=== PATIENT | female | born 1940 | race African-American/Black ===

== ENCOUNTER 2020-09-04 16:39 | Inpatient (IN) | payer MEDICARE, MEDICAID ==
[~2020-09-04] VITALS: Ht 165.1 cm; Wt 66.6 kg
[2020-09-04 16:42] VITALS: BP 145/79
--- NOTE | 2020-09-04 16:42 | NUR ---
ED Nurse Note: Patient from home and brought in by ambulance due to low blood sugar and fever at home. Per EMS, pt's initial BS was 28 and 250ml of D10W was given en route. BS re check went up to 204. Also initial sat at 60 % on RA. Pt is AAO x4, follows commands with mild SOB at rest. Skin is hot to touch. Placed on 4LPm oxygen via NC.
[2020-09-04] MEDS ORDERED: GLIPIZIDE5 MG ORAL (16:44)
[2020-09-04] MEDS ORDERED: AMLODIPINE BES2.5 MG ORAL (16:44)
--- NOTE | 2020-09-04 16:55 | Emergency Room Report ---
History of Present Illness General Chief Complaint: Fever Source: EMS Present Illness HPI 80-year-old female here with hyperglycemia and hypoxia. Patient was reportedly satting at 60% on room air per paramedics. She was placed on 4 L nasal cannula with good resolution of her hypoxia. She was found to be hypoglycemic with a blood glucose of 20. She was given 250 cc of D10W. Repeat blood glucose after 30 minutes was 204. Patient says that she has felt febrile for the past 2 days. No chills, chest pain, palpitations, cough, back pain, abdominal pain, nausea, vomiting, diarrhea, dysuria. Allergies: Coded Allergies: No Known Allergies (Unverified , 09/04/20) COVID-19 Screening Contact w/high risk pt: No Experienced COVID-19 symptoms?: Yes COVID-19 Testing performed POISER BALANCE: No Patient History Last Menstrual Period: na Nursing Documentation-[facility] Past Medical History: No History, Except For Hx Hypertension: Yes Hx Diabetes: Yes Review of Systems All Other Systems: negative except mentioned in HPI Physical Exam Vital Signs Date Time Temp Pulse Resp B/P (MAP) Pulse Ox O2 Delivery O2 Flow Rate FiO2 09/04/20 16:32 102.0 112 14 154/80 (104) 99 Nasal Cannula 4.0 Sp02 EP Interpretation: reviewed, normal General Appearance: no apparent distress, alert, non-toxic Head: normocephalic, atraumatic Eyes: bilateral eye normal inspection, bilateral eye PERRL ENT: hearing grossly normal, normal pharynx, no angioedema, normal voice Neck: full range of motion, supple/symm/no masses Respiratory: chest non-tender, lungs clear, normal breath sounds, speaking full sentences Cardiovascular #1: regular rate, rhythm, no edema Cardiovascular #2: 2+ carotid (R), 2+ carotid (L), 2+ radial (R), 2+ radial (L), 2+ dorsalis pedis (R), 2+ dorsalis pedis (L) Gastrointestinal: normal bowel sounds, non tender, soft, non-distended, no gu arding, no rebound Rectal: deferred Genitourinary: normal inspection, no CVA tenderness Musculoskeletal: back normal, normal range of motion, gait/station normal, non- tender Neurologic: alert, motor strength/tone normal, oriented x3, sensory intact, responsive, speech normal Psychiatric: judgement/insight normal, memory normal, mood/affect normal, no suicidal/homicidal ideation Lymphatic: no adenopathy Medical Decision Making Diagnostic Impression: Primary Impression: Pneumonia Additional Impressions: Hypoxia Hypoglycemia Suspected COVID-19 virus infection FLOWER (acute kidney injury) ER Course CXR: IMPRESSION: Mild opacities within the left greater than right lung bases and periphery of the right midlung may represent an acute infectious/inflammatory process. EKG: NSR, no ischemia, intervals WNL. No ectopy. Rate 104 bpm Rhythm strip: patient monitored for arrhythmias - no malignant dysrhythmias, runs of PVCs, nor pauses noted Laboratory Tests Test 09/04/20 17:00 White Blood Count 11.4 K/UL (4.8-10.8) H Red Blood Count 4.53 M/UL (4.20-5.40) Hemoglobin 12.3 G/DL (12.0-16.0) Hematocrit 37.7 % (37.0-47.0) Mean Corpuscular Volume 83 FL (80-99) Mean Corpuscular Hemoglobin 27.2 PG (27.0-31.0) Mean Corpuscular Hemoglobin Concent 32.7 G/DL (32.0-36.0) Red Cell Distribution Width 14.4 % (11.6-14.8) Platelet Count 143 K/UL (150-450) L Mean Platelet Volume 9.0 FL (6.5-10.1) Neutrophils (%) (Auto) 86.1 % (45.0-75.0) H Lymphocytes (%) (Auto) 8.7 % (20.0-45.0) L Monocytes (%) (Auto) 4.5 % (1.0-10.0) Eosinophils (%) (Auto) 0.0 % (0.0-3.0) Basophils (%) (Auto) 0.7 % (0.0-2.0) Prothrombin Time 11.6 SEC (9.30-11.50) H Prothrombin Time INR 1.1 (0.9-1.1) Activated Partial Thromboplast Time 27 SEC (23-33) D-Dimer 4.30 mg/L FEU (0.00-0.49) H Sodium Level 135 MMOL/L (136-145) L Potassium Level 3.8 MMOL/L (3.5-5.1) Chloride Level 100 MMOL/L (98-107) Carbon Dioxide Level 27 MMOL/L (21-32) Anion Gap 9 mmol/L (5-15) Blood Urea Nitrogen 43 mg/dL (7-18) H Creatinine 2.5 MG/DL (0.55-1.30) H Estimated Glomerular Filtration Rate 22.4 mL/min (>60) Glucose Level 71 MG/DL (74-106) L Lactic Acid Level 2.00 mmol/L (0.4-2.0) Calcium Level 8.6 MG/DL (8.5-10.1) Ferritin 494 NG/ML (8-388) H Total Bilirubin 0.4 MG/DL (0.2-1.0) Aspartate Amino Transferase (AST) 282 U/L (15-37) H Alanine Aminotransferase (ALT) 73 U/L (12-78) Alkaline Phosphatase 50 U/L (46-116) Lactate Dehydrogenase 906 U/L (81-234) H Total Creatine Kinase 56589 U/L (26-308) H Creatine Kinase MB 3.1 NG/ML (0.0-3.6) Creatine Kinase MB Relative Index 0.0 Troponin I 0.427 ng/mL (0.000-0.056) C-Reactive Protein, Quantitative Pending Pro-B-Type Natriuretic Peptide 635 pg/mL (0-125) H Total Protein 7.6 G/DL (6.4-8.2) Albumin 2.6 G/DL (3.4-5.0) L Globulin 5.0 g/dL Albumin/Globulin Ratio 0.5 (1.0-2.7) L Lipase 445 U/L (73-393) H Microbiology Date/Time Source Procedure Growth Status 09/04/20 17:00 Nasopharynx SARS-CoV-2 RdRp Gene Assay - Final Complete 80-year-old female here with hypoxia and hypoglycemia. When EMS arrived patient had a glucose of 20. They gave D10 W and repeat glucose at that time was 210. Glucose here 71. Patient was placed on D10W drip. She was reportedly hypoxic in the 70s at home. She has been doing well on 4 L nasal cannula with oxygen saturation in the high 90s. She does not appear short of breath or have any increased work of breathing. Troponin 0.43. However EKG was unremarkable. Creatinine 2.5, however there are no old labs to compare. Chest x-ray showed bilateral pneumonia. COVID-19 swab rapid antigen was negative however at this may possibly be a false negative. Patient received vancomycin, Zosyn, Decadron, Lovenox, aspirin in the emergency department. To be admitted to telemetry. At one point in her stay the patient became acutely obtunded and began yelling. Her glucose was 71 previously. She was given an amp of D50 and immediately had resolution of her altered mental status. She became more awake and alert and was answering questions appropriately. Several hours later her glucose was 111. D10W rate was increased from 50 to 100 cc/h. Last Vital Signs Date Time Temp Pulse Resp B/P (MAP) Pulse Ox O2 Delivery O2 Flow Rate FiO2 09/04/20 16:32 102.0 112 14 154/80 (104) 99 Nasal Cannula 4.0 Jerad Bill M.D. Sep 04, 2020 16:55
--- NOTE | 2020-09-04 17:20 | NUR ---
ED Nurse Note: Collected blood and covid19 swab then sent.
[2020-09-04 17:37] LABS: HEMATOCRIT 37.7 % (37.0-47.0); HEMOGLOBIN 12.3 G/DL (12.0-16.0); MEAN CORPUSCULAR VOLUME 83 FL (80-99); PLATELET COUNT 143 K/UL (150-450); RED BLOOD COUNT 4.53 M/UL (4.20-5.40); RED CELL DISTRIBUTION WIDTH 14.4 % (11.6-14.8); WHITE BLOOD COUNT 11.4 K/UL (4.8-10.8)
[2020-09-04 17:38] LABS: BASOPHILS % (AUTO) 0.7 % (0.0-2.0); LYMPHOCYTES % (AUTO) 8.7 % (20.0-45.0); MONOCYTES % (AUTO) 4.5 % (1.0-10.0); NEUTROPHILS % (AUTO) 86.1 % (45.0-75.0)
[2020-09-04 17:40] LABS: INR 1.1 (0.9-1.1)
[2020-09-04] MEDS ORDERED: Acetaminophen 500mg (ES) tab ORAL ONE (17:45)
--- NOTE | 2020-09-04 17:50 | Diagnostic Imaging Report ---
EXAM: XR Chest, 1 View CLINICAL HISTORY: SOB TECHNIQUE: Frontal view of the chest. COMPARISON: No relevant prior studies available. FINDINGS: Lungs: There are mild opacities within the left greater than right lung bases and periphery of the right midlung. Pleural space: Unremarkable. No pneumothorax. Heart: Unremarkable. No cardiomegaly. Mediastinum: Unremarkable. Bones/joints: Mild to moderate degenerative changes left glenohumeral joint. IMPRESSION: Mild opacities within the left greater than right lung bases and periphery of the right midlung may represent an acute infectious/inflammatory process.
--- NOTE | 2020-09-04 18:04 | NUR ---
ED Nurse Note: Collected urine specimen then sent.
[2020-09-04 18:09] LABS: CALCIUM 8.6 MG/DL (8.5-10.1); CREATININE 2.5 MG/DL (0.55-1.30); POTASSIUM 3.8 MMOL/L (3.5-5.1)
[2020-09-04] MEDS ORDERED: Aspirin Baby 81mg ORAL ONE (18:15)
[2020-09-04] MEDS ORDERED: Piperacillin/Tazobactam 3.375 GM in NS 110 ML IVPB ONE (18:15)
[2020-09-04] MEDS ORDERED: Vancomycin 1 GM in NS 275 ML IVPB ONE (18:15)
[2020-09-04] MEDS ORDERED: Enoxaparin 60mg Inj SUBQ ONE (18:15)
[2020-09-04 18:22] LABS: ALBUMIN 2.6 G/DL (3.4-5.0); ALBUMIN/GLOBULIN RATIO 0.5 (1.0-2.7); BILIRUBIN,TOTAL 0.4 MG/DL (0.2-1.0); CKMB 3.1 NG/ML (0.0-3.6)
[2020-09-04 19:07] LABS: APPEARANCE,URINE SLIGHTLY CLOUDY; BILIRUBIN, URINE NEGATIVE (NEGATIVE); COLOR,URINE PALE YELLOW; GLUCOSE, URINE (UA) NEGATIVE (NEGATIVE); KETONES,URINE NEGATIVE (NEGATIVE); LEUKOCYTE ESTERASE ,URINE NEGATIVE (NEGATIVE); NITRITE,URINE NEGATIVE (NEGATIVE); PH,URINE 5 (4.5-8.0); PROTEIN,URINE 3+ (NEGATIVE); UROBILINOGEN,URINE NORMAL MG/DL (0.0-1.0)
--- NOTE | 2020-09-04 19:27 | NUR ---
HAND-OFF: Report given to Maya VIVEROS.
--- NOTE | 2020-09-04 19:28 | NUR ---
ED Nurse Note: pt on the bed looking confused , pale skin and low bs. the day shift nurse and I gave the pt D50 right away; and assessed the pt after 10 min. pt answered all the nuero question; name, time,place and purpose. blood suger is 147. Doctor ordered 10% dextrose 50cc/hr. vs; bp 113/68 O2 100% HR 72 RR 22. we will keep monitoring the pt.
[2020-09-04] MEDS: Labetalol 5mg/ml 20ml vial IV ONE (19:30)
[2020-09-04] MEDS: Dextrose 10% 1,000 ML IV SCH ×2 (19:30→19:40)
--- NOTE | 2020-09-04 19:30 | NUR ---
ED Nurse Note: Did not adm bp med b/c pt bp is on normal range.
[2020-09-04 20:00] VITALS: BP 126/65
--- NOTE | 2020-09-04 20:39 | NUR ---
ED Nurse Note: pt bs went down from 142 to 111. Notified the EDMD, he ordered to increase the D5 from 50cc to 100cc. order noted and carried out.
--- NOTE | 2020-09-04 23:10 | NUR ---
TRANSFER TO FLOOR: Patient transferred to [facility] [place] as ordered, per zana. Report given to FELICE spence. All belongings sent with the pt. RN and research food technologist Transferred pt to the floor in stable condition.
--- NOTE | 2020-09-04 23:10 | NUR ---
NURSE NOTES: Patient received from Maya VIVEROS. Brought up by kelly. Alert and oriented x4. No s/s of distress an no complaints of pain. Saturation WNL @ 4L of oxygen via nasal canula. IV site on Left wrist patent and intact running D10W @ 100cc/hr last blood sugar endorsed was 110. Vital Signs WNL. Called Dr. Licona for orders. Awaiting call back. monitor and storage bin tender placed as well as yellow gown and yellow socks. No skin issues noted. Bed in lowest position and locked. Call light and bedside table within reach. oriented to room and use of call light
--- NOTE | 2020-09-05 00:19 | NUR ---
NURSE NOTES: Called Dr. Licona for Admission orders, order as follows: continue oxygen and continue ER orders. Will give admission orders in the morning.
[2020-09-05 04:00] VITALS: BP 141/72
[2020-09-05] MEDS: Dextrose 10% 1,000 ML IV SCH ×2 (07:15→16:15)
--- NOTE | 2020-09-05 07:15 | NUR ---
NURSE HAND-OFF REPORT: Important Events on Shift:[Admission] Patient Status: [FC, A&Ox4] Diet: [CCHO MEDIUM] Pending Orders: [DVT prophylaxis] Pending Results/Labs:[] Pending MD notification:[] Latest Vital Signs: Temperature 98.4 , Pulse 67 , B/P 141 /72 , Respiratory Rate 19 , O2 SAT 97 , Nasal Cannula, O2 Flow Rate 4.0 . Vital Sign Comment: [] EKG Rhythm: Sinus Rhythm Rhythm change?: N MD Notified?: - MD Response: Latest Cotton Fall Score: 30 Fall Risk: Medium Risk Safety Measures: Call light , Bed Alarm Zone 1, Side Rails Side Rails x2, Bed position Low and Locked. Fall Precautions: Yellow Socks Yellow Gown Door Sign Patient Fall Education Report given to [Denis VIVEROS].
--- NOTE | 2020-09-05 07:26 | NUR ---
NURSE NOTES: Patient seen in bed in low fowlers position with no complaints of pain and in no acute signs of distress. The patient is running D10w through their IV site that is patent and in tact. The patient is also on 4L nasal cannula and oxygen saturation within normal limits. The patients bed is set to lowest position, locked, side rails x2, call light within reach, bed alarm in zone 1 and patient education on fall precautions.
--- NOTE | 2020-09-05 07:30 | NUR ---
CASE MANAGEMENT: INITIAL REVIEW 80 YO F BIBA FROM HOME CC: HYPOGLYCEMIA. FEVER. HYPOXIA 60% ON RA PMHx: HTN AND DM SI:HYPOXIA T 102 HR 112 RR 14 B/P 154/80 SATS 99% ON 4L/NC LABS: WBC 11.4 NA 135 BUN 43 CR 2.5 GLU 71 AST 282 [place] [address] [place] [address] TROPONIN 0.427 CRP 12.7 BNP 635 LIPASE 445 IS: NA BOLUS X1 TYLENOL PO X1 ASA PO X1 LABETALOL IV X1 ZOSYN IV X1 VANCO IV X1 PATIENT ADMITTED TO TELE 09/04/2020 @ 1820 DCP: HOME
[2020-09-05 08:00] VITALS: BP 145/68
[2020-09-05] MEDS: GlipiZIDE 5mg tab ORAL SCH ×2 (08:49→17:12)
[2020-09-05] MEDS: cefTRIAXone 1 GM in D5W 55 ML IVPB SCH (08:50)
[2020-09-05 12:00] VITALS: BP 153/77
[2020-09-05 16:00] VITALS: BP 154/76
[2020-09-05] MEDS: Azithromycin 500 MG in D5W 275 ML IV SCH (16:15)
--- NOTE | 2020-09-05 16:45 | History and Physical Report ---
DATE OF ADMISSION: 09/04/2020 HISTORY OF PRESENT ILLNESS: This is an 80-year-old female who came to the emergency room for short of breath, hypoxia, generalized weakness, hypoglycemia, and acute renal failure. The patient has possible suspected COVID-19. Her antibody test is negative, but the patient is still weak, tired. She is on high oxygen . PAST MEDICAL HISTORY: Hypertension and diabetes. MEDICATIONS: Glyburide and Norvasc. ALLERGIES: NKA. FAMILY HISTORY: Noncontributory. SOCIAL HISTORY: Lives with family. Also has dementia. PHYSICAL EXAMINATION: VITAL SIGNS: Blood pressure 153/77, pulse 105, T-max 100.8, pulse ox is 91 on 4 L. HEENT: Eyes are open. NECK: Supple. CHEST: Scattered crackles. CARDIOVASCULAR: Regular rhythm, tachycardia. ABDOMEN: Soft. Positive bowel sounds. EXTREMITIES: No edema. GENITOURINARY: Deferred. LABORATORY DATA: Chemistry, blood glucose was initially 43, now is 122. Hematology, white count 11, hemoglobin 12, hematocrit 37, platelets are 143. Urine has 5+ blood and rbc's 2-4. Urine bacteria moderate. IMAGING: Chest x-ray showing mild opacity within the left greater than right lung bases. Periphery of the right midlung may represent acute infectious, inflammatory process. ASSESSMENT: 1. Pneumonia. Rule out COVID. 2. UTI. 3. Dementia. 4. Anemia. 5. Hypertension. PLAN: We will add Lovenox, Decadron, Zithromax, glipizide, Norvasc, , and sliding scale and Accu-Chek. Consider ID and pulmonary consult. Manny Licona M.D. DR: JULIA JOB#: [id number] CC:
--- NOTE | 2020-09-05 19:17 | NUR ---
NURSE HAND-OFF REPORT: Important Events on Shift:[Hypoglycemia and hypoxia corrected with D10W at 100cc and 10L simple mask] Patient Status: [Full code] Diet: [CCHO medium] Pending Orders: [N/A] Pending Results/Labs:[COVID PCR] Pending MD notification:[N/A] Latest Vital Signs: Temperature 99.8 , Pulse 90 , B/P 154 /76 , Respiratory Rate 24 , O2 SAT 91 , Nasal Cannula, O2 Flow Rate 4.0 . Vital Sign Comment: [] EKG Rhythm: Sinus Rhythm Rhythm change?: N MD Notified?: - MD Response: Latest Cotton Fall Score: 30 Fall Risk: Medium Risk Safety Measures: Call light Within Reach, Bed Alarm Zone 1, Side Rails Side Rails x2, Bed position Low and Locked. Fall Precautions: Yellow Socks Yellow Gown Patient Fall Education Report given to [FELICE VERMA].
--- NOTE | 2020-09-05 19:18 | NUR ---
NURSE NOTES: Received report from Dudley Barrios; AOX3, noted asleep in bed; on O2 therapy simple face mask 10L/min, in no acute distress; denies any pain nor discomfort; PUI awaiting PCR COVID testing result; will monitor for fever d/t per AM shift pt febrile; noted with purewick in place; yellow urine noted; with peripheral IV site on R forearm 24 gauge infusing D5W @ 100cc/hr; will monitor for accuchecks ACHS d/t episodes of hypoglycemia per AM shift; call light within reach; bed locked and in low position; side rails x 2-3; will continue to monitor.
[2020-09-05 20:00] VITALS: BP 154/79
--- NOTE | 2020-09-05 20:30 | Consultation ---
DATE OF CONSULTATION: 09/05/2019 HISTORY OF PRESENT ILLNESS: This is an 80-year-old female who was admitted to the hospital with hypoxia. The patient was markedly hypoxic when paramedics arrived. She was given nasal oxygen. She has also been markedly hypoxic and given dextrose. The patient reports a 2-day history of shortness of breath, chest pain and palpitations. The patient was seen and worked up in the emergency room and admitted to the hospital. Her COVID testing positive initially has been found to be negative. She underwent a chest x-ray, which showed mild opacity in the left greater than right lung base. At this time, the patient does not provide any further information. PAST MEDICAL HISTORY: Hypertension, diabetes mellitus. REVIEW OF SYSTEMS: Denies any headaches, hematemesis, melena, hematochezia, or weight loss. PHYSICAL EXAMINATION: GENERAL: Reveals an 79-year-old female. HEENT: Unremarkable. LUNGS: Clear breath sounds bilaterally. ABDOMEN: Soft. EXTREMITIES: There is no edema. VITAL SIGNS: Blood pressure is 150/70, heart rate is 95, respirations 18, and O2 saturation 91% on 4 liter oxygen. LABORATORY DATA: Lab testing shows white count 11.4, otherwise normal CBC and BMP. Glucose is 122, AST 282, LDH 906[place] [address], troponin 0.42. CRP is 12.7. Sodium 135 and creatinine 2.5. IMPRESSION: 1. Hypoxia. 2. Atelectasis. 3. Possible pneumonia. 4. Negative initial COVID-19 testing. 5. Hyponatremia. 6. Renal failure. 7. Elevated inflammatory markers. 8. Transaminitis. 9. Rhabdomyolysis. 10. Troponin leak. DISCUSSION: Admit to the hospital. The patient will benefit from continuation of her oral hypoglycemics, need fluids, diabetes controlled, and empiric antibiotics. I noticed that she has been started on azithromycin and Rocephin, which is appropriate. Continue Decadron, although her initial COVID testing is negative. Diabetes control. We will follow carefully. Renan Ceron M.D. DR: Placido JOB#: [id number] CC:
[2020-09-06] VITALS: BP 149/65
[2020-09-06] MEDS: Dextrose 10% 1,000 ML IV SCH ×2 (01:56→12:21)
[2020-09-06 04:00] VITALS: BP 158/80
--- NOTE | 2020-09-06 06:17 | NUR ---
NURSE NOTES: Pt npted unable to tolerate O2 therapy via simple mask @ 10L/min around 0500; O2 sat between 86-90%, in no acute distress; O2 therapy increased to 15L/min via simple mask but O2 sat still <90%; Tc RT, made aware to check pt O2 situation; Tc RT, placed pt on non-rebreather mask @ 15L/min FiO2 100% and pt tolerating it with O2 sat 96-100%; charge nurse aware; Contacted DR. Licona to change O2 therapy order to non-rebreather mask @ 15L/min FiO2 100%; awaiting MD response; will endorse to AM shift RN.
--- NOTE | 2020-09-06 07:04 | NUR ---
NURSE NOTES: Per Dr. Licona to call and inform Dr. Ceron.
--- NOTE | 2020-09-06 07:10 | NUR ---
NURSE NOTES: Left message to DR. Ceron to get an order for O2 therapy via non-rebreather mask 15L/min FiO2 100%; will endorse to AM shift RN
--- NOTE | 2020-09-06 07:55 | NUR ---
NURSE HAND-OFF REPORT: Important Events on Shift: Noted with desaturation 86-90% around 0500 on simple face mask @ 10L/min; O2 increased to 15L via facemask but O2 still <90%, Tc RT, made aware and pt placed on non-rebreather for O2 therapy 15L/min FiO2 100%; pt tolerating well with 02 sat 96-100%; Dr. Licona notified along with Dr. Ceron Patient Status: AOX3, stable Diet: CCHO medium Pending Orders: N Pending Results/Labs: N Pending MD notification: Dr. Ceron Latest Vital Signs: Temperature 96.8 , Pulse 93 , B/P 158 /80 , Respiratory Rate 20 , O2 SAT 93 , Nasal Cannula, O2 Flow Rate 10.0 . Vital Sign Comment: within baseline EKG Rhythm: Sinus Rhythm Rhythm change?: N MD Notified?: - MD Response: Latest Cotton Fall Score: 30 Fall Risk: Medium Risk Safety Measures: Call light Within Reach, Bed Alarm Zone 1, Side Rails Side Rails x2, Bed position Low and Locked. Fall Precautions: Yellow Socks Yellow Gown Patient Fall Education Report given to FELICE Bar.
[2020-09-06 08:00] VITALS: BP 162/83
--- NOTE | 2020-09-06 08:05 | NUR ---
NURSE NOTES: Received report from Lisette/RN. Pt is in bed, sleeping in semi-duong position. On non-rebreather mask 15L 100% FiO2, no distress or SOB noted. IV on right FA 24G running D10 water @ 100ml/hr. Bed in the lowest position and locked. Call light within reach, encouraged to use when needed. Side rails up X3. Will continue plan of care.
[2020-09-06] MEDS: dexAMETHasone 10mg/ml Inj IV SCH (08:47)
[2020-09-06] MEDS: GlipiZIDE 5mg tab ORAL SCH ×2 (08:47→17:46)
[2020-09-06] MEDS: cefTRIAXone 1 GM in D5W 55 ML IVPB SCH (08:47)
[2020-09-06] MEDS: Enoxaparin 30mg Inj SUBQ SCH (08:49)
--- NOTE | 2020-09-06 10:08 | NUR ---
NURSE NOTES: Called Dr Licona to let him know that the patient's blood culture came back positive for gram positive cocci in cluster, 3 out of 4 bottles. Waiting for call back.
[2020-09-06 12:00] VITALS: BP 162/78
[2020-09-06] MEDS ORDERED: Vancomycin 1.25gm/250ml Premix IVPB SCH (13:00)
[2020-09-06 14:17] LABS: CREATININE 2.1 MG/DL (0.55-1.30)
--- NOTE | 2020-09-06 14:34 | General Progress Note ---
Subjective Constitutional: Reports: weakness Respiratory: Reports: shortness of breath, SOB with excertion Gastrointestinal/Abdominal: Reports: no symptoms Allergies: Coded Allergies: No Known Allergies (Unverified , 09/04/20) Objective Last 24 Hour Vital Signs Date Time Temp Pulse Resp B/P (MAP) Pulse Ox O2 Delivery O2 Flow Rate FiO2 09/06/20 13:04 101.0 09/06/20 12:00 102.7 102 21 162/78 (106) 98 09/06/20 12:00 98 09/06/20 09:00 Non-Rebreather 15.0 09/06/20 08:47 103 162/83 09/06/20 08:00 103 09/06/20 08:00 99.0 103 21 162/83 (109) 93 09/06/20 04:00 96.8 93 20 158/80 (106) 93 09/06/20 04:00 95 09/06/20 00:00 97.5 84 20 149/65 (93) 95 09/06/20 00:00 81 09/05/20 22:25 97.7 09/05/20 21:00 Simple Mask 10.0 09/05/20 20:00 92 09/05/20 20:00 100.8 95 20 154/79 (104) 93 94 09/05/20 16:00 99.8 95 24 154/76 (102) 91 09/05/20 16:00 90 Intake and Output0 09/05/20 09/06/20 18:59 06:59 Intake Total 1800 ml 100 ml Output Total 600 ml Balance 1800 ml -500 ml Intake Oral 500 ml 100 ml IV Total 1300 ml Output Urine Total 600 ml # Voids 4 1 # Bowel Movements 1 1 Laboratory Tests 09/05/20 18:21: POC Whole Blood Glucose 167H 09/05/20 21:41: POC Whole Blood Glucose 93 09/06/20 13:32: Creatinine 2.1H, Estimat Glomerular Filtration Rate 27.4 Height (Feet): 5 Height (Inches): 5.00 Weight (Pounds): 140 General Appearance: lethargic Neck: supple Cardiovascular: tachycardia Respiratory/Chest: rhonchi - bilaterally Abdomen: non tender, soft Extremities: non-tender Assessment/Plan Assessment/Plan: aloc ac resp failure pna r/ o covid dehyration demtentia anemia check abg dw with pulmonary on 15 litre nrb mask cont iv abx, decadrone , npo, ivf Sravan Licona MD Sep 06, 2020 14:34
[2020-09-06] MEDS: Azithromycin 500 MG in D5W 275 ML IV SCH (15:22)
--- NOTE | 2020-09-06 15:31 | Pulmonology Progress Note ---
Subjective ROS Limited/Unobtainable: No HEENT: Repors: no symptoms Respiratory: Reports: shortness of breath Cardiovascular: Reports: no symptoms Gastrointestinal/Abdominal: Reports: no symptoms Genitourinary: Reports: no symptoms Allergies: Coded Allergies: No Known Allergies (Unverified , 09/04/20) Objective Last 24 Hour Vital Signs Date Time Temp Pulse Resp B/P (MAP) Pulse Ox O2 Delivery O2 Flow Rate FiO2 09/06/20 13:04 101.0 09/06/20 12:00 102.7 102 21 162/78 (106) 98 09/06/20 12:00 98 09/06/20 09:00 Non-Rebreather 15.0 09/06/20 08:47 103 162/83 09/06/20 08:00 103 09/06/20 08:00 99.0 103 21 162/83 (109) 93 09/06/20 04:00 96.8 93 20 158/80 (106) 93 09/06/20 04:00 95 09/06/20 00:00 97.5 84 20 149/65 (93) 95 09/06/20 00:00 81 09/05/20 22:25 97.7 09/05/20 21:00 Simple Mask 10.0 09/05/20 20:00 92 09/05/20 20:00 100.8 95 20 154/79 (104) 93 94 09/05/20 16:00 99.8 95 24 154/76 (102) 91 09/05/20 16:00 90 Intake and Output 09/05/20 09/06/20 19:00 07:00 Intake Total 1700 ml 100 ml Output Total 600 ml Balance 1700 ml -500 ml Intake Oral 500 ml 100 ml IV Total 1200 ml Output Urine Total 600 ml # Voids 4 1 # Bowel Movements 1 1 Objective 09/06 saturating at 91-92% on 15L NRBM HEENT: atraumatic Respiratory: lungs clear Cardiovascular: normal rate, regular rhythm Abdomen: soft, non tender Microbiology Date/Time Source Procedure Growth Status 09/04/20 17:15 Blood Blood Culture - Preliminary Resulted 09/04/20 17:02 Urine,Clean Catch Urine Culture - Preliminary NO GROWTH AFTER 24 HOURS Resulted 09/04/20 17:00 Nasopharynx SARS-CoV-2 RdRp Gene Assay - Final Complete 09/04/20 17:00 Blood Blood Culture - Preliminary Resulted Laboratory Tests 09/05/20 18:21: POC Whole Blood Glucose 167H 09/05/20 21:41: POC Whole Blood Glucose 93 09/06/20 13:32: Creatinine 2.1H, Estimat Glomerular Filtration Rate 27.4 Current Medications Medications (Trade) Dose Ordered Sig/Rebecca Route PRN Reason Start Time Stop Time Status Last Admin Dose Admin Acetaminophen (Tylenol) 650 mg Q4H PRN ORAL Mild Pain (Pain Scale 1-3) 09/05/20 07:15 10/05/20 07:14 09/06/20 12:34 Amlodipine Besylate (Norvasc) 5 mg DAILY ORAL 09/05/20 09:00 10/05/20 08:59 09/06/20 08:47 Azithromycin 500 mg/Dextrose 275 ml @ 275 mls/hr Q24HRS IV 09/05/20 16:00 09/11/20 16:59 09/06/20 15:22 Ceftriaxone Sodium 1 gm/ Dextrose 55 ml @ 110 mls/hr Q24H IVPB 09/05/20 09:00 09/12/20 08:59 09/06/20 08:47 Dexamethasone Sodium Phosphate (Decadron 10mg/ ml Inj) 6 mg DAILY IV 09/06/20 09:00 09/15/20 09:01 09/06/20 08:47 Dextrose 1,000 ml @ 100 mls/hr Q10H IV 09/05/20 05:45 10/05/20 05:44 09/06/20 12:21 Enoxaparin Sodium (Lovenox) 30 mg DAILY SUBQ 09/06/20 09:00 12/05/20 08:59 09/06/20 08:49 Glipizide (Glucotrol) 5 mg BID ORAL 09/05/20 09:00 10/05/20 08:59 09/06/20 08:47 Vancomycin HCl 250 ml @ 166.667 mls/hr ONCE IVPB 09/06/20 13:00 09/06/20 17:00 09/06/20 13:12 Vancomycin HCl (Vanco pharmacy to dose) 1 ea DAILY PRN MISC Per rx protocol 09/06/20 11:15 10/06/20 11:14 Assessment/Plan Assessment/Plan 1. Hypoxia. - on Decadron 2. Atelectasis. 3. Possible pneumonia. - on empiric Abx 4. Negative initial COVID-19 testing. 5. Hyponatremia. 6. Renal failure. 7. Elevated inflammatory markers. 8. Transaminitis. 9. Rhabdomyolysis. 10. Troponin leak. 11. Hyperglycemia - oral hypoglycemics 12. Gram positive bacteremia - started on IV Vanco per ID The care for this patient was discussed with my supervising physician Time spent for this case was approximately 31 minutes Vargas Meng Sep 06, 2020 15:31
[2020-09-06 16:00] VITALS: BP 131/73
--- NOTE | 2020-09-06 16:35 | NUR ---
NURSE NOTES: Called Dr Licona to let him know Pt Blood sugar is 298, pt is on D10 @ 100 ml/hr. ordered to stop the D10, and start 1/2 NS at 75 ml/hr.
--- NOTE | 2020-09-06 19:05 | NUR ---
NURSE NOTES: Received report from FELICE Bar; noted comfortable in bed; arousable; AOX3; On O2 therapy via non-rebreather mask 15L/min FiO2 100%, in no acute distress; on continuous pulse oximetry monitoring with O2 sat @ 95%; with peripheral IV site on R forearm 24 gauge, intact and patent infusing 1/2 NS @ 75cc/hr; accucheck ACHS; will continue to monitor for episodes of fevers; call light within reach; side rails x 2; bed locked and in low position; will continue to monitor.
--- NOTE | 2020-09-06 19:21 | NUR ---
NURSE HAND-OFF REPORT: Important Events on Shift:Pt in non-rebreather mask 15L, 100% Fio2 Patient Status: Stable Diet: CCHO medium Pending Orders: Pending Results/Labs: Pending MD notification: Latest Vital Signs: Temperature 98.6 , Pulse 74 , B/P 131 /73 , Respiratory Rate 20 , O2 SAT 99 , Nasal Cannula, O2 Flow Rate 15.0 . Vital Sign Comment: Stable EKG Rhythm: Sinus Rhythm Rhythm change?: N MD Notified?: - MD Response: Latest Cotton Fall Score: 30 Fall Risk: Medium Risk Safety Measures: Call light Within Reach, Bed Alarm Zone 1, Side Rails Side Rails x2, Bed position Low and Locked. Fall Precautions: Yellow Socks Yellow Gown Patient Fall Education Report given to Lisette/RN.
[2020-09-06 20:00] VITALS: BP 113/74
--- NOTE | 2020-09-06 21:38 | NUR ---
NURSE NOTES: Contacted Dr. Licona regarding blood sugar level 277 mg/dl per accucheck result; pt asymptomatic; charge nurse aware; awaiting MD response.
[2020-09-07] VITALS: BP 158/76
--- NOTE | 2020-09-07 00:30 | NUR ---
NURSE NOTES: Desaturation noted 86-90% despite being on O2 therapy via non-rebreather mask 15L FiO2 100%, pt noted in distress RR=30, Tc, RT, called to check on pt, recommended high-flow O2; pt still AOX3, able to verbalize needs, charge nurse made aware; will contact Dr. Ceron for order and relay change in condition.
--- NOTE | 2020-09-07 01:18 | NUR ---
NURSE NOTES: Called and spoke to Dr. Ceron regarding change in condition for desaturation and relayed RT recommendation for high-flow O2; per Dr. Ceron, ok to place pt on high-flow O2; charge nurse aware; will inform RT.
--- NOTE | 2020-09-07 01:30 | NUR ---
NURSE NOTES: Pt moved to room 217-2 negative pressure room; pt placed on high flow O2 55L FIo2 100%, O2 sat between 84-88%, pt comfortable, sleeping, arousable, and still verbal; charge nurse aware; called and spoke to Dr. Ceron regarding O2 sat results while on high-flow; Dr. Ceron stated, "We have no choice right now, just continue high-flow 55L Fio2 100%." MD made aware that blood gas machine and BIPAP are available; " Dr. Ceron stated, "I know that." Will continue to monitor pt.
[2020-09-07 04:00] VITALS: BP 158/76
--- NOTE | 2020-09-07 04:59 | NUR ---
NURSE NOTES: With new order from Dr. Licona to d/c glipizide and start low dose novolog sliding scale; carried out.
[2020-09-07] MEDS: NovoLOG Insulin Flexpen SUBQ SCH ×4 (06:17→21:00)
[2020-09-07 08:00] VITALS: BP 160/78
--- NOTE | 2020-09-07 08:15 | NUR ---
NURSE HAND-OFF REPORT: Important Events on Shift: O2 desaturation while on non-rebreather 10-15L <90%, RT made aware, ABG machine and BIPAP not available; RT recommended high flow O2; Dr. Ceron aware and ordered high flow O2; RT placed pt on high flow O2 55L FiO2 100%; O2 sat 84-88%; Called DR. Ceron again and relayed O2 sat with high flow O2, per Dr. Ceron to keep pt on high flow O2 and monitor; With low sliding scale Novolog order from Dr. Licona, d/c'd glipizide as ordered Patient Status: AOX3, arousable Diet: CCHO medium Pending Orders: N Pending Results/Labs: PCR covid done 09/05/20 Pending MD notification: N Latest Vital Signs: Temperature 98.1 , Pulse 86 , B/P 158 /76 , Respiratory Rate 20 , O2 SAT 93 , Nasal Cannula, O2 Flow Rate 55.0 . Vital Sign Comment: with episodes of desaturation, on continuous O2 monitoring EKG Rhythm: Sinus Rhythm Rhythm change?: N MD Notified?: - MD Response: Latest Cotton Fall Score: 30 Fall Risk: Medium Risk Safety Measures: Call light Within Reach, Bed Alarm Zone 1, Side Rails Side Rails x2, Bed position Low and Locked. Fall Precautions: Yellow Socks Yellow Gown Patient Fall Education Report given to FELICE Keenan.
--- NOTE | 2020-09-07 08:46 | NUR ---
NURSE NOTES: pt. alert x3, pt awake and talking. Pt on library monitor, no signs of cardiac distress. Bed in lowest position, call light within reach. Will continue to monitor pt. pt starts desating when she eats and moves.
[2020-09-07] MEDS: dexAMETHasone 10mg/ml Inj IV SCH (09:33)
[2020-09-07] MEDS: cefTRIAXone 1 GM in D5W 55 ML IVPB SCH (09:34)
[2020-09-07] MEDS: Enoxaparin 30mg Inj SUBQ SCH (09:36)
--- NOTE | 2020-09-07 10:35 | NUR ---
PT EVALUATION NOTE Patient seen for initial evaluation and treatment initiated. Patient presents with decreased strength and balance which impairs patient's ability to perform mobility tasks safely. Patient requires mod assist for bed mobility and to maintain sitting at the EOB. Patient unable to stand or transfer at this time due to LE weakness. Patient will benefit from skilled inpatient PT intervention to increase strength and postural stability for improved level of functional mobility, safety and activity tolerance. Discharge and DME recommendations to be determined based on patient's progress. Addendum: 09/07/20 at 1313 by DIGNA MEDINA PT Amended: Links added.
--- NOTE | 2020-09-07 10:36 | Pulmonology Progress Note ---
Subjective ROS Limited/Unobtainable: No HEENT: Repors: no symptoms Respiratory: Reports: shortness of breath Cardiovascular: Reports: no symptoms Gastrointestinal/Abdominal: Reports: no symptoms Genitourinary: Reports: no symptoms Allergies: Coded Allergies: No Known Allergies (Unverified , 09/04/20) Objective Last 24 Hour Vital Signs Date Time Temp Pulse Resp B/P (MAP) Pulse Ox O2 Delivery O2 Flow Rate FiO2 09/07/20 09:35 86 160/78 09/07/20 04:00 98.1 89 20 158/76 (103) 93 09/07/20 04:00 86 09/07/20 02:13 88 High Flow 55.0 100 09/07/20 00:00 97.7 97 30 158/76 (103) 88 09/07/20 00:00 97 09/06/20 21:00 Non-Rebreather 15.0 09/06/20 20:00 66 09/06/20 20:00 97.5 71 20 113/74 (87) 95 09/06/20 16:00 74 09/06/20 16:00 98.6 76 20 131/73 (92) 99 09/06/20 13:04 101.0 09/06/20 12:00 102.7 102 21 162/78 (106) 98 09/06/20 12:00 98 Intake and Output 09/06/20 09/07/20 19:00 07:00 Intake Total 535 ml 100 ml Balance 535 ml 100 ml Intake Oral 480 ml 100 ml IV Total 55 ml # Voids 3 2 # Bowel Movements 1 1 Objective 09/07 now on high flow oxygen and NRBM saturating at 92-94% 09/06 saturating at 91-92% on 15L NRBM HEENT: atraumatic Respiratory: lungs clear Cardiovascular: normal rate, regular rhythm Abdomen: soft, non tender Microbiology Date/Time Source Procedure Growth Status 09/04/20 17:15 Blood Blood Culture - Preliminary Staphylococcus Sp Coag Neg Resulted 09/04/20 17:02 Urine,Clean Catch Urine Culture - Final NO GROWTH AFTER 48 HOURS Complete 09/04/20 17:00 Nasopharynx SARS-CoV-2 RdRp Gene Assay - Final Complete 09/04/20 17:00 Blood Blood Culture - Preliminary Staphylococcus Sp Coag Neg Resulted Laboratory Tests 09/06/20 13:32: Creatinine 2.1H, Estimat Glomerular Filtration Rate 27.4 09/06/20 16:26: POC Whole Blood Glucose 298H 09/07/20 06:13: POC Whole Blood Glucose 301H Current Medications Medications (Trade) Dose Ordered Sig/Rebecca Route PRN Reason Start Time Stop Time Status Last Admin Dose Admin Acetaminophen (Tylenol) 650 mg Q4H PRN ORAL Mild Pain (Pain Scale 1-3) 09/05/20 07:15 10/05/20 07:14 09/06/20 12:34 Amlodipine Besylate (Norvasc) 5 mg DAILY ORAL 09/05/20 09:00 10/05/20 08:59 09/07/20 09:35 Azithromycin 500 mg/Dextrose 275 ml @ 275 mls/hr Q24HRS IV 09/05/20 16:00 09/11/20 16:59 09/06/20 15:22 Ceftriaxone Sodium 1 gm/ Dextrose 55 ml @ 110 mls/hr Q24H IVPB 09/05/20 09:00 09/12/20 08:59 09/07/20 09:34 Dexamethasone Sodium Phosphate (Decadron 10mg/ ml Inj) 6 mg DAILY IV 09/06/20 09:00 09/15/20 09:01 09/07/20 09:33 Dextrose (Dextrose 50%) 25 ml Q30M PRN IV Hypoglycemia 09/07/20 05:45 12/06/20 05:44 Dextrose (Dextrose 50%) 50 ml Q30M PRN IV Hypoglycemia 09/07/20 05:45 12/06/20 05:44 Enoxaparin Sodium (Lovenox) 30 mg DAILY SUBQ 09/06/20 09:00 12/05/20 08:59 09/07/20 09:36 Insulin Aspart (NovoLOG) BEFORE MEALS AND HS SUBQ 09/07/20 06:30 12/06/20 06:29 09/07/20 06:17 Sodium Chloride 1,000 ml @ 75 mls/hr [id number] IV 09/06/20 17:00 10/06/20 16:59 09/07/20 06:15 Vancomycin HCl (Vanco pharmacy to dose) 1 ea DAILY PRN MISC Per rx protocol 09/06/20 11:15 10/06/20 11:14 Assessment/Plan Assessment/Plan 1. Hypoxia. - on Decadron (12/3-) 2. Atelectasis. 3. Possible pneumonia. - on empiric Abx 4. Negative initial COVID-19 testing. 5. Hyponatremia. 6. Renal failure. 7. Elevated inflammatory markers. 8. Transaminitis. 9. Rhabdomyolysis. 10. Troponin leak. 11. Hyperglycemia - oral hypoglycemics 12. Gram positive bacteremia - s/p IV Vanco per ID The care for this patient was discussed with my supervising physician Time spent for this case was approximately 31 minutes Vargas Meng Sep 07, 2020 10:36
[2020-09-07 12:00] VITALS: BP 145/73
--- NOTE | 2020-09-07 13:57 | General Progress Note ---
Subjective Constitutional: Reports: weakness HEENT: Reports: no symptoms Cardiovascular: Reports: no symptoms Respiratory: Reports: cough, orthopnea, shortness of breath, SOB with excertion Gastrointestinal/Abdominal: Reports: no symptoms Genitourinary: Reports: no symptoms Neurologic/Psychiatric: Reports: no symptoms Endocrine: Reports: no symptoms Allergies: Coded Allergies: No Known Allergies (Unverified , 09/04/20) Subjective doing ok Objective Last 24 Hour Vital Signs Date Time Temp Pulse Resp B/P (MAP) Pulse Ox O2 Delivery O2 Flow Rate FiO2 09/07/20 09:35 86 160/78 09/07/20 04:00 98.1 89 20 158/76 (103) 93 09/07/20 04:00 86 09/07/20 02:13 88 High Flow 55.0 100 09/07/20 00:00 97.7 97 30 158/76 (103) 88 09/07/20 00:00 97 09/06/20 21:00 Non-Rebreather 15.0 09/06/20 20:00 66 09/06/20 20:00 97.5 71 20 113/74 (87) 95 09/06/20 16:00 74 09/06/20 16:00 98.6 76 20 131/73 (92) 99 Intake and Output 09/06/20 09/07/20 19:00 07:00 Intake Total 535 ml 100 ml Balance 535 ml 100 ml Intake Oral 480 ml 100 ml IV Total 55 ml # Voids 3 2 # Bowel Movements 1 1 Laboratory Tests 09/06/20 16:26: POC Whole Blood Glucose 298H 09/07/20 06:13: POC Whole Blood Glucose 301H Height (Feet): 5 Height (Inches): 5.00 Weight (Pounds): 140 General Appearance: alert EENT: PERRL/EOMI Neck: supple Cardiovascular: regular rhythm Respiratory/Chest: crackles/rales Abdomen: non tender, soft Assessment/Plan Assessment/Plan: aloc ac resp failure pna r/ o covid dehyration demtentia anemia check abg dw with pulmonary on 15 litre nrb mask cont iv abx, decadrone , npo, ivf ng t feeding Sravan Licona MD Sep 07, 2020 13:57
--- NOTE | 2020-09-07 14:30 | NUR ---
CASE MANAGEMENT:REVIEW 09/07/20 SI: HYPOXIA. ACUTE RESPIRATORY FAILURE BACTEREMIA. COVID NEGATIVE 98.1 86 20 158/76 93% ON HIGH FLOW 55L/100% FIO2 GLUCOSE+301 IS: IV AZITHROMYCIN Q24 IV ROCEPHIN Q24 IV DECADRON QD IVF@75/HR NORVASC PO QD LOVENOX SQ QD : TELEMETRY STATUS
[2020-09-07] MEDS ORDERED: 1/2 NS 1000ml IV ONE (14:44)
[2020-09-07 16:00] VITALS: BP 149/75
[2020-09-07] MEDS: Azithromycin 500 MG in D5W 275 ML IV SCH (16:00)
[2020-09-07] MEDS ORDERED: Vancomycin 1gm in D5W 275ml IVPB SCH (17:00)
[2020-09-07 20:00] VITALS: BP 147/77
--- NOTE | 2020-09-07 20:04 | NUR ---
NURSE HAND-OFF REPORT: Important Events on Shift:[]pt keeps taking off high flow mask , pt is now on soft restrains Diet: []ccho med Pending Orders: [] Pending Results/Labs:[] Pending MD notification:[] Latest Vital Signs: Temperature 99.0 , Pulse 89 , B/P 149 /75 , Respiratory Rate 24 , O2 SAT 96 , Nasal Cannula, O2 Flow Rate 55.0 . Vital Sign Comment: [] EKG Rhythm: Sinus Rhythm Rhythm change?: N MD Notified?: - MD Response: Latest Cotton Fall Score: 30 Fall Risk: Medium Risk Safety Measures: Call light Within Reach, Bed Alarm Zone 1, Side Rails Side Rails x2, Bed position Low and Locked. Fall Precautions: y Yellow Socks y Yellow Gown y Patient Fall Education y Report given to []. Adithya/FELICE
--- NOTE | 2020-09-07 20:05 | NUR ---
NURSE NOTES: Received report from Ree VIVEROS. Pt comfortable in bed; arousable; AOX3; On O2 therapy via non-rebreather mask 15L/min FiO2 100%, in no acute distress; on continuous pulse oximetry monitoring with O2 sat @ 95%; with peripheral IV site on R forearm 24 gauge, intact and patent infusing 1/2 NS @ 75; call light within reach; side rails x 2; bed locked and in low position; will continue to monitor.
[2020-09-08] VITALS: BP 145/76
[2020-09-08 04:00] VITALS: BP 139/62
--- NOTE | 2020-09-08 04:00 | Consultation ---
DATE OF CONSULTATION: 09/07/2020 INFECTIOUS DISEASE CONSULTATION PRIMARY ATTENDING PHYSICIAN: Sravan Licona M.D. REASON FOR REQUEST: Pneumonia, sepsis, positive blood culture. HISTORY OF PRESENTING ILLNESS: An 80-year-old female admitted on September 04, 2020 complaining of shortness of breath. She was found to have hypoxemia with O2 saturation below 50%, was hypoglycemic and received 250 mL of D10W before admission. After that, she was hyperglycemic, had borderline leukocytosis of 11.4, fever of 102, and pulse rate of 112. PAST MEDICAL HISTORY: Diabetes and hypertension. ALLERGIES: No known drug allergies. MEDICATIONS: Vancomycin, insulin, dexamethasone, azithromycin, amlodipine, ceftriaxone, Tylenol. SOCIAL HISTORY: . No history of alcohol, drug abuse, or smoking. REVIEW OF SYSTEMS: No fever. No coughing. Has shortness of breath. No diarrhea. PHYSICAL EXAMINATION: VITAL SIGNS: Temperature 98.1, pulse 86, blood pressure 160/78. GENERAL APPEARANCE: Seems to have normal weight. HEENT: Moist mucous membranes. [place] conjunctivae. HEART: Normal rate. LUNGS: Getting oxygen by nonrebreathing mask. ABDOMEN: Soft. Nontender. EXTREMITIES: No edema. . LABORATORY DATA: WBC 11.4, hemoglobin 12.3, hematocrit 37.7, and platelets are 143. Glucose is 301, sodium 135, potassium 3.8, chloride 100, bicarb 27, BUN 43, creatinine 2.5. CK level was 11,420. Troponin was 0.47. Lipase is 445. Blood culture grew coagulase-negative Staph. COVID-19 rapid tests are negative. Urine culture negative. Chest x-ray showed inflammatory process. IMPRESSION: Sepsis with fever and tachycardia at the time of admission, has pneumonia likely COVID19 although rapid test is negative, acute renal failure, rhabdomyolysis, diabetes mellitus.Positive blood culture with Staph coagulase negative, likely contamination. RECOMMENDATIONS: We will discontinue IV vancomycin. We will follow up CBC and BMP. We will follow up lipase level. We will follow up PCR for COVID. I will continue dexamethasone, ceftriaxone, and azithromycin. At the end of my exam, I thank Dr. Licona for involving me in the care of this patient. Willian Banuelos M.D. DR: HOWARD JOB#: [id number] CC: JOSE ROBERTO
[2020-09-08] MEDS: NovoLOG Insulin Flexpen SUBQ SCH ×4 (06:02→21:57)
--- NOTE | 2020-09-08 07:06 | CDS Physician Query ---
Clarification is required for compliance, coding accuracy, and to reflect severity of illness for this patient Dear Dr. Manny Licona M.D. Date: 09/08/2020 CDIS Name: Sagar West 80-year-old female who came to the emergency room for short of breath, hypoxia, generalized weakness, hypoglycemia, and acute renal failure. ASSESSMENT:Pneumonia. Rule out COVID, UTI, Dementia, Anemia, Hypertension. IMPRESSION: Sepsis with fever and tachycardia at the time of admission, has also , has pneumonia , acute renal failure, rhabdomyolysis, diabetes mellitus. Clinical Finding Show: 09/04 09/06 17:00 13:32 Creatinine 2.5 2.1 BUN 43 - GFR 22.4 27.4 Medications: Sodium Chloride 1000ml@75mls/h Please Clarify the type of renal failure below: Etiology [] Acute Renal Failure w/ Tubular Necrosis [] Acute Renal Failure w/ Cortical Necrosis [] Acute Renal Failure w/ Medullary Necrosis [] Acute Renal Failure (unspecified) [] Other: Present on Admission: [] Yes [] No [] Clinically Undetermined Physician signature Date Please also document in your Progress Notes and/or Discharge Summary and indicate if the condition was present on admission. MTDD
--- NOTE | 2020-09-08 07:11 | CDS Physician Query ---
Clarification is required for compliance, coding accuracy, and to reflect severity of illness for this patient Dear Dr. Manny Licona M.D. Date: 09/08/2020 CDIS Name: Sagar West 80-year-old female who came to the emergency room for short of breath, hypoxia, generalized weakness, hypoglycemia, and acute renal failure. ASSESSMENT:Pneumonia. Rule out COVID, UTI, Dementia, Anemia, Hypertension. IMPRESSION: Sepsis with fever and tachycardia at the time of admission, has also , has pneumonia , acute renal failure, rhabdomyolysis, diabetes mellitus. Clinical Finding Show: VITAL SIGNS: Blood pressure 153/77, pulse 105, T-max 100.8, pulse ox is 91 on 4 L. BMI 24.4 Alb 2.6, Ca 8.6 Please select the most appropriate option: [] Protein/Calorie Malnutrition [] Mild [] Moderate [] Severe [] Other [] Unable to determine [] Not Applicable Present on Admission: [] Yes [] No [] Clinically Undetermined Physician signature Date Please also document in your Progress Notes and/or Discharge Summary and indicate if the condition was present on admission. MTDD
--- NOTE | 2020-09-08 07:20 | NUR ---
NURSE HAND-OFF REPORT: Important Events on Shift:[] Patient Status: [STABLE] Diet: [] Pending Orders: [] Pending Results/Labs:[] Pending MD notification:[] Latest Vital Signs: Temperature 98.7 , Pulse 82 , B/P 139 /62 , Respiratory Rate 22 , O2 SAT 92 , Nasal Cannula, O2 Flow Rate 55.0 . Vital Sign Comment: [] EKG Rhythm: Sinus Rhythm Rhythm change?: N MD Notified?: - MD Response: Latest Cotton Fall Score: 30 Fall Risk: Medium Risk Safety Measures: Call light Within Reach, Bed Alarm Zone 1, Side Rails Side Rails x2, Bed position Low and Locked. Fall Precautions: Yellow Socks Yellow Gown Patient Fall Education Report given to [RITA VIVEROS].
--- NOTE | 2020-09-08 07:50 | NUR ---
NURSE NOTES: pt in bed agitated. pt was reposition. [employer] CONSULT[employer] assisted pt to eat. AOx3 pt is able to verbalize needs. pt on monitor and storage bin tender no signs of cardiac or respiratory distress. Bed is in lowest position, call light within reach.
[2020-09-08 07:55] LABS: HEMOGLOBIN 12.7 G/DL (12.0-16.0); MEAN CORPUSCULAR VOLUME 83 FL (80-99); PLATELET COUNT 282 K/UL (150-450); RED BLOOD COUNT 4.59 M/UL (4.20-5.40); RED CELL DISTRIBUTION WIDTH 15.9 % (11.6-14.8)
[2020-09-08 08:00] VITALS: BP 156/70
[2020-09-08 08:24] LABS: CALCIUM 8.5 MG/DL (8.5-10.1); CREATININE 2.4 MG/DL (0.55-1.30); POTASSIUM 5.3 MMOL/L (3.5-5.1)
[2020-09-08 08:25] LABS: WHITE BLOOD COUNT 22.6 K/UL (4.8-10.8)
--- NOTE | 2020-09-08 09:21 | NUR ---
BUCKET CHUCKER NOTE PT provided verbal consent to speak w/ her daughter, Yolanda [phone], also provided consent to release information and list her as an emergency contact. SW requested Admitting Dept [facility][id number] to update the facesheet by fax. SW spoke w/ Yolanda, and obtained information that pt resides alone and does not have a caregiver. Pt was encouraged to use a walker but pt often does not use DME, and has hx of fall. Yolanda wants to get an update on DC plan. Home health vs SNF
[2020-09-08] MEDS: cefTRIAXone 1 GM in D5W 55 ML IVPB SCH (09:33)
[2020-09-08] MEDS: dexAMETHasone 10mg/ml Inj IV SCH (09:34)
[2020-09-08] MEDS: Enoxaparin 30mg Inj SUBQ SCH (09:35)
--- NOTE | 2020-09-08 10:28 | General Progress Note ---
Subjective Allergies: Coded Allergies: No Known Allergies (Unverified , 09/04/20) Subjective doing ok sob ac renal failure Objective Last 24 Hour Vital Signs Date Time Temp Pulse Resp B/P (MAP) Pulse Ox O2 Delivery O2 Flow Rate FiO2 09/08/20 09:32 91 156/70 09/08/20 07:58 92 High Flow 55.0 100 09/08/20 04:00 82 09/08/20 04:00 98.7 92 22 139/62 (87) 92 09/08/20 00:00 76 09/08/20 00:00 98.0 77 22 145/76 (99) 95 09/07/20 23:16 94 High Flow 55.0 100 09/07/20 21:00 Non-Rebreather 15.0 09/07/20 20:00 92 09/07/20 20:00 97.5 88 22 147/77 (100) 93 09/07/20 19:45 96 High Flow 55.0 100 09/07/20 16:00 99.0 85 24 149/75 (99) 92 09/07/20 16:00 89 09/07/20 13:00 99 High Flow 55.0 99 09/07/20 12:00 93 09/07/20 12:00 97.9 92 22 145/73 (97) 94 Intake and Output 09/07/20 09/08/20 19:00 07:00 Intake Total 60 ml Output Total 500 ml Balance 60 ml -500 ml Intake Oral 60 ml Output Urine Total 500 ml # Voids 3 # Bowel Movements 1 1 Laboratory Tests 09/07/20 14:55: Random Vancomycin Level 13.1 09/08/20 07:18: White Blood Count 22.6*H, Red Blood Count 4.59, Hemoglobin 12.7, Hematocrit 38.0, Mean Corpuscular Volume 83, Mean Corpuscular Hemoglobin 27.6, Mean Corpuscular Hemoglobin Concent 33.3, Red Cell Distribution Width 15.9H, Platelet Count 282, Mean Platelet Volume 8.3, Neutrophils (%) (Auto) , Lymphocytes (%) (Auto) , Monocytes (%) (Auto) , Eosinophils (%) (Auto) , Basophils (%) (Auto) , Neutrophils % (Manual) [Pending], Lymphocytes % (Manual) [Pending], Platelet Es timate [Pending], Platelet Morphology [Pending], Sodium Level 131L, Potassium Level 5.3H, Chloride Level 98, Carbon Dioxide Level 20L, Anion Gap 13, Blood Urea Nitrogen 52H, Creatinine 2.4H, Estimat Glomerular Filtration Rate 23.5, Glucose Level 308H, Calcium Level 8.5, Lipase 332 Height (Feet): 5 Height (Inches): 5.00 Weight (Pounds): 140 General Appearance: alert, moderate distress EENT: PERRL/EOMI Neck: supple Cardiovascular: regular rhythm Respiratory/Chest: crackles/rales Abdomen: non tender, soft Extremities: normal range of motion, non-tender Assessment/Plan Assessment/Plan: aloc ac resp failure pna r/ o covid dehyration demtentia anemia leucocytosis due to steroids ac renal failure nephro consult check abg dw with pulmonary on 15 litre nrb mask cont iv abx, Livan butler Rajendra MD Sep 08, 2020 10:28
--- NOTE | 2020-09-08 10:55 | NUR ---
NURSE NOTES: reported latest labs to BYRON Meng, doctor Juan José and Liban Urban.
--- NOTE | 2020-09-08 10:55 | Infectious Diseases Prog Note ---
Assessment/Plan Assessment/Plan IMPRESSION: Sepsis Pneumonia Suspected COVID19 Hypoxic respiratory failure Acute renal failure, Rhabdomyolysis, Diabetes mellitus. Leukocytosis RECOMMENDATIONS: We will follow COVID19 PCR will continue dexamethasone, ceftriaxone, and azithromycin. Subjective ROS Limited/Unobtainable: Yes Constitutional: Denies: fever Neurologic: Reports: confusion, other - on restraint Allergies: Coded Allergies: No Known Allergies (Unverified , 09/04/20) Objective Last 24 Hour Vital Signs Date Time Temp Pulse Resp B/P (MAP) Pulse Ox O2 Delivery O2 Flow Rate FiO2 09/08/20 09:32 91 156/70 09/08/20 07:58 92 High Flow 55.0 100 09/08/20 04:00 82 09/08/20 04:00 98.7 92 22 139/62 (87) 92 09/08/20 00:00 76 09/08/20 00:00 98.0 77 22 145/76 (99) 95 09/07/20 23:16 94 High Flow 55.0 100 09/07/20 21:00 Non-Rebreather 15.0 09/07/20 20:00 92 09/07/20 20:00 97.5 88 22 147/77 (100) 93 09/07/20 19:45 96 High Flow 55.0 100 09/07/20 16:00 99.0 85 24 149/75 (99) 92 09/07/20 16:00 89 09/07/20 13:00 99 High Flow 55.0 99 09/07/20 12:00 93 09/07/20 12:00 97.9 92 22 145/73 (97) 94 Height (Feet): 5 Height (Inches): 5.00 Weight (Pounds): 140 HEENT: mucous membranes moist Respiratory/Chest: rhonchi - bilaterally, other - oxygen by high flow nasal cannula & rebreathing mask Cardiovascular: normal rate Abdomen: soft, non tender Extremities: no edema Neurologic/Psychiatric: disoriented Laboratory Tests Test 09/07/20 14:55 09/08/20 07:18 Random Vancomycin Level 13.1 ug/mL White Blood Count 22.6 K/UL (4.8-10.8) *H Red Blood Count 4.59 M/UL (4.20-5.40) Hemoglobin 12.7 G/DL (12.0-16.0) Hematocrit 38.0 % (37.0-47.0) Mean Corpuscular Volume 83 FL (80-99) Mean Corpuscular Hemoglobin 27.6 PG (27.0-31.0) Mean Corpuscular Hemoglobin Concent 33.3 G/DL (32.0-36.0) Red Cell Distribution Width 15.9 % (11.6-14.8) H Platelet Count 282 K/UL (150-450) Mean Platelet Volume 8.3 FL (6.5-10.1) Neutrophils (%) (Auto) % (45.0-75.0) Lymphocytes (%) (Auto) % (20.0-45.0) Monocytes (%) (Auto) % (1.0-10.0) Eosinophils (%) (Auto) % (0.0-3.0) Basophils (%) (Auto) % (0.0-2.0) Neutrophils % (Manual) Pending Lymphocytes % (Manual) Pending Platelet Estimate Pending Platelet Morphology Pending Sodium Level 131 MMOL/L (136-145) L Potassium Level 5.3 MMOL/L (3.5-5.1) H Chloride Level 98 MMOL/L (98-107) Carbon Dioxide Level 20 MMOL/L (21-32) L Anion Gap 13 mmol/L (5-15) Blood Urea Nitrogen 52 mg/dL (7-18) H Creatinine 2.4 MG/DL (0.55-1.30) H Estimat Glomerular Filtration Rate 23.5 mL/min (>60) Glucose Level 308 MG/DL (74-106) H Calcium Level 8.5 MG/DL (8.5-10.1) Lipase 332 U/L (73-393) Current Medications Medications (Trade) Dose Ordered Sig/Rebecca Route PRN Reason Start Time Stop Time Status Last Admin Dose Admin Acetaminophen (Tylenol) 650 mg Q4H PRN ORAL Mild Pain (Pain Scale 1-3) 09/05/20 07:15 10/05/20 07:14 09/06/20 12:34 Amlodipine Besylate (Norvasc) 5 mg DAILY ORAL 09/05/20 09:00 10/05/20 08:59 09/08/20 09:32 Azithromycin 500 mg/Dextrose 275 ml @ 275 mls/hr Q24HRS IV 09/05/20 16:00 09/11/20 16:59 09/07/20 16:00 Ceftriaxone Sodium 1 gm/ Dextrose 55 ml @ 110 mls/hr Q24H IVPB 09/05/20 09:00 09/12/20 08:59 09/08/20 09:33 Dexamethasone Sodium Phosphate (Decadron 10mg/ ml Inj) 6 mg DAILY IV 09/06/20 09:00 09/15/20 09:01 09/08/20 09:34 Dextrose (Dextrose 50%) 25 ml Q30M PRN IV Hypoglycemia 09/07/20 05:45 12/06/20 05:44 Dextrose (Dextrose 50%) 50 ml Q30M PRN IV Hypoglycemia 09/07/20 05:45 12/06/20 05:44 Enoxaparin Sodium (Lovenox) 30 mg DAILY SUBQ 09/06/20 09:00 12/05/20 08:59 09/08/20 09:35 Insulin Aspart (NovoLOG) BEFORE MEALS AND HS SUBQ 09/07/20 06:30 12/06/20 06:29 09/08/20 06:02 Sodium Chloride 1,000 ml @ 75 mls/hr [id number] IV 09/06/20 17:00 10/06/20 16:59 09/07/20 19:40 Willian Banuelos MD Sep 08, 2020 10:55
[2020-09-08 12:00] VITALS: BP 150/80
--- NOTE | 2020-09-08 12:37 | NUR ---
RADIOLOGY DEPT., CHEST X-RAY DONE.-P.DYE
--- NOTE | 2020-09-08 13:49 | Diagnostic Imaging Report ---
Indication: Shortness of breath Technique: One view of the chest Comparison: 09/04/2020 Findings: Interval marked worsening of bilateral infiltrates, particularly in the right upper lobe and left lung base. Pleural spaces remain clear. The heart is borderline enlarged. Impression: Considerable worsening of bilateral infiltrates, over 4 days
[2020-09-08] MEDS ORDERED: WOMEN'S 50 PLU1 EACH PO (15:28)
[2020-09-08 16:00] VITALS: BP 145/93
[2020-09-08] MEDS: Azithromycin 500 MG in D5W 275 ML IV SCH (17:17)
--- NOTE | 2020-09-08 19:30 | NUR ---
NURSE NOTES: Received pt and report from FELICE Keenan. Observed pt resting in bed with both eyes closed; arousable to voice. Pt is A/Ox2-3, drowsy, but arousable. 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 IV site intact, asymptomatic, and patent running 1/2 @75cc/hr. Pt is on BiPAP 20/6, FiO2 100%; sating at 98%. Bed is in the lowest position and locked. Call light and bedside table is within reach. No signs/symptoms of acute distress noted. Will continue plan care.
[2020-09-08 20:00] VITALS: BP 134/70
--- NOTE | 2020-09-08 20:23 | NUR ---
NURSE HAND-OFF REPORT: Important Events on Shift:[]pt on restrains, still able to some how remove her mask off. This was communicated to family [employer]. pt is covid positive notified primary. Patient Status: []full code Diet: []ccho med. pt has been eating very little, pt has been kept hydrated and given juice and water Pending Orders: [] Pending Results/Labs:[] Pending MD notification:[] Latest Vital Signs: Temperature 96.6 , Pulse 67 , B/P 145 /93 , Respiratory Rate 34 , O2 SAT 98 , Nasal Cannula, O2 Flow Rate 55.0 . Vital Sign Comment: [] EKG Rhythm: Sinus Rhythm Rhythm change?: N MD Notified?: - MD Response: Latest Cotton Fall Score: 30 Fall Risk: Medium Risk Safety Measures: Call light Within Reach, Bed Alarm Zone 1, Side Rails Side Rails x3, Bed position Low and Locked. Fall Precautions: y Yellow Socks y Yellow Gown y Patient Fall Education Report given to []. Aleshia/RN
[2020-09-09] VITALS (7 sets, daily range): BP systolic 130–150; BP diastolic 64–85
--- NOTE | 2020-09-09 01:27 | NUR ---
NURSE NOTES: Pt is asleep and continues on BiPAP 20/6, FiO2 100%; sating at 100%. No acute distress noted. Will continue plan of care.
[2020-09-09] MEDS: NovoLOG Insulin Flexpen SUBQ SCH ×4 (06:13→21:34)
--- NOTE | 2020-09-09 07:14 | NUR ---
NURSE NOTES: Pt received from Aleshia VIVEROS. pt in bed sleeping. Bipap in place. o2 sat at 94%. breathing unlabored. restraints in place. pulses present and palpable no redness or swelling noted. No distress noted. Bed low and locked. call light within reach.
--- NOTE | 2020-09-09 07:20 | NUR ---
NURSE HAND-OFF REPORT: Important Events on Shift: Pt continues to be on BiPAP 20/6, FiO2 100%; sating at 95-100%. Pt is a bit more alert when questions are asked. Pt can follow simple directions. Patient Status: On-going Diet: CCHO (M) Pending Orders: N Pending Results/Labs: N Pending MD notification: N Latest Vital Signs: Temperature 96.8 , Pulse 59 , B/P 150 /68 , Respiratory Rate 24 , O2 SAT 94 , Nasal Cannula, O2 Flow Rate 55.0 . EKG Rhythm: Sinus Bradycardia Rhythm change?: N Latest Cotton Fall Score: 45 Fall Risk: High Risk Safety Measures: Call light Within Reach, Bed Alarm Zone 1, Side Rails Side Rails x3, Bed position Low and Locked. Fall Precautions: Yellow Socks Yellow Gown Door Sign Patient Fall Education Report given to FELICE Castillo.
--- NOTE | 2020-09-09 08:35 | NUR ---
RESPIRATORY NOTE: Pt currently on bipap 20/ R 14 90%. Bipap not currently connected on a red outlet. RN Anna made aware. Waiting to transfer.
[2020-09-09] MEDS: cefTRIAXone 1 GM in D5W 55 ML IVPB SCH (09:35)
[2020-09-09] MEDS: dexAMETHasone 10mg/ml Inj IV SCH (09:35)
[2020-09-09] MEDS: Enoxaparin 30mg Inj SUBQ SCH (09:36)
--- NOTE | 2020-09-09 10:00 | NUR ---
NURSE NOTES: Pt not swallowing well, likely did not get full amlodapine dose, will ask Dr. Feng for PRN IV BP medication.
--- NOTE | 2020-09-09 10:06 | Pulmonology Progress Note ---
Subjective ROS Limited/Unobtainable: Yes Interval Events: remains on BiPAP Constitutional: Denies: fever HEENT: Repors: no symptoms Respiratory: Reports: shortness of breath Cardiovascular: Reports: no symptoms Gastrointestinal/Abdominal: Reports: no symptoms Genitourinary: Reports: no symptoms Allergies: Coded Allergies: No Known Allergies (Unverified , 09/04/20) Objective Last 24 Hour Vital Signs Date Time Temp Pulse Resp B/P (MAP) Pulse Ox O2 Delivery O2 Flow Rate FiO2 09/09/20 09:00 Bi-pap 15.0 09/09/20 08:00 66 09/09/20 08:00 98.2 68 30 130/64 (86) 100 09/09/20 04:00 59 09/09/20 04:00 96.8 67 24 150/68 (95) 94 09/09/20 02:31 59 27 94 100 09/09/20 00:00 70 09/09/20 00:00 96.7 79 23 143/70 (94) 96 09/08/20 23:20 68 36 95 100 09/08/20 21:00 Bi-pap 09/08/20 20:00 97.7 61 22 134/70 (91) 100 09/08/20 20:00 87 09/08/20 19:29 67 34 98 100 09/08/20 19:29 98 Bi-Pap 100 09/08/20 16:00 73 09/08/20 16:00 96.6 91 20 145/93 (110) 98 09/08/20 15:33 72 35 100 Bi-Pap 100 09/08/20 15:33 72 35 100 100 09/08/20 13:45 80 38 96 100 09/08/20 13:06 90 High Flow 55.0 100 09/08/20 12:00 83 09/08/20 12:00 98.9 86 22 150/80 (103) 96 Intake and Output 09/08/20 09/09/20 19:00 07:00 Intake Total 315 ml 975 ml Output Total 500 ml Balance -185 ml 975 ml Intake Oral 240 ml 150 ml IV Total 75 ml 825 ml Output Urine Total 500 ml # Voids 2 # Bowel Movements 1 Objective 09/08 now on BiPAP saturating at 96% 09/07 now on high flow oxygen and NRBM saturating at 92-94% 09/06 saturating at 91-92% on 15L NRBM HEENT: atraumatic Respiratory: lungs clear Cardiovascular: normal rate, regular rhythm Abdomen: soft, non tender Laboratory Tests 09/08/20 12:03: Arterial Blood pH 7.349L, Arterial Blood Partial Pressure CO2 42.5, Arterial Blood Partial Pressure O2 49.1*L, Arterial Blood HCO3 22.9, Arterial Blood Oxygen Saturation 85.0*L, Arterial Blood Base Excess -2.7L, Efraín Test Positive 09/08/20 13:46: POC Whole Blood Glucose [Pending] 09/08/20 21:08: Arterial Blood pH 7.308L, Arterial Blood Partial Pressure CO2 45.5H, Arterial Blood Partial Pressure O2 74.8L, Arterial Blood HCO3 22.0, Arterial Blood Oxygen Saturation 93.2L, Arterial Blood Base Excess -4.3L, Efraín Test Positive 09/09/20 05:13: POC Whole Blood Glucose 183H Current Medications Medications (Trade) Dose Ordered Sig/Rebecca Route PRN Reason Start Time Stop Time Status Last Admin Dose Admin Acetaminophen (Tylenol) 650 mg Q4H PRN ORAL Mild Pain (Pain Scale 1-3) 09/05/20 07:15 10/05/20 07:14 09/06/20 12:34 Amlodipine Besylate (Norvasc) 5 mg DAILY ORAL 09/05/20 09:00 10/05/20 08:59 09/08/20 09:32 Azithromycin 500 mg/Dextrose 275 ml @ 275 mls/hr Q24HRS IV 09/05/20 16:00 09/11/20 16:59 09/08/20 17:17 Ceftriaxone Sodium 1 gm/ Dextrose 55 ml @ 110 mls/hr Q24H IVPB 09/05/20 09:00 09/12/20 08:59 09/09/20 09:35 Dexamethasone Sodium Phosphate (Decadron 10mg/ ml Inj) 6 mg DAILY IV 09/06/20 09:00 09/15/20 09:01 09/09/20 09:35 Dextrose (Dextrose 50%) 25 ml Q30M PRN IV Hypoglycemia 09/07/20 05:45 12/06/20 05:44 Dextrose (Dextrose 50%) 50 ml Q30M PRN IV Hypoglycemia 09/07/20 05:45 12/06/20 05:44 Enoxaparin Sodium (Lovenox) 30 mg DAILY SUBQ 09/06/20 09:00 12/05/20 08:59 09/09/20 09:36 Insulin Aspart (NovoLOG) BEFORE MEALS AND HS SUBQ 09/07/20 06:30 12/06/20 06:29 09/09/20 06:13 Sodium Chloride 1,000 ml @ 75 mls/hr [id number] IV 09/06/20 17:00 10/06/20 16:59 09/08/20 22:44 Assessment/Plan Assessment/Plan 1. Hypoxia. - on Decadron (08/06-) - Currently on BiPAP saturating at 96% - ABG slightly better - awaiting transfer to [facility] 2. Atelectasis. 3. Possible pneumonia. - on empiric Abx 4. Negative initial COVID-19 testing; however, PCR positive 09/05/2020 5. Hyponatremia. 6. Renal failure. 7. Elevated inflammatory markers. 8. Transaminitis. 9. Rhabdomyolysis. 10. Troponin leak. 11. Hyperglycemia - oral hypoglycemics 12. Gram positive bacteremia - s/p IV Vanco per ID seen in tele, pending transfer to [facility] The care for this patient was discussed with my supervising physician Time spent for this case was approximately 31 minutes Vargas Meng Sep 09, 2020 10:06
--- NOTE | 2020-09-09 14:09 | Infectious Diseases Prog Note ---
Assessment/Plan Assessment/Plan IMPRESSION: Sepsis Pneumonia with COVID19 Hypoxic respiratory failure Acute renal failure, Rhabdomyolysis, Diabetes mellitus. Leukocytosis RECOMMENDATIONS: will continue dexamethasone, ceftriaxone, and azithromycin. f/u CBC Poor prognosis Subjective ROS Limited/Unobtainable: Yes Neurologic: Reports: confusion, other - on restraint Allergies: Coded Allergies: No Known Allergies (Unverified , 09/04/20) Objective Last 24 Hour Vital Signs Date Time Temp Pulse Resp B/P (MAP) Pulse Ox O2 Delivery O2 Flow Rate FiO2 09/09/20 12:00 71 09/09/20 12:00 98.1 76 32 143/76 (98) 100 09/09/20 11:06 66 130/64 09/09/20 09:00 Bi-pap 15.0 09/09/20 08:00 66 09/09/20 08:00 98.2 68 30 130/64 (86) 100 09/09/20 04:00 59 09/09/20 04:00 96.8 67 24 150/68 (95) 94 09/09/20 02:31 59 27 94 100 09/09/20 00:00 70 09/09/20 00:00 96.7 79 23 143/70 (94) 96 09/08/20 23:20 68 36 95 100 09/08/20 21:00 Bi-pap 09/08/20 20:00 97.7 61 22 134/70 (91) 100 09/08/20 20:00 87 09/08/20 19:29 67 34 98 100 09/08/20 19:29 98 Bi-Pap 100 09/08/20 16:00 73 09/08/20 16:00 96.6 91 20 145/93 (110) 98 09/08/20 15:33 72 35 100 Bi-Pap 100 09/08/20 15:33 72 35 100 100 Height (Feet): 5 Height (Inches): 5.00 Weight (Pounds): 140 HEENT: mucous membranes moist Respiratory/Chest: respiratory distress, other - on BIPAP Cardiovascular: normal rate Abdomen: soft, non tender Extremities: no edema Neurologic/Psychiatric: unresponsiveness Laboratory Tests Test 09/08/20 21:08 09/09/20 05:13 Arterial Blood pH 7.308 (7.350-7.450) Arterial Blood Partial Pressure CO2 45.5 mmHg (35.0-45.0) H Arterial Blood Partial Pressure O2 74.8 mmHg (75.0-100.0) L Arterial Blood HCO3 22.0 mmol/L (22.0-26.0) Arterial Blood Oxygen Saturation 93.2 % (95-100) L Arterial Blood Base Excess -4.3 (-2-2) L Efraín Test Positive POC Whole Blood Glucose 183 MG/DL (74-106) H Current Medications Medications (Trade) Dose Ordered Sig/Rebecca Route PRN Reason Start Time Stop Time Status Last Admin Dose Admin Acetaminophen (Tylenol) 650 mg Q4H PRN ORAL Mild Pain (Pain Scale 1-3) 09/05/20 07:15 10/05/20 07:14 09/06/20 12:34 Amlodipine Besylate (Norvasc) 5 mg DAILY ORAL 09/05/20 09:00 10/05/20 08:59 09/09/20 11:06 Azithromycin 500 mg/Dextrose 275 ml @ 275 mls/hr Q24HRS IV 09/05/20 16:00 09/11/20 16:59 09/08/20 17:17 Ceftriaxone Sodium 1 gm/ Dextrose 55 ml @ 110 mls/hr Q24H IVPB 09/05/20 09:00 09/12/20 08:59 09/09/20 09:35 Dexamethasone Sodium Phosphate (Decadron 10mg/ ml Inj) 6 mg DAILY IV 09/06/20 09:00 09/15/20 09:01 09/09/20 09:35 Dextrose (Dextrose 50%) 25 ml Q30M PRN IV Hypoglycemia 09/07/20 05:45 12/06/20 05:44 Dextrose (Dextrose 50%) 50 ml Q30M PRN IV Hypoglycemia 09/07/20 05:45 12/06/20 05:44 Enoxaparin Sodium (Lovenox) 30 mg DAILY SUBQ 09/06/20 09:00 12/05/20 08:59 09/09/20 09:36 Insulin Aspart (NovoLOG) BEFORE MEALS AND HS SUBQ 09/07/20 06:30 12/06/20 06:29 09/09/20 11:49 Sodium Chloride 1,000 ml @ 75 mls/hr [id number] IV 09/06/20 17:00 10/06/20 16:59 09/09/20 11:48 Willian Banuelos MD Sep 09, 2020 14:09
[2020-09-09] MEDS: Azithromycin 500 MG in D5W 275 ML IV SCH (15:33)
--- NOTE | 2020-09-09 16:21 | NUR ---
CASE MANAGEMENT:REVIEW 09/09/20 SI: HYPOXIA. ACUTE RESPIRATORY FAILURE BACTEREMIA. COVID POSITIVE 98.1 76 32 143/76 100% ON BIPAP 15L/90% IS: IV AZITHROMYCIN Q24 IV ROCEPHIN Q24 IV DECADRON QD IVF@75/HR NORVASC PO QD LOVENOX SQ QD : TELEMETRY STATUS DCP: FROM HOME
--- NOTE | 2020-09-09 16:58 | General Progress Note ---
Subjective Allergies: Coded Allergies: No Known Allergies (Unverified , 09/04/20) Subjective lethargic on bipap ac renal failure waiting for transfer to [facility] Objective Last 24 Hour Vital Signs Date Time Temp Pulse Resp B/P (MAP) Pulse Ox O2 Delivery O2 Flow Rate FiO2 09/09/20 16:00 98.2 73 32 141/70 (93) 99 09/09/20 16:00 70 09/09/20 12:00 71 09/09/20 12:00 98.1 76 32 143/76 (98) 100 09/09/20 11:06 66 130/64 09/09/20 09:00 Bi-pap 15.0 09/09/20 08:35 76 36 99 90 09/09/20 08:00 66 09/09/20 08:00 98.2 68 30 130/64 (86) 100 09/09/20 04:00 59 09/09/20 04:00 96.8 67 24 150/68 (95) 94 09/09/20 02:31 59 27 94 100 09/09/20 00:00 70 09/09/20 00:00 96.7 79 23 143/70 (94) 96 09/08/20 23:20 68 36 95 100 09/08/20 21:00 Bi-pap 09/08/20 20:00 97.7 61 22 134/70 (91) 100 09/08/20 20:00 87 09/08/20 19:29 67 34 98 100 09/08/20 19:29 98 Bi-Pap 100 Intake and Output 09/08/20 09/09/20 19:00 07:00 Intake Total 315 ml 975 ml Output Total 500 ml Balance -185 ml 975 ml Intake Oral 240 ml 150 ml IV Total 75 ml 825 ml Output Urine Total 500 ml # Voids 2 # Bowel Movements 1 Laboratory Tests 09/08/20 21:08: Arterial Blood pH 7.308L, Arterial Blood Partial Pressure CO2 45.5H, Arterial Blood Partial Pressure O2 74.8L, Arterial Blood HCO3 22.0, Arterial Blood Oxygen Saturation 93.2L, Arterial Blood Base Excess -4.3L, Efraín Test Positive 09/09/20 05:13: POC Whole Blood Glucose 183H Height (Feet): 5 Height (Inches): 5.00 Weight (Pounds): 140 General Appearance: lethargic Cardiovascular: regular rhythm Respiratory/Chest: rhonchi - bilaterally Abdomen: non tender, soft Extremities: non-tender Assessment/Plan Assessment/Plan: aloc ac resp failure pna r/ o covid worse dehyration demtentia anemia leucocytosis due to steroids ac renal failure nephro consult check abg dw with pulmonary on cont bipap cont iv abx, Livan butler Rajendra MD Sep 09, 2020 16:58
[2020-09-09] MEDS ORDERED: Fleet's Enema 133ml RECTAL SCH (19:00)
--- NOTE | 2020-09-09 19:25 | NUR ---
NURSE HAND-OFF REPORT: Important Events on Shift:[Pt to be moved to SDU, awating available bed. no remarkable events. fleet enema given since no BM since . Dr mcallister notified about elevated K and Bun and creatinine NNO] Patient Status: [Full code] Diet: [CCHO med, however on Bipap, npo since she is aspiration risk] Pending Orders: [] Pending Results/Labs:[] Pending MD notification:[Please askl Dr. mcallister for PRN iv bp medication] Latest Vital Signs: Temperature 98.2 , Pulse 70 , B/P 141 /70 , Respiratory Rate 32 , O2 SAT 99 , Nasal Cannula, O2 Flow Rate 15.0 . Vital Sign Comment: [] EKG Rhythm: Sinus Rhythm Rhythm change?: N MD Notified?: - MD Response: Latest Cotton Fall Score: 45 Fall Risk: High Risk Safety Measures: Call light Within Reach, Bed Alarm Zone 1, Side Rails Side Rails x3, Bed position Low and Locked. Fall Precautions: Yellow Socks Yellow Gown Door Sign Patient Fall Education Report given to [Michele VIVEROS].
--- NOTE | 2020-09-09 19:30 | NUR ---
NURSE NOTES: Received report from FELICE Castillo.Pt in bed asleep, arousable. Pt is A/Ox2-3, responds to verbal & tactile stimuli.On BiPAP 20/6, sating at 99-100%. monitor and storage bin tender is in place. IV site in place & patent on right FA running 1/2 NS at 75cc. Bilateral soft wrist restraints in place, no s/s swelling, no skin breakdown noted. Bed is in the lowest position and locked. Bed alarm on. Pt has order to transfer to SDU waiting for available bed. Will continue plan care.
--- NOTE | 2020-09-09 19:36 | Cardiology Report ---
APPROVED REPORT EKG Measurement Heart [id number] ME [id number] <Conclusion> Sinus tachycardia with premature atrial complexes with aberrant conduction Cannot rule out Anterior infarct, age undetermined Abnormal ECG
--- NOTE | 2020-09-09 20:35 | NUR ---
NURSE NOTES: Pt transferred to SDU with RT. Report given to FELICE Vidales. All belongings taken with pt.
--- NOTE | 2020-09-09 20:40 | NUR ---
NURSE NOTES: Received report from FELICE Chery. Pt is A/O x1-2 and arousable, responds to verbal & tactile stimuli. On BiPAP 20/6, sating at 98%. child monitor is in place which is showing NSR. Pt has an IV site on RFA 22G which is running 1/2 NS at 75cc/hr. Bilateral soft wrist restraints in place for safety precautions and no swelling or skin breakdown noted. Bed is in the lowest position and locked with side rails x2 and bed alarm on. Will continue plan care.
[2020-09-10] VITALS: BP 136/60
--- NOTE | 2020-09-10 | NUR ---
NURSE NOTES: Oral care preformed for pt. Bipap removed and then returned with saturation staying at a stable position. Changed all bed linens for pt and additionally added a extra blanket.
[2020-09-10 04:00] VITALS: BP 121/65
[2020-09-10] MEDS: NovoLOG Insulin Flexpen SUBQ SCH ×4 (05:57→20:51)
[2020-09-10 06:46] LABS: CALCIUM 8.5 MG/DL (8.5-10.1); CREATININE 2.7 MG/DL (0.55-1.30); POTASSIUM 4.4 MMOL/L (3.5-5.1)
--- NOTE | 2020-09-10 06:47 | NUR ---
NURSE NOTES: Received a call from Dr. Licona regarding adding a card game operator to the case Dr. Smith. Left a voicemail at his office regarding the new consult.
[2020-09-10 06:54] LABS: HEMATOCRIT 29.1 % (37.0-47.0); HEMOGLOBIN 9.5 G/DL (12.0-16.0); MEAN CORPUSCULAR VOLUME 85 FL (80-99); PLATELET COUNT 291 K/UL (150-450); RED BLOOD COUNT 3.42 M/UL (4.20-5.40); RED CELL DISTRIBUTION WIDTH 14.4 % (11.6-14.8); WHITE BLOOD COUNT 15.8 K/UL (4.8-10.8)
--- NOTE | 2020-09-10 07:31 | NUR ---
NURSE HAND-OFF REPORT: Important Events on Shift: Bradycardia to [address] Smith added to consult. Patient Status: Stable while awake Diet: CCHO Med Pending Orders: Pending Results/Labs: Pending MD notification: Latest Vital Signs: Temperature 99.0 , Pulse 60 , B/P 121 /65 , Respiratory Rate 24 , O2 SAT 99 , Nasal Cannula, O2 Flow Rate 15.0 . Vital Sign Comment: EKG Rhythm: Sinus Rhythm Rhythm change?: N MD Notified?: - MD Response: Latest Cotton Fall Score: 45 Fall Risk: High Risk Safety Measures: Call light Within Reach, Bed Alarm Zone 1, Side Rails Side Rails x3, Bed position Low and Locked. Fall Precautions: Yellow Socks Yellow Gown Door Sign Patient Fall Education Report given to Sandy.
--- NOTE | 2020-09-10 07:32 | NUR ---
NURSE NOTES: Received patient in bed asleep. Bipap in place. IV line intact and patent. HOB elevated. Bed locked in low position. Call light within reach. Will continue plan of care. Addendum: 09/10/20 at 1525 by Sandy Giles RN NURSE NOTES: Bilateral soft wrist restraints in place. Peripheral pulses palpable, no skin issues on sites.
[2020-09-10 08:00] VITALS: BP 117/44
[2020-09-10] MEDS: cefTRIAXone 1 GM in D5W 55 ML IVPB SCH (08:50)
[2020-09-10] MEDS: dexAMETHasone 10mg/ml Inj IV SCH (08:53)
--- NOTE | 2020-09-10 08:55 | NUR ---
PT DISCHARGE NOTE Patient transferred to SDU, will discharge patient from PT due to decline in medical status. PT can be resumed per MD order when patient more appropriate medically for treatment, Sandy RN notified.
[2020-09-10] MEDS: Enoxaparin 30mg Inj SUBQ SCH (08:57)
--- NOTE | 2020-09-10 09:00 | NUR ---
NURSE NOTES: Patient removed Bipap mask. Placed back on patient. RT notified and responded.
--- NOTE | 2020-09-10 09:22 | Infectious Diseases Prog Note ---
Assessment/Plan Assessment/Plan IMPRESSION: Sepsis Pneumonia with COVID19 Hypoxic respiratory failure Acute renal failure, Rhabdomyolysis, Diabetes mellitus. Leukocytosis improving RECOMMENDATIONS: will continue dexamethasone, ceftriaxone, and azithromycin. Poor prognosis Subjective ROS Limited/Unobtainable: Yes Constitutional: Reports: other - transferred from telemetry to step down unit; Denies: fever Neurologic: Reports: other - on restraint Allergies: Coded Allergies: No Known Allergies (Unverified , 09/04/20) Objective Last 24 Hour Vital Signs Date Time Temp Pulse Resp B/P (MAP) Pulse Ox O2 Delivery O2 Flow Rate FiO2 09/10/20 08:00 98.1 51 23 117/44 (68) 100 55 09/10/20 04:00 99.0 63 24 121/65 (83) 99 60 09/10/20 04:00 63 09/10/20 04:00 90 09/10/20 01:44 59 26 100 90 09/10/20 00:00 90 09/10/20 00:00 60 09/10/20 00:00 97.2 61 22 136/60 (85) 97 64 09/10/20 00:00 Bi-pap 09/09/20 21:00 Bi-pap 09/09/20 20:50 97.9 62 28 136/85 (102) 97 09/09/20 20:00 97.5 69 28 137/66 (89) 98 70 09/09/20 19:39 80 26 97 90 09/09/20 19:39 97 Bi-Pap 90 09/09/20 19:06 68 09/09/20 16:00 98.2 73 32 141/70 (93) 99 09/09/20 16:00 70 09/09/20 15:00 73 40 99 90 09/09/20 12:00 71 09/09/20 12:00 98.1 76 32 143/76 (98) 100 09/09/20 11:10 75 32 95 90 09/09/20 11:06 66 130/64 Height (Feet): 5 Height (Inches): 5.00 Weight (Pounds): 140 HEENT: mucous membranes moist Respiratory/Chest: other - on BIPAP Cardiovascular: bradycardia Abdomen: soft, non tender Extremities: no edema Neurologic/Psychiatric: disoriented, other - lethargic Laboratory Tests Test 09/09/20 21:14 09/10/20 05:22 09/10/20 05:30 POC Whole Blood Glucose 221 MG/DL (74-106) H 263 MG/DL (74-106) H White Blood Count 15.8 K/UL (4.8-10.8) H Red Blood Count 3.42 M/UL (4.20-5.40) L Hemoglobin 9.5 G/DL (12.0-16.0) L Hematocrit 29.1 % (37.0-47.0) L Mean Corpuscular Volume 85 FL (80-99) Mean Corpuscular Hemoglobin 27.7 PG (27.0-31.0) Mean Corpuscular Hemoglobin Concent 32.6 G/DL (32.0-36.0) Red Cell Distribution Width 14.4 % (11.6-14.8) Platelet Count 291 K/UL (150-450) Mean Platelet Volume 6.6 FL (6.5-10.1) Neutrophils (%) (Auto) % (45.0-75.0) Lymphocytes (%) (Auto) % (20.0-45.0) Monocytes (%) (Auto) % (1.0-10.0) Eosinophils (%) (Auto) % (0.0-3.0) Basophils (%) (Auto) % (0.0-2.0) Neutrophils % (Manual) Pending Lymphocytes % (Manual) Pending Platelet Estimate Pending Platelet Morphology Pending Sodium Level 138 MMOL/L (136-145) Potassium Level 4.4 MMOL/L (3.5-5.1) Chloride Level 104 MMOL/L (98-107) Carbon Dioxide Level 28 MMOL/L (21-32) Anion Gap 6 mmol/L (5-15) Blood Urea Nitrogen 68 mg/dL (7-18) H Creatinine 2.7 MG/DL (0.55-1.30) H Estimat Glomerular Filtration Rate 20.5 mL/min (>60) Glucose Level 265 MG/DL (74-106) H Calcium Level 8.5 MG/DL (8.5-10.1) Current Medications Medications (Trade) Dose Ordered Sig/Rebecca Route PRN Reason Start Time Stop Time Status Last Admin Dose Admin Acetaminophen (Tylenol) 650 mg Q4H PRN ORAL Mild Pain (Pain Scale 1-3) 09/05/20 07:15 2/1/21 07:14 09/06/20 12:34 Amlodipine Besylate (Norvasc) 5 mg DAILY ORAL 09/05/20 09:00 10/05/20 08:59 09/09/20 11:06 Azithromycin 500 mg/Dextrose 275 ml @ 275 mls/hr Q24HRS IV 09/05/20 16:00 09/11/20 16:59 09/09/20 15:33 Ceftriaxone Sodium 1 gm/ Dextrose 55 ml @ 110 mls/hr Q24H IVPB 09/05/20 09:00 09/12/20 08:59 09/10/20 08:50 Dexamethasone Sodium Phosphate (Decadron 10mg/ ml Inj) 6 mg DAILY IV 09/06/20 09:00 09/15/20 09:01 09/10/20 08:53 Dextrose (Dextrose 50%) 25 ml Q30M PRN IV Hypoglycemia 09/07/20 05:45 12/06/20 05:44 Dextrose (Dextrose 50%) 50 ml Q30M PRN IV Hypoglycemia 09/07/20 05:45 12/06/20 05:44 Enoxaparin Sodium (Lovenox) 30 mg DAILY SUBQ 09/06/20 09:00 12/05/20 08:59 09/10/20 08:57 Insulin Aspart (NovoLOG) BEFORE MEALS AND HS SUBQ 09/07/20 06:30 12/06/20 06:29 09/10/20 05:57 Sodium Chloride 1,000 ml @ 75 mls/hr [id number] IV 09/06/20 17:00 10/06/20 16:59 09/10/20 00:51 Willian Banuelos MD Sep 10, 2020 09:22
[2020-09-10 10:08] LABS: ALANINE AMINOTRANSFERASE 85 U/L (12-78); ALBUMIN 1.6 G/DL (3.4-5.0); ALKALINE PHOSPHATASE 105 U/L (46-116); ASPARTATE AMINO TRANSFERASE 98 U/L (15-37); BILIRUBIN,DIRECT < 0.1 MG/DL (0.0-0.3); BILIRUBIN,TOTAL 0.2 MG/DL (0.2-1.0)
--- NOTE | 2020-09-10 10:21 | Pulmonology Progress Note ---
Subjective ROS Limited/Unobtainable: Yes Interval Events: remains on BiPAP Constitutional: Reports: other - transferred from telemetry to step down unit; Denies: fever HEENT: Repors: no symptoms Respiratory: Reports: shortness of breath Cardiovascular: Reports: no symptoms Gastrointestinal/Abdominal: Reports: no symptoms Genitourinary: Reports: no symptoms Allergies: Coded Allergies: No Known Allergies (Unverified , 09/04/20) Objective Last 24 Hour Vital Signs Date Time Temp Pulse Resp B/P (MAP) Pulse Ox O2 Delivery O2 Flow Rate FiO2 09/10/20 09:00 55 117/44 09/10/20 08:00 98.1 51 23 117/44 (68) 100 55 09/10/20 04:00 99.0 63 24 121/65 (83) 99 60 09/10/20 04:00 63 09/10/20 04:00 90 09/10/20 01:44 59 26 100 90 09/10/20 00:00 90 09/10/20 00:00 60 09/10/20 00:00 97.2 61 22 136/60 (85) 97 64 09/10/20 00:00 Bi-pap 09/09/20 21:00 Bi-pap 09/09/20 20:50 97.9 62 28 136/85 (102) 97 09/09/20 20:00 97.5 69 28 137/66 (89) 98 70 09/09/20 19:39 80 26 97 90 09/09/20 19:39 97 Bi-Pap 90 09/09/20 19:06 68 09/09/20 16:00 98.2 73 32 141/70 (93) 99 09/09/20 16:00 70 09/09/20 15:00 73 40 99 90 09/09/20 12:00 71 09/09/20 12:00 98.1 76 32 143/76 (98) 100 09/09/20 11:10 75 32 95 90 09/09/20 11:06 66 130/64 Intake and Output 09/09/20 09/10/20 19:00 07:00 Intake Total 60 ml Output Total 250 ml Balance -190 ml Intake Oral 60 ml Output Urine Total 250 ml # Voids 2 1 HEENT: atraumatic Respiratory: lungs clear Cardiovascular: normal rate, regular rhythm Abdomen: soft, non tender Laboratory Tests 09/09/20 21:14: POC Whole Blood Glucose 221H 09/10/20 03:00: Hemoglobin A1c 7.4H, Uric Acid [Pending], Phosphorus Level [Pending], Magnesium Level [Pending], Iron Level [Pending], Unsaturated Iron Binding [Pending], Ferritin [Pending], Gamma Glutamyl Transpeptidase [Pending], Vitamin B12 Level [Pending], Folate [Pending] 09/10/20 05:22: POC Whole Blood Glucose 263H 09/10/20 05:30: White Blood Count 15.8H, Red Blood Count 3.42L, Hemoglobin 9.5L, Hematocrit 29.1L, Mean Corpuscular Volume 85, Mean Corpuscular Hemoglobin 27.7, Mean Corpuscular Hemoglobin Concent 32.6, Red Cell Distribution Width 14.4, Platelet Count 291, Mean Platelet Volume 6.6, Neutrophils (%) (Auto) , Lymphocytes (%) (Auto) , Monocytes (%) (Auto) , Eosinophils (%) (Auto) , Basophils (%) (Auto) , Neutrophils % (Manual) [Pending], Lymphocytes % (Manual) [Pending], Platelet Estimate [Pending], Platelet Morphology [Pending], Sodium Level 138, Potassium Level 4.4, Chloride Level 104, Carbon Dioxide Level 28, Anion Gap 6, Blood Urea Nitrogen 68H, Creatinine 2.7H, Estimat Glomerular Filtration Rate 20.5, Glucose Level 265H, Calcium Level 8.5 09/10/20 08:00: Total Bilirubin 0.2, Direct Bilirubin < 0.1, Aspartate Amino Transf (AST/SGOT) 98H, Alanine Aminotransferase (ALT/SGPT) 85H, Alkaline Phosphatase 105, Total Protein 5.8L, Albumin 1.6L Current Medications Medications (Trade) Dose Ordered Sig/Rebecca Route PRN Reason Start Time Stop Time Status Last Admin Dose Admin Acetaminophen (Tylenol) 650 mg Q4H PRN ORAL Mild Pain (Pain Scale 1-3) 09/05/20 07:15 10/05/20 07:14 09/06/20 12:34 Amlodipine Besylate (Norvasc) 5 mg DAILY ORAL 09/05/20 09:00 10/05/20 08:59 09/09/20 11:06 Azithromycin 500 mg/Dextrose 275 ml @ 275 mls/hr Q24HRS IV 09/05/20 16:00 09/11/20 16:59 09/09/20 15:33 Ceftriaxone Sodium 1 gm/ Dextrose 55 ml @ 110 mls/hr Q24H IVPB 09/05/20 09:00 09/12/20 08:59 09/10/20 08:50 Dexamethasone Sodium Phosphate (Decadron 10mg/ ml Inj) 6 mg DAILY IV 09/06/20 09:00 09/15/20 09:01 09/10/20 08:53 Dextrose (Dextrose 50%) 25 ml Q30M PRN IV Hypoglycemia 09/07/20 05:45 12/06/20 05:44 Dextrose (Dextrose 50%) 50 ml Q30M PRN IV Hypoglycemia 09/07/20 05:45 12/06/20 05:44 Enoxaparin Sodium (Lovenox) 30 mg DAILY SUBQ 09/06/20 09:00 12/05/20 08:59 09/10/20 08:57 Insulin Aspart (NovoLOG) BEFORE MEALS AND HS SUBQ 09/07/20 06:30 12/06/20 06:29 09/10/20 05:57 Sodium Chloride 1,000 ml @ 50 mls/hr Q20H IV 09/06/20 17:00 10/06/20 16:59 09/10/20 00:51 Assessment/Plan Assessment/Plan 1. Hypoxia. - on Decadron (08/06-) - Currently on BiPAP saturating at 99% - FiO2 90% 3. Probable superimposed pneumonia. - on empiric Abx 4. Confirmed COVID-19 pneumonia 5. Hyponatremia. 6. Renal failure. 7. Elevated inflammatory markers. 8. Transaminitis. 9. Rhabdomyolysis. 10. Troponin leak. 11. Hyperglycemia - oral hypoglycemics 12. Gram positive bacteremia - s/p IV Vanco per ID Appears marginally better today. Continue BiPAP. Renan Ceron MD Sep 10, 2020 10:21
[2020-09-10 10:34] LABS: % IRON SATURATION 19 % (15-50); IRON 31 ug/dL (50-175); TOTAL IRON BINDING CAPACITY 167 ug/dL (250-450)
--- NOTE | 2020-09-10 10:56 | Consultation ---
Consult Note Consult Note I am asked to evaluate the patient at the request of Dr. Licona for renal failure Day 6 of patient's hospitalization here at [facility] Patient is on BiPAP in SDU Labs reviewed Records and consultants notes reviewed Patient admitted September 04, 2020 ER note: 80-year-old female here with hyperglycemia and hypoxia. Patient was reportedly satting at 60% on room air per paramedics. She was placed on 4 L nasal cannula with good resolution of her hypoxia. She was found to be hypoglycemic with a blood glucose of 20. She was given 250 cc of D10W. Repeat blood glucose after 30 minutes was 204. Patient says that she has felt febrile for the past 2 days. No chills, chest pain, palpitations, cough, back pain, abdominal pain, nausea, vomiting, diarrhea, dysuria. 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 GENERAL APPEARANCE: Seems to have normal weight. HEENT: Moist mucous membranes. [place] conjunctivae. HEART: Normal rate. LUNGS: Getting oxygen by nonrebreathing mask. ABDOMEN: Soft. Nontender. EXTREMITIES: No edema. . LABORATORY DATA: WBC 11.4, hemoglobin 12.3, hematocrit 37.7, and platelets are 143. Glucose is 301, sodium 135, potassium 3.8, chloride 100, bicarb 27, BUN 43, creatinine 2.5. CK level was 11,420. Troponin was 0.47. Lipase is 445. Blood culture grew coagulase-negative Staph. COVID-19 rapid tests are negative. Urine culture negative. Chest x-ray showed inflammatory process. . Assessment/Plan Acute renal failure Confirmed COVID-19 pneumonia Sepsis Hypoxia, on BiPAP Anemia Electrolyte imbalances Hyperglycemia Transaminitis Rhabdomyolysis Troponin leak Suggestions: Slow IV hydration Urine studies Avoid nephrotoxic's Anemia work-up IV Protonix Albumin bolus Monitor renal parameters Adjust blood pressure medication Urine studies Per orders Discussed with Zachary Gallardo MD Sep 10, 2020 10:56
[2020-09-10 11:13] LABS: FERRITIN 530 NG/ML (8-388); GAMMA GLUTAMYL TRANSPEPTIDASE 68 U/L (5-85); PHOSPHORUS 4.5 MG/DL (2.5-4.9)
[2020-09-10 11:26] LABS: CREATINE KINASE 202 U/L (26-140)
[2020-09-10 12:00] VITALS: BP 161/70
--- NOTE | 2020-09-10 12:00 | NUR ---
NURSE NOTES: FC fr18 inserted as ordered. Urine sample sent to lab.
--- NOTE | 2020-09-10 12:48 | NUR ---
Profiling Machine Setup OperatorMotion Study Engineer SI: Hypoxia, Acute Respiratory Failure, COVID-PNA, Bacteremia, ARF T-98.1, HR 59, RR 28, BP 117/44 BIPAP 20/6, FiO2 90%, O2 sat 98% WBC 15.8, BUN 68, Creatinine 2.7, TCK 202 cxray 09-08-20 Considerable worsening of bilateral infiltrates over 4 days IS: Albumin Human IV 100ml/hr once Protonix IVP q 12 h Lovenox sq qd Decadron IV QD Azithromycin IV QD Rocephin IV QD SDU Status
[2020-09-10 13:36] LABS: APPEARANCE,URINE SLIGHTLY CLOUDY; BILIRUBIN, URINE NEGATIVE (NEGATIVE); COLOR,URINE PALE YELLOW; GLUCOSE, URINE (UA) 1+ (NEGATIVE); KETONES,URINE NEGATIVE (NEGATIVE); LEUKOCYTE ESTERASE ,URINE NEGATIVE (NEGATIVE); NITRITE,URINE NEGATIVE (NEGATIVE); PH,URINE 5 (4.5-8.0); PROTEIN,URINE 2+ (NEGATIVE); UROBILINOGEN,URINE NORMAL MG/DL (0.0-1.0)
[2020-09-10 16:00] VITALS: BP 151/63
[2020-09-10] MEDS ORDERED: Azithromycin 500 MG in D5W 275 ML IV SCH (16:00)
--- NOTE | 2020-09-10 16:15 | General Progress Note ---
Subjective Allergies: Coded Allergies: No Known Allergies (Unverified , 09/04/20) Subjective lethargic on bipap ac renal failure in [place] Objective Last 24 Hour Vital Signs Date Time Temp Pulse Resp B/P (MAP) Pulse Ox O2 Delivery O2 Flow Rate FiO2 09/10/20 15:45 64 20 100 90 09/10/20 12:00 Bi-pap 09/10/20 12:00 90 09/10/20 12:00 98.1 74 14 161/70 (100) 100 74 09/10/20 12:00 74 09/10/20 11:06 59 28 98 90 09/10/20 09:00 55 117/44 09/10/20 08:00 98.1 51 23 117/44 (68) 100 55 09/10/20 08:00 Bi-pap 09/10/20 08:00 90 09/10/20 07:43 63 09/10/20 07:15 53 28 100 80 09/10/20 07:15 80 Bi-Pap 100 09/10/20 04:00 99.0 63 24 121/65 (83) 99 60 09/10/20 04:00 63 09/10/20 04:00 90 09/10/20 01:44 59 26 100 90 09/10/20 00:00 90 09/10/20 00:00 60 09/10/20 00:00 97.2 61 22 136/60 (85) 97 64 09/10/20 00:00 Bi-pap 09/09/20 21:00 Bi-pap 09/09/20 20:50 97.9 62 28 136/85 (102) 97 09/09/20 20:00 97.5 69 28 137/66 (89) 98 70 09/09/20 19:39 80 26 97 90 09/09/20 19:39 97 Bi-Pap 90 09/09/20 19:06 68 Intake and Output 09/09/20 09/10/20 19:00 07:00 Intake Total 60 ml Output Total 250 ml Balance -190 ml Intake Oral 60 ml Output Urine Total 250 ml # Voids 2 1 Laboratory Tests 09/09/20 21:14: POC Whole Blood Glucose 221H 09/10/20 03:00: Hemoglobin A1c 7.4H, Uric Acid 9.4H, Phosphorus Level 4.5, Magnesium Level 2.4, Iron Level 31L, Total Iron Binding Capacity 167L, Percent Iron Saturation 19, Unsaturated Iron Binding 136, Ferritin 530H, Gamma Glutamyl Transpeptidase 68, Vitamin B12 Level 1254H, Folate 6.2L 09/10/20 05:22: POC Whole Blood Glucose 263H 09/10/20 05:30: White Blood Count 15.8H, Red Blood Count 3.42L, Hemoglobin 9.5L, Hematocrit 29.1L, Mean Corpuscular Volume 85, Mean Corpuscular Hemoglobin 27.7, Mean Corpuscular Hemoglobin Concent 32.6, Red Cell Distribution Width 14.4, Platelet Count 291, Mean Platelet Volume 6.6, Neutrophils (%) (Auto) , Lymphocytes (%) (Auto) , Monocytes (%) (Auto) , Eosinophils (%) (Auto) , Basophils (%) (Auto) , Differential Total Cells Counted 100, Neutrophils % (Manual) 91H, Lymphocytes % (Manual) 5L, Monocytes % (Manual) 4, Eosinophils % (Manual) 0, Basophils % (Manual) 0, Band Neutrophils 0, Platelet Estimate Adequate, Platelet Morphology Normal, Anisocytosis 1+, Sodium Level 138, Potassium Level 4.4, Chloride Level 104, Carbon Dioxide Level 28, Anion Gap 6, Blood Urea Nitrogen 68H, Creatinine 2.7H, Estimat Glomerular Filtration Rate 20.5, Glucose Level 265H, Calcium Level 8.5 09/10/20 08:00: Total Bilirubin 0.2, Direct Bilirubin < 0.1, Aspartate Amino Transf (AST/SGOT) 98H, Alanine Aminotransferase (ALT/SGPT) 85H, Alkaline Phosphatase 105, Total Creatine Kinase 202H, Total Protein 5.8L, Albumin 1.6L 09/10/20 12:04: POC Whole Blood Glucose 231H 09/10/20 13:00: Urine Color Pale yellow, Urine Appearance Slightly cloudy, Urine pH 5, Urine Specific [place] 1.015, Urine Protein 2+H, Urine Glucose (UA) 1+H, Urine Ketones Negative, Urine Blood 4+H, Urine Nitrite Negative, Urine Bilirubin Negative, Urine Urobilinogen Normal, Urine Leukocyte Esterase Negative, Urine RBC 2-4H, Urine WBC 0-2, Urine Squamous Epithelial Cells Few, Urine Bacteria Few, Urine Random Sodium 47 Height (Feet): 5 Height (Inches): 5.00 Weight (Pounds): 140 General Appearance: alert EENT: PERRL/EOMI Neck: supple Cardiovascular: normal rate Respiratory/Chest: crackles/rales Abdomen: non tender, soft Extremities: non-tender Assessment/Plan Assessment/Plan: aloc ac resp failure pna r/ o covid worse dehyration demtentia anemia leucocytosis due to steroids ac renal failure nephro consult check abg dw with pulmonary on cont bipap cont iv abx, Livan butler Rajendra MD Sep 10, 2020 16:15
--- NOTE | 2020-09-10 19:18 | NUR ---
NURSE NOTES: Received report from FELICE Castillo. Pt is A/O x 1-2 and verbally responsive. On BiPAP 20/6, sating at 98%. federal java developer is in place which is showing NSR to SB. Pt has an IV site on RFA 22G which is running 1/2 NS at 75cc/hr. Bilateral soft wrist restraints in place for safety precautions and no swelling or skin breakdown noted. Pt has cuellar inserted 18F which is draining straw urine. Bed is in the lowest position and locked with side rails x2 and bed alarm on. Will continue plan care.
--- NOTE | 2020-09-10 19:23 | NUR ---
NURSE HAND-OFF REPORT: Important Events on Shift: cuellar catheter inserted. Patient removing bipap mask despite being on restraints. Patient Status: confused Diet: ccho med, withheld by RN due to aspiration risk Pending Orders: Pending Results/Labs: Pending MD notification: Latest Vital Signs: Temperature 97.7 , Pulse 69 , B/P 151 /63 , Respiratory Rate 25 , O2 SAT 100 , Nasal Cannula, O2 Flow Rate 15.0 . Vital Sign Comment: EKG Rhythm: Sinus Rhythm Rhythm change?: N MD Notified?: - MD Response: Latest Cotton Fall Score: 45 Fall Risk: High Risk Safety Measures: Call light Within Reach, Bed Alarm Zone 1, Side Rails Side Rails x3, Bed position Low and Locked. Fall Precautions: Yellow Socks Yellow Gown Door Sign Patient Fall Education Report given to Sobeida VIVEROS.
[2020-09-10] MEDS: Pantoprazole Inj IVP SCH (20:31)
[2020-09-10 21:00] VITALS: BP 143/64
[2020-09-11] VITALS: BP 153/68
[2020-09-11 04:32] VITALS: BP 151/63
[2020-09-11] MEDS: NovoLOG Insulin Flexpen SUBQ SCH ×4 (06:02→21:33)
--- NOTE | 2020-09-11 07:01 | NUR ---
NURSE HAND-OFF REPORT: Important Events on Shift: Wrist restraints continued. Pulse still continues to drop to low 40's. Patient Status: Stable Diet: CCHO Med Pending Orders: Pending Results/Labs: Pending MD notification: Latest Vital Signs: Temperature 98.0 , Pulse 42 , B/P 151 /63 , Respiratory Rate 26 , O2 SAT 100 , Nasal Cannula, O2 Flow Rate 15.0 . Vital Sign Comment: EKG Rhythm: Sinus Bradycardia Rhythm change?: Y MD Notified?: N - MD Response: Latest Cotton Fall Score: 45 Fall Risk: High Risk Safety Measures: Call light Within Reach, Bed Alarm Zone 1, Side Rails Side Rails x3, Bed position Low and Locked. Fall Precautions: Yellow Socks Yellow Gown Door Sign Patient Fall Education Report given to
[2020-09-11 07:15] LABS: HEMATOCRIT 32.3 % (37.0-47.0); HEMOGLOBIN 10.1 G/DL (12.0-16.0); MEAN CORPUSCULAR VOLUME 86 FL (80-99); PLATELET COUNT 253 K/UL (150-450); RED BLOOD COUNT 3.76 M/UL (4.20-5.40); RED CELL DISTRIBUTION WIDTH 14.7 % (11.6-14.8); WHITE BLOOD COUNT 16.7 K/UL (4.8-10.8)
--- NOTE | 2020-09-11 07:26 | NUR ---
NURSE NOTES: Received report from FELICE Vidales. Patient is resting in bed, in stable condition. No s/sx of SOB, breathing is even and unlabored, on Bipap 20/6 FiO2 95% SpO2 100%. Informed RT to titrate FiO2 as tolerated. Patient sleeping, did not observe any presence of pain or discomfort at this time. Bed is in lowest position, brakes engaged. Call light is kept within easy reach. Will continue to monitor patient.
[2020-09-11 07:51] LABS: ALANINE AMINOTRANSFERASE 69 U/L (12-78); ALBUMIN 2.3 G/DL (3.4-5.0); ALBUMIN/GLOBULIN RATIO 0.5 (1.0-2.7); ALKALINE PHOSPHATASE 129 U/L (46-116); ANION GAP 10 mmol/L (5-15); ASPARTATE AMINO TRANSFERASE 73 U/L (15-37); BILIRUBIN,TOTAL 0.3 MG/DL (0.2-1.0); BLOOD UREA NITROGEN 65 mg/dL (7-18); CARBON DIOXIDE 27 MMOL/L (21-32); CHLORIDE 106 MMOL/L (98-107); CREATINE KINASE 155 U/L (26-308); CREATININE 2.5 MG/DL (0.55-1.30); PHOSPHORUS 4.4 MG/DL (2.5-4.9); POTASSIUM 4.9 MMOL/L (3.5-5.1); SODIUM 143 MMOL/L (136-145)
[2020-09-11 07:56] VITALS: BP 159/63
[2020-09-11] MEDS: Enoxaparin 30mg Inj SUBQ SCH (08:20)
[2020-09-11] MEDS: dexAMETHasone 10mg/ml Inj IV SCH (08:20)
[2020-09-11] MEDS: Pantoprazole Inj IVP SCH ×2 (08:21→21:16)
[2020-09-11] MEDS: cefTRIAXone 1 GM in D5W 55 ML IVPB SCH (08:21)
--- NOTE | 2020-09-11 09:23 | NUR ---
RESPIRATORY THERAPY NOTES: Patient FiO2 titrated to 60% per ABG and is tolerating well with no signs of respiratory distress or shortness or breath noted at this time. Will continue to monitor. Addendum: 09/11/20 at 0925 by KAILASH DOUGLASS RT SpO2 100% HR 60
--- NOTE | 2020-09-11 10:10 | NUR ---
RD ASSESSMENT & RECOMMENDATIONS SEE CARE ACTIVITY FOR COMPLETE ASSESSMENT DAILY ESTIMATED NEEDS: Needs based on Pulmonary 66.6kg 25-30 kcals/kg total kcals 1-1.5 g protein/kg 67-100 g total protein 25-30 mL/kg total fluid mLs NUTRITION DIAGNOSIS: Predicted decreased po intake r/t covid pna as evidenced by pt on bipap, w/ poor po intake (0-25%) x5 days. CURRENT DIET: CCHO MED PO DIET RECOMMENDATIONS: Liberalized REGULAR Diet w/ poor po intake (ENTERAL NUTRITION RECOMMENDATIONS: Non oral feeds of part of POC w/ continued poor po) ADDITIONAL RECOMMENDATIONS: 1) Poor po intake noted, on Bipap Rec temp NGT if medically able w/ bipap 2) MARKETER eval for appropriate texture 3) Add Glucerna TID w/ meals 4) Calibrated daily wts
--- NOTE | 2020-09-11 10:54 | Nephrology Progress Note ---
Assessment/Plan Problem List: (1) FLOWER (acute kidney injury) (2) Hypoxia (3) Pneumonia (4) 2019 novel coronavirus disease (COVID-19) (5) Electrolyte imbalance (6) Anemia Assessment Acute renal failure Confirmed COVID-19 pneumonia Sepsis Hypoxia, on BiPAP Anemia Electrolyte imbalances Hyperglycemia Transaminitis Rhabdomyolysis Troponin leak Plan September 11: Labs reviewed. Serum creatinine 2.5 slightly lower than before. Electrolyte within normal limit. Folic acid ordered. Continue to monitor renal parameters. Continue per consultants. Previously Slow IV hydration Urine studies Avoid nephrotoxic's Anemia work-up IV Protonix Albumin bolus Monitor renal parameters Adjust blood pressure medication Urine studies Per orders Discussed with RN Objective Objective Last 24 Hour Vital Signs Date Time Temp Pulse Resp B/P (MAP) Pulse Ox O2 Delivery O2 Flow Rate FiO2 09/11/20 08:00 Bi-pap 09/11/20 08:00 60 09/11/20 08:00 47 09/11/20 07:56 98.1 63 20 159/63 (95) 99 63 09/11/20 07:20 68 20 100 80 09/11/20 07:20 100 Bi-Pap 100 09/11/20 04:32 Bi-pap 09/11/20 04:32 90 09/11/20 04:32 42 09/11/20 04:32 98.0 44 26 151/63 (92) 100 50 09/11/20 02:46 63 25 98 80 09/11/20 00:00 Bi-pap 09/11/20 00:00 99.4 70 20 153/68 (96) 100 68 09/11/20 00:00 74 09/11/20 00:00 90 09/10/20 22:44 55 21 100 80 09/10/20 21:00 58 09/10/20 21:00 98.0 58 14 143/64 (90) 100 60 09/10/20 19:36 90 09/10/20 19:36 Bi-pap 09/10/20 19:33 58 24 100 80 09/10/20 19:32 98 Bi-Pap 100 09/10/20 16:00 90 09/10/20 16:00 97.7 69 25 151/63 (92) 100 69 09/10/20 16:00 Bi-pap 09/10/20 15:45 64 20 100 90 09/10/20 15:36 72 09/10/20 12:00 Bi-pap 09/10/20 12:00 90 09/10/20 12:00 98.1 74 14 161/70 (100) 100 74 09/10/20 12:00 74 09/10/20 11:06 59 28 98 90 Intake and Output 09/10/20 09/11/20 19:00 07:00 Output Total 700 ml 750 ml Balance -700 ml -750 ml Output Urine Total 700 ml 750 ml Laboratory Tests 09/10/20 12:04: POC Whole Blood Glucose 231H 09/10/20 13:00: Urine Color Pale yellow, Urine Appearance Slightly cloudy, Urine pH 5, Urine Specific [place] 1.015, Urine Protein 2+H, Urine Glucose (UA) 1+H, Urine Ketones Negative, Urine Blood 4+H, Urine Nitrite Negative, Urine Bilirubin Negative, Urine Urobilinogen Normal, Urine Leukocyte Esterase Negative, Urine RBC 2-4H, Urine WBC 0-2, Urine Squamous Epithelial Cells Few, Urine Bacteria Few, Urine Random Sodium 47 09/10/20 16:59: POC Whole Blood Glucose 233H 09/10/20 20:39: POC Whole Blood Glucose 236H 09/11/20 03:20: White Blood Count 16.7H, Red Blood Count 3.76L, Hemoglobin 10.1L, Hematocrit 32.3L, Mean Corpuscular Volume 86, Mean Corpuscular Hemoglobin 26.9L, Mean Corpuscular Hemoglobin Concent 31.2L, Red Cell Distribution Width 14.7, Platelet Count 253, Mean Platelet Volume 6.9, Neutrophils (%) (Auto) , Lymphocytes (%) (Auto) , Monocytes (%) (Auto) , Eosinophils (%) (Auto) , Basophils (%) (Auto) , Neutrophils % (Manual) [Pending], Lymphocytes % (Manual) [Pending], Platelet Estimate [Pending], Platelet Morphology [Pending], Sodium Level 143, Potassium Level 4.9, Chloride Level 106, Carbon Dioxide Level 27, Anion Gap 10, Blood Urea Nitrogen 65H, Creatinine 2.5H, Estimat Glomerular Filtration Rate 22.4, Glucose Level 172H, Uric Acid 8.6H, Calcium Level 9.0, Phosphorus Level 4.4, Magnesium Level 2.6H, Total Bilirubin 0.3, Aspartate Amino Transf (AST/SGOT) 73H, Alanine Aminotransferase (ALT/SGPT) 69, Alkaline Phosphatase 129H, Total Creatine Kinase 155, C-Reactive Protein, Quantitative [Pending], Pro-B-Type Natriuretic Peptide 1488H, Total Protein 6.6, Albumin 2.3L, Globulin 4.3, Albumin/Globulin Ratio 0.5L 09/11/20 05:50: POC Whole Blood Glucose 173H 09/11/20 08:55: Arterial Blood pH 7.369, Arterial Blood Partial Pressure CO2 44.6, Arterial Blood Partial Pressure O2 104.6H, Arterial Blood HCO3 25.1, Arterial Blood Oxygen Saturation 97.2, Arterial Blood Base Excess -0.3, Efraín Test Positive Height (Feet): 5 Height (Inches): 5.00 Weight (Pounds): 140 Zachary Dunlap MD Sep 11, 2020 10:54
[2020-09-11 12:00] VITALS: BP 145/70
--- NOTE | 2020-09-11 12:05 | NUR ---
NURSE NOTES: Dr. Ceron at nurse station, informed Dr. Ceron weaning patient from BiPAP, current setting 20/6 FiO2 40% SpO2 95% and continuing to wean as tolerated. Informed Dr. Ceron, may be able to wean patient to tolerated Venturi mask. Dr. Ceron acknowledged and gave no new orders at this time. Will continue to monitor patient.
--- NOTE | 2020-09-11 12:12 | Infectious Diseases Prog Note ---
Assessment/Plan Assessment/Plan IMPRESSION: Sepsis Pneumonia with COVID19 Hypoxic respiratory failure Acute renal failure, Rhabdomyolysis, Diabetes mellitus. Leukocytosis improving RECOMMENDATIONS: will continue dexamethasone, ceftriaxone, Discontinue azithromycin. F/U CXR Subjective ROS Limited/Unobtainable: Yes Constitutional: Denies: fever Neurologic: Reports: confusion, other - on restraint Allergies: Coded Allergies: No Known Allergies (Unverified , 09/04/20) Objective Last 24 Hour Vital Signs Date Time Temp Pulse Resp B/P (MAP) Pulse Ox O2 Delivery O2 Flow Rate FiO2 09/11/20 08:00 Bi-pap 09/11/20 08:00 60 09/11/20 08:00 47 09/11/20 07:56 98.1 63 20 159/63 (95) 99 63 09/11/20 07:20 68 20 100 80 09/11/20 07:20 100 Bi-Pap 100 09/11/20 04:32 Bi-pap 09/11/20 04:32 90 09/11/20 04:32 42 09/11/20 04:32 98.0 44 26 151/63 (92) 100 50 09/11/20 02:46 63 25 98 80 09/11/20 00:00 Bi-pap 09/11/20 00:00 99.4 70 20 153/68 (96) 100 68 09/11/20 00:00 74 09/11/20 00:00 90 09/10/20 22:44 55 21 100 80 09/10/20 21:00 58 09/10/20 21:00 98.0 58 14 143/64 (90) 100 60 09/10/20 19:36 90 09/10/20 19:36 Bi-pap 09/10/20 19:33 58 24 100 80 09/10/20 19:32 98 Bi-Pap 100 09/10/20 16:00 90 09/10/20 16:00 97.7 69 25 151/63 (92) 100 69 09/10/20 16:00 Bi-pap 09/10/20 15:45 64 20 100 90 09/10/20 15:36 72 Height (Feet): 5 Height (Inches): 5.00 Weight (Pounds): 140 HEENT: mucous membranes moist Respiratory/Chest: other - on BIPAP Cardiovascular: bradycardia Abdomen: soft, non tender Extremities: no edema Neurologic/Psychiatric: disoriented Laboratory Tests Test 09/10/20 13:00 09/10/20 16:59 09/10/20 20:39 09/11/20 03:20 Urine Color Pale yellow Urine Appearance Slightly cloudy Urine pH 5 (4.5-8.0) Urine Specific [place] 1.015 (1.005-1.035) Urine Protein 2+ (NEGATIVE) H Urine Glucose (UA) 1+ (NEGATIVE) H Urine Ketones Negative (NEGATIVE) Urine Blood 4+ (NEGATIVE) H Urine Nitrite Negative (NEGATIVE) Urine Bilirubin Negative (NEGATIVE) Urine Urobilinogen Normal MG/DL (0.0-1.0) Urine Leukocyte Esterase Negative (NEGATIVE) Urine RBC 2-4 /HPF (0 - 2) H Urine WBC 0-2 /HPF (0 - 2) Urine Squamous Epithelial Cells Few /LPF (NONE/OCC) Urine Bacteria Few /HPF (NONE) Urine Random Sodium 47 mmol/L (20-110) POC Whole Blood Glucose 233 MG/DL (74-106) H 236 MG/DL (74-106) H White Blood Count 16.7 K/UL (4.8-10.8) H Red Blood Count 3.76 M/UL (4.20-5.40) L Hemoglobin 10.1 G/DL (12.0-16.0) L Hematocrit 32.3 % (37.0-47.0) L Mean Corpuscular Volume 86 FL (80-99) Mean Corpuscular Hemoglobin 26.9 PG (27.0-31.0) L Mean Corpuscular Hemoglobin Concent 31.2 G/DL (32.0-36.0) L Red Cell Distribution Width 14.7 % (11.6-14.8) Platelet Count 253 K/UL (150-450) Mean Platelet Volume 6.9 FL (6.5-10.1) Neutrophils (%) (Auto) % (45.0-75.0) Lymphocytes (%) (Auto) % (20.0-45.0) Monocytes (%) (Auto) % (1.0-10.0) Eosinophils (%) (Auto) % (0.0-3.0) Basophils (%) (Auto) % (0.0-2.0) Differential Total Cells Counted 100 Neutrophils % (Manual) 88 % (45-75) H Lymphocytes % (Manual) 8 % (20-45) L Monocytes % (Manual) 4 % (1-10) Eosinophils % (Manual) 0 % (0-3) Basophils % (Manual) 0 % (0-2) Band Neutrophils 0 % (0-8) Platelet Estimate Adequate Platelet Morphology Normal Anisocytosis 1+ Sodium Level 143 MMOL/L (136-145) Potassium Level 4.9 MMOL/L (3.5-5.1) Chloride Level 106 MMOL/L (98-107) Carbon Dioxide Level 27 MMOL/L (21-32) Anion Gap 10 mmol/L (5-15) Blood Urea Nitrogen 65 mg/dL (7-18) H Creatinine 2.5 MG/DL (0.55-1.30) H Estimat Glomerular Filtration Rate 22.4 mL/min (>60) Glucose Level 172 MG/DL (74-106) H Uric Acid 8.6 MG/DL (2.6-7.2) H Calcium Level 9.0 MG/DL (8.5-10.1) Phosphorus Level 4.4 MG/DL (2.5-4.9) Magnesium Level 2.6 MG/DL (1.8-2.4) H Total Bilirubin 0.3 MG/DL (0.2-1.0) Aspartate Amino Transf (AST/SGOT) 73 U/L (15-37) H Alanine Aminotransferase (ALT/SGPT) 69 U/L (12-78) Alkaline Phosphatase 129 U/L (46-116) H Total Creatine Kinase 155 U/L (26-308) C-Reactive Protein, Quantitative Pending Pro-B-Type Natriuretic Peptide 1488 pg/mL (0-125) H Total Protein 6.6 G/DL (6.4-8.2) Albumin 2.3 G/DL (3.4-5.0) L Globulin 4.3 g/dL Albumin/Globulin Ratio 0.5 (1.0-2.7) L Test 09/11/20 05:50 09/11/20 08:55 09/11/20 11:36 POC Whole Blood Glucose 173 MG/DL (74-106) H 194 MG/DL (74-106) H Arterial Blood pH 7.369 (7.350-7.450) Arterial Blood Partial Pressure CO2 44.6 mmHg (35.0-45.0) Arterial Blood Partial Pressure O2 104.6 mmHg (75.0-100.0) H Arterial Blood HCO3 25.1 mmol/L (22.0-26.0) Arterial Blood Oxygen Saturation 97.2 % (95-100) Arterial Blood Base Excess -0.3 (-2-2) Efraín Test Positive Current Medications Medications (Trade) Dose Ordered Sig/Rebecca Route PRN Reason Start Time Stop Time Status Last Admin Dose Admin Acetaminophen (Tylenol) 650 mg Q4H PRN ORAL Mild Pain (Pain Scale 1-3) 09/05/20 07:15 10/05/20 07:14 09/06/20 12:34 Amlodipine Besylate (Norvasc) 2.5 mg BID ORAL 09/11/20 18:00 10/11/20 08:59 Azithromycin 500 mg/Dextrose 275 ml @ 275 mls/hr Q24HRS IV 09/10/20 16:00 09/15/20 15:59 09/10/20 17:01 Ceftriaxone Sodium 1 gm/ Dextrose 55 ml @ 110 mls/hr Q24H IVPB 09/11/20 09:00 09/18/20 08:59 09/11/20 08:21 Chlorhexidine Gluconate (Isidra-Hex 2%) 1 applic DAILY@2000 TOPIC 09/11/20 20:00 12/10/20 19:59 Dexamethasone Sodium Phosphate (Decadron 10mg/ ml Inj) 6 mg DAILY IV 09/06/20 09:00 09/15/20 09:01 09/11/20 08:20 Dextrose (Dextrose 50%) 25 ml Q30M PRN IV Hypoglycemia 09/07/20 05:45 12/06/20 05:44 Dextrose (Dextrose 50%) 50 ml Q30M PRN IV Hypoglycemia 09/07/20 05:45 12/06/20 05:44 Enoxaparin Sodium (Lovenox) 30 mg DAILY SUBQ 09/06/20 09:00 12/05/20 08:59 09/11/20 08:20 Folic Acid (Folate) 2 mg DAILY ORAL 09/11/20 11:00 10/11/20 10:59 Insulin Aspart (NovoLOG) BEFORE MEALS AND HS SUBQ 09/07/20 06:30 12/06/20 06:29 09/11/20 06:02 Pantoprazole (Protonix) 40 mg EVERY 12 HOURS IVP 09/10/20 21:00 10/10/20 20:59 09/11/20 08:21 Sodium Chloride 1,000 ml @ 75 mls/hr [id number] IV 09/06/20 17:00 10/06/20 16:59 09/11/20 04:28 Willian Banuelos MD Sep 11, 2020 12:12
--- NOTE | 2020-09-11 12:46 | NUR ---
RESPIRATORY THERAPY NOTES FIO2 TITRATED TO 40% AND IS TOLERATING WELL WITH NO SIGNS OF RESPIRATORY DISTRESS OR SOB NOTED AT THIS TIME. SPO2 95% HR 72. RN AWARE. WILL CONTINUE TO MONITOR.
--- NOTE | 2020-09-11 13:06 | NUR ---
Staff Radiation TherapistTrauma Manager SI: Hypoxia, Acute Respiratory Failure, COVID-PNA, Bacteremia, ARF T-97.9, HR 76, RR 28, BP 145/70 BIPAP 20/6, FiO2 40%, O2 sat 93% WBC 16.7, BUN 65, Creatinine 2.5, IS: Albumin Human IV 100ml/hr once Protonix IVP q 12 h Lovenox sq qd Decadron IV QD Rocephin IV QD SDU Status
--- NOTE | 2020-09-11 14:07 | NUR ---
NURSE NOTES: Called Dr. Smith's office, Cardiology; , spoke with Ms. Hugo, physician's teacher assistant. Informed Celia Bethel this is new cardiology consult per Dr. Licona for patient going sinus bradycardia with heart rate as low as 40 bpm. Informed Ms. Hugo patient is on Norvasc 2.5 mg PO BID, creatinine level 2.5; Ms. Hugo acknowledged and ordered to discontinue Norvasc 2.5 mg PO BID under Dr. Smith. Noted. And new orders will be followed up by Ms. Hugo. Noted. Will continue to monitor patient.
--- NOTE | 2020-09-11 14:09 | General Progress Note ---
Subjective Allergies: Coded Allergies: No Known Allergies (Unverified , 09/04/20) Subjective lethargic on bipap ac renal failure in [place] Objective Last 24 Hour Vital Signs Date Time Temp Pulse Resp B/P (MAP) Pulse Ox O2 Delivery O2 Flow Rate FiO2 09/11/20 12:00 40 09/11/20 12:00 70 09/11/20 12:00 97.9 76 20 145/70 (95) 93 76 09/11/20 12:00 Bi-pap 09/11/20 11:10 68 20 100 40 09/11/20 08:00 Bi-pap 09/11/20 08:00 60 09/11/20 08:00 47 09/11/20 07:56 98.1 63 20 159/63 (95) 99 63 09/11/20 07:20 68 20 100 80 09/11/20 07:20 100 Bi-Pap 100 09/11/20 04:32 Bi-pap 09/11/20 04:32 90 09/11/20 04:32 42 09/11/20 04:32 98.0 44 26 151/63 (92) 100 50 09/11/20 02:46 63 25 98 80 09/11/20 00:00 Bi-pap 09/11/20 00:00 99.4 70 20 153/68 (96) 100 68 09/11/20 00:00 74 09/11/20 00:00 90 09/10/20 22:44 55 21 100 80 09/10/20 21:00 58 09/10/20 21:00 98.0 58 14 143/64 (90) 100 60 09/10/20 19:36 90 09/10/20 19:36 Bi-pap 09/10/20 19:33 58 24 100 80 09/10/20 19:32 98 Bi-Pap 100 09/10/20 16:00 90 09/10/20 16:00 97.7 69 25 151/63 (92) 100 69 09/10/20 16:00 Bi-pap 09/10/20 15:45 64 20 100 90 09/10/20 15:36 72 Intake and Output 09/10/20 09/11/20 19:00 07:00 Output Total 700 ml 750 ml Balance -700 ml -750 ml Output Urine Total 700 ml 750 ml Laboratory Tests 09/10/20 16:59: POC Whole Blood Glucose 233H 09/10/20 20:39: POC Whole Blood Glucose 236H 09/11/20 03:20: White Blood Count 16.7H, Red Blood Count 3.76L, Hemoglobin 10.1L, Hematocrit 32.3L, Mean Corpuscular Volume 86, Mean Corpuscular Hemoglobin 26.9L, Mean Corpuscular Hemoglobin Concent 31.2L, Red Cell Distribution Width 14.7, Platelet Count 253, Mean Platelet Volume 6.9, Neutrophils (%) (Auto) , Lymphocytes (%) (Auto) , Monocytes (%) (Auto) , Eosinophils (%) (Auto) , Basophils (%) (Auto) , Differential Total Cells Counted 100, Neutrophils % (Manual) 88H, Lymphocytes % (Manual) 8L, Monocytes % (Manual) 4, Eosinophils % (Manual) 0, Basophils % (Manual) 0, Band Neutrophils 0, Platelet Estimate Adequate, Platelet Morphology Normal, Anisocytosis 1+, Sodium Level 143, Potassium Level 4.9, Chloride Level 106, Carbon Dioxide Level 27, Anion Gap 10, Blood Urea Nitrogen 65H, Creatinine 2.5H, Estimat Glomerular Filtration Rate 22.4, Glucose Level 172H, Uric Acid 8.6H, Calcium Level 9.0, Phosphorus Level 4.4, Magnesium Level 2.6H, Total Bilirubin 0.3, Aspartate Amino Transf (AST/SGOT) 73H, Alanine Aminotransferase (ALT/SGPT) 69, Alkaline Phosphatase 129H, Total Creatine Kinase 155, C-Reactive Protein, Quantitative [Pending], Pro-B-Type Natriuretic Peptide 1488H, Total Protein 6.6, Albumin 2.3L, Globulin 4.3, Albumin/Globulin Ratio 0.5L 09/11/20 05:50: POC Whole Blood Glucose 173H 09/11/20 08:55: Arterial Blood pH 7.369, Arterial Blood Partial Pressure CO2 44.6, Arterial Blood Partial Pressure O2 104.6H, Arterial Blood HCO3 25.1, Arterial Blood Oxygen Saturation 97.2, Arterial Blood Base Excess -0.3, Efraín Test Positive 09/11/20 11:36: POC Whole Blood Glucose 194H Height (Feet): 5 Height (Inches): 5.00 Weight (Pounds): 140 General Appearance: lethargic Neck: supple Cardiovascular: regular rhythm Respiratory/Chest: rhonchi - bilaterally Abdomen: soft, no mass Assessment/Plan Assessment/Plan: aloc ac resp failure pna r/ o covid worse dehyration demtentia anemia leucocytosis due to steroids ac renal failure nephro consult check abg dw with pulmonary on cont bipap cont iv abx, Livan butler Rajendra MD Sep 11, 2020 14:09
--- NOTE | 2020-09-11 14:14 | Pulmonology Progress Note ---
Subjective ROS Limited/Unobtainable: Yes Interval Events: remains on BiPAP Constitutional: Denies: fever HEENT: Repors: no symptoms Respiratory: Reports: shortness of breath Cardiovascular: Reports: no symptoms Gastrointestinal/Abdominal: Reports: no symptoms Genitourinary: Reports: no symptoms Allergies: Coded Allergies: No Known Allergies (Unverified , 09/04/20) Objective Last 24 Hour Vital Signs Date Time Temp Pulse Resp B/P (MAP) Pulse Ox O2 Delivery O2 Flow Rate FiO2 09/11/20 12:00 40 09/11/20 12:00 70 09/11/20 12:00 97.9 76 20 145/70 (95) 93 76 09/11/20 12:00 Bi-pap 09/11/20 11:10 68 20 100 40 09/11/20 08:00 Bi-pap 09/11/20 08:00 60 09/11/20 08:00 47 09/11/20 07:56 98.1 63 20 159/63 (95) 99 63 09/11/20 07:20 68 20 100 80 09/11/20 07:20 100 Bi-Pap 100 09/11/20 04:32 Bi-pap 09/11/20 04:32 90 09/11/20 04:32 42 09/11/20 04:32 98.0 44 26 151/63 (92) 100 50 09/11/20 02:46 63 25 98 80 09/11/20 00:00 Bi-pap 09/11/20 00:00 99.4 70 20 153/68 (96) 100 68 09/11/20 00:00 74 09/11/20 00:00 90 09/10/20 22:44 55 21 100 80 09/10/20 21:00 58 09/10/20 21:00 98.0 58 14 143/64 (90) 100 60 09/10/20 19:36 90 09/10/20 19:36 Bi-pap 09/10/20 19:33 58 24 100 80 09/10/20 19:32 98 Bi-Pap 100 09/10/20 16:00 90 09/10/20 16:00 97.7 69 25 151/63 (92) 100 69 09/10/20 16:00 Bi-pap 09/10/20 15:45 64 20 100 90 09/10/20 15:36 72 Intake and Output 1/7/21 1/8/21 19:00 07:00 Output Total 700 ml 750 ml Balance -700 ml -750 ml Output Urine Total 700 ml 750 ml HEENT: atraumatic Respiratory: lungs clear Cardiovascular: normal rate, regular rhythm Abdomen: soft, non tender Laboratory Tests 09/10/20 16:59: POC Whole Blood Glucose 233H 09/10/20 20:39: POC Whole Blood Glucose 236H 09/11/20 03:20: White Blood Count 16.7H, Red Blood Count 3.76L, Hemoglobin 10.1L, Hematocrit 32.3L, Mean Corpuscular Volume 86, Mean Corpuscular Hemoglobin 26.9L, Mean Corpuscular Hemoglobin Concent 31.2L, Red Cell Distribution Width 14.7, Platelet Count 253, Mean Platelet Volume 6.9, Neutrophils (%) (Auto) , Lymphocytes (%) (Auto) , Monocytes (%) (Auto) , Eosinophils (%) (Auto) , Basophils (%) (Auto) , Differential Total Cells Counted 100, Neutrophils % (Manual) 88H, Lymphocytes % (Manual) 8L, Monocytes % (Manual) 4, Eosinophils % (Manual) 0, Basophils % (Manual) 0, Band Neutrophils 0, Platelet Estimate Adequate, Platelet Morphology Normal, Anisocytosis 1+, Sodium Level 143, Potassium Level 4.9, Chloride Level 106, Carbon Dioxide Level 27, Anion Gap 10, Blood Urea Nitrogen 65H, Creatinine 2.5H, Estimat Glomerular Filtration Rate 22.4, Glucose Level 172H, Uric Acid 8.6H, Calcium Level 9.0, Phosphorus Level 4.4, Magnesium Level 2.6H, Total Bilirubin 0.3, Aspartate Amino Transf (AST/SGOT) 73H, Alanine Aminotransferase (ALT/SGPT) 69, Alkaline Phosphatase 129H, Total Creatine Kinase 155, C-Reactive Protein, Quantitative [Pending], Pro-B-Type Natriuretic Peptide 1488H, Total Protein 6.6, Albumin 2.3L, Globulin 4.3, Albumin/Globulin Ratio 0.5L 09/11/20 05:50: POC Whole Blood Glucose 173H 09/11/20 08:55: Arterial Blood pH 7.369, Arterial Blood Partial Pressure CO2 44.6, Arterial Blood Partial Pressure O2 104.6H, Arterial Blood HCO3 25.1, Arterial Blood Oxygen Saturation 97.2, Arterial Blood Base Excess -0.3, Efraín Test Positive 09/11/20 11:36: POC Whole Blood Glucose 194H Current Medications Medications (Trade) Dose Ordered Sig/Rebecca Route PRN Reason Start Time Stop Time Status Last Admin Dose Admin Acetaminophen (Tylenol) 650 mg Q4H PRN ORAL Mild Pain (Pain Scale 1-3) 09/05/20 07:15 10/05/20 07:14 09/06/20 12:34 Ceftriaxone Sodium 1 gm/ Dextrose 55 ml @ 110 mls/hr Q24H IVPB 09/11/20 09:00 09/18/20 08:59 09/11/20 08:21 Chlorhexidine Gluconate (Isidra-Hex 2%) 1 applic DAILY@2000 TOPIC 09/11/20 20:00 12/10/20 19:59 Dexamethasone Sodium Phosphate (Decadron 10mg/ ml Inj) 6 mg DAILY IV 09/06/20 09:00 09/15/20 09:01 09/11/20 08:20 Dextrose (Dextrose 50%) 25 ml Q30M PRN IV Hypoglycemia 09/07/20 05:45 12/06/20 05:44 Dextrose (Dextrose 50%) 50 ml Q30M PRN IV Hypoglycemia 09/07/20 05:45 12/06/20 05:44 Enoxaparin Sodium (Lovenox) 30 mg DAILY SUBQ 09/06/20 09:00 12/05/20 08:59 09/11/20 08:20 Folic Acid (Folate) 2 mg DAILY ORAL 09/11/20 11:00 10/11/20 10:59 Insulin Aspart (NovoLOG) BEFORE MEALS AND HS SUBQ 09/07/20 06:30 12/06/20 06:29 09/11/20 12:14 Pantoprazole (Protonix) 40 mg EVERY 12 HOURS IVP 09/10/20 21:00 10/10/20 20:59 09/11/20 08:21 Sodium Chloride 1,000 ml @ 75 mls/hr [id number] IV 09/06/20 17:00 10/06/20 16:59 09/11/20 04:28 Assessment/Plan Assessment/Plan 1. Hypoxia. - on Decadron (08/06-) - Currently on BiPAP saturating at 99% - FiO2 90%; now decreased to 40% 3. Probable superimposed pneumonia. - on empiric Abx 4. Confirmed COVID-19 pneumonia 5. Hyponatremia. 6. Renal failure. 7. Elevated inflammatory markers. 8. Transaminitis. 9. Rhabdomyolysis. 10. Troponin leak. 11. Hyperglycemia - oral hypoglycemics 12. Gram positive bacteremia - s/p IV Vanco per ID Appears marginally better today. Continue BiPAP. Renan Ceron MD Sep 11, 2020 14:14
[2020-09-11 16:00] VITALS: BP 156/75
--- NOTE | 2020-09-11 16:32 | NUR ---
RESPIRATORY NOTE: Patient placed on 100% NRB and is tolerating well with no signs of respiratory distress or shortness of breath noted at this time. SpO2 98% HR 85. RN, Taz perez. Will continue to monitor.
--- NOTE | 2020-09-11 17:07 | NUR ---
RESPIRATORY NOTE: Patient placed on venti mask 55% @ 10 LPM and is tolerating well with no signs of respiratory distress or shortness of breath noted at this time. SpO2 98% HR 80. RN, Taz perez. Will continue to monitor.
[2020-09-11] MEDS ORDERED: Tubing IV Secondary IV ONE (17:43)
[2020-09-11] MEDS ORDERED: 1/2 NS 1000ml IV ONE (17:43)
--- NOTE | 2020-09-11 18:00 | NUR ---
RESPIRATORY NOTE: Patient placed back on 100% NRB from venti mask due to desaturation of 87%. SpO2 now at 98% and is tolerating well with no signs of respiratory distress or sob noted at this time. RN, Taz perez. Will continue to monitor.
--- NOTE | 2020-09-11 19:17 | NUR ---
NURSE HAND-OFF REPORT: Important Events on Shift: Patient Status: Stable Diet: CCHO medium Pending Orders: None Pending Results/Labs:None Pending MD notification:None Latest Vital Signs: Temperature 97.9 , Pulse 100 , B/P 156 /75 , Respiratory Rate 20 , O2 SAT 100 , Venturi Mask, O2 Flow Rate 15.0 . Vital Sign Comment: Stable EKG Rhythm: Sinus Rhythm Rhythm change?: N MD Notified?: N - MD Response: Latest Cotton Fall Score: 45 Fall Risk: High Risk Safety Measures: Call light Within Reach, Bed Alarm Zone 1, Side Rails Side Rails x3, Bed position Low and Locked. Fall Precautions: Yellow Socks Yellow Gown Door Sign Patient Fall Education Report given to FELICE Knox.
--- NOTE | 2020-09-11 19:25 | NUR ---
NURSE NOTES: Report received from FELICE Mcghee. Patient is awake on bed, alert and oriented x 3. Cardica monitor is in place, shows sinus rhythm and no chest pain reported. On oxygen via non-rebreather mask @ 15lpm. On CCHO (Medium), crush medications. IV site is on right forearm, g-22 running 1/2 NS @ 75cc/hour that is patent and intact. On fall and aspiration precaution, with bilateral soft wrist restraints. Safety measures are in place, bed in lowest and locked position, side rails up x 2, call light button place within reach, instructed to call for any assistance needed, will continue plan of care.
[2020-09-11 20:00] VITALS: BP 148/67
[2020-09-11] MEDS ORDERED: Dyna-Hex 2% Top Sol 2oz TOPIC SCH (20:00)
[2020-09-12] VITALS: BP 147/69
--- NOTE | 2020-09-12 03:00 | NUR ---
NURSE NOTES: Sponge bath done, no complaints of pain nor desaturation noted. Will continue to monitor.
[2020-09-12 04:00] VITALS: BP 151/61
[2020-09-12] MEDS: NovoLOG Insulin Flexpen SUBQ SCH ×4 (06:12→20:34)
--- NOTE | 2020-09-12 06:58 | NUR ---
NURSE HAND-OFF REPORT: Important Events on Shift: Patient has been asleep the whole night, no signs of any discomfort nor complaints made. Patient Status: Patient is asleep in stable condition. Plan of care endorsed. Diet: CCHO(Medium) Pending Orders: Chest xray Pending Results/Labs:am labs result Pending MD notification:none Latest Vital Signs: Temperature 97.9 , Pulse 68 , B/P 151 /61 , Respiratory Rate 24 , O2 SAT 100 , Venturi Mask, O2 Flow Rate 15.0 . Vital Sign Comment: stable EKG Rhythm: Sinus Rhythm Rhythm change?: N MD Notified?: N - MD Response: Latest Cotton Fall Score: 45 Fall Risk: High Risk Safety Measures: Call light Within Reach, Bed Alarm Zone 1, Side Rails Side Rails x3, Bed position Low and Locked. Fall Precautions: Yellow Socks Yellow Gown Door Sign Patient Fall Education Report given to FELICE Mcghee.
--- NOTE | 2020-09-12 07:17 | NUR ---
NURSE NOTES: Received report from FELICE Knox. Patient is resting in bed in stable condition. No s/sx of SOB, breathing is even and unlabored, on Nonrebreather 15L FiO2 100% SpO2 100%. Denies any presence of pain or discomfort at this time. Bed is in lowest position, brakes engaged. Call light is kept within easy reach. Will continue to monitor patient.
[2020-09-12 07:51] VITALS: BP 158/64
[2020-09-12 07:54] LABS: HEMATOCRIT 30.2 % (37.0-47.0); MEAN CORPUSCULAR VOLUME 83 FL (80-99); PLATELET COUNT 250 K/UL (150-450); RED BLOOD COUNT 3.63 M/UL (4.20-5.40); RED CELL DISTRIBUTION WIDTH 15.3 % (11.6-14.8); WHITE BLOOD COUNT 17.6 K/UL (4.8-10.8)
[2020-09-12 08:09] LABS: ALBUMIN 1.9 G/DL (3.4-5.0); ALBUMIN/GLOBULIN RATIO 0.5 (1.0-2.7); BILIRUBIN,TOTAL 0.3 MG/DL (0.2-1.0); CALCIUM 8.4 MG/DL (8.5-10.1); CREATININE 2.2 MG/DL (0.55-1.30); PHOSPHORUS 3.6 MG/DL (2.5-4.9); POTASSIUM 4.3 MMOL/L (3.5-5.1)
[2020-09-12] MEDS: dexAMETHasone 10mg/ml Inj IV SCH (08:23)
[2020-09-12] MEDS: Pantoprazole Inj IVP SCH ×2 (08:24→20:24)
[2020-09-12] MEDS: cefTRIAXone 1 GM in D5W 55 ML IVPB SCH (08:25)
[2020-09-12] MEDS: Enoxaparin 30mg Inj SUBQ SCH (08:25)
--- NOTE | 2020-09-12 09:22 | Diagnostic Imaging Report ---
EXAM: XR Chest, 1 View CLINICAL HISTORY: INFECT TECHNIQUE: Frontal view of the chest. COMPARISON: Chest radiograph September 08, 2020. FINDINGS/IMPRESSION: Airspace consolidations within the upper lung field, consistent with infiltrates. This is slightly worsening within the left upper lung field and stable within the right upper lung field. Left lower lung field consolidation/infiltrate on September 08, 2020 chest radiograph is improving, but still present. Follow-up chest radiograph recommended. No pneumothorax. Cardiomegaly. Calcified aorta. Degenerative changes of the spine and shoulders. Diffuse osseous demineralization.
--- NOTE | 2020-09-12 10:47 | Infectious Diseases Prog Note ---
Assessment/Plan Assessment/Plan IMPRESSION: Sepsis Pneumonia with COVID19 Hypoxic respiratory failure Acute renal failure, Rhabdomyolysis, Diabetes mellitus. Leukocytosis improving RECOMMENDATIONS: will continue dexamethasone, , Discontinue ceftriaxone CXR: improving infiltrate Subjective ROS Limited/Unobtainable: Yes Neurologic: Reports: other - more alert, on restraint Allergies: Coded Allergies: No Known Allergies (Unverified , 09/04/20) Objective Last 24 Hour Vital Signs Date Time Temp Pulse Resp B/P (MAP) Pulse Ox O2 Delivery O2 Flow Rate FiO2 09/12/20 09:19 100 Non-Rebreather 15.0 100 09/12/20 08:00 Bi-pap 09/12/20 08:00 89 09/12/20 08:00 15.0 100 09/12/20 07:51 98.4 70 20 158/64 (95) 100 09/12/20 07:30 75 100 09/12/20 04:00 15.0 100 09/12/20 04:00 97.9 68 24 151/61 (91) 100 09/12/20 04:00 Bi-pap 09/12/20 03:38 48 09/12/20 00:00 15.0 100 09/12/20 00:00 98.4 59 20 147/69 (95) 100 09/12/20 00:00 Bi-pap 09/11/20 23:49 60 09/11/20 23:10 100 100 09/11/20 20:00 54 09/11/20 20:00 Bi-pap 09/11/20 20:00 96.4 65 24 148/67 (94) 100 09/11/20 19:39 100 Non-Rebreather 15.0 100 09/11/20 19:39 100 100 09/11/20 18:00 15.0 100 09/11/20 17:06 Venturi Mask 10.0 55 09/11/20 17:00 10.0 55 09/11/20 16:00 15.0 100 09/11/20 16:00 97.9 86 20 156/75 (102) 100 86 09/11/20 16:00 Bi-pap 09/11/20 16:00 100 09/11/20 15:23 100 100 09/11/20 15:23 Non-Rebreather 15.0 100 09/11/20 15:20 76 26 99 40 09/11/20 12:00 40 09/11/20 12:00 70 09/11/20 12:00 97.9 76 20 145/70 (95) 93 76 09/11/20 12:00 Bi-pap 09/11/20 11:10 68 20 100 40 Height (Feet): 5 Height (Inches): 5.00 Weight (Pounds): 140 HEENT: mucous membranes moist Respiratory/Chest: other - oxygen by NRB mask, 15 L/min Cardiovascular: normal rate Abdomen: soft, non tender Extremities: no edema Neurologic/Psychiatric: other - sleeping Laboratory Tests Test 09/11/20 11:36 09/11/20 16:29 09/11/20 21:32 09/12/20 05:50 POC Whole Blood Glucose 194 MG/DL (74-106) H 235 MG/DL (74-106) H Pending 104 MG/DL (74-106) Test 09/12/20 07:00 White Blood Count 17.6 K/UL (4.8-10.8) H Red Blood Count 3.63 M/UL (4.20-5.40) L Hemoglobin 10.0 G/DL (12.0-16.0) L Hematocrit 30.2 % (37.0-47.0) L Mean Corpuscular Volume 83 FL (80-99) Mean Corpuscular Hemoglobin 27.5 PG (27.0-31.0) Mean Corpuscular Hemoglobin Concent 33.0 G/DL (32.0-36.0) Red Cell Distribution Width 15.3 % (11.6-14.8) H Platelet Count 250 K/UL (150-450) Mean Platelet Volume 7.2 FL (6.5-10.1) Neutrophils (%) (Auto) % (45.0-75.0) Lymphocytes (%) (Auto) % (20.0-45.0) Monocytes (%) (Auto) % (1.0-10.0) Eosinophils (%) (Auto) % (0.0-3.0) Basophils (%) (Auto) % (0.0-2.0) Differential Total Cells Counted 100 Neutrophils % (Manual) 85 % (45-75) H Lymphocytes % (Manual) 10 % (20-45) L Monocytes % (Manual) 5 % (1-10) Eosinophils % (Manual) 0 % (0-3) Basophils % (Manual) 0 % (0-2) Band Neutrophils 0 % (0-8) Platelet Estimate Adequate Platelet Morphology Normal Hypochromasia 1+ Anisocytosis 1+ Sodium Level 145 MMOL/L (136-145) Potassium Level 4.3 MMOL/L (3.5-5.1) Chloride Level 110 MMOL/L (98-107) H Carbon Dioxide Level 25 MMOL/L (21-32) Anion Gap 10 mmol/L (5-15) Blood Urea Nitrogen 61 mg/dL (7-18) H Creatinine 2.2 MG/DL (0.55-1.30) H Estimat Glomerular Filtration Rate 25.9 mL/min (>60) Glucose Level 114 MG/DL (74-106) H Uric Acid 8.0 MG/DL (2.6-7.2) H Calcium Level 8.4 MG/DL (8.5-10.1) L Phosphorus Level 3.6 MG/DL (2.5-4.9) Magnesium Level 2.2 MG/DL (1.8-2.4) Total Bilirubin 0.3 MG/DL (0.2-1.0) Aspartate Amino Transf (AST/SGOT) 50 U/L (15-37) H Alanine Aminotransferase (ALT/SGPT) 57 U/L (12-78) Alkaline Phosphatase 148 U/L (46-116) H C-Reactive Protein, Quantitative Pending Total Protein 6.1 G/DL (6.4-8.2) L Albumin 1.9 G/DL (3.4-5.0) L Globulin 4.2 g/dL Albumin/Globulin Ratio 0.5 (1.0-2.7) L Vitamin D 25-Hydroxy Pending 25-Hydroxy Vitamin D2 Pending 25-Hydroxy Vitamin D3 Pending Current Medications Medications (Trade) Dose Ordered Sig/Rebecca Route PRN Reason Start Time Stop Time Status Last Admin Dose Admin Acetaminophen (Tylenol) 650 mg Q4H PRN ORAL Mild Pain (Pain Scale 1-3) 09/05/20 07:15 10/05/20 07:14 09/06/20 12:34 Ceftriaxone Sodium 1 gm/ Dextrose 55 ml @ 110 mls/hr Q24H IVPB 09/11/20 09:00 09/18/20 08:59 09/12/20 08:25 Dexamethasone Sodium Phosphate (Decadron 10mg/ ml Inj) 6 mg DAILY IV 09/06/20 09:00 09/15/20 09:01 09/12/20 08:23 Dextrose (Dextrose 50%) 25 ml Q30M PRN IV Hypoglycemia 09/07/20 05:45 12/06/20 05:44 Dextrose (Dextrose 50%) 50 ml Q30M PRN IV Hypoglycemia 09/07/20 05:45 12/06/20 05:44 Enoxaparin Sodium (Lovenox) 30 mg DAILY SUBQ 09/06/20 09:00 12/05/20 08:59 09/12/20 08:25 Folic Acid (Folate) 2 mg DAILY ORAL 09/11/20 11:00 10/11/20 10:59 09/12/20 08:23 Insulin Aspart (NovoLOG) BEFORE MEALS AND HS SUBQ 09/07/20 06:30 12/06/20 06:29 09/11/20 21:33 Pantoprazole (Protonix) 40 mg EVERY 12 HOURS IVP 09/10/20 21:00 10/10/20 20:59 09/12/20 08:24 Sodium Chloride 1,000 ml @ 75 mls/hr [id number] IV 09/06/20 17:00 10/06/20 16:59 09/12/20 06:13 Willian Banuelos MD Sep 12, 2020 10:47
--- NOTE | 2020-09-12 10:58 | NUR ---
NURSE NOTES: Dr. Liban Banuelos at nurse station, antibiotics discontinued, patient on dexamethasone, Dr. Liban Banuelos aware patient's WBC is 17,000. Dr. Liban Banuelos acknowledged and gave no new orders at this time. Will continue to monitor patient.
--- NOTE | 2020-09-12 11:10 | Nephrology Progress Note ---
Assessment/Plan Problem List: (1) FLOWER (acute kidney injury) (2) Hypoxia (3) Pneumonia (4) 2019 novel coronavirus disease (COVID-19) (5) Electrolyte imbalance (6) Anemia Assessment Acute renal failure Confirmed COVID-19 pneumonia Sepsis Hypoxia, on BiPAP Anemia Electrolyte imbalances Hyperglycemia Transaminitis Rhabdomyolysis Troponin leak Plan September 12: Labs reviewed. Serum creatinine lower 2.2. Medication list reviewed. Hydralazine as needed for high blood pressure ordered. Continue per consultants. Continue to avoid nephrotoxic's. September 11: Labs reviewed. Serum creatinine 2.5 slightly lower than before. Electrolyte within normal limit. Folic acid ordered. Continue to monitor renal parameters. Continue per consultants. Previously Slow IV hydration Urine studies Avoid nephrotoxic's Anemia work-up IV Protonix Albumin bolus Monitor renal parameters Adjust blood pressure medication Urine studies Per orders Discussed with RN Subjective ROS Limited/Unobtainable: Yes Objective Objective Last 24 Hour Vital Signs Date Time Temp Pulse Resp B/P (MAP) Pulse Ox O2 Delivery O2 Flow Rate FiO2 09/12/20 09:19 100 Non-Rebreather 15.0 100 09/12/20 08:00 Non-Rebreather 15.0 09/12/20 08:00 89 09/12/20 08:00 15.0 100 09/12/20 07:51 98.4 70 20 158/64 (95) 100 09/12/20 07:30 75 100 09/12/20 04:00 15.0 100 09/12/20 04:00 97.9 68 24 151/61 (91) 100 09/12/20 04:00 Bi-pap 09/12/20 03:38 48 09/12/20 00:00 15.0 100 09/12/20 00:00 98.4 59 20 147/69 (95) 100 09/12/20 00:00 Bi-pap 09/11/20 23:49 60 09/11/20 23:10 100 100 09/11/20 20:00 54 09/11/20 20:00 Bi-pap 09/11/20 20:00 96.4 65 24 148/67 (94) 100 09/11/20 19:39 100 Non-Rebreather 15.0 100 09/11/20 19:39 100 100 09/11/20 18:00 15.0 100 09/11/20 17:06 Venturi Mask 10.0 55 09/11/20 17:00 10.0 55 09/11/20 16:00 15.0 100 09/11/20 16:00 97.9 86 20 156/75 (102) 100 86 09/11/20 16:00 Bi-pap 09/11/20 16:00 100 09/11/20 15:23 100 100 09/11/20 15:23 Non-Rebreather 15.0 100 09/11/20 15:20 76 26 99 40 09/11/20 12:00 40 09/11/20 12:00 70 09/11/20 12:00 97.9 76 20 145/70 (95) 93 76 09/11/20 12:00 Bi-pap 09/11/20 11:10 68 20 100 40 Intake and Output 09/11/20 09/12/20 19:00 07:00 Intake Total 1305 ml 750 ml Output Total 1000 ml 1000 ml Balance 305 ml -250 ml Intake Oral 500 ml 300 ml IV Total 805 ml 450 ml Output Urine Total 1000 ml 1000 ml Current Medications Medications (Trade) Dose Ordered Sig/Rebecca Route PRN Reason Start Time Stop Time Status Last Admin Dose Admin Acetaminophen (Tylenol) 650 mg Q4H PRN ORAL Mild Pain (Pain Scale 1-3) 09/05/20 07:15 10/05/20 07:14 09/06/20 12:34 Dexamethasone Sodium Phosphate (Decadron 10mg/ ml Inj) 6 mg DAILY IV 09/06/20 09:00 09/15/20 09:01 09/12/20 08:23 Dextrose (Dextrose 50%) 25 ml Q30M PRN IV Hypoglycemia 09/07/20 05:45 12/06/20 05:44 Dextrose (Dextrose 50%) 50 ml Q30M PRN IV Hypoglycemia 09/07/20 05:45 12/06/20 05:44 Enoxaparin Sodium (Lovenox) 30 mg DAILY SUBQ 09/06/20 09:00 12/05/20 08:59 09/12/20 08:25 Folic Acid (Folate) 2 mg DAILY ORAL 09/11/20 11:00 10/11/20 10:59 09/12/20 08:23 Insulin Aspart (NovoLOG) BEFORE MEALS AND HS SUBQ 09/07/20 06:30 12/06/20 06:29 09/11/20 21:33 Pantoprazole (Protonix) 40 mg EVERY 12 HOURS IVP 09/10/20 21:00 10/10/20 20:59 09/12/20 08:24 Sodium Chloride 1,000 ml @ 75 mls/hr [id number] IV 09/06/20 17:00 10/06/20 16:59 09/12/20 06:13 Laboratory Tests 09/11/20 11:36: POC Whole Blood Glucose 194H 09/11/20 16:29: POC Whole Blood Glucose 235H 09/11/20 21:32: POC Whole Blood Glucose [Pending] 09/12/20 05:50: POC Whole Blood Glucose 104 09/12/20 07:00: White Blood Count 17.6H, Red Blood Count 3.63L, Hemoglobin 10.0L, Hematocrit 30.2L, Mean Corpuscular Volume 83, Mean Corpuscular Hemoglobin 27.5, Mean Corpuscular Hemoglobin Concent 33.0, Red Cell Distribution Width 15.3H, Platelet Count 250, Mean Platelet Volume 7.2, Neutrophils (%) (Auto) , Lymphocytes (%) (Auto) , Monocytes (%) (Auto) , Eosinophils (%) (Auto) , Basophils (%) (Auto) , Differential Total Cells Counted 100, Neutrophils % (Manual) 85H, Lymphocytes % (Manual) 10L, Monocytes % (Manual) 5, Eosinophils % (Manual) 0, Basophils % (Manual) 0, Band Neutrophils 0, Platelet Estimate Adequate, Platelet Morphology Normal, Hypochromasia 1+, Anisocytosis 1+, Sodium Level 145, Potassium Level 4.3, Chloride Level 110H, Carbon Dioxide Level 25, Anion Gap 10, Blood Urea Nitrogen 61H, Creatinine 2.2H, Estimat Glomerular Filtration Rate 25.9, Glucose Level 114H, Uric Acid 8.0H, Calcium Level 8.4L, Phosphorus Level 3.6, Magnesium Level 2.2, Total Bilirubin 0.3, Aspartate Amino Transf (AST/SGOT) 50H, Alanine Aminotransferase (ALT/SGPT) 57, Alkaline Phosphatase 148H, C-Reactive Protein, Quantitative [Pending], Total Protein 6.1L, Albumin 1.9L, Globulin 4.2, A lbumin/Globulin Ratio 0.5L, Vitamin D 25-Hydroxy [Pending], 25-Hydroxy Vitamin D2 [Pending], 25-Hydroxy Vitamin D3 [Pending] Height (Feet): 5 Height (Inches): 5.00 Weight (Pounds): 140 General Appearance: mild distress EENT: other - On nonrebreather mask Cardiovascular: other - Variable rate Respiratory/Chest: decreased breath sounds Abdomen: distended Zachary Dunalp MD Sep 12, 2020 11:10
[2020-09-12] MEDS ORDERED: HydrALAZINE 25mg tab ORAL PRN (11:15)
[2020-09-12 12:00] VITALS: BP 131/62
--- NOTE | 2020-09-12 12:30 | NUR ---
NURSE NOTES: Dr. Ceron at nurse station, made aware patient has been weaned to non-rebreather 15L FiO2 100% SpO2 100% - also informed MD that attempts were made to wean patient to venturi mask 10L FiO2 55%; patient was unable to tolerate SpO2 noted desaturating to 88% - patient was placed back on non-breather 15L FiO2 100% SpO2 100% patient comfortable with non-rebreather settings and tolerated. Dr. Ceron acknowledged and ordered to Bipap 20/6 FiO2 100% as needed for shortness of breath. Order entered and noted. Will continue to monitor patient.
--- NOTE | 2020-09-12 12:46 | Pulmonology Progress Note ---
Subjective ROS Limited/Unobtainable: Yes Interval Events: remains on BiPAP; keeps pulling it off Constitutional: Reports: fever HEENT: Repors: no symptoms Respiratory: Reports: no symptoms, shortness of breath Cardiovascular: Reports: no symptoms Gastrointestinal/Abdominal: Reports: no symptoms Genitourinary: Reports: no symptoms Allergies: Coded Allergies: No Known Allergies (Unverified , 09/04/20) Objective Last 24 Hour Vital Signs Date Time Temp Pulse Resp B/P (MAP) Pulse Ox O2 Delivery O2 Flow Rate FiO2 09/12/20 09:19 100 Non-Rebreather 15.0 100 09/12/20 08:00 Non-Rebreather 15.0 09/12/20 08:00 89 09/12/20 08:00 15.0 100 09/12/20 07:51 98.4 70 20 158/64 (95) 100 09/12/20 07:30 75 100 09/12/20 04:00 15.0 100 09/12/20 04:00 97.9 68 24 151/61 (91) 100 09/12/20 04:00 Bi-pap 09/12/20 03:38 48 09/12/20 00:00 15.0 100 09/12/20 00:00 98.4 59 20 147/69 (95) 100 09/12/20 00:00 Bi-pap 09/11/20 23:49 60 09/11/20 23:10 100 100 09/11/20 20:00 54 09/11/20 20:00 Bi-pap 09/11/20 20:00 96.4 65 24 148/67 (94) 100 09/11/20 19:39 100 Non-Rebreather 15.0 100 09/11/20 19:39 100 100 09/11/20 18:00 15.0 100 09/11/20 17:06 Venturi Mask 10.0 55 09/11/20 17:00 10.0 55 09/11/20 16:00 15.0 100 09/11/20 16:00 97.9 86 20 156/75 (102) 100 86 09/11/20 16:00 Bi-pap 09/11/20 16:00 100 09/11/20 15:23 100 100 09/11/20 15:23 Non-Rebreather 15.0 100 09/11/20 15:20 76 26 99 40 Intake and Output 09/11/20 09/12/20 19:00 07:00 Intake Total 1305 ml 750 ml Output Total 1000 ml 1000 ml Balance 305 ml -250 ml Intake Oral 500 ml 300 ml IV Total 805 ml 450 ml Output Urine Total 1000 ml 1000 ml HEENT: atraumatic Respiratory: lungs clear Cardiovascular: normal rate, regular rhythm Abdomen: soft, non tender Laboratory Tests 09/11/20 16:29: POC Whole Blood Glucose 235H 09/11/20 21:32: POC Whole Blood Glucose [Pending] 09/12/20 05:50: POC Whole Blood Glucose 104 09/12/20 07:00: White Blood Count 17.6H, Red Blood Count 3.63L, Hemoglobin 10.0L, Hematocrit 30.2L, Mean Corpuscular Volume 83, Mean Corpuscular Hemoglobin 27.5, Mean Corpuscular Hemoglobin Concent 33.0, Red Cell Distribution Width 15.3H, Platelet Count 250, Mean Platelet Volume 7.2, Neutrophils (%) (Auto) , Lymphocytes (%) (Auto) , Monocytes (%) (Auto) , Eosinophils (%) (Auto) , Basophils (%) (Auto) , Differential Total Cells Counted 100, Neutrophils % (Manual) 85H, Lymphocytes % (Manual) 10L, Monocytes % (Manual) 5, Eosinophils % (Manual) 0, Basophils % (Manual) 0, Band Neutrophils 0, Platelet Estimate Adequate, Platelet Morphology Normal, Hypochromasia 1+, Anisocytosis 1+, Sodium Level 145, Potassium Level 4.3, Chloride Level 110H, Carbon Dioxide Level 25, Anion Gap 10, Blood Urea Nitrogen 61H, Creatinine 2.2H, Estimat Glomerular Filtration Rate 25.9, Glucose Level 114H, Uric Acid 8.0H, Calcium Level 8.4L, Phosphorus Level 3.6, Magnesium Level 2.2, Total Bilirubin 0.3, Aspartate Amino Transf (AST/SGOT) 50H, Alanine Aminotransferase (ALT/SGPT) 57, Alkaline Phosphatase 148H, C-Reactive Protein, Quantitative [Pending], Total Protein 6.1L, Albumin 1.9L, Globulin 4.2, Albumin/Globulin Ratio 0.5L, Vitamin D 25-Hydroxy [Pending], 25-Hydroxy Vitamin D2 [Pending], 25-Hydroxy Vitamin D3 [Pending] 09/12/20 11:13: POC Whole Blood Glucose 182H Current Medications Medications (Trade) Dose Ordered Sig/Rebecca Route PRN Reason Start Time Stop Time Status Last Admin Dose Admin Acetaminophen (Tylenol) 650 mg Q4H PRN ORAL Mild Pain (Pain Scale 1-3) 09/05/20 07:15 10/05/20 07:14 09/06/20 12:34 Albumin Human 100 ml @ 100 mls/hr ONCE IV 09/12/20 12:00 09/12/20 13:00 Dexamethasone Sodium Phosphate (Decadron 10mg/ ml Inj) 6 mg DAILY IV 09/06/20 09:00 09/15/20 09:01 09/12/20 08:23 Dextrose (Dextrose 50%) 25 ml Q30M PRN IV Hypoglycemia 09/07/20 05:45 12/06/20 05:44 Dextrose (Dextrose 50%) 50 ml Q30M PRN IV Hypoglycemia 09/07/20 05:45 12/06/20 05:44 Enoxaparin Sodium (Lovenox) 30 mg DAILY SUBQ 09/06/20 09:00 12/05/20 08:59 09/12/20 08:25 Folic Acid (Folate) 2 mg DAILY ORAL 09/11/20 11:00 10/11/20 10:59 09/12/20 08:23 Hydralazine HCl (Apresoline) 25 mg Q4H PRN ORAL bp over 160 syst 09/12/20 11:15 12/11/20 11:14 Insulin Aspart (NovoLOG) BEFORE MEALS AND HS SUBQ 09/07/20 06:30 12/06/20 06:29 09/11/20 21:33 Pantoprazole (Protonix) 40 mg EVERY 12 HOURS IVP 09/10/20 21:00 10/10/20 20:59 09/12/20 08:24 Sodium Chloride 1,000 ml @ 75 mls/hr [id number] IV 09/06/20 17:00 10/06/20 16:59 09/12/20 06:13 Assessment/Plan Assessment/Plan 1. Hypoxia. - on Decadron (08/06-) - Currently on NRBM; SaO2 90% 2. Bilateral dense pulmonary infiltrates - Will attempt to diurese - noted creatinine 2.2 3. Probable superimposed pneumonia. - on empiric Abx 4. Confirmed COVID-19 pneumonia 5. Hyponatremia. 6. Renal failure. 7. Elevated inflammatory markers. 8. Transaminitis. 9. Rhabdomyolysis. 10. Troponin leak. 11. Hyperglycemia - oral hypoglycemics 12. Gram positive bacteremia - s/p IV Vanco per Renan Barahona MD Sep 12, 2020 12:46
--- NOTE | 2020-09-12 13:41 | Consultation ---
History of Present Illness General Chief Complaint: Bradycardia, hypoxia Present Illness HPI 80-year-old female who was admitted to the hospital with hypoxia. The patient reports a 2-day history of shortness of breath, chest pain and palpitations. Found to be COVID-19 positive, treated for viral PNA. Pt became bradycardic with rate in low 40's, we were called to see the patient for cardiology consult. She has been on Ca channel shu, now discontinued. PMHx dementia, anemia, DMII, CHF. Allergies: Coded Allergies: No Known Allergies (Unverified , 09/04/20) Medication History Scheduled Amlodipine Besylate* (Amlodipine Besylate*), MG ORAL DAILY, (Reported) Glipizide* (Glipizide*), MG ORAL BIDAC, (Reported) Miscellaneous Medications Mv-Mn/Folic Acid/Calcium/Vit K (Women's 50 Plus Multivit Tab), 1 EACH PO, (Reported) Patient History Limited by: medical condition History Provided By: Medical Record, EMS Healthcare decision maker Resuscitation status Advanced Directive on File Review of Systems Constitutional: Reports: malaise Respiratory: Reports: shortness of breath Neurological: Reports: no symptoms All Other Systems: negative except mentioned in HPI Physical Exam Last 24 Hour Vital Signs Date Time Temp Pulse Resp B/P (MAP) Pulse Ox O2 Delivery O2 Flow Rate FiO2 09/12/20 12:00 Non-Rebreather 15.0 09/12/20 12:00 15.0 100 09/12/20 09:19 100 Non-Rebreather 15.0 100 09/12/20 08:00 Non-Rebreather 15.0 09/12/20 08:00 89 09/12/20 08:00 15.0 100 09/12/20 07:51 98.4 70 20 158/64 (95) 100 09/12/20 07:30 75 100 09/12/20 04:00 15.0 100 09/12/20 04:00 97.9 68 24 151/61 (91) 100 09/12/20 04:00 Bi-pap 09/12/20 03:38 48 09/12/20 00:00 15.0 100 09/12/20 00:00 98.4 59 20 147/69 (95) 100 09/12/20 00:00 Bi-pap 09/11/20 23:49 60 09/11/20 23:10 100 100 09/11/20 20:00 54 09/11/20 20:00 Bi-pap 09/11/20 20:00 96.4 65 24 148/67 (94) 100 09/11/20 19:39 100 Non-Rebreather 15.0 100 09/11/20 19:39 100 100 09/11/20 18:00 15.0 100 09/11/20 17:06 Venturi Mask 10.0 55 09/11/20 17:00 10.0 55 09/11/20 16:00 15.0 100 09/11/20 16:00 97.9 86 20 156/75 (102) 100 86 09/11/20 16:00 Bi-pap 09/11/20 16:00 100 09/11/20 15:23 100 100 09/11/20 15:23 Non-Rebreather 15.0 100 09/11/20 15:20 76 26 99 40 Intake and Output 09/11/20 09/12/20 19:00 07:00 Intake Total 1305 ml 750 ml Output Total 1000 ml 1000 ml Balance 305 ml -250 ml Intake Oral 500 ml 300 ml IV Total 805 ml 450 ml Output Urine Total 1000 ml 1000 ml Laboratory Tests Test 09/11/20 16:29 09/11/20 21:32 09/12/20 05:50 09/12/20 07:00 POC Whole Blood Glucose 235 MG/DL (74-106) H Pending 104 MG/DL (74-106) White Blood Count 17.6 K/UL (4.8-10.8) H Red Blood Count 3.63 M/UL (4.20-5.40) L Hemoglobin 10.0 G/DL (12.0-16.0) L Hematocrit 30.2 % (37.0-47.0) L Mean Corpuscular Volume 83 FL (80-99) Mean Corpuscular Hemoglobin 27.5 PG (27.0-31.0) Mean Corpuscular Hemoglobin Concent 33.0 G/DL (32.0-36.0) Red Cell Distribution Width 15.3 % (11.6-14.8) H Platelet Count 250 K/UL (150-450) Mean Platelet Volume 7.2 FL (6.5-10.1) Neutrophils (%) (Auto) % (45.0-75.0) Lymphocytes (%) (Auto) % (20.0-45.0) Monocytes (%) (Auto) % (1.0-10.0) Eosinophils (%) (Auto) % (0.0-3.0) Basophils (%) (Auto) % (0.0-2.0) Differential Total Cells Counted 100 Neutrophils % (Manual) 85 % (45-75) H Lymphocytes % (Manual) 10 % (20-45) L Monocytes % (Manual) 5 % (1-10) Eosinophils % (Manual) 0 % (0-3) Basophils % (Manual) 0 % (0-2) Band Neutrophils 0 % (0-8) Platelet Estimate Adequate Platelet Morphology Normal Hypochromasia 1+ Anisocytosis 1+ Sodium Level 145 MMOL/L (136-145) Potassium Level 4.3 MMOL/L (3.5-5.1) Chloride Level 110 MMOL/L (98-107) H Carbon Dioxide Level 25 MMOL/L (21-32) Anion Gap 10 mmol/L (5-15) Blood Urea Nitrogen 61 mg/dL (7-18) H Creatinine 2.2 MG/DL (0.55-1.30) H Estimat Glomerular Filtration Rate 25.9 mL/min (>60) Glucose Level 114 MG/DL (74-106) H Uric Acid 8.0 MG/DL (2.6-7.2) H Calcium Level 8.4 MG/DL (8.5-10.1) L Phosphorus Level 3.6 MG/DL (2.5-4.9) Magnesium Level 2.2 MG/DL (1.8-2.4) Total Bilirubin 0.3 MG/DL (0.2-1.0) Aspartate Amino Transf (AST/SGOT) 50 U/L (15-37) H Alanine Aminotransferase (ALT/SGPT) 57 U/L (12-78) Alkaline Phosphatase 148 U/L (46-116) H C-Reactive Protein, Quantitative Pending Total Protein 6.1 G/DL (6.4-8.2) L Albumin 1.9 G/DL (3.4-5.0) L Globulin 4.2 g/dL Albumin/Globulin Ratio 0.5 (1.0-2.7) L Vitamin D 25-Hydroxy Pending 25-Hydroxy Vitamin D2 Pending 25-Hydroxy Vitamin D3 Pending Test 09/12/20 11:13 POC Whole Blood Glucose 182 MG/DL (74-106) H Height (Feet): 5 Height (Inches): 5.00 Weight (Pounds): 140 Medications Current Medications Medications (Trade) Dose Ordered Sig/Rebecca Route PRN Reason Start Time Stop Time Status Last Admin Dose Admin Acetaminophen (Tylenol) 650 mg Q4H PRN ORAL Mild Pain (Pain Scale 1-3) 09/05/20 07:15 10/05/20 07:14 09/06/20 12:34 Dexamethasone Sodium Phosphate (Decadron 10mg/ ml Inj) 6 mg DAILY IV 09/06/20 09:00 09/15/20 09:01 09/12/20 08:23 Dextrose (Dextrose 50%) 25 ml Q30M PRN IV Hypoglycemia 09/07/20 05:45 12/06/20 05:44 Dextrose (Dextrose 50%) 50 ml Q30M PRN IV Hypoglycemia 09/07/20 05:45 12/06/20 05:44 Enoxaparin Sodium (Lovenox) 30 mg DAILY SUBQ 09/06/20 09:00 12/05/20 08:59 09/12/20 08:25 Folic Acid (Folate) 2 mg DAILY ORAL 09/11/20 11:00 10/11/20 10:59 09/12/20 08:23 Furosemide (Lasix) 40 mg EVERY 12 HOURS IV 09/12/20 13:00 10/12/20 12:59 Hydralazine HCl (Apresoline) 25 mg Q4H PRN ORAL bp over 160 syst 09/12/20 11:15 12/11/20 11:14 Insulin Aspart (NovoLOG) BEFORE MEALS AND HS SUBQ 09/07/20 06:30 12/06/20 06:29 09/12/20 12:44 Pantoprazole (Protonix) 40 mg EVERY 12 HOURS IVP 09/10/20 21:00 10/10/20 20:59 09/12/20 08:24 Assessment/Plan Status Narrative Oxygen dependent on NRB, receiving treatment for COVID-19 viral PNA. HR improved. Assessment/Plan: 1. COVID-19 viral PNA 2. Leukocytosis 3. Respiratory failure and oxygen dependence on NRB mask 4. Sinus bradycardia Bb and Ca channel shu held rate improved 5. FLOWER on CKD 6. Anemia 7. DMII 8. Demenia and frailty Echocardiogram pending, BNP pending. Keisha Hugo PA-C Sep 12, 2020 13:41
[2020-09-12] MEDS: HydrALAZINE 50mg tab ORAL SCH ×2 (14:09→21:51)
--- NOTE | 2020-09-12 14:38 | General Progress Note ---
Subjective Allergies: Coded Allergies: No Known Allergies (Unverified , 09/04/20) Subjective lethargic on nrb mask ac renal failure in [place] Objective Last 24 Hour Vital Signs Date Time Temp Pulse Resp B/P (MAP) Pulse Ox O2 Delivery O2 Flow Rate FiO2 09/12/20 14:09 131/65 09/12/20 12:00 Non-Rebreather 15.0 09/12/20 12:00 15.0 100 09/12/20 09:19 100 Non-Rebreather 15.0 100 09/12/20 08:00 Non-Rebreather 15.0 09/12/20 08:00 89 09/12/20 08:00 15.0 100 09/12/20 07:51 98.4 70 20 158/64 (95) 100 09/12/20 07:30 75 100 09/12/20 04:00 15.0 100 09/12/20 04:00 97.9 68 24 151/61 (91) 100 09/12/20 04:00 Bi-pap 09/12/20 03:38 48 09/12/20 00:00 15.0 100 09/12/20 00:00 98.4 59 20 147/69 (95) 100 09/12/20 00:00 Bi-pap 09/11/20 23:49 60 09/11/20 23:10 100 100 09/11/20 20:00 54 09/11/20 20:00 Bi-pap 09/11/20 20:00 96.4 65 24 148/67 (94) 100 09/11/20 19:39 100 Non-Rebreather 15.0 100 09/11/20 19:39 100 100 09/11/20 18:00 15.0 100 09/11/20 17:06 Venturi Mask 10.0 55 09/11/20 17:00 10.0 55 09/11/20 16:00 15.0 100 09/11/20 16:00 97.9 86 20 156/75 (102) 100 86 09/11/20 16:00 Bi-pap 09/11/20 16:00 100 09/11/20 15:23 100 100 09/11/20 15:23 Non-Rebreather 15.0 100 09/11/20 15:20 76 26 99 40 Intake and Output 09/11/20 09/12/20 18:59 06:59 Intake Total 1230 ml 825 ml Output Total 1000 ml 1000 ml Balance 230 ml -175 ml Intake Oral 500 ml 300 ml IV Total 730 ml 525 ml Output Urine Total 1000 ml 1000 ml Laboratory Tests 09/11/20 16:29: POC Whole Blood Glucose 235H 09/11/20 21:32: POC Whole Blood Glucose [Pending] 09/12/20 05:50: POC Whole Blood Glucose 104 09/12/20 07:00: White Blood Count 17.6H, Red Blood Count 3.63L, Hemoglobin 10.0L, Hematocrit 30.2L, Mean Corpuscular Volume 83, Mean Corpuscular Hemoglobin 27.5, Mean Corpuscular Hemoglobin Concent 33.0, Red Cell Distribution Width 15.3H, Platelet Count 250, Mean Platelet Volume 7.2, Neutrophils (%) (Auto) , Lymphocytes (%) (Auto) , Monocytes (%) (Auto) , Eosinophils (%) (Auto) , Basophils (%) (Auto) , Differential Total Cells Counted 100, Neutrophils % (Manual) 85H, Lymphocytes % (Manual) 10L, Monocytes % (Manual) 5, Eosinophils % (Manual) 0, Basophils % (Manual) 0, Band Neutrophils 0, Platelet Estimate Adequate, Platelet Morphology Normal, Hypochromasia 1+, Anisocytosis 1+, Sodium Level 145, Potassium Level 4.3, Chloride Level 110H, Carbon Dioxide Level 25, Anion Gap 10, Blood Urea Nitrogen 61H, Creatinine 2.2H, Estimat Glomerular Filtration Rate 25.9, Glucose Level 114H, Uric Acid 8.0H, Calcium Level 8.4L, Phosphorus Level 3.6, Magnesium Level 2.2, Total Bilirubin 0.3, Aspartate Amino Transf (AST/SGOT) 50H, Alanine Aminotransferase (ALT/SGPT) 57, Alkaline Phosphatase 148H, C-Reactive Protein, Quantitative [Pending], Total Protein 6.1L, Albumin 1.9L, Globulin 4.2, Albumin/Globulin Ratio 0.5L, Vitamin D 25-Hydroxy [Pending], 25-Hydroxy Vitamin D2 [Pending], 25-Hydroxy Vitamin D3 [Pending] 09/12/20 11:13: POC Whole Blood Glucose 182H Height (Feet): 5 Height (Inches): 5.00 Weight (Pounds): 140 General Appearance: lethargic Neck: supple Cardiovascular: regular rhythm Respiratory/Chest: crackles/rales Abdomen: non tender, soft Extremities: non-tender Assessment/Plan Assessment/Plan: aloc ac resp failure pna r/ o covid worse dehyration demtentia anemia leucocytosis due to steroids ac renal failure nephro consult check abg gerald with pulmonary on cont bipap cont iv abx, luke , gerald daughter Sravan Licona MD Sep 12, 2020 14:38
[2020-09-12 16:00] VITALS: BP 139/62
--- NOTE | 2020-09-12 19:26 | NUR ---
NURSE HAND-OFF REPORT: Important Events on Shift: Patient Status: Stable Diet: CCHO medium Pending Orders: None Pending Results/Labs:None Pending MD notification:None Latest Vital Signs: Temperature 98.2 , Pulse 54 , B/P 139 /62 , Respiratory Rate 20 , O2 SAT 100 , Venturi Mask, O2 Flow Rate 15.0 . Vital Sign Comment: Stable EKG Rhythm: Sinus Bradycardia Rhythm change?: N MD Notified?: N - MD Response: Latest Cotton Fall Score: 45 Fall Risk: High Risk Safety Measures: Call light Within Reach, Bed Alarm Zone 1, Side Rails Side Rails x3, Bed position Low and Locked. Fall Precautions: Yellow Socks Yellow Gown Door Sign Patient Fall Education Report given to Michelle Lane RN.
--- NOTE | 2020-09-12 19:30 | NUR ---
NURSE NOTES: Received report from FELICE Mcghee. Pt is asleep but arousable to name. A/Ox3, no complaints of pain. No distress noted. SR on cardiac cath lab technologist. SpO2 100% on NRB 15L, 100%. FiO2. Dinner intake noted to be 50%. Tsang is intact and draining well to gravity. L W 22g infiltrated, will discontinue and insert new IV. BW on, pulses and skin intact bilaterally. call light within reach, side railsx3, bed alarmed, locked, and in lowest position. Will continue plan of care. Will continue to monitor.
[2020-09-12 20:00] VITALS: BP 150/62
--- NOTE | 2020-09-12 22:30 | NUR ---
NURSE NOTES: Administered PM meds, kevin ARZATE. Pt is fatigued, no complaints of pain or distress. Will continue to monitor. Will continue plan of care. Addendum: 09/12/20 at 2233 by Michelle Alevs RN Wrong pt
[2020-09-13] VITALS: BP 147/74
--- NOTE | 2020-09-13 01:01 | NUR ---
NURSE NOTES: Pt found with NRB around chin, SpO2 84%, and legs out of the bed. Repositioned pt and put NRB on, SpO2 went up to 96% within 10s. Will continue to monitor. Will continue plan of care.
--- NOTE | 2020-09-13 02:31 | NUR ---
NURSE NOTES: Cleaned and turned pt, changed beddings and gown. Oral care performed. No desaturation noted for 20s. Will continue plan of care.
[2020-09-13 04:00] VITALS: BP 111/75
--- NOTE | 2020-09-13 04:55 | NUR ---
NURSE NOTES: Pt is stable at this time. Helped pt turn. Tolerated well. No signs of distress noted at this time. Will continue to monitor.
[2020-09-13] MEDS: HydrALAZINE 50mg tab ORAL SCH ×3 (05:53→20:24)
[2020-09-13] MEDS: NovoLOG Insulin Flexpen SUBQ SCH ×4 (05:55→20:53)
--- NOTE | 2020-09-13 07:11 | Pulmonology Progress Note ---
Subjective ROS Limited/Unobtainable: Yes Interval Events: remains on BiPAP; keeps pulling it off Constitutional: Reports: fever HEENT: Repors: no symptoms Respiratory: Reports: no symptoms, shortness of breath Cardiovascular: Reports: no symptoms Gastrointestinal/Abdominal: Reports: no symptoms Genitourinary: Reports: no symptoms Allergies: Coded Allergies: No Known Allergies (Unverified , 09/04/20) Objective Last 24 Hour Vital Signs Date Time Temp Pulse Resp B/P (MAP) Pulse Ox O2 Delivery O2 Flow Rate FiO2 09/13/20 05:53 111/75 09/13/20 04:00 Non-Rebreather 15.0 09/13/20 04:00 54 09/13/20 04:00 98.1 64 24 111/75 (87) 100 09/13/20 04:00 15.0 100 09/13/20 00:00 15.0 100 09/13/20 00:00 112 09/13/20 00:00 97.9 87 24 147/74 (98) 95 09/13/20 00:00 Non-Rebreather 15.0 09/12/20 21:51 150/68 09/12/20 20:00 15.0 100 09/12/20 20:00 53 09/12/20 20:00 Non-Rebreather 15.0 09/12/20 20:00 98.7 52 24 150/62 (91) 100 09/12/20 19:56 99 Non-Rebreather 15.0 100 09/12/20 19:56 99 100 09/12/20 16:00 15.0 100 09/12/20 16:00 54 09/12/20 16:00 Non-Rebreather 15.0 09/12/20 16:00 98.2 82 20 139/62 (87) 100 09/12/20 15:30 73 100 09/12/20 14:09 131/65 09/12/20 12:00 Non-Rebreather 15.0 09/12/20 12:00 98.5 80 20 131/62 (85) 100 09/12/20 12:00 80 09/12/20 12:00 15.0 100 09/12/20 09:19 100 Non-Rebreather 15.0 100 09/12/20 08:00 Non-Rebreather 15.0 09/12/20 08:00 89 09/12/20 08:00 15.0 100 09/12/20 07:51 98.4 70 20 158/64 (95) 100 09/12/20 07:30 75 100 Intake and Output 09/12/20 09/13/20 19:00 07:00 Intake Total 890 ml 30 ml Output Total 3733 ml 1800 ml Balance -2843 ml -1770 ml Intake Oral 460 ml 30 ml IV Total 430 ml Output Urine Total 3733 ml 1800 ml HEENT: atraumatic Respiratory: lungs clear Cardiovascular: normal rate, regular rhythm Abdomen: soft, non tender Laboratory Tests 09/12/20 11:13: POC Whole Blood Glucose 182H 09/12/20 16:01: POC Whole Blood Glucose 216H 09/12/20 20:32: POC Whole Blood Glucose 264H 09/13/20 05:51: POC Whole Blood Glucose 157H Current Medications Medications (Trade) Dose Ordered Sig/Rebecca Route PRN Reason Start Time Stop Time Status Last Admin Dose Admin Acetaminophen (Tylenol) 650 mg Q4H PRN ORAL Mild Pain (Pain Scale 1-3) 09/05/20 07:15 10/05/20 07:14 09/06/20 12:34 Dexamethasone Sodium Phosphate (Decadron 10mg/ ml Inj) 6 mg DAILY IV 09/06/20 09:00 09/15/20 09:01 09/12/20 08:23 Dextrose (Dextrose 50%) 25 ml Q30M PRN IV Hypoglycemia 09/07/20 05:45 12/06/20 05:44 Dextrose (Dextrose 50%) 50 ml Q30M PRN IV Hypoglycemia 09/07/20 05:45 12/06/20 05:44 Enoxaparin Sodium (Lovenox) 30 mg DAILY SUBQ 09/06/20 09:00 12/05/20 08:59 09/12/20 08:25 Folic Acid (Folate) 2 mg DAILY ORAL 09/11/20 11:00 10/11/20 10:59 09/12/20 08:23 Furosemide (Lasix) 40 mg EVERY 12 HOURS IV 09/12/20 13:00 10/12/20 12:59 09/12/20 20:24 Hydralazine HCl (Apresoline) 25 mg Q4H PRN ORAL bp over 160 syst 09/12/20 11:15 12/11/20 11:14 Hydralazine HCl (Apresoline) 50 mg Q8HR ORAL 09/12/20 14:00 12/11/20 13:59 09/12/20 21:51 Insulin Aspart (NovoLOG) BEFORE MEALS AND HS SUBQ 09/07/20 06:30 12/06/20 06:29 09/13/20 05:55 Pantoprazole (Protonix) 40 mg EVERY 12 HOURS IVP 09/10/20 21:00 10/10/20 20:59 09/12/20 20:24 Assessment/Plan Assessment/Plan 1. Hypoxia. - on Decadron (08/06-) - Currently on NRBM; SaO2 90% 2. Bilateral dense pulmonary infiltrates - Will attempt to diurese - noted creatinine 2.2 3. Probable superimposed pneumonia. - on empiric Abx 4. Confirmed COVID-19 pneumonia 5. Hyponatremia. 6. Renal failure. 7. Elevated inflammatory markers. 8. Transaminitis. 9. Rhabdomyolysis. 10. Troponin leak. 11. Hyperglycemia - oral hypoglycemics 12. Gram positive bacteremia - s/p IV Vanco per Renan Barahona MD Sep 13, 2020 07:11
--- NOTE | 2020-09-13 07:20 | NUR ---
NURSE NOTES: Received patient from Michelle VIVEROS. patient is sleeping in bed without any acute distress noted. sinus rhythm on the monitor. on NRB 15L saturation 96%. NRB found off patient when entering room. placed NRB back on, repositioned patient, and maintained comfort and safety. cuellar in place and draining well to gravity. bilateral soft restraints are on. bed to lowest position and locked. call light within easy reach. will continue plan of care.
[2020-09-13 08:00] VITALS: BP 139/61
[2020-09-13 08:16] LABS: HEMATOCRIT 35.9 % (37.0-47.0); HEMOGLOBIN 11.7 G/DL (12.0-16.0); MEAN CORPUSCULAR VOLUME 82 FL (80-99); PLATELET COUNT 266 K/UL (150-450); RED BLOOD COUNT 4.37 M/UL (4.20-5.40); RED CELL DISTRIBUTION WIDTH 15.5 % (11.6-14.8); WHITE BLOOD COUNT 17.8 K/UL (4.8-10.8)
[2020-09-13 08:40] LABS: ALBUMIN 2.7 G/DL (3.4-5.0); ALBUMIN/GLOBULIN RATIO 0.6 (1.0-2.7); BILIRUBIN,TOTAL 0.5 MG/DL (0.2-1.0); CALCIUM 9.6 MG/DL (8.5-10.1); CREATININE 2.4 MG/DL (0.55-1.30); PHOSPHORUS 3.7 MG/DL (2.5-4.9); POTASSIUM 4.1 MMOL/L (3.5-5.1)
--- NOTE | 2020-09-13 09:35 | Cardiology Progress Note ---
Assessment/Plan Status Narrative Oxygen dependent on NRB, receiving treatment for COVID-19 viral PNA. HR improved. Assessment/Plan 1. COVID-19 viral PNA 2. Leukocytosis 3. Respiratory failure and oxygen dependence on NRB mask 4. CHF with elevated BNP echocardiogram pending diuresis with Lasix 5.Sinus bradycardia Bb and Ca channel shu held rate improved 6. FLOWER on CKD 7. Anemia 8. DMII 9. Demenia and frailty Objective Last 24 Hour Vital Signs Date Time Temp Pulse Resp B/P (MAP) Pulse Ox O2 Delivery O2 Flow Rate FiO2 09/13/20 08:00 98.1 72 20 139/61 (87) 96 09/13/20 07:17 97 Non-Rebreather 15.0 100 09/13/20 07:17 64 97 100 09/13/20 05:53 111/75 09/13/20 04:00 Non-Rebreather 15.0 09/13/20 04:00 54 09/13/20 04:00 98.1 64 24 111/75 (87) 100 09/13/20 04:00 15.0 100 09/13/20 00:00 15.0 100 09/13/20 00:00 112 09/13/20 00:00 97.9 87 24 147/74 (98) 95 09/13/20 00:00 Non-Rebreather 15.0 09/12/20 21:51 150/68 09/12/20 20:00 15.0 100 09/12/20 20:00 53 09/12/20 20:00 Non-Rebreather 15.0 09/12/20 20:00 98.7 52 24 150/62 (91) 100 09/12/20 19:56 99 Non-Rebreather 15.0 100 09/12/20 19:56 99 100 09/12/20 16:00 15.0 100 09/12/20 16:00 54 09/12/20 16:00 Non-Rebreather 15.0 09/12/20 16:00 98.2 82 20 139/62 (87) 100 09/12/20 15:30 73 100 09/12/20 14:09 131/65 09/12/20 12:00 Non-Rebreather 15.0 09/12/20 12:00 98.5 80 20 131/62 (85) 100 09/12/20 12:00 80 09/12/20 12:00 15.0 100 Intake and Output 09/12/20 09/13/20 19:00 07:00 Intake Total 890 ml 30 ml Output Total 3733 ml 1800 ml Balance -2843 ml -1770 ml Intake Oral 460 ml 30 ml IV Total 430 ml Output Urine Total 3733 ml 1800 ml Laboratory Tests Test 09/12/20 11:13 09/12/20 16:01 09/12/20 20:32 09/13/20 05:51 POC Whole Blood Glucose 182 MG/DL (74-106) H 216 MG/DL (74-106) H 264 MG/DL (74-106) H 157 MG/DL (74-106) H Test 09/13/20 07:30 White Blood Count 17.8 K/UL (4.8-10.8) H Red Blood Count 4.37 M/UL (4.20-5.40) Hemoglobin 11.7 G/DL (12.0-16.0) L Hematocrit 35.9 % (37.0-47.0) L Mean Corpuscular Volume 82 FL (80-99) Mean Corpuscular Hemoglobin 26.9 PG (27.0-31.0) L Mean Corpuscular Hemoglobin Concent 32.7 G/DL (32.0-36.0) Red Cell Distribution Width 15.5 % (11.6-14.8) H Platelet Count 266 K/UL (150-450) Mean Platelet Volume 7.3 FL (6.5-10.1) Neutrophils (%) (Auto) % (45.0-75.0) Lymphocytes (%) (Auto) % (20.0-45.0) Monocytes (%) (Auto) % (1.0-10.0) Eosinophils (%) (Auto) % (0.0-3.0) Basophils (%) (Auto) % (0.0-2.0) Neutrophils % (Manual) Pending Lymphocytes % (Manual) Pending Platelet Estimate Pending Platelet Morphology Pending Sodium Level 147 MMOL/L (136-145) H Potassium Level 4.1 MMOL/L (3.5-5.1) Chloride Level 106 MMOL/L (98-107) Carbon Dioxide Level 33 MMOL/L (21-32) H Anion Gap 8 mmol/L (5-15) Blood Urea Nitrogen 66 mg/dL (7-18) H Creatinine 2.4 MG/DL (0.55-1.30) H Estimat Glomerular Filtration Rate 23.5 mL/min (>60) Glucose Level 166 MG/DL (74-106) H Uric Acid 8.9 MG/DL (2.6-7.2) H Calcium Level 9.6 MG/DL (8.5-10.1) Phosphorus Level 3.7 MG/DL (2.5-4.9) Magnesium Level 2.3 MG/DL (1.8-2.4) Total Bilirubin 0.5 MG/DL (0.2-1.0) Aspartate Amino Transf (AST/SGOT) 45 U/L (15-37) H Alanine Aminotransferase (ALT/SGPT) 48 U/L (12-78) Alkaline Phosphatase 166 U/L (46-116) H C-Reactive Protein, Quantitative Pending Pro-B-Type Natriuretic Peptide 1263 pg/mL (0-125) H Total Protein 7.5 G/DL (6.4-8.2) Albumin 2.7 G/DL (3.4-5.0) L Globulin 4.8 g/dL Albumin/Globulin Ratio 0.6 (1.0-2.7) L Keisha Hugo PA-C Sep 13, 2020 09:35
[2020-09-13] MEDS: Enoxaparin 30mg Inj SUBQ SCH (09:36)
[2020-09-13] MEDS: dexAMETHasone 10mg/ml Inj IV SCH (09:36)
[2020-09-13] MEDS: Pantoprazole Inj IVP SCH ×2 (09:36→20:24)
--- NOTE | 2020-09-13 10:01 | General Progress Note ---
Subjective HEENT: Denies: no symptoms, eye pain, blurred vision, tearing, double vision, ear pain, ear discharge, nose pain, nose congestion, throat pain, throat swelling, mouth pain, mouth swelling, other Cardiovascular: Denies: no symptoms, chest pain, edema, irregular heart rate, lightheadedness, palpitations, syncope, other Respiratory: Denies: no symptoms, cough, orthopnea, shortness of breath, SOB with excertion, SOB at rest, sputum, stridor, wheezing, other Gastrointestinal/Abdominal: Denies: no symptoms, abdomen distended, abdominal pain, black stools, tarry stools, blood in stool, constipated, diarrhea, difficulty swallowing, nausea, poor appetite, poor fluid intake, rectal bleeding, vomiting, other Genitourinary: Denies: no symptoms, burning, discharge, frequency, flank pain, hematuria, incontinence, pain, urgency, other Hematologic/Lymphatic: Denies: no symptoms, anemia, easy bleeding, easy bruising, other Allergies: Coded Allergies: No Known Allergies (Unverified , 09/04/20) Subjective 09/13 lethargic, on nrb mask, cards recs noted, in [place] Objective Last 24 Hour Vital Signs Date Time Temp Pulse Resp B/P (MAP) Pulse Ox O2 Delivery O2 Flow Rate FiO2 09/13/20 08:00 98.1 72 20 139/61 (87) 96 09/13/20 07:17 97 Non-Rebreather 15.0 100 09/13/20 07:17 64 97 100 09/13/20 05:53 111/75 09/13/20 04:00 Non-Rebreather 15.0 09/13/20 04:00 54 09/13/20 04:00 98.1 64 24 111/75 (87) 100 09/13/20 04:00 15.0 100 09/13/20 00:00 15.0 100 09/13/20 00:00 112 09/13/20 00:00 97.9 87 24 147/74 (98) 95 09/13/20 00:00 Non-Rebreather 15.0 09/12/20 21:51 150/68 09/12/20 20:00 15.0 100 09/12/20 20:00 53 09/12/20 20:00 Non-Rebreather 15.0 09/12/20 20:00 98.7 52 24 150/62 (91) 100 09/12/20 19:56 99 Non-Rebreather 15.0 100 09/12/20 19:56 99 100 09/12/20 16:00 15.0 100 09/12/20 16:00 54 09/12/20 16:00 Non-Rebreather 15.0 09/12/20 16:00 98.2 82 20 139/62 (87) 100 09/12/20 15:30 73 100 09/12/20 14:09 131/65 09/12/20 12:00 Non-Rebreather 15.0 09/12/20 12:00 98.5 80 20 131/62 (85) 100 09/12/20 12:00 80 09/12/20 12:00 15.0 100 Intake and Output 09/12/20 09/13/20 19:00 07:00 Intake Total 890 ml 30 ml Output Total 3733 ml 1800 ml Balance -2843 ml -1770 ml Intake Oral 460 ml 30 ml IV Total 430 ml Output Urine Total 3733 ml 1800 ml Laboratory Tests 09/12/20 11:13: POC Whole Blood Glucose 182H 09/12/20 16:01: POC Whole Blood Glucose 216H 09/12/20 20:32: POC Whole Blood Glucose 264H 09/13/20 05:51: POC Whole Blood Glucose 157H 09/13/20 07:30: White Blood Count 17.8H, Red Blood Count 4.37, Hemoglobin 11.7L, Hematocrit 35.9L, Mean Corpuscular Volume 82, Mean Corpuscular Hemoglobin 26.9L, Mean Corpuscular Hemoglobin Concent 32.7, Red Cell Distribution Width 15.5H, Platelet Count 266, Mean Platelet Volume 7.3, Neutrophils (%) (Auto) , Lymphocytes (%) (Auto) , Monocytes (%) (Auto) , Eosinophils (%) (Auto) , Basophils (%) (Auto) , Neutrophils % (Manual) [Pending], Lymphocytes % (Manual) [Pending], Platelet Estimate [Pending], Platelet Morphology [Pending], Sodium Level 147H, Potassium Level 4.1, Chloride Level 106, Carbon Dioxide Level 33H, Anion Gap 8, Blood Urea Nitrogen 66H, Creatinine 2.4H, Estimat Glomerular Filtration Rate 23.5, Glucose Level 166H, Uric Acid 8.9H, Calcium Level 9.6, Phosphorus Level 3.7, Magnesium Level 2.3, Total Bilirubin 0.5, Aspartate Amino Transf (AST/SGOT) 45H, Alanine Aminotransferase (ALT/SGPT) 48, Alkaline Phosphatase 166H, C-Reactive Protein, Quantitative [Pending], Pro-B-Type Natriuretic Peptide 1263H, Total Protein 7.5, Albumin 2.7L, Globulin 4.8, Albumin/Globulin Ratio 0.6L Height (Feet): 5 Height (Inches): 5.00 Weight (Pounds): 140 Objective General Appearance: lethargic Neck: supple Cardiovascular: regular rhythm Respiratory/Chest: crackles/rales Abdomen: non tender, soft Extremities: non-tender Assessment/Plan Assessment/Plan: Covering Dr. Livan bernardo with covid19 ac resp failure pna on abx dehyration demtentia anemia leucocytosis due to steroids ac renal failure nephro consult check abg dw with pulmonary on cont bipap cont iv abx, decadrone , on lovenoxs q dw daughter Scar Thomas MD Sep 13, 2020 10:01
[2020-09-13 12:00] VITALS: BP 110/68
[2020-09-13 16:00] VITALS: BP 116/62
--- NOTE | 2020-09-13 16:00 | NUR ---
NURSE NOTES: patient found NRB off, O2 saturation 88%. patient attempts to take it off. placed NRB back on, O2 saturation back to 100%. repositioned patient.
--- NOTE | 2020-09-13 16:03 | Nephrology Progress Note ---
Assessment/Plan Problem List: (1) FLOWER (acute kidney injury) (2) Hypoxia (3) Pneumonia (4) 2019 novel coronavirus disease (COVID-19) (5) Electrolyte imbalance (6) Anemia Assessment Acute renal failure Confirmed COVID-19 pneumonia Sepsis Hypoxia, on BiPAP Anemia Electrolyte imbalances Hyperglycemia Transaminitis Rhabdomyolysis Troponin leak Plan September 13: Labs reviewed. Serum creatinine up to 2.4. White blood cells 17.8. Continue per consultants. Medication list reviewed. Continue to monitor renal parameters. September 12: Labs reviewed. Serum creatinine lower 2.2. Medication list reviewed. Hydralazine as needed for high blood pressure ordered. Continue per consultants. Continue to avoid nephrotoxic's. September 11: Labs reviewed. Serum creatinine 2.5 slightly lower than before. Electrolyte within normal limit. Folic acid ordered. Continue to monitor renal parameters. Continue per consultants. Previously Slow IV hydration Urine studies Avoid nephrotoxic's Anemia work-up IV Protonix Albumin bolus Monitor renal parameters Adjust blood pressure medication Urine studies Per orders Discussed with RN Subjective ROS Limited/Unobtainable: Yes Objective Objective Last 24 Hour Vital Signs Date Time Temp Pulse Resp B/P (MAP) Pulse Ox O2 Delivery O2 Flow Rate FiO2 09/13/20 13:37 110/68 09/13/20 12:00 Non-Rebreather 15.0 09/13/20 12:00 15.0 100 09/13/20 12:00 97.7 79 20 110/68 (82) 93 09/13/20 08:00 Non-Rebreather 15.0 09/13/20 08:00 98.1 72 20 139/61 (87) 96 09/13/20 08:00 65 09/13/20 08:00 15.0 100 09/13/20 07:17 97 Non-Rebreather 15.0 100 09/13/20 07:17 64 97 100 09/13/20 05:53 111/75 09/13/20 04:00 Non-Rebreather 15.0 09/13/20 04:00 54 09/13/20 04:00 98.1 64 24 111/75 (87) 100 09/13/20 04:00 15.0 100 09/13/20 00:00 15.0 100 09/13/20 00:00 112 09/13/20 00:00 97.9 87 24 147/74 (98) 95 09/13/20 00:00 Non-Rebreather 15.0 09/12/20 21:51 150/68 09/12/20 20:00 15.0 100 09/12/20 20:00 53 09/12/20 20:00 Non-Rebreather 15.0 09/12/20 20:00 98.7 52 24 150/62 (91) 100 09/12/20 19:56 99 Non-Rebreather 15.0 100 09/12/20 19:56 99 100 Intake and Output 09/12/20 09/13/20 19:00 07:00 Intake Total 890 ml 30 ml Output Total 3733 ml 1800 ml Balance -2843 ml -1770 ml Intake Oral 460 ml 30 ml IV Total 430 ml Output Urine Total 3733 ml 1800 ml Current Medications Medications (Trade) Dose Ordered Sig/Rebecca Route PRN Reason Start Time Stop Time Status Last Admin Dose Admin Acetaminophen (Tylenol) 650 mg Q4H PRN ORAL Mild Pain (Pain Scale 1-3) 09/05/20 07:15 10/05/20 07:14 09/06/20 12:34 Dexamethasone Sodium Phosphate (Decadron 10mg/ ml Inj) 6 mg DAILY IV 09/06/20 09:00 09/15/20 09:01 09/13/20 09:36 Dextrose (Dextrose 50%) 25 ml Q30M PRN IV Hypoglycemia 09/07/20 05:45 12/06/20 05:44 Dextrose (Dextrose 50%) 50 ml Q30M PRN IV Hypoglycemia 09/07/20 05:45 12/06/20 05:44 Enoxaparin Sodium (Lovenox) 30 mg DAILY SUBQ 09/06/20 09:00 12/05/20 08:59 09/13/20 09:36 Folic Acid (Folate) 2 mg DAILY ORAL 09/11/20 11:00 10/11/20 10:59 09/13/20 09:35 Furosemide (Lasix) 40 mg EVERY 12 HOURS IV 09/12/20 13:00 10/12/20 12:59 09/13/20 09:35 Hydralazine HCl (Apresoline) 25 mg Q4H PRN ORAL bp over 160 syst 09/12/20 11:15 12/11/20 11:14 Hydralazine HCl (Apresoline) 50 mg Q8HR ORAL 09/12/20 14:00 12/11/20 13:59 09/13/20 13:37 Insulin Aspart (NovoLOG) BEFORE MEALS AND HS SUBQ 09/07/20 06:30 12/06/20 06:29 09/13/20 13:38 Pantoprazole (Protonix) 40 mg EVERY 12 HOURS IVP 09/10/20 21:00 10/10/20 20:59 09/13/20 09:36 Laboratory Tests 09/12/20 20:32: POC Whole Blood Glucose 264H 09/13/20 05:51: POC Whole Blood Glucose 157H 09/13/20 07:30: White Blood Count 17.8H, Red Blood Count 4.37, Hemoglobin 11.7L, Hematocrit 35.9L, Mean Corpuscular Volume 82, Mean Corpuscular Hemoglobin 26.9L, Mean Corpuscular Hemoglobin Concent 32.7, Red Cell Distribution Width 15.5H, Platelet Count 266, Mean Platelet Volume 7.3, Neutrophils (%) (Auto) , Lymphocytes (%) (Auto) , Monocytes (%) (Auto) , Eosinophils (%) (Auto) , Basophils (%) (Auto) , Differential Total Cells Counted 100, Neutrophils % (Manual) 96H, Lymphocytes % (Manual) 3L, Monocytes % (Manual) 1, Eosinophils % (Manual) 0, Basophils % (Manual) 0, Band Neutrophils 0, Platelet Estimate Adequate, Platelet Morphology Normal, Hypochromasia 1+, Anisocytosis 1+, Sodium Level 147H, Potassium Level 4.1, Chloride Level 106, Carbon Dioxide Level 33H, Anion Gap 8, Blood Urea Nitrogen 66H, Creatinine 2.4H, Estimat Glomerular Filtration Rate 23.5, Glucose Level 166H, Uric Acid 8.9H, Calcium Level 9.6, Phosphorus Level 3.7, Magnesium Level 2.3, Total Bilirubin 0.5, Aspartate Amino Transf (AST/SGOT) 45H, Alanine Aminotransferase (ALT/SGPT) 48, Alkaline Phosphatase 166H, Troponin I 0.023, C- Reactive Protein, Quantitative [Pending], Pro-B-Type Natriuretic Peptide 1263H, Total Protein 7.5, Albumin 2.7L, Globulin 4.8, Albumin/Globulin Ratio 0.6L 09/13/20 13:01: POC Whole Blood Glucose 246H Height (Feet): 5 Height (Inches): 5.00 Weight (Pounds): 140 General Appearance: no apparent distress EENT: other - On nonrebreather mask Cardiovascular: normal rate Respiratory/Chest: decreased breath sounds Abdomen: distended Zachary Dunlap MD Sep 13, 2020 16:03
--- NOTE | 2020-09-13 19:06 | NUR ---
NURSE HAND-OFF REPORT: Important Events on Shift: remains stable Patient Status: FULL CODE Diet: CCHO medium Pending Orders: [] Pending Results/Labs:[] Pending MD notification:[] Latest Vital Signs: Temperature 97.5 , Pulse 85 , B/P 116 /62 , Respiratory Rate 20 , O2 SAT 98 , Venturi Mask, O2 Flow Rate 15.0 . Vital Sign Comment: stable EKG Rhythm: Sinus Rhythm Rhythm change?: N MD Notified?: N - MD Response: Latest Cotton Fall Score: 45 Fall Risk: High Risk Safety Measures: Call light Within Reach, Bed Alarm Zone 1, Side Rails Side Rails x3, Bed position Low and Locked. Fall Precautions: Yellow Socks Yellow Gown Door Sign Patient Fall Education Report given to Michelle VIVEROS.
--- NOTE | 2020-09-13 19:15 | NUR ---
NURSE NOTES: Received report from FELICE Wells. Pt is asleep. No apparent signs of distress noted. SpO2 is 99% on NRB 15L FiO2 100%, slightly tachypneic. residential monitor shows SR. Tsang is draining well to gravity. LW 22g and L FA 24g asymptomatic and flushing well. BW restraints on, pulses and skin intact bilaterally. HOB elevated, side rails x3, bed alarmed, locked, and in lowest position. Will continue plan of care. WIll continue to monitor.
[2020-09-13 20:00] VITALS: BP 122/61
--- NOTE | 2020-09-13 23:49 | NUR ---
NURSE NOTES: Spoke with RT Samuel about weaning pt down from NRB 15L 100% fiO2. Pt now on venturi mask 10L FiO2 50%. SpO2 95-97%. Will continue to monitor.
[2020-09-14] VITALS: BP 125/63
--- NOTE | 2020-09-14 00:13 | NUR ---
NURSE NOTES: Pt is saturating well at 97% on venturi mask 10L, FiO2 50%. Pt is restless and attempts to remove venturi mask. RN educated pt on the importance of keeping the mask on. Pt verbalized understanding
[2020-09-14 04:00] VITALS: BP_SYST 119; BP_SYST 121; BP_DIAS 61
--- NOTE | 2020-09-14 04:12 | NUR ---
NURSE NOTES: Arrived in pt's room to find her without the venturi mask. Pt's O2 saturation 84%. Put the venturi mask back on and O2 saturation went up to 95%. While cleaning pt, pt attempted to take off mask again. Rn educated pt on the importance of keeping mask on. Pt verbalized understanding. 2 minutes later, she attempted to remove mask again. Will obtain orders for BW restraints for pulling medical devices. Turned pt, offered hydration and oral care. Will continue plan of care. Will continue to monitor.
[2020-09-14] MEDS: NovoLOG Insulin Flexpen SUBQ SCH ×4 (05:26→21:31)
[2020-09-14] MEDS: HydrALAZINE 50mg tab ORAL SCH ×3 (05:26→22:04)
--- NOTE | 2020-09-14 05:43 | NUR ---
NURSE NOTES: Pt is asleep, no signs of distress or pain noted. SpO2 95%. Will continue to monitor.
--- NOTE | 2020-09-14 06:44 | Hematology/Onc Progress Note ---
Assessment/Plan Assessment/Plan Leukocytosis likely related to covid19 pna Anemia due to chronic disease Aloc with covid19 ac resp failure-->nc/bipap pna on abx dehyration demtentia Renal eval check abg dw with pulmonary on cont bipap cont iv abx, decadron on lovenoxs q dw daughter Subjective HEENT: Denies: no symptoms, eye pain, blurred vision, tearing, double vision, ear pain, ear discharge, nose pain, nose congestion, throat pain, throat swelling, mouth pain, mouth swelling, other Cardiovascular: Denies: no symptoms, chest pain, edema, irregular heart rate, lightheadedness, palpitations, syncope, other Respiratory: Denies: no symptoms, cough, shortness of breath, SOB with excertion, SOB at rest, sputum, wheezing, other Gastrointestinal/Abdominal: Denies: no symptoms, abdomen distended, abdominal pain, black stools, tarry stools, blood in stool, constipated, diarrhea, difficulty swallowing, nausea, poor appetite, poor fluid intake, rectal bleeding, vomiting, other Neurologic/Psychiatric: Denies: no symptoms, anxiety, depressed, emotional problems, headache, numbness, paresthesia, pre-existing deficit, seizure, tingling, tremors, weakness, other Endocrine: Denies: no symptoms, excessive sweating, flushing, intolerance to cold, intolerance to heat, increased hunger, increased thirst, increased urine, unexplained weight gain, unexplained weight loss, other Hematologic/Lymphatic: Denies: no symptoms, anemia, easy bleeding, easy b ruising, adenopathy, other Allergies: Coded Allergies: No Known Allergies (Unverified , 09/04/20) Subjective 09/13 lethargic, on nrb mask, cards recs noted, in [place] 09/14 is on dex as well as lovenox sq, meds noted, labs reviewed Objective Objective Current Medications Medications (Trade) Dose Ordered Sig/Rebecca Route PRN Reason Start Time Stop Time Status Last Admin Dose Admin Acetaminophen (Tylenol) 650 mg Q4H PRN ORAL Mild Pain (Pain Scale 1-3) 09/05/20 07:15 10/05/20 07:14 09/06/20 12:34 Dexamethasone Sodium Phosphate (Decadron 10mg/ ml Inj) 6 mg DAILY IV 09/06/20 09:00 09/15/20 09:01 09/13/20 09:36 Dextrose (Dextrose 50%) 25 ml Q30M PRN IV Hypoglycemia 09/07/20 05:45 12/06/20 05:44 Dextrose (Dextrose 50%) 50 ml Q30M PRN IV Hypoglycemia 09/07/20 05:45 12/06/20 05:44 Enoxaparin Sodium (Lovenox) 30 mg DAILY SUBQ 09/06/20 09:00 12/05/20 08:59 09/13/20 09:36 Folic Acid (Folate) 2 mg DAILY ORAL 09/11/20 11:00 10/11/20 10:59 09/13/20 09:35 Furosemide (Lasix) 40 mg EVERY 12 HOURS IV 09/12/20 13:00 10/12/20 12:59 09/13/20 20:24 Hydralazine HCl (Apresoline) 25 mg Q4H PRN ORAL bp over 160 syst 09/12/20 11:15 12/11/20 11:14 Hydralazine HCl (Apresoline) 50 mg Q8HR ORAL 09/12/20 14:00 12/11/20 13:59 09/13/20 20:24 Insulin Aspart (NovoLOG) BEFORE MEALS AND HS SUBQ 09/07/20 06:30 12/06/20 06:29 09/14/20 05:26 Pantoprazole (Protonix) 40 mg EVERY 12 HOURS IVP 09/10/20 21:00 10/10/20 20:59 09/13/20 20:24 Last 24 Hour Vital Signs Date Time Temp Pulse Resp B/P (MAP) Pulse Ox O2 Delivery O2 Flow Rate FiO2 09/14/20 05:26 119/64 09/14/20 04:00 97.4 63 18 119/61 (80) 97 09/14/20 04:00 10.0 50 09/14/20 04:00 75 09/14/20 04:00 Venturi Mask 10.0 09/14/20 00:00 Venturi Mask 10.0 09/14/20 00:00 67 09/14/20 00:00 97.6 71 19 125/63 (83) 94 09/13/20 20:24 137/67 09/13/20 20:00 Non-Rebreather 15.0 09/13/20 20:00 97.6 60 17 122/61 (81) 100 09/13/20 20:00 15.0 100 09/13/20 20:00 93 09/13/20 19:30 100 Non-Rebreather 15.0 100 09/13/20 16:04 85 20 98 Non-Rebreather 15.0 100 09/13/20 16:00 97.5 70 20 116/62 (80) 100 09/13/20 16:00 66 09/13/20 16:00 15.0 100 09/13/20 16:00 Non-Rebreather 15.0 09/13/20 13:37 110/68 09/13/20 12:00 Non-Rebreather 15.0 09/13/20 12:00 82 09/13/20 12:00 15.0 100 09/13/20 12:00 97.7 79 20 110/68 (82) 93 09/13/20 08:00 Non-Rebreather 15.0 09/13/20 08:00 98.1 72 20 139/61 (87) 96 09/13/20 08:00 65 09/13/20 08:00 15.0 100 09/13/20 07:17 97 Non-Rebreather 15.0 100 09/13/20 07:17 64 97 100 09/13/20 05:53 111/75 09/13/20 04:00 Non-Rebreather 15.0 09/13/20 04:00 54 09/13/20 04:00 98.1 64 24 111/75 (87) 100 09/13/20 04:00 15.0 100 09/13/20 00:00 15.0 100 09/13/20 00:00 112 09/13/20 00:00 97.9 87 24 147/74 (98) 95 09/13/20 00:00 Non-Rebreather 15.0 09/12/20 21:51 150/68 09/12/20 20:00 15.0 100 09/12/20 20:00 53 09/12/20 20:00 Non-Rebreather 15.0 09/12/20 20:00 98.7 52 24 150/62 (91) 100 09/12/20 19:56 99 Non-Rebreather 15.0 100 09/12/20 19:56 99 100 09/12/20 16:00 15.0 100 09/12/20 16:00 54 09/12/20 16:00 Non-Rebreather 15.0 09/12/20 16:00 98.2 82 20 139/62 (87) 100 09/12/20 15:30 73 100 09/12/20 14:09 131/65 09/12/20 12:00 Non-Rebreather 15.0 09/12/20 12:00 98.5 80 20 131/62 (85) 100 09/12/20 12:00 80 09/12/20 12:00 15.0 100 09/12/20 09:19 100 Non-Rebreather 15.0 100 09/12/20 08:00 Non-Rebreather 15.0 09/12/20 08:00 89 09/12/20 08:00 15.0 100 09/12/20 07:51 98.4 70 20 158/64 (95) 100 09/12/20 07:30 75 100 Intake and Output 09/13/20 09/14/20 19:00 07:00 Intake Total 30 ml 60 ml Output Total 1200 ml 600 ml Balance -1170 ml -540 ml Intake Oral 30 ml 60 ml Output Urine Total 1200 ml 600 ml Labs Test 09/11/20 08:55 09/11/20 11:36 09/11/20 16:29 09/11/20 21:32 Arterial Blood pH 7.369 (7.350-7.450) Arterial Blood Partial Pressure CO2 44.6 mmHg (35.0-45.0) Arterial Blood Partial Pressure O2 104.6 mmHg (75.0-100.0) Arterial Blood HCO3 25.1 mmol/L (22.0-26.0) Arterial Blood Oxygen Saturation 97.2 % (95-100) Arterial Blood Base Excess -0.3 (-2-2) Efraín Test Positive POC Whole Blood Glucose 194 MG/DL (74-106) 235 MG/DL (74-106) Test 09/12/20 05:50 09/12/20 07:00 09/12/20 11:13 09/12/20 16:01 POC Whole Blood Glucose 104 MG/DL (74-106) 182 MG/DL (74-106) 216 MG/DL (74-106) White Blood Count 17.6 K/UL (4.8-10.8) Red Blood Count 3.63 M/UL (4.20-5.40) Hemoglobin 10.0 G/DL (12.0-16.0) Hematocrit 30.2 % (37.0-47.0) Mean Corpuscular Volume 83 FL (80-99) Mean Corpuscular Hemoglobin 27.5 PG (27.0-31.0) Mean Corpuscular Hemoglobin Concent 33.0 G/DL (32.0-36.0) Red Cell Distribution Width 15.3 % (11.6-14.8) Platelet Count 250 K/UL (150-450) Mean Platelet Volume 7.2 FL (6.5-10.1) Neutrophils (%) (Auto) % (45.0-75.0) Lymphocytes (%) (Auto) % (20.0-45.0) Monocytes (%) (Auto) % (1.0-10.0) Eosinophils (%) (Auto) % (0.0-3.0) Basophils (%) (Auto) % (0.0-2.0) Differential Total Cells Counted 100 Neutrophils % (Manual) 85 % (45-75) Lymphocytes % (Manual) 10 % (20-45) Monocytes % (Manual) 5 % (1-10) Eosinophils % (Manual) 0 % (0-3) Basophils % (Manual) 0 % (0-2) Band Neutrophils 0 % (0-8) Platelet Estimate Adequate Platelet Morphology Normal Hypochromasia 1+ Anisocytosis 1+ Sodium Level 145 MMOL/L (136-145) Potassium Level 4.3 MMOL/L (3.5-5.1) Chloride Level 110 MMOL/L (98-107) Carbon Dioxide Level 25 MMOL/L (21-32) Anion Gap 10 mmol/L (5-15) Blood Urea Nitrogen 61 mg/dL (7-18) Creatinine 2.2 MG/DL (0.55-1.30) Estimat Glomerular Filtration Rate 25.9 mL/min (>60) Glucose Level 114 MG/DL (74-106) Uric Acid 8.0 MG/DL (2.6-7.2) Calcium Level 8.4 MG/DL (8.5-10.1) Phosphorus Level 3.6 MG/DL (2.5-4.9) Magnesium Level 2.2 MG/DL (1.8-2.4) Total Bilirubin 0.3 MG/DL (0.2-1.0) Aspartate Amino Transf (AST/SGOT) 50 U/L (15-37) Alanine Aminotransferase (ALT/SGPT) 57 U/L (12-78) Alkaline Phosphatase 148 U/L (46-116) Total Protein 6.1 G/DL (6.4-8.2) Albumin 1.9 G/DL (3.4-5.0) Globulin 4.2 g/dL Albumin/Globulin Ratio 0.5 (1.0-2.7) Test 09/12/20 20:32 09/13/20 05:51 09/13/20 07:30 09/13/20 13:01 POC Whole Blood Glucose 264 MG/DL (74-106) 157 MG/DL (74-106) 246 MG/DL (74-106) White Blood Count 17.8 K/UL (4.8-10.8) Red Blood Count 4.37 M/UL (4.20-5.40) Hemoglobin 11.7 G/DL (12.0-16.0) Hematocrit 35.9 % (37.0-47.0) Mean Corpuscular Volume 82 FL (80-99) Mean Corpuscular Hemoglobin 26.9 PG (27.0-31.0) Mean Corpuscular Hemoglobin Concent 32.7 G/DL (32.0-36.0) Red Cell Distribution Width 15.5 % (11.6-14.8) Platelet Count 266 K/UL (150-450) Mean Platelet Volume 7.3 FL (6.5-10.1) Neutrophils (%) (Auto) % (45.0-75.0) Lymphocytes (%) (Auto) % (20.0-45.0) Monocytes (%) (Auto) % (1.0-10.0) Eosinophils (%) (Auto) % (0.0-3.0) Basophils (%) (Auto) % (0.0-2.0) Differential Total Cells Counted 100 Neutrophils % (Manual) 96 % (45-75) Lymphocytes % (Manual) 3 % (20-45) Monocytes % (Manual) 1 % (1-10) Eosinophils % (Manual) 0 % (0-3) Basophils % (Manual) 0 % (0-2) Band Neutrophils 0 % (0-8) Platelet Estimate Adequate Platelet Morphology Normal Hypochromasia 1+ Anisocytosis 1+ Sodium Level 147 MMOL/L (136-145) Potassium Level 4.1 MMOL/L (3.5-5.1) Chloride Level 106 MMOL/L (98-107) Carbon Dioxide Level 33 MMOL/L (21-32) Anion Gap 8 mmol/L (5-15) Blood Urea Nitrogen 66 mg/dL (7-18) Creatinine 2.4 MG/DL (0.55-1.30) Estimat Glomerular Filtration Rate 23.5 mL/min (>60) Glucose Level 166 MG/DL (74-106) Uric Acid 8.9 MG/DL (2.6-7.2) Calcium Level 9.6 MG/DL (8.5-10.1) Phosphorus Level 3.7 MG/DL (2.5-4.9) Magnesium Level 2.3 MG/DL (1.8-2.4) Total Bilirubin 0.5 MG/DL (0.2-1.0) Aspartate Amino Transf (AST/SGOT) 45 U/L (15-37) Alanine Aminotransferase (ALT/SGPT) 48 U/L (12-78) Alkaline Phosphatase 166 U/L (46-116) Troponin I 0.023 ng/mL (0.000-0.056) Pro-B-Type Natriuretic Peptide 1263 pg/mL (0-125) Total Protein 7.5 G/DL (6.4-8.2) Albumin 2.7 G/DL (3.4-5.0) Globulin 4.8 g/dL Albumin/Globulin Ratio 0.6 (1.0-2.7) Test 09/13/20 16:58 09/13/20 20:37 09/14/20 04:02 09/14/20 05:24 POC Whole Blood Glucose 256 MG/DL (74-106) 245 MG/DL (74-106) 184 MG/DL (74-106) Height (Feet): 5 Height (Inches): 5.00 Weight (Pounds): 140 Objective General Appearance: lethargic Neck: supple Cardiovascular: regular rhythm Respiratory/Chest: crackles/rales Abdomen: non tender, soft Extremities: non-tender Kleynberg,Scar L. MD Sep 14, 2020 06:44
--- NOTE | 2020-09-14 07:30 | NUR ---
NURSE NOTES: Received pt from FELICE Martinez, pt is sleeping, pt has venturi mask 10lit, pt has intact iv access RH 24G SL. Pt is on continues heart monitoring, pt has Tsang cath in place is working well. all needs attended, bed is locked and is in the lowest position, call light within easy reach. will continue to monitor.
--- NOTE | 2020-09-14 07:36 | NUR ---
NURSE HAND-OFF REPORT: Important Events on Shift:[Weaned from NRB 15l 100% to Venturi 10L 50%] Patient Status: [stable] Diet: [CCHO med] Pending Orders: [NA] Pending Results/Labs:[NA] Pending MD notification:[NA] Latest Vital Signs: Temperature 97.4 , Pulse 63 , B/P 119 /64 , Respiratory Rate 18 , O2 SAT 97 , Venturi Mask, O2 Flow Rate 10.0 . Vital Sign Comment: [Stable] EKG Rhythm: Sinus Rhythm Rhythm change?: N MD Notified?: N - MD Response: Latest Cotton Fall Score: 45 Fall Risk: High Risk Safety Measures: Call light Within Reach, Bed Alarm Zone 1, Side Rails Side Rails x3, Bed position Low and Locked. Fall Precautions: Yellow Socks Yellow Gown Door Sign Patient Fall Education Report given to [FELICE Snell].
[2020-09-14 07:42] LABS: ALBUMIN 2.5 G/DL (3.4-5.0); ALBUMIN/GLOBULIN RATIO 0.5 (1.0-2.7); BILIRUBIN,TOTAL 0.4 MG/DL (0.2-1.0); CALCIUM 9.7 MG/DL (8.5-10.1); CREATININE 2.8 MG/DL (0.55-1.30); PHOSPHORUS 4.3 MG/DL (2.5-4.9); POTASSIUM 4.3 MMOL/L (3.5-5.1)
[2020-09-14 08:00] VITALS: BP 129/58
[2020-09-14] MEDS: dexAMETHasone 10mg/ml Inj IV SCH (08:46)
[2020-09-14] MEDS: Pantoprazole Inj IVP SCH ×2 (08:46→20:26)
[2020-09-14] MEDS: Enoxaparin 30mg Inj SUBQ SCH (08:47)
--- NOTE | 2020-09-14 09:08 | NUR ---
RD ASSESSMENT & RECOMMENDATIONS SEE CARE ACTIVITY FOR COMPLETE ASSESSMENT DAILY ESTIMATED NEEDS: Needs based on Pulmonary 61kg 25-30 kcals/kg 5670-6144 total kcals 1-1.5 g protein/kg 61-91 g total protein 25-30 mL/kg 0262-6661 total fluid mLs NUTRITION DIAGNOSIS: Predicted decreased po intake r/t covid pna as evidenced by pt on bipap-> now on venturi mask, w/ poor po intake (0-50%) x 8 days, w/ many refusing meals. CURRENT DIET: [facility]CHO MED PO DIET RECOMMENDATIONS: Liberalized REGULAR Diet w/ poor po intake (texture per FUEL HOUSE ATTENDANT) ENTERAL NUTRITION RECOMMENDATIONS: Glucerna 1.2 @55ml/hr x 24 hrs to provide 1320ml, 1584kcal, 79g prot, 1063ml free water * W/ continued poor PO, consider nonoral feeding. * W/ GI access, initiate Glucerna 1.2 @ 15ml/hr x 6hrs * Advance 10ml q 4-6 hrs as tolerated to goal * HOB over 30 degrees/ water flush per MD ADDITIONAL RECOMMENDATIONS: 1) Consider temp NGT w/ continued poor PO -> many refusing meals 2) FUEL HOUSE ATTENDANT eval for appropriate texture 3) Add Glucerna TID w/ meals 4) Calibrated daily wts 5) Monitor respiratory status: BIPAP -> venturi mask 6) Consider gentle hydration: Na and BUN trend up, poor PO
--- NOTE | 2020-09-14 11:02 | Pulmonology Progress Note ---
Subjective ROS Limited/Unobtainable: Yes Interval Events: On Venti mask HEENT: Repors: no symptoms Respiratory: Reports: no symptoms, shortness of breath Cardiovascular: Reports: no symptoms Gastrointestinal/Abdominal: Reports: no symptoms Genitourinary: Reports: no symptoms Allergies: Coded Allergies: No Known Allergies (Unverified , 09/04/20) Objective Last 24 Hour Vital Signs Date Time Temp Pulse Resp B/P (MAP) Pulse Ox O2 Delivery O2 Flow Rate FiO2 09/14/20 08:00 10.0 50 09/14/20 08:00 Venturi Mask 10.0 09/14/20 08:00 97.5 60 20 129/58 (81) 97 09/14/20 07:37 73 09/14/20 05:26 119/64 09/14/20 04:00 97.4 63 18 119/61 (80) 97 09/14/20 04:00 10.0 50 09/14/20 04:00 75 09/14/20 04:00 Venturi Mask 10.0 09/14/20 00:00 Venturi Mask 10.0 09/14/20 00:00 67 09/14/20 00:00 97.6 71 19 125/63 (83) 94 09/13/20 20:24 137/67 09/13/20 20:00 Non-Rebreather 15.0 09/13/20 20:00 97.6 60 17 122/61 (81) 100 09/13/20 20:00 15.0 100 09/13/20 20:00 93 09/13/20 19:30 100 Non-Rebreather 15.0 100 09/13/20 16:04 85 20 98 Non-Rebreather 15.0 100 09/13/20 16:00 97.5 70 20 116/62 (80) 100 09/13/20 16:00 66 09/13/20 16:00 15.0 100 09/13/20 16:00 Non-Rebreather 15.0 09/13/20 13:37 110/68 09/13/20 12:00 Non-Rebreather 15.0 09/13/20 12:00 82 09/13/20 12:00 15.0 100 09/13/20 12:00 97.7 79 20 110/68 (82) 93 Intake and Output 09/13/20 09/14/20 19:00 07:00 Intake Total 30 ml 60 ml Output Total 1200 ml 600 ml Balance -1170 ml -540 ml Intake Oral 30 ml 60 ml Output Urine Total 1200 ml 600 ml HEENT: atraumatic Respiratory: lungs clear Cardiovascular: normal rate, regular rhythm Abdomen: soft, non tender Laboratory Tests 09/13/20 13:01: POC Whole Blood Glucose 246H 09/13/20 16:58: POC Whole Blood Glucose 256H 09/13/20 20:37: POC Whole Blood Glucose 245H 09/14/20 04:02: Sodium Level 148H, Potassium Level 4.3, Chloride Level 106, Carbon Dioxide Level 34H, Anion Gap 8, Blood Urea Nitrogen 77H, Creatinine 2.8H, Estimat Glomerular Filtration Rate 19.6, Glucose Level 209H, Calcium Level 9.7, Phosphorus Level 4.3, Magnesium Level 2.4, Total Bilirubin 0.4, Aspartate Amino Transf (AST/SGOT) 41H, Alanine Aminotransferase (ALT/SGPT) 46, Alkaline Phosphatase 137H, Total Protein 7.5, Albumin 2.5L, Globulin 5.0, Albumin/Globulin Ratio 0.5L 09/14/20 05:24: POC Whole Blood Glucose 184H Current Medications Medications (Trade) Dose Ordered Sig/Rebecca Route PRN Reason Start Time Stop Time Status Last Admin Dose Admin Acetaminophen (Tylenol) 650 mg Q4H PRN ORAL Mild Pain (Pain Scale 1-3) 09/05/20 07:15 10/05/20 07:14 09/06/20 12:34 Dexamethasone Sodium Phosphate (Decadron 10mg/ ml Inj) 6 mg DAILY IV 09/06/20 09:00 09/15/20 09:01 09/14/20 08:46 Dextrose (Dextrose 50%) 25 ml Q30M PRN IV Hypoglycemia 09/07/20 05:45 12/06/20 05:44 Dextrose (Dextrose 50%) 50 ml Q30M PRN IV Hypoglycemia 09/07/20 05:45 12/06/20 05:44 Enoxaparin Sodium (Lovenox) 30 mg DAILY SUBQ 09/06/20 09:00 12/05/20 08:59 09/14/20 08:47 Folic Acid (Folate) 2 mg DAILY ORAL 09/11/20 11:00 10/11/20 10:59 09/13/20 09:35 Furosemide (Lasix) 40 mg EVERY 12 HOURS IV 09/12/20 13:00 10/12/20 12:59 09/14/20 08:46 Hydralazine HCl (Apresoline) 25 mg Q4H PRN ORAL bp over 160 syst 09/12/20 11:15 12/11/20 11:14 Hydralazine HCl (Apresoline) 50 mg Q8HR ORAL 09/12/20 14:00 12/11/20 13:59 09/13/20 20:24 Insulin Aspart (NovoLOG) BEFORE MEALS AND HS SUBQ 09/07/20 06:30 12/06/20 06:29 09/14/20 05:26 Pantoprazole (Protonix) 40 mg EVERY 12 HOURS IVP 09/10/20 21:00 10/10/20 20:59 09/14/20 08:46 Assessment/Plan Assessment/Plan 1. Hypoxia. - on Decadron (08/06-) - Currently on Venti-mask 10L 2. Bilateral dense pulmonary infiltrates - Will continue diureses - noted creatinine 2.2 3. Probable superimposed pneumonia. - on empiric Abx 4. Confirmed COVID-19 pneumonia 5. Hyponatremia. 6. Renal failure. 7. Elevated inflammatory markers. 8. Transaminitis. 9. Rhabdomyolysis. 10. Troponin leak. 11. Hyperglycemia - oral hypoglycemics 12. Gram positive bacteremia - s/p IV Vanco per Renan Barahona MD Sep 14, 2020 11:02
[2020-09-14 12:00] VITALS: BP 149/62
--- NOTE | 2020-09-14 12:01 | Infectious Diseases Prog Note ---
Assessment/Plan Assessment/Plan IMPRESSION: Sepsis Pneumonia with COVID19 Hypoxic respiratory failure Acute renal failure, Rhabdomyolysis, Diabetes mellitus. Leukocytosis RECOMMENDATIONS: will continue dexamethasone X 1day Subjective ROS Limited/Unobtainable: Yes Neurologic: Reports: other - more alert, on restraint Allergies: Coded Allergies: No Known Allergies (Unverified , 09/04/20) Objective Last 24 Hour Vital Signs Date Time Temp Pulse Resp B/P (MAP) Pulse Ox O2 Delivery O2 Flow Rate FiO2 09/14/20 08:00 10.0 50 09/14/20 08:00 Venturi Mask 10.0 09/14/20 08:00 97.5 60 20 129/58 (81) 97 09/14/20 07:37 73 09/14/20 05:26 119/64 09/14/20 04:00 97.4 63 18 119/61 (80) 97 09/14/20 04:00 10.0 50 09/14/20 04:00 75 09/14/20 04:00 Venturi Mask 10.0 09/14/20 00:00 Venturi Mask 10.0 09/14/20 00:00 67 09/14/20 00:00 97.6 71 19 125/63 (83) 94 09/13/20 20:24 137/67 09/13/20 20:00 Non-Rebreather 15.0 09/13/20 20:00 97.6 60 17 122/61 (81) 100 09/13/20 20:00 15.0 100 09/13/20 20:00 93 09/13/20 19:30 100 Non-Rebreather 15.0 100 09/13/20 16:04 85 20 98 Non-Rebreather 15.0 100 09/13/20 16:00 97.5 70 20 116/62 (80) 100 09/13/20 16:00 66 09/13/20 16:00 15.0 100 09/13/20 16:00 Non-Rebreather 15.0 09/13/20 13:37 110/68 09/13/20 12:00 Non-Rebreather 15.0 09/13/20 12:00 82 09/13/20 12:00 15.0 100 09/13/20 12:00 97.7 79 20 110/68 (82) 93 Height (Feet): 5 Height (Inches): 5.00 Weight (Pounds): 140 HEENT: mucous membranes moist Respiratory/Chest: other - oxugen by venturi mask Cardiovascular: normal rate Abdomen: soft, non tender Extremities: no edema Neurologic/Psychiatric: alert, responsive Laboratory Tests Test 09/13/20 13:01 09/13/20 16:58 09/13/20 20:37 09/14/20 04:02 POC Whole Blood Glucose 246 MG/DL (74-106) H 256 MG/DL (74-106) H 245 MG/DL (74-106) H Sodium Level 148 MMOL/L (136-145) H Potassium Level 4.3 MMOL/L (3.5-5.1) Chloride Level 106 MMOL/L (98-107) Carbon Dioxide Level 34 MMOL/L (21-32) H Anion Gap 8 mmol/L (5-15) Blood Urea Nitrogen 77 mg/dL (7-18) H Creatinine 2.8 MG/DL (0.55-1.30) H Estimat Glomerular Filtration Rate 19.6 mL/min (>60) Glucose Level 209 MG/DL (74-106) H Calcium Level 9.7 MG/DL (8.5-10.1) Phosphorus Level 4.3 MG/DL (2.5-4.9) Magnesium Level 2.4 MG/DL (1.8-2.4) Total Bilirubin 0.4 MG/DL (0.2-1.0) Aspartate Amino Transf (AST/SGOT) 41 U/L (15-37) H Alanine Aminotransferase (ALT/SGPT) 46 U/L (12-78) Alkaline Phosphatase 137 U/L (46-116) H Total Protein 7.5 G/DL (6.4-8.2) Albumin 2.5 G/DL (3.4-5.0) L Globulin 5.0 g/dL Albumin/Globulin Ratio 0.5 (1.0-2.7) L Test 09/14/20 05:24 09/14/20 11:39 POC Whole Blood Glucose 184 MG/DL (74-106) H 232 MG/DL (74-106) H Current Medications Medications (Trade) Dose Ordered Sig/Rebecca Route PRN Reason Start Time Stop Time Status Last Admin Dose Admin Acetaminophen (Tylenol) 650 mg Q4H PRN ORAL Mild Pain (Pain Scale 1-3) 09/05/20 07:15 10/05/20 07:14 09/06/20 12:34 Dexamethasone Sodium Phosphate (Decadron 10mg/ ml Inj) 6 mg DAILY IV 09/06/20 09:00 09/15/20 09:01 09/14/20 08:46 Dextrose (Dextrose 50%) 25 ml Q30M PRN IV Hypoglycemia 09/07/20 05:45 12/06/20 05:44 Dextrose (Dextrose 50%) 50 ml Q30M PRN IV Hypoglycemia 09/07/20 05:45 12/06/20 05:44 Enoxaparin Sodium (Lovenox) 30 mg DAILY SUBQ 09/06/20 09:00 12/05/20 08:59 09/14/20 08:47 Folic Acid (Folate) 2 mg DAILY ORAL 09/11/20 11:00 10/11/20 10:59 09/13/20 09:35 Furosemide (Lasix) 40 mg EVERY 12 HOURS IV 09/12/20 13:00 10/12/20 12:59 09/14/20 08:46 Hydralazine HCl (Apresoline) 25 mg Q4H PRN ORAL bp over 160 syst 09/12/20 11:15 12/11/20 11:14 Hydralazine HCl (Apresoline) 50 mg Q8HR ORAL 09/12/20 14:00 12/11/20 13:59 09/13/20 20:24 Insulin Aspart (NovoLOG) BEFORE MEALS AND HS SUBQ 09/07/20 06:30 12/06/20 06:29 09/14/20 11:56 Pantoprazole (Protonix) 40 mg EVERY 12 HOURS IVP 09/10/20 21:00 10/10/20 20:59 09/14/20 08:46 Willian Banuelos MD Sep 14, 2020 12:01
--- NOTE | 2020-09-14 12:26 | Cardiology Progress Note ---
Assessment/Plan Status Narrative Oxygen dependent, now on full face mask, receiving treatment for COVID-19 viral PNA. HR improved. Assessment/Plan 1. COVID-19 viral PNA 2. Leukocytosis 3. Respiratory failure and oxygen dependence on NRB mask 4. Sinus bradycardia Bb and Ca channel shu held rate improved 5. CHF acute on chronic HF with elevated BNP echo pending diuresis with Lasix 5. FLOWER on CKD 6. Anemia 7. DMII 8. Demenia and frailty Subjective ROS Limited/Unobtainable: Yes Subjective Resting comfortably Objective Last 24 Hour Vital Signs Date Time Temp Pulse Resp B/P (MAP) Pulse Ox O2 Delivery O2 Flow Rate FiO2 09/14/20 12:00 Venturi Mask 10.0 09/14/20 12:00 10.0 50 09/14/20 12:00 96.6 71 20 149/62 (91) 98 09/14/20 08:00 10.0 50 09/14/20 08:00 Venturi Mask 10.0 09/14/20 08:00 97.5 60 20 129/58 (81) 97 09/14/20 07:37 73 09/14/20 05:26 119/64 09/14/20 04:00 97.4 63 18 119/61 (80) 97 09/14/20 04:00 10.0 50 09/14/20 04:00 75 09/14/20 04:00 Venturi Mask 10.0 09/14/20 00:00 Venturi Mask 10.0 09/14/20 00:00 67 09/14/20 00:00 97.6 71 19 125/63 (83) 94 09/13/20 20:24 137/67 09/13/20 20:00 Non-Rebreather 15.0 09/13/20 20:00 97.6 60 17 122/61 (81) 100 09/13/20 20:00 15.0 100 09/13/20 20:00 93 09/13/20 19:30 100 Non-Rebreather 15.0 100 09/13/20 16:04 85 20 98 Non-Rebreather 15.0 100 09/13/20 16:00 97.5 70 20 116/62 (80) 100 09/13/20 16:00 66 09/13/20 16:00 15.0 100 09/13/20 16:00 Non-Rebreather 15.0 09/13/20 13:37 110/68 General Appearance: no apparent distress EENT: PERRL/EOMI Neck: no JVD Cardiovascular: normal rate Respiratory/Chest: no respiratory distress Abdomen: soft Intake and Output 09/13/20 09/14/20 19:00 07:00 Intake Total 30 ml 60 ml Output Total 1200 ml 600 ml Balance -1170 ml -540 ml Intake Oral 30 ml 60 ml Output Urine Total 1200 ml 600 ml Laboratory Tests Test 09/13/20 13:01 09/13/20 16:58 09/13/20 20:37 09/14/20 04:02 POC Whole Blood Glucose 246 MG/DL (74-106) H 256 MG/DL (74-106) H 245 MG/DL (74-106) H Sodium Level 148 MMOL/L (136-145) H Potassium Level 4.3 MMOL/L (3.5-5.1) Chloride Level 106 MMOL/L (98-107) Carbon Dioxide Level 34 MMOL/L (21-32) H Anion Gap 8 mmol/L (5-15) Blood Urea Nitrogen 77 mg/dL (7-18) H Creatinine 2.8 MG/DL (0.55-1.30) H Estimat Glomerular Filtration Rate 19.6 mL/min (>60) Glucose Level 209 MG/DL (74-106) H Calcium Level 9.7 MG/DL (8.5-10.1) Phosphorus Level 4.3 MG/DL (2.5-4.9) Magnesium Level 2.4 MG/DL (1.8-2.4) Total Bilirubin 0.4 MG/DL (0.2-1.0) Aspartate Amino Transf (AST/SGOT) 41 U/L (15-37) H Alanine Aminotransferase (ALT/SGPT) 46 U/L (12-78) Alkaline Phosphatase 137 U/L (46-116) H Total Protein 7.5 G/DL (6.4-8.2) Albumin 2.5 G/DL (3.4-5.0) L Globulin 5.0 g/dL Albumin/Globulin Ratio 0.5 (1.0-2.7) L Test 09/14/20 05:24 09/14/20 11:39 POC Whole Blood Glucose 184 MG/DL (74-106) H 232 MG/DL (74-106) H Keisha Hugo PA-C Sep 14, 2020 12:26
--- NOTE | 2020-09-14 13:24 | Nephrology Progress Note ---
Assessment/Plan Problem List: (1) FLOWER (acute kidney injury) (2) Hypoxia (3) Pneumonia (4) 2019 novel coronavirus disease (COVID-19) (5) Electrolyte imbalance (6) Anemia Assessment Acute renal failure Confirmed COVID-19 pneumonia Sepsis Hypoxia, on BiPAP Anemia Electrolyte imbalances Hyperglycemia Transaminitis Rhabdomyolysis Troponin leak Plan September 14: Serum creatinine level rising. Patient remains on IV Lasix. Cardiology to reeval the need for 40 mg IV Lasix twice a day? Continue to monitor renal parameters September 13: Labs reviewed. Serum creatinine up to 2.4. White blood cells 17.8. Continue per consultants. Medication list reviewed. Continue to monitor renal parameters. September 12: Labs reviewed. Serum creatinine lower 2.2. Medication list reviewed. Hydralazine as needed for high blood pressure ordered. Continue per consultants. Continue to avoid nephrotoxic's. September 11: Labs reviewed. Serum creatinine 2.5 slightly lower than before. Electrolyte within normal limit. Folic acid ordered. Continue to monitor renal parameters. Continue per consultants. Previously Slow IV hydration Urine studies Avoid nephrotoxic's Anemia work-up IV Protonix Albumin bolus Monitor renal parameters Adjust blood pressure medication Urine studies Per orders Discussed with RN Subjective ROS Limited/Unobtainable: Yes Objective Objective Last 24 Hour Vital Signs Date Time Temp Pulse Resp B/P (MAP) Pulse Ox O2 Delivery O2 Flow Rate FiO2 09/14/20 12:00 Venturi Mask 10.0 09/14/20 12:00 10.0 50 09/14/20 12:00 96.6 71 20 149/62 (91) 98 09/14/20 11:53 71 09/14/20 08:00 10.0 50 09/14/20 08:00 Venturi Mask 10.0 09/14/20 08:00 97.5 60 20 129/58 (81) 97 09/14/20 07:37 73 09/14/20 05:26 119/64 09/14/20 04:00 97.4 63 18 119/61 (80) 97 09/14/20 04:00 10.0 50 09/14/20 04:00 75 09/14/20 04:00 Venturi Mask 10.0 09/14/20 00:00 Venturi Mask 10.0 09/14/20 00:00 67 09/14/20 00:00 97.6 71 19 125/63 (83) 94 09/13/20 20:24 137/67 09/13/20 20:00 Non-Rebreather 15.0 09/13/20 20:00 97.6 60 17 122/61 (81) 100 09/13/20 20:00 15.0 100 09/13/20 20:00 93 09/13/20 19:30 100 Non-Rebreather 15.0 100 09/13/20 16:04 85 20 98 Non-Rebreather 15.0 100 09/13/20 16:00 97.5 70 20 116/62 (80) 100 09/13/20 16:00 66 09/13/20 16:00 15.0 100 09/13/20 16:00 Non-Rebreather 15.0 09/13/20 13:37 110/68 Intake and Output 09/13/20 09/14/20 19:00 07:00 Intake Total 30 ml 60 ml Output Total 1200 ml 600 ml Balance -1170 ml -540 ml Intake Oral 30 ml 60 ml Output Urine Total 1200 ml 600 ml Current Medications Medications (Trade) Dose Ordered Sig/Rebecca Route PRN Reason Start Time Stop Time Status Last Admin Dose Admin Acetaminophen (Tylenol) 650 mg Q4H PRN ORAL Mild Pain (Pain Scale 1-3) 09/05/20 07:15 10/05/20 07:14 09/06/20 12:34 Dexamethasone Sodium Phosphate (Decadron 10mg/ ml Inj) 6 mg DAILY IV 09/06/20 09:00 09/15/20 09:01 09/14/20 08:46 Dextrose (Dextrose 50%) 25 ml Q30M PRN IV Hypoglycemia 09/07/20 05:45 12/06/20 05:44 Dextrose (Dextrose 50%) 50 ml Q30M PRN IV Hypoglycemia 09/07/20 05:45 12/06/20 05:44 Enoxaparin Sodium (Lovenox) 30 mg DAILY SUBQ 09/06/20 09:00 12/05/20 08:59 09/14/20 08:47 Folic Acid (Folate) 2 mg DAILY ORAL 09/11/20 11:00 10/11/20 10:59 09/13/20 09:35 Furosemide (Lasix) 40 mg EVERY 12 HOURS IV 09/12/20 13:00 10/12/20 12:59 09/14/20 08:46 Hydralazine HCl (Apresoline) 25 mg Q4H PRN ORAL bp over 160 syst 09/12/20 11:15 12/11/20 11:14 Hydralazine HCl (Apresoline) 50 mg Q8HR ORAL 09/12/20 14:00 12/11/20 13:59 09/13/20 20:24 Insulin Aspart (NovoLOG) BEFORE MEALS AND HS SUBQ 09/07/20 06:30 12/06/20 06:29 09/14/20 11:56 Pantoprazole (Protonix) 40 mg EVERY 12 HOURS IVP 09/10/20 21:00 10/10/20 20:59 09/14/20 08:46 Laboratory Tests 09/13/20 16:58: POC Whole Blood Glucose 256H 09/13/20 20:37: POC Whole Blood Glucose 245H 09/14/20 04:02: Sodium Level 148H, Potassium Level 4.3, Chloride Level 106, Carbon Dioxide Level 34H, Anion Gap 8, Blood Urea Nitrogen 77H, Creatinine 2.8H, Estimat Glomerular Filtration Rate 19.6, Glucose Level 209H, Calcium Level 9.7, Phosphorus Level 4.3, Magnesium Level 2.4, Total Bilirubin 0.4, Aspartate Amino Transf (AST/SGOT) 41H, Alanine Aminotransferase (ALT/SGPT) 46, Alkaline Phosphatase 137H, Total Protein 7.5, Albumin 2.5L, Globulin 5.0, Albumin/Globulin Ratio 0.5L 09/14/20 05:24: POC Whole Blood Glucose 184H 09/14/20 11:39: POC Whole Blood Glucose 232H Height (Feet): 5 Height (Inches): 5.00 Weight (Pounds): 140 General Appearance: mild distress EENT: other Cardiovascular: normal rate Respiratory/Chest: decreased breath sounds Abdomen: distended Zachary Dunlap MD Sep 14, 2020 13:24
--- NOTE | 2020-09-14 14:09 | NUR ---
[employer]: Hypoxia, Acute Respiratory Failure, COVID-PNA, Bacteremia, ARF T-96.6 (ax), HR 71, RR 20, BP 149/62 Venturi Mask 10L, FiO2 50%, O2 sat 98% WBC 17.8, BUN 77, Creatinine 2.8, cxray-bilateral infiltrates, stable on rt, worsening on left IS: Protonix IVP q 12 h Lovenox sq qd Decadron IV QD Laex IV q 12 h SDU Status
--- NOTE | 2020-09-14 15:18 | General Progress Note ---
Subjective Allergies: Coded Allergies: No Known Allergies (Unverified , 09/04/20) Subjective slight better lethargic on nrb mask ac renal failure in [place] Objective Last 24 Hour Vital Signs Date Time Temp Pulse Resp B/P (MAP) Pulse Ox O2 Delivery O2 Flow Rate FiO2 09/14/20 13:36 149/62 09/14/20 12:00 Venturi Mask 10.0 09/14/20 12:00 10.0 50 09/14/20 12:00 96.6 71 20 149/62 (91) 98 09/14/20 11:53 71 09/14/20 08:00 10.0 50 09/14/20 08:00 Venturi Mask 10.0 09/14/20 08:00 97.5 60 20 129/58 (81) 97 09/14/20 07:37 73 09/14/20 07:15 96 Venturi Mask 10.0 50 09/14/20 05:26 119/64 09/14/20 04:00 97.4 63 18 119/61 (80) 97 09/14/20 04:00 10.0 50 09/14/20 04:00 75 09/14/20 04:00 Venturi Mask 10.0 09/14/20 00:00 Venturi Mask 10.0 09/14/20 00:00 67 09/14/20 00:00 97.6 71 19 125/63 (83) 94 09/13/20 20:24 137/67 09/13/20 20:00 Non-Rebreather 15.0 09/13/20 20:00 97.6 60 17 122/61 (81) 100 09/13/20 20:00 15.0 100 09/13/20 20:00 93 09/13/20 19:30 100 Non-Rebreather 15.0 100 09/13/20 16:04 85 20 98 Non-Rebreather 15.0 100 09/13/20 16:00 97.5 70 20 116/62 (80) 100 09/13/20 16:00 66 09/13/20 16:00 15.0 100 09/13/20 16:00 Non-Rebreather 15.0 Intake and Output 09/13/20 09/14/20 19:00 07:00 Intake Total 30 ml 60 ml Output Total 1200 ml 600 ml Balance -1170 ml -540 ml Intake Oral 30 ml 60 ml Output Urine Total 1200 ml 600 ml Laboratory Tests 09/13/20 16:58: POC Whole Blood Glucose 256H 09/13/20 20:37: POC Whole Blood Glucose 245H 09/14/20 04:02: Sodium Level 148H, Potassium Level 4.3, Chloride Level 106, Carbon Dioxide Level 34H, Anion Gap 8, Blood Urea Nitrogen 77H, Creatinine 2.8H, Estimat Glomerular Filtration Rate 19.6, Glucose Level 209H, Calcium Level 9.7, Phosphorus Level 4.3, Magnesium Level 2.4, Total Bilirubin 0.4, Aspartate Amino Transf (AST/SGOT) 41H, Alanine Aminotransferase (ALT/SGPT) 46, Alkaline Phosphatase 137H, Total Protein 7.5, Albumin 2.5L, Globulin 5.0, Albumin/Globulin Ratio 0.5L 09/14/20 05:24: POC Whole Blood Glucose 184H 09/14/20 11:39: POC Whole Blood Glucose 232H Height (Feet): 5 Height (Inches): 5.00 Weight (Pounds): 140 General Appearance: mild distress Neck: supple Cardiovascular: regular rhythm Respiratory/Chest: crackles/rales Abdomen: non tender, soft Extremities: non-tender Assessment/Plan Assessment/Plan: aloc ac resp failure pna r/ o covid worse dehyration demtentia anemia leucocytosis due to steroids ac renal failure nephro consult check abg dw with pulmonary cont iv abx, Livan butler Rajendra MD Sep 14, 2020 15:18
[2020-09-14 15:57] VITALS: BP 139/71
--- NOTE | 2020-09-14 19:09 | NUR ---
NURSE HAND-OFF REPORT: Important Events on Shift: Patient Status: Diet: Pending Orders: Pending Results/Labs: Pending MD notification: Latest Vital Signs: Temperature 97.9 , Pulse 83 , B/P 139 /71 , Respiratory Rate 20 , O2 SAT 96 , Venturi Mask, O2 Flow Rate 10.0 . Vital Sign Comment: EKG Rhythm: Sinus Rhythm Rhythm change?: N MD Notified?: N - MD Response: Latest Cotton Fall Score: 45 Fall Risk: High Risk Safety Measures: Call light Within Reach, Bed Alarm Zone 1, Side Rails Side Rails x3, Bed position Low and Locked. Fall Precautions: Yellow Socks Yellow Gown Door Sign Patient Fall Education Report given to . Pt is awake and stable, no stress noted, endorsed plan of care, endorsed to monitor pt to keep mask on the face, spo2 97% now.
--- NOTE | 2020-09-14 19:15 | NUR ---
NURSE NOTES: Received report from FELICE Snell. Patient asleep in bed, afebrile and respiratory distress noted. on Venturi at 10lpm saturating at 97-98%.with left wrist 20g IV line intact, patent and asymptomatic. With Fc to urine bag via gravity below bladder draining yellowish urine. With both soft wrist restraints. Skin is intact, pulses are palpable and no paresthesia. HOB elevated. Call light within reach. Bed wheels are locked and side rails are up. Alarm is on and working. Continue plan of care
[2020-09-14 20:00] VITALS: BP 147/73
[2020-09-15] VITALS: BP 124/58
--- NOTE | 2020-09-15 03:30 | NUR ---
NURSE NOTES: Pt asleep in bed. no respiratory distress noted. Continue to monitor the patient.
[2020-09-15 04:00] VITALS: BP 132/69
[2020-09-15 06:12] LABS: HEMOGLOBIN 11.3 G/DL (12.0-16.0); MEAN CORPUSCULAR VOLUME 85 FL (80-99); PLATELET COUNT 281 K/UL (150-450); RED BLOOD COUNT 4.12 M/UL (4.20-5.40); RED CELL DISTRIBUTION WIDTH 14.4 % (11.6-14.8); WHITE BLOOD COUNT 17.4 K/UL (4.8-10.8)
[2020-09-15] MEDS: HydrALAZINE 50mg tab ORAL SCH ×3 (06:32→21:19)
[2020-09-15] MEDS: NovoLOG Insulin Flexpen SUBQ SCH ×4 (06:33→21:16)
--- NOTE | 2020-09-15 06:37 | Hematology/Onc Progress Note ---
Assessment/Plan Assessment/Plan Leukocytosis likely related to covid19 pna Anemia due to chronic disease Aloc with covid19 ac resp failure-->nc/bipap pna on abx dehyration demtentia Renal eval check abg dw with pulmonary on cont bipap cont iv abx, decadron on lovenoxs q dw daughter Subjective HEENT: Denies: no symptoms, eye pain, blurred vision, tearing, double vision, ear pain, ear discharge, nose pain, nose congestion, throat pain, throat swelling, mouth pain, mouth swelling, other Cardiovascular: Denies: no symptoms, chest pain, edema, irregular heart rate, lightheadedness, palpitations, syncope, other Respiratory: Denies: no symptoms, cough, shortness of breath, SOB with excertion, SOB at rest, sputum, wheezing, other Gastrointestinal/Abdominal: Denies: no symptoms, abdomen distended, abdominal pain, black stools, tarry stools, blood in stool, constipated, diarrhea, difficulty swallowing, nausea, poor appetite, poor fluid intake, rectal bleeding, vomiting, other Genitourinary: Denies: no symptoms, burning, discharge, frequency, flank pain, hematuria, incontinence, pain, urgency, other Neurologic/Psychiatric: Denies: no symptoms, anxiety, depressed, emotional problems, headache, numbness, paresthesia, pre-existing deficit, seizure, tingling, tremors, weakness, other Endocrine: Denies: no symptoms, excessive sweating, flushing, intolerance to cold, intolerance to heat, increased hunger, increased thirst, increased urine, unexplained weight gain, unexplained weight loss, other Hematologic/Lymphatic: Denies: no symptoms, anemia, easy bleeding, easy bruising, adenopathy, other Allergies: Coded Allergies: No Known Allergies (Unverified , 09/04/20) Subjective 09/13 lethargic, on nrb mask, cards recs noted, in [place] 09/14 is on dex as well as lovenox sq, meds noted, labs reviewed 09/15 meds noted, no bleeding, on venturi mask 10l, meds reviewed Objective Objective Current Medications Medications (Trade) Dose Ordered Sig/Rebecca Route PRN Reason Start Time Stop Time Status Last Admin Dose Admin Acetaminophen (Tylenol) 650 mg Q4H PRN ORAL Mild Pain (Pain Scale 1-3) 09/05/20 07:15 10/05/20 07:14 09/06/20 12:34 Dexamethasone Sodium Phosphate (Decadron 10mg/ ml Inj) 6 mg DAILY IV 09/06/20 09:00 09/15/20 09:01 09/14/20 08:46 Dextrose (Dextrose 50%) 25 ml Q30M PRN IV Hypoglycemia 09/07/20 05:45 12/06/20 05:44 Dextrose (Dextrose 50%) 50 ml Q30M PRN IV Hypoglycemia 09/07/20 05:45 12/06/20 05:44 Enoxaparin Sodium (Lovenox) 30 mg DAILY SUBQ 09/06/20 09:00 12/05/20 08:59 09/14/20 08:47 Folic Acid (Folate) 2 mg DAILY ORAL 09/11/20 11:00 10/11/20 10:59 09/13/20 09:35 Furosemide (Lasix) 40 mg EVERY 12 HOURS IV 09/12/20 13:00 10/12/20 12:59 09/14/20 20:26 Hydralazine HCl (Apresoline) 25 mg Q4H PRN ORAL bp over 160 syst 09/12/20 11:15 12/11/20 11:14 Hydralazine HCl (Apresoline) 50 mg Q8HR ORAL 09/12/20 14:00 12/11/20 13:59 09/15/20 06:32 Insulin Aspart (NovoLOG) BEFORE MEALS AND HS SUBQ 09/07/20 06:30 12/06/20 06:29 09/15/20 06:33 Pantoprazole (Protonix) 40 mg EVERY 12 HOURS IVP 09/10/20 21:00 10/10/20 20:59 09/14/20 20:26 Last 24 Hour Vital Signs Date Time Temp Pulse Resp B/P (MAP) Pulse Ox O2 Delivery O2 Flow Rate FiO2 09/15/20 06:32 135/72 09/15/20 04:00 Venturi Mask 10.0 09/15/20 04:00 10.0 50 09/15/20 04:00 97.9 64 20 132/69 (90) 100 09/15/20 03:03 53 09/15/20 00:00 10.0 50 09/15/20 00:00 Venturi Mask 10.0 09/15/20 00:00 97.5 61 20 124/58 (80) 100 09/14/20 23:01 53 09/14/20 22:04 140/72 09/14/20 21:00 10.0 50 09/14/20 20:00 Venturi Mask 10.0 09/14/20 20:00 97.5 76 18 147/73 (97) 98 09/14/20 19:27 99 Venturi Mask 10.0 50 09/14/20 19:02 55 09/14/20 16:00 10.0 50 09/14/20 16:00 Venturi Mask 10.0 09/14/20 15:57 97.9 83 20 139/71 (93) 96 09/14/20 15:22 79 09/14/20 13:36 149/62 09/14/20 12:00 Venturi Mask 10.0 09/14/20 12:00 10.0 50 09/14/20 12:00 96.6 71 20 149/62 (91) 98 09/14/20 11:53 71 09/14/20 08:00 10.0 50 09/14/20 08:00 Venturi Mask 10.0 09/14/20 08:00 97.5 60 20 129/58 (81) 97 09/14/20 07:37 73 09/14/20 07:15 96 Venturi Mask 10.0 50 09/14/20 05:26 119/64 09/14/20 04:00 97.4 63 18 119/61 (80) 97 09/14/20 04:00 10.0 50 09/14/20 04:00 75 09/14/20 04:00 Venturi Mask 10.0 09/14/20 00:00 Venturi Mask 10.0 09/14/20 00:00 67 09/14/20 00:00 97.6 71 19 125/63 (83) 94 09/13/20 20:24 137/67 09/13/20 20:00 Non-Rebreather 15.0 09/13/20 20:00 97.6 60 17 122/61 (81) 100 09/13/20 20:00 15.0 100 09/13/20 20:00 93 09/13/20 19:30 100 Non-Rebreather 15.0 100 09/13/20 16:04 85 20 98 Non-Rebreather 15.0 100 09/13/20 16:00 97.5 70 20 116/62 (80) 100 09/13/20 16:00 66 09/13/20 16:00 15.0 100 09/13/20 16:00 Non-Rebreather 15.0 09/13/20 13:37 110/68 09/13/20 12:00 Non-Rebreather 15.0 09/13/20 12:00 82 09/13/20 12:00 15.0 100 09/13/20 12:00 97.7 79 20 110/68 (82) 93 09/13/20 08:00 Non-Rebreather 15.0 09/13/20 08:00 98.1 72 20 139/61 (87) 96 09/13/20 08:00 65 09/13/20 08:00 15.0 100 09/13/20 07:17 97 Non-Rebreather 15.0 100 09/13/20 07:17 64 97 100 Intake and Output 09/14/20 09/15/20 19:00 07:00 Intake Total 60 ml Output Total 900 ml 1200 ml Balance -900 ml -1140 ml Intake Oral 60 ml Output Urine Total 900 ml 1200 ml Labs Test 09/12/20 07:00 09/12/20 11:13 09/12/20 16:01 09/12/20 20:32 White Blood Count 17.6 K/UL (4.8-10.8) Red Blood Count 3.63 M/UL (4.20-5.40) Hemoglobin 10.0 G/DL (12.0-16.0) Hematocrit 30.2 % (37.0-47.0) Mean Corpuscular Volume 83 FL (80-99) Mean Corpuscular Hemoglobin 27.5 PG (27.0-31.0) Mean Corpuscular Hemoglobin Concent 33.0 G/DL (32.0-36.0) Red Cell Distribution Width 15.3 % (11.6-14.8) Platelet Count 250 K/UL (150-450) Mean Platelet Volume 7.2 FL (6.5-10.1) Neutrophils (%) (Auto) % (45.0-75.0) Lymphocytes (%) (Auto) % (20.0-45.0) Monocytes (%) (Auto) % (1.0-10.0) Eosinophils (%) (Auto) % (0.0-3.0) Basophils (%) (Auto) % (0.0-2.0) Differential Total Cells Counted 100 Neutrophils % (Manual) 85 % (45-75) Lymphocytes % (Manual) 10 % (20-45) Monocytes % (Manual) 5 % (1-10) Eosinophils % (Manual) 0 % (0-3) Basophils % (Manual) 0 % (0-2) Band Neutrophils 0 % (0-8) Platelet Estimate Adequate Platelet Morphology Normal Hypochromasia 1+ Anisocytosis 1+ Sodium Level 145 MMOL/L (136-145) Potassium Level 4.3 MMOL/L (3.5-5.1) Chloride Level 110 MMOL/L (98-107) Carbon Dioxide Level 25 MMOL/L (21-32) Anion Gap 10 mmol/L (5-15) Blood Urea Nitrogen 61 mg/dL (7-18) Creatinine 2.2 MG/DL (0.55-1.30) Estimat Glomerular Filtration Rate 25.9 mL/min (>60) Glucose Level 114 MG/DL (74-106) Uric Acid 8.0 MG/DL (2.6-7.2) Calcium Level 8.4 MG/DL (8.5-10.1) Phosphorus Level 3.6 MG/DL (2.5-4.9) Magnesium Level 2.2 MG/DL (1.8-2.4) Total Bilirubin 0.3 MG/DL (0.2-1.0) Aspartate Amino Transf (AST/SGOT) 50 U/L (15-37) Alanine Aminotransferase (ALT/SGPT) 57 U/L (12-78) Alkaline Phosphatase 148 U/L (46-116) Total Protein 6.1 G/DL (6.4-8.2) Albumin 1.9 G/DL (3.4-5.0) Globulin 4.2 g/dL Albumin/Globulin Ratio 0.5 (1.0-2.7) POC Whole Blood Glucose 182 MG/DL (74-106) 216 MG/DL (74-106) 264 MG/DL (74-106) Test 09/13/20 05:51 09/13/20 07:30 09/13/20 13:01 09/13/20 16:58 POC Whole Blood Glucose 157 MG/DL (74-106) 246 MG/DL (74-106) 256 MG/DL (74-106) White Blood Count 17.8 K/UL (4.8-10.8) Red Blood Count 4.37 M/UL (4.20-5.40) Hemoglobin 11.7 G/DL (12.0-16.0) Hematocrit 35.9 % (37.0-47.0) Mean Corpuscular Volume 82 FL (80-99) Mean Corpuscular Hemoglobin 26.9 PG (27.0-31.0) Mean Corpuscular Hemoglobin Concent 32.7 G/DL (32.0-36.0) Red Cell Distribution Width 15.5 % (11.6-14.8) Platelet Count 266 K/UL (150-450) Mean Platelet Volume 7.3 FL (6.5-10.1) Neutrophils (%) (Auto) % (45.0-75.0) Lymphocytes (%) (Auto) % (20.0-45.0) Monocytes (%) (Auto) % (1.0-10.0) Eosinophils (%) (Auto) % (0.0-3.0) Basophils (%) (Auto) % (0.0-2.0) Differential Total Cells Counted 100 Neutrophils % (Manual) 96 % (45-75) Lymphocytes % (Manual) 3 % (20-45) Monocytes % (Manual) 1 % (1-10) Eosinophils % (Manual) 0 % (0-3) Basophils % (Manual) 0 % (0-2) Band Neutrophils 0 % (0-8) Platelet Estimate Adequate Platelet Morphology Normal Hypochromasia 1+ Anisocytosis 1+ Sodium Level 147 MMOL/L (136-145) Potassium Level 4.1 MMOL/L (3.5-5.1) Chloride Level 106 MMOL/L (98-107) Carbon Dioxide Level 33 MMOL/L (21-32) Anion Gap 8 mmol/L (5-15) Blood Urea Nitrogen 66 mg/dL (7-18) Creatinine 2.4 MG/DL (0.55-1.30) Estimat Glomerular Filtration Rate 23.5 mL/min (>60) Glucose Level 166 MG/DL (74-106) Uric Acid 8.9 MG/DL (2.6-7.2) Calcium Level 9.6 MG/DL (8.5-10.1) Phosphorus Level 3.7 MG/DL (2.5-4.9) Magnesium Level 2.3 MG/DL (1.8-2.4) Total Bilirubin 0.5 MG/DL (0.2-1.0) Aspartate Amino Transf (AST/SGOT) 45 U/L (15-37) Alanine Aminotransferase (ALT/SGPT) 48 U/L (12-78) Alkaline Phosphatase 166 U/L (46-116) Troponin I 0.023 ng/mL (0.000-0.056) Pro-B-Type Natriuretic Peptide 1263 pg/mL (0-125) Total Protein 7.5 G/DL (6.4-8.2) Albumin 2.7 G/DL (3.4-5.0) Globulin 4.8 g/dL Albumin/Globulin Ratio 0.6 (1.0-2.7) Test 09/13/20 20:37 09/14/20 04:02 09/14/20 05:24 09/14/20 11:39 POC Whole Blood Glucose 245 MG/DL (74-106) 184 MG/DL (74-106) 232 MG/DL (74-106) Sodium Level 148 MMOL/L (136-145) Potassium Level 4.3 MMOL/L (3.5-5.1) Chloride Level 106 MMOL/L (98-107) Carbon Dioxide Level 34 MMOL/L (21-32) Anion Gap 8 mmol/L (5-15) Blood Urea Nitrogen 77 mg/dL (7-18) Creatinine 2.8 MG/DL (0.55-1.30) Estimat Glomerular Filtration Rate 19.6 mL/min (>60) Glucose Level 209 MG/DL (74-106) Calcium Level 9.7 MG/DL (8.5-10.1) Phosphorus Level 4.3 MG/DL (2.5-4.9) Magnesium Level 2.4 MG/DL (1.8-2.4) Total Bilirubin 0.4 MG/DL (0.2-1.0) Aspartate Amino Transf (AST/SGOT) 41 U/L (15-37) Alanine Aminotransferase (ALT/SGPT) 46 U/L (12-78) Alkaline Phosphatase 137 U/L (46-116) Total Protein 7.5 G/DL (6.4-8.2) Albumin 2.5 G/DL (3.4-5.0) Globulin 5.0 g/dL Albumin/Globulin Ratio 0.5 (1.0-2.7) Test 09/14/20 20:31 09/15/20 04:55 09/15/20 05:14 POC Whole Blood Glucose 293 MG/DL (74-106) 242 MG/DL (74-106) Height (Feet): 5 Height (Inches): 5.00 Weight (Pounds): 140 Objective General Appearance: lethargic Neck: supple Cardiovascular: regular rhythm Respiratory/Chest: crackles/rales venturi mask+++ Abdomen: non tender, soft Extremities: non-tender Scar Thomas MD Sep 15, 2020 06:37
[2020-09-15 06:56] LABS: CREATININE 3.1 MG/DL (0.55-1.30); POTASSIUM 3.6 MMOL/L (3.5-5.1)
--- NOTE | 2020-09-15 07:10 | NUR ---
NURSE NOTES:Handoff received from [facility], patient received agitated in bed, patient constantly removing the oxygen mask, explained importance of leaving the mask on, but patient still removing mask. Patient is in bilateral soft wrist restraints, for safety and pulling devices, patient is still able to remove mask with restraints in place, by shaking her head and or turning sideways in bed to reach the mask. Patient is placed on isolation for Covid, as well as fall and aspiration precautions, bed in the low and locked position with call light within reach. IV site is clean dry and intact, saline locked. Patient is on youth nutritional monitor and venturi mask at 10Liters satting in the 90s with the mask on, desaturates to 70s when removed. I have asked RT to place patient on BIPAP as this will be harder for patient to remove.
--- NOTE | 2020-09-15 07:20 | NUR ---
NURSE HAND-OFF REPORT: Important Events on Shift:stable Patient Status: stable Diet: ccho Pending Orders: n Pending Results/Labs: n Pending MD notification:n Latest Vital Signs: Temperature 97.9 , Pulse 64 , B/P 135 /72 , Respiratory Rate 20 , O2 SAT 100 , Venturi Mask, O2 Flow Rate 10.0 . Vital Sign Comment: n EKG Rhythm: Sinus Bradycardia Rhythm change?: N MD Notified?: N - MD Response: Latest Cotton Fall Score: 45 Fall Risk: High Risk Safety Measures: Call light Within Reach, Bed Alarm Zone 1, Side Rails Side Rails x3, Bed position Low and Locked. Fall Precautions: Yellow Socks Yellow Gown Door Sign Patient Fall Education Report given to Dudley Mckeon. Pt stable in bed.
--- NOTE | 2020-09-15 07:45 | NUR ---
NURSE NOTES:Patient managed to remove her IV.
[2020-09-15 08:00] VITALS: BP 128/60
--- NOTE | 2020-09-15 09:13 | Cardiology Progress Note ---
Assessment/Plan Status: not improved Status Narrative Oxygen dependent, on full face mask, receiving treatment for COVID-19 viral PNA. HR improved. Assessment/Plan 1. COVID-19 viral PNA 2. Leukocytosis 3. Respiratory failure and oxygen dependence on NRB mask 4. Sinus bradycardia Bb and Ca channel shu held rate improved 5. CHF acute on chronic HF with elevated BNP echo pending diuresis with Lasix 5. FLOWER on CKD 6. Anemia 7. DMII 8. Demenia and frailty Subjective ROS Limited/Unobtainable: Yes Cardiovascular: Reports: edema Respiratory: Reports: shortness of breath Gastrointestinal/Abdominal: Reports: poor appetite Genitourinary: Reports: no symptoms Subjective No acute events, BNP elevated, WBCs elevated Objective Last 24 Hour Vital Signs Date Time Temp Pulse Resp B/P (MAP) Pulse Ox O2 Delivery O2 Flow Rate FiO2 09/15/20 06:32 135/72 09/15/20 04:00 Venturi Mask 10.0 09/15/20 04:00 10.0 50 09/15/20 04:00 97.9 64 20 132/69 (90) 100 09/15/20 03:03 53 09/15/20 00:00 10.0 50 09/15/20 00:00 Venturi Mask 10.0 09/15/20 00:00 97.5 61 20 124/58 (80) 100 09/14/20 23:01 53 09/14/20 22:04 140/72 09/14/20 21:00 10.0 50 09/14/20 20:00 Venturi Mask 10.0 09/14/20 20:00 97.5 76 18 147/73 (97) 98 09/14/20 19:27 99 Venturi Mask 10.0 50 09/14/20 19:02 55 09/14/20 16:00 10.0 50 09/14/20 16:00 Venturi Mask 10.0 09/14/20 15:57 97.9 83 20 139/71 (93) 96 09/14/20 15:22 79 09/14/20 13:36 149/62 09/14/20 12:00 Venturi Mask 10.0 09/14/20 12:00 10.0 50 09/14/20 12:00 96.6 71 20 149/62 (91) 98 1/11/21 11:53 71 General Appearance: no apparent distress EENT: PERRL/EOMI Neck: no JVD Rhythm: NSR Cardiovascular: normal rate Respiratory/Chest: decreased breath sounds Intake and Output 09/14/20 09/15/20 19:00 07:00 Intake Total 60 ml Output Total 900 ml 1200 ml Balance -900 ml -1140 ml Intake Oral 60 ml Output Urine Total 900 ml 1200 ml Laboratory Tests Test 09/14/20 11:39 09/14/20 20:31 09/15/20 04:55 09/15/20 05:14 POC Whole Blood Glucose 232 MG/DL (74-106) H 293 MG/DL (74-106) H 242 MG/DL (74-106) H White Blood Count 17.4 K/UL (4.8-10.8) H Red Blood Count 4.12 M/UL (4.20-5.40) L Hemoglobin 11.3 G/DL (12.0-16.0) L Hematocrit 35.0 % (37.0-47.0) L Mean Corpuscular Volume 85 FL (80-99) Mean Corpuscular Hemoglobin 27.3 PG (27.0-31.0) Mean Corpuscular Hemoglobin Concent 32.2 G/DL (32.0-36.0) Red Cell Distribution Width 14.4 % (11.6-14.8) Platelet Count 281 K/UL (150-450) Mean Platelet Volume 8.9 FL (6.5-10.1) Neutrophils (%) (Auto) % (45.0-75.0) Lymphocytes (%) (Auto) % (20.0-45.0) Monocytes (%) (Auto) % (1.0-10.0) Eosinophils (%) (Auto) % (0.0-3.0) Basophils (%) (Auto) % (0.0-2.0) Neutrophils % (Manual) Pending Lymphocytes % (Manual) Pending Platelet Estimate Pending Platelet Morphology Pending Sodium Level 152 MMOL/L (136-145) H Potassium Level 3.6 MMOL/L (3.5-5.1) Chloride Level 108 MMOL/L (98-107) H Carbon Dioxide Level 31 MMOL/L (21-32) Anion Gap 13 mmol/L (5-15) Blood Urea Nitrogen 94 mg/dL (7-18) H Creatinine 3.1 MG/DL (0.55-1.30) H Estimat Glomerular Filtration Rate 17.5 mL/min (>60) Glucose Level 244 MG/DL (74-106) H Calcium Level 9.0 MG/DL (8.5-10.1) Keisha Hugo PA-C Sep 15, 2020 09:13
[2020-09-15] MEDS: Pantoprazole Inj IVP SCH ×2 (09:52→20:51)
[2020-09-15] MEDS: dexAMETHasone 10mg/ml Inj IV SCH (09:52)
[2020-09-15 09:54] LABS: ALANINE AMINOTRANSFERASE 42 U/L (12-78); ALBUMIN 2.7 G/DL (3.4-5.0); ALKALINE PHOSPHATASE 106 U/L (46-116); ASPARTATE AMINO TRANSFERASE 38 U/L (15-37); BILIRUBIN,DIRECT 0.2 MG/DL (0.0-0.3); BILIRUBIN,TOTAL 0.4 MG/DL (0.2-1.0); PHOSPHORUS 4.6 MG/DL (2.5-4.9)
[2020-09-15] MEDS: Enoxaparin 30mg Inj SUBQ SCH (09:55)
--- NOTE | 2020-09-15 10:13 | Nephrology Progress Note ---
Assessment/Plan Problem List: (1) FLOWER (acute kidney injury) (2) Hypoxia (3) Pneumonia (4) 2019 novel coronavirus disease (COVID-19) (5) Electrolyte imbalance (6) Anemia Assessment Acute renal failure Confirmed COVID-19 pneumonia Sepsis Hypoxia, on BiPAP Anemia Electrolyte imbalances Hyperglycemia Transaminitis Rhabdomyolysis Troponin leak Plan September 15: Serum creatinine rising. IV Lasix discontinued. Patient on Venturi mask. Vitamin D level pending. Medication list reviewed. Continue to monitor renal parameters. Patient full code. September 14: Serum creatinine level rising. Patient remains on IV Lasix. Cardiology to reeval the need for 40 mg IV Lasix twice a day? Continue to monitor renal parameters September 13: Labs reviewed. Serum creatinine up to 2.4. White blood cells 17.8. Continue per consultants. Medication list reviewed. Continue to monitor renal parameters. September 12: Labs reviewed. Serum creatinine lower 2.2. Medication list reviewed. Hydralazine as needed for high blood pressure ordered. Continue per consultants. Continue to avoid nephrotoxic's. September 11: Labs reviewed. Serum creatinine 2.5 slightly lower than before. Electrolyte within normal limit. Folic acid ordered. Continue to monitor renal parameters. Continue per consultants. Previously Slow IV hydration Urine studies Avoid nephrotoxic's Anemia work-up IV Protonix Albumin bolus Monitor renal parameters Adjust blood pressure medication Urine studies Per orders Discussed with RN Subjective ROS Limited/Unobtainable: Yes Objective Objective Last 24 Hour Vital Signs Date Time Temp Pulse Resp B/P (MAP) Pulse Ox O2 Delivery O2 Flow Rate FiO2 09/15/20 08:00 96.7 72 22 128/60 (82) 94 09/15/20 08:00 Venturi Mask 10.0 09/15/20 08:00 10.0 50 09/15/20 06:32 135/72 09/15/20 04:00 Venturi Mask 10.0 09/15/20 04:00 10.0 50 09/15/20 04:00 97.9 64 20 132/69 (90) 100 09/15/20 03:03 53 09/15/20 00:00 10.0 50 09/15/20 00:00 Venturi Mask 10.0 09/15/20 00:00 97.5 61 20 124/58 (80) 100 09/14/20 23:01 53 09/14/20 22:04 140/72 09/14/20 21:00 10.0 50 09/14/20 20:00 Venturi Mask 10.0 09/14/20 20:00 97.5 76 18 147/73 (97) 98 09/14/20 19:27 99 Venturi Mask 10.0 50 09/14/20 19:02 55 09/14/20 16:00 10.0 50 09/14/20 16:00 Venturi Mask 10.0 09/14/20 15:57 97.9 83 20 139/71 (93) 96 09/14/20 15:22 79 09/14/20 13:36 149/62 09/14/20 12:00 Venturi Mask 10.0 09/14/20 12:00 10.0 50 09/14/20 12:00 96.6 71 20 149/62 (91) 98 09/14/20 11:53 71 Intake and Output 09/14/20 09/15/20 19:00 07:00 Intake Total 60 ml Output Total 900 ml 1200 ml Balance -900 ml -1140 ml Intake Oral 60 ml Output Urine Total 900 ml 1200 ml Current Medications Medications (Trade) Dose Ordered Sig/Rebecca Route PRN Reason Start Time Stop Time Status Last Admin Dose Admin Acetaminophen (Tylenol) 650 mg Q4H PRN ORAL Mild Pain (Pain Scale 1-3) 09/05/20 07:15 10/05/20 07:14 09/06/20 12:34 Dextrose (Dextrose 50%) 25 ml Q30M PRN IV Hypoglycemia 09/07/20 05:45 12/06/20 05:44 Dextrose (Dextrose 50%) 50 ml Q30M PRN IV Hypoglycemia 09/07/20 05:45 12/06/20 05:44 Enoxaparin Sodium (Lovenox) 30 mg DAILY SUBQ 09/06/20 09:00 12/05/20 08:59 09/15/20 09:55 Folic Acid (Folate) 2 mg DAILY ORAL 09/11/20 11:00 10/11/20 10:59 09/15/20 09:53 Hydralazine HCl (Apresoline) 25 mg Q4H PRN ORAL bp over 160 syst 09/12/20 11:15 12/11/20 11:14 Hydralazine HCl (Apresoline) 50 mg Q8HR ORAL 09/12/20 14:00 12/11/20 13:59 09/15/20 06:32 Insulin Aspart (NovoLOG) BEFORE MEALS AND HS SUBQ 09/07/20 06:30 12/06/20 06:29 09/15/20 06:33 Pantoprazole (Protonix) 40 mg EVERY 12 HOURS IVP 09/10/20 21:00 10/10/20 20:59 09/15/20 09:52 Laboratory Tests 09/14/20 11:39: POC Whole Blood Glucose 232H 09/14/20 20:31: POC Whole Blood Glucose 293H 09/15/20 04:55: White Blood Count 17.4H, Red Blood Count 4.12L, Hemoglobin 11.3L, Hematocrit 35.0L, Mean Corpuscular Volume 85, Mean Corpuscular Hemoglobin 27.3, Mean Corpuscular Hemoglobin Concent 32.2, Red Cell Distribution Width 14.4, Platelet Count 281, Mean Platelet Volume 8.9, Neutrophils (%) (Auto) , Lymphocytes (%) (Auto) , Monocytes (%) (Auto) , Eosinophils (%) (Auto) , Basophils (%) (Auto) , Neutrophils % (Manual) [Pending], Lymphocytes % (Manual) [Pending], Platelet Estimate [Pending], Platelet Morphology [Pending], Sodium Level 152H, Potassium Level 3.6, Chloride Level 108H, Carbon Dioxide Level 31, Anion Gap 13, Blood Urea Nitrogen 94H, Creatinine 3.1H, Estimat Glomerular Filtration Rate 17.5, Glucose Level 244H, Calcium Level 9.0, Phosphorus Level 4.6, Magnesium Level 2.4, Total Bilirubin 0.4, Direct Bilirubin 0.2, Aspartate Amino Transf (AST/SGOT) 38H, Alanine Aminotransferase (ALT/SGPT) 42, Alkaline Phosphatase 106, Total Protein 7.6, Albumin 2.7L 09/15/20 05:14: POC Whole Blood Glucose 242H Height (Feet): 5 Height (Inches): 5.00 Weight (Pounds): 140 General Appearance: lethargic EENT: other - On Venturi mask Cardiovascular: normal rate Respiratory/Chest: decreased breath sounds Abdomen: distended Zachary Dunlap MD Sep 15, 2020 10:13
--- NOTE | 2020-09-15 10:20 | Infectious Diseases Prog Note ---
Assessment/Plan Assessment/Plan IMPRESSION: Sepsis Pneumonia with COVID19 Hypoxic respiratory failure Acute renal failure, Rhabdomyolysis, Diabetes mellitus. Leukocytosis RECOMMENDATIONS: Finished dexamethasone course F/U CBC Subjective ROS Limited/Unobtainable: Yes Constitutional: Denies: fever Neurologic: Reports: confusion, other - on restraint Allergies: Coded Allergies: No Known Allergies (Unverified , 09/04/20) Objective Last 24 Hour Vital Signs Date Time Temp Pulse Resp B/P (MAP) Pulse Ox O2 Delivery O2 Flow Rate FiO2 09/15/20 08:00 96.7 72 22 128/60 (82) 94 09/15/20 08:00 Venturi Mask 10.0 09/15/20 08:00 10.0 50 09/15/20 06:32 135/72 09/15/20 04:00 Venturi Mask 10.0 09/15/20 04:00 10.0 50 09/15/20 04:00 97.9 64 20 132/69 (90) 100 09/15/20 03:03 53 09/15/20 00:00 10.0 50 09/15/20 00:00 Venturi Mask 10.0 09/15/20 00:00 97.5 61 20 124/58 (80) 100 09/14/20 23:01 53 09/14/20 22:04 140/72 09/14/20 21:00 10.0 50 09/14/20 20:00 Venturi Mask 10.0 09/14/20 20:00 97.5 76 18 147/73 (97) 98 09/14/20 19:27 99 Venturi Mask 10.0 50 09/14/20 19:02 55 09/14/20 16:00 10.0 50 09/14/20 16:00 Venturi Mask 10.0 09/14/20 15:57 97.9 83 20 139/71 (93) 96 09/14/20 15:22 79 09/14/20 13:36 149/62 09/14/20 12:00 Venturi Mask 10.0 09/14/20 12:00 10.0 50 09/14/20 12:00 96.6 71 20 149/62 (91) 98 09/14/20 11:53 71 Height (Feet): 5 Height (Inches): 5.00 Weight (Pounds): 140 HEENT: mucous membranes moist Respiratory/Chest: other - oxygen by venturi mask, FIO2=50% Cardiovascular: normal rate Abdomen: soft, non tender Extremities: no edema Neurologic/Psychiatric: other - sleeping Laboratory Tests Test 09/14/20 11:39 09/14/20 20:31 09/15/20 04:55 09/15/20 05:14 POC Whole Blood Glucose 232 MG/DL (74-106) H 293 MG/DL (74-106) H 242 MG/DL (74-106) H White Blood Count 17.4 K/UL (4.8-10.8) H Red Blood Count 4.12 M/UL (4.20-5.40) L Hemoglobin 11.3 G/DL (12.0-16.0) L Hematocrit 35.0 % (37.0-47.0) L Mean Corpuscular Volume 85 FL (80-99) Mean Corpuscular Hemoglobin 27.3 PG (27.0-31.0) Mean Corpuscular Hemoglobin Concent 32.2 G/DL (32.0-36.0) Red Cell Distribution Width 14.4 % (11.6-14.8) Platelet Count 281 K/UL (150-450) Mean Platelet Volume 8.9 FL (6.5-10.1) Neutrophils (%) (Auto) % (45.0-75.0) Lymphocytes (%) (Auto) % (20.0-45.0) Monocytes (%) (Auto) % (1.0-10.0) Eosinophils (%) (Auto) % (0.0-3.0) Basophils (%) (Auto) % (0.0-2.0) Neutrophils % (Manual) Pending Lymphocytes % (Manual) Pending Platelet Estimate Pending Platelet Morphology Pending Sodium Level 152 MMOL/L (136-145) H Potassium Level 3.6 MMOL/L (3.5-5.1) Chloride Level 108 MMOL/L (98-107) H Carbon Dioxide Level 31 MMOL/L (21-32) Anion Gap 13 mmol/L (5-15) Blood Urea Nitrogen 94 mg/dL (7-18) H Creatinine 3.1 MG/DL (0.55-1.30) H Estimat Glomerular Filtration Rate 17.5 mL/min (>60) Glucose Level 244 MG/DL (74-106) H Calcium Level 9.0 MG/DL (8.5-10.1) Phosphorus Level 4.6 MG/DL (2.5-4.9) Magnesium Level 2.4 MG/DL (1.8-2.4) Total Bilirubin 0.4 MG/DL (0.2-1.0) Direct Bilirubin 0.2 MG/DL (0.0-0.3) Aspartate Amino Transf (AST/SGOT) 38 U/L (15-37) H Alanine Aminotransferase (ALT/SGPT) 42 U/L (12-78) Alkaline Phosphatase 106 U/L (46-116) Total Protein 7.6 G/DL (6.4-8.2) Albumin 2.7 G/DL (3.4-5.0) L Current Medications Medications (Trade) Dose Ordered Sig/Rebecca Route PRN Reason Start Time Stop Time Status Last Admin Dose Admin Acetaminophen (Tylenol) 650 mg Q4H PRN ORAL Mild Pain (Pain Scale 1-3) 09/05/20 07:15 10/05/20 07:14 09/06/20 12:34 Dextrose (Dextrose 50%) 25 ml Q30M PRN IV Hypoglycemia 09/07/20 05:45 12/06/20 05:44 Dextrose (Dextrose 50%) 50 ml Q30M PRN IV Hypoglycemia 09/07/20 05:45 12/06/20 05:44 Enoxaparin Sodium (Lovenox) 30 mg DAILY SUBQ 09/06/20 09:00 12/05/20 08:59 09/15/20 09:55 Folic Acid (Folate) 2 mg DAILY ORAL 09/11/20 11:00 10/11/20 10:59 09/15/20 09:53 Hydralazine HCl (Apresoline) 25 mg Q4H PRN ORAL bp over 160 syst 09/12/20 11:15 12/11/20 11:14 Hydralazine HCl (Apresoline) 50 mg Q8HR ORAL 09/12/20 14:00 12/11/20 13:59 09/15/20 06:32 Insulin Aspart (NovoLOG) BEFORE MEALS AND HS SUBQ 09/07/20 06:30 12/06/20 06:29 09/15/20 06:33 Pantoprazole (Protonix) 40 mg EVERY 12 HOURS IVP 09/10/20 21:00 10/10/20 20:59 09/15/20 09:52 Willian Banuelos MD Sep 15, 2020 10:19
--- NOTE | 2020-09-15 11:48 | NUR ---
Sausage StringerParaprofessional Aide SI: Hypoxia, Acute Respiratory Failure, COVID-PNA, Bacteremia, ARF T-96.7 (ax), HR 72, RR 22, BP 128/60 Venturi Mask 10L, FiO2 50%, O2 sat 94% WBC 17.4, Na+ 152, BUN 94, Creatinine 3.1, IS: Protonix IVP q 12 h Lovenox sq qd SDU Status
[2020-09-15 12:00] VITALS: BP 130/64
--- NOTE | 2020-09-15 12:45 | Pulmonology Progress Note ---
Subjective ROS Limited/Unobtainable: Yes Interval Events: On Venti mask Constitutional: Denies: fever HEENT: Repors: no symptoms Respiratory: Reports: no symptoms, shortness of breath Cardiovascular: Reports: no symptoms Gastrointestinal/Abdominal: Reports: no symptoms Genitourinary: Reports: no symptoms Allergies: Coded Allergies: No Known Allergies (Unverified , 09/04/20) Objective Last 24 Hour Vital Signs Date Time Temp Pulse Resp B/P (MAP) Pulse Ox O2 Delivery O2 Flow Rate FiO2 09/15/20 12:00 Venturi Mask 10.0 09/15/20 12:00 10.0 50 09/15/20 08:00 96.7 72 22 128/60 (82) 94 09/15/20 08:00 96 09/15/20 08:00 Venturi Mask 10.0 09/15/20 08:00 10.0 50 09/15/20 06:32 135/72 09/15/20 04:00 Venturi Mask 10.0 09/15/20 04:00 10.0 50 09/15/20 04:00 97.9 64 20 132/69 (90) 100 09/15/20 03:03 53 09/15/20 00:00 10.0 50 09/15/20 00:00 Venturi Mask 10.0 09/15/20 00:00 97.5 61 20 124/58 (80) 100 09/14/20 23:01 53 09/14/20 22:04 140/72 09/14/20 21:00 10.0 50 09/14/20 20:00 Venturi Mask 10.0 09/14/20 20:00 97.5 76 18 147/73 (97) 98 09/14/20 19:27 99 Venturi Mask 10.0 50 09/14/20 19:02 55 09/14/20 16:00 10.0 50 09/14/20 16:00 Venturi Mask 10.0 09/14/20 15:57 97.9 83 20 139/71 (93) 96 09/14/20 15:22 79 09/14/20 13:36 149/62 Intake and Output 09/14/20 09/15/20 19:00 07:00 Intake Total 60 ml Output Total 900 ml 1200 ml Balance -900 ml -1140 ml Intake Oral 60 ml Output Urine Total 900 ml 1200 ml HEENT: atraumatic Respiratory: lungs clear Cardiovascular: normal rate, regular rhythm Abdomen: soft, non tender Laboratory Tests 09/14/20 20:31: POC Whole Blood Glucose 293H 09/15/20 04:55: White Blood Count 17.4H, Red Blood Count 4.12L, Hemoglobin 11.3L, Hematocrit 35.0L, Mean Corpuscular Volume 85, Mean Corpuscular Hemoglobin 27.3, Mean Corpus cular Hemoglobin Concent 32.2, Red Cell Distribution Width 14.4, Platelet Count 281, Mean Platelet Volume 8.9, Neutrophils (%) (Auto) , Lymphocytes (%) (Auto) , Monocytes (%) (Auto) , Eosinophils (%) (Auto) , Basophils (%) (Auto) , Differential Total Cells Counted 100, Neutrophils % (Manual) 92H, Lymphocytes % (Manual) 3L, Monocytes % (Manual) 5, Eosinophils % (Manual) 0, Basophils % (Manual) 0, Band Neutrophils 0, Platelet Estimate Adequate, Platelet Morphology Normal, Hypochromasia 1+, Anisocytosis 1+, Sodium Level 152H, Potassium Level 3.6, Chloride Level 108H, Carbon Dioxide Level 31, Anion Gap 13, Blood Urea Nitrogen 94H, Creatinine 3.1H, Estimat Glomerular Filtration Rate 17.5, Glucose Level 244H, Calcium Level 9.0, Phosphorus Level 4.6, Magnesium Level 2.4, Total Bilirubin 0.4, Direct Bilirubin 0.2, Aspartate Amino Transf (AST/SGOT) 38H, Alanine Aminotransferase (ALT/SGPT) 42, Alkaline Phosphatase 106, Total Protein 7.6, Albumin 2.7L 09/15/20 05:14: POC Whole Blood Glucose 242H 09/15/20 11:44: POC Whole Blood Glucose 212H Current Medications Medications (Trade) Dose Ordered Sig/Rebecca Route PRN Reason Start Time Stop Time Status Last Admin Dose Admin Acetaminophen (Tylenol) 650 mg Q4H PRN ORAL Mild Pain (Pain Scale 1-3) 09/05/20 07:15 10/05/20 07:14 09/06/20 12:34 Dextrose (Dextrose 50%) 25 ml Q30M PRN IV Hypoglycemia 09/07/20 05:45 12/06/20 05:44 Dextrose (Dextrose 50%) 50 ml Q30M PRN IV Hypoglycemia 09/07/20 05:45 12/06/20 05:44 Enoxaparin Sodium (Lovenox) 30 mg DAILY SUBQ 09/06/20 09:00 12/05/20 08:59 09/15/20 09:55 Folic Acid (Folate) 2 mg DAILY ORAL 09/11/20 11:00 10/11/20 10:59 09/15/20 09:53 Hydralazine HCl (Apresoline) 25 mg Q4H PRN ORAL bp over 160 syst 09/12/20 11:15 12/11/20 11:14 Hydralazine HCl (Apresoline) 50 mg Q8HR ORAL 09/12/20 14:00 12/11/20 13:59 09/15/20 06:32 Insulin Aspart (NovoLOG) BEFORE MEALS AND HS SUBQ 09/07/20 06:30 12/06/20 06:29 09/15/20 12:15 Pantoprazole (Protonix) 40 mg EVERY 12 HOURS IVP 09/10/20 21:00 10/10/20 20:59 09/15/20 09:52 Assessment/Plan Assessment/Plan 1. Hypoxia. - on Decadron (08/06-) - Currently on Venti-mask 10L 2. Bilateral dense pulmonary infiltrates - Will dc diureses - noted creatinine 3.1 3. Probable superimposed pneumonia. - on empiric Abx 4. Confirmed COVID-19 pneumonia 5. Hyponatremia. 6. Renal failure. 7. Elevated inflammatory markers. 8. Transaminitis. 9. Rhabdomyolysis. 10. Troponin leak. 11. Hyperglycemia - oral hypoglycemics 12. Gram positive bacteremia - s/p IV Vanco per Renan Barahona MD Sep 15, 2020 12:45
--- NOTE | 2020-09-15 13:10 | Diagnostic Imaging Report ---
Indication: Shortness of breath Technique: One view of the chest Comparison: , 05/24/2021 Findings: Interim slight improvement of previously demonstrated bilateral upper lobe infiltrates, still persistent and extensive. The heart is borderline enlarged. The pleural spaces remain clear. Impression: Slightly improved but still extensive bilateral upper lobe infiltrates.
[2020-09-15] MEDS ORDERED: D5 1/2NS 1,000 ML IV SCH (14:00)
--- NOTE | 2020-09-15 14:40 | Cardiology Report ---
APPROVED REPORT EXAM: Two-dimensional and M-mode echocardiogram with Doppler and color Doppler. INDICATION Congestive Heart Failure M-Mode DIMENSIONS IVSd1.0 (0.7-1.1cm)Left Atrium (MM)2.5 (1.6-4.0cm) LVDd4.4 (3.5-5.6cm)Aortic Root2.4 (2.0-3.7cm) PWd1.0 (0.7-1.1cm)Aortic Cusp Exc.1.8 (1.5-2.0cm) IVSs1.7 cmEPSS0.5 (>1.0cm) LVDs2.7 (2.5-4.0cm) PWs1.5 cm <Conclusion> Technically difficult study due to pt's breathing with oxygen tube and lots of movement. Normal left ventricular chamber size, systolic function and wall motion to extent visualized. Left ventricular ejection fraction estimated to be 65 %. No evidence of left ventricular hypertrophy. Small pericardial effusion. Anterior Echo-free space, may be due to pericardial fat or effusion. All other cardiac chamber sizes are within normal limits. Thickened mitral valve leaflets with normal excursion. Mitral annulus and aortic root calcification. Pulmonic valve not well visualized. Normal tricuspid valve structure. IVC at normal size with physiologic collapse. A color flow and spectral Doppler study was performed and revealed: Trace aortic regurgitation. Trace mitral regurgitation. Mitral diastolic velocities suggest reduced left ventricular relaxation c/w mild LV diastolic dysfunction (Grade I ). Mild to moderate tricuspid regurgitation. Tricuspid systolic velocities suggests peak right ventricular systolic pressure of 49 mmHg,consistent with moderate pulmonary hypertension. Pulmonic regurgitation present.
[2020-09-15 16:00] VITALS: BP 134/63
--- NOTE | 2020-09-15 16:00 | General Progress Note ---
Subjective Allergies: Coded Allergies: No Known Allergies (Unverified , 09/04/20) Subjective slight better opens her eyes pulling mask on nrb mask ac renal failure in [place] Objective Last 24 Hour Vital Signs Date Time Temp Pulse Resp B/P (MAP) Pulse Ox O2 Delivery O2 Flow Rate FiO2 09/15/20 14:24 130/64 09/15/20 12:00 Venturi Mask 10.0 09/15/20 12:00 58 09/15/20 12:00 10.0 50 09/15/20 12:00 97.7 64 21 130/64 (86) 97 09/15/20 08:00 96.7 72 22 128/60 (82) 94 09/15/20 08:00 96 09/15/20 08:00 Venturi Mask 10.0 09/15/20 08:00 10.0 50 09/15/20 06:32 135/72 09/15/20 04:00 Venturi Mask 10.0 09/15/20 04:00 10.0 50 09/15/20 04:00 97.9 64 20 132/69 (90) 100 09/15/20 03:03 53 09/15/20 00:00 10.0 50 09/15/20 00:00 Venturi Mask 10.0 09/15/20 00:00 97.5 61 20 124/58 (80) 100 09/14/20 23:01 53 09/14/20 22:04 140/72 09/14/20 21:00 10.0 50 09/14/20 20:00 Venturi Mask 10.0 09/14/20 20:00 97.5 76 18 147/73 (97) 98 09/14/20 19:27 99 Venturi Mask 10.0 50 09/14/20 19:02 55 09/14/20 16:00 10.0 50 09/14/20 16:00 Venturi Mask 10.0 Intake and Output 09/14/20 09/15/20 19:00 07:00 Intake Total 60 ml Output Total 900 ml 1200 ml Balance -900 ml -1140 ml Intake Oral 60 ml Output Urine Total 900 ml 1200 ml Laboratory Tests 09/14/20 20:31: POC Whole Blood Glucose 293H 09/15/20 04:55: White Blood Count 17.4H, Red Blood Count 4.12L, Hemoglobin 11.3L, Hematocrit 35.0L, Mean Corpuscular Volume 85, Mean Corpuscular Hemoglobin 27.3, Mean Corpuscular Hemoglobin Concent 32.2, Red Cell Distribution Width 14.4, Platelet Count 281, Mean Platelet Volume 8.9, Neutrophils (%) (Auto) , Lymphocytes (%) (Auto) , Monocytes (%) (Auto) , Eosinophils (%) (Auto) , Basophils (%) (Auto) , Differential Total Cells Counted 100, Neutrophils % (Manual) 92H, Lymphocytes % (Manual) 3L, Monocytes % (Manual) 5, Eosinophils % (Manual) 0, Basophils % (Manual) 0, Band Neutrophils 0, Platelet Estimate Adequate, Platelet Morphology Normal, Hypochromasia 1+, Anisocytosis 1+, Sodium Level 152H, Potassium Level 3.6, Chloride Level 108H, Carbon Dioxide Level 31, Anion Gap 13, Blood Urea Nitrogen 94H, Creatinine 3.1H, Estimat Glomerular Filtration Rate 17.5, Glucose Level 244H, Calcium Level 9.0, Phosphorus Level 4.6, Magnesium Level 2.4, Total Bilirubin 0.4, Direct Bilirubin 0.2, Aspartate Amino Transf (AST/SGOT) 38H, Alanine Aminotransferase (ALT/SGPT) 42, Alkaline Phosphatase 106, Total Protein 7.6, Albumin 2.7L 09/15/20 05:14: POC Whole Blood Glucose 242H 09/15/20 11:44: POC Whole Blood Glucose 212H Height (Feet): 5 Height (Inches): 5.00 Weight (Pounds): 140 General Appearance: alert Neck: supple Cardiovascular: regular rhythm Respiratory/Chest: crackles/rales Abdomen: non tender, soft Extremities: non-tender Assessment/Plan Status: not improved Status Narrative pt is doing ok but renal failure getting worse Assessment/Plan: aloc ac resp failure pna r/ o covid worse dehyration demtentia anemia leucocytosis due to steroids ac renal failure nephro consult check abg dw with pulmonary cont iv abx, decadrone , hoa eval and transfer whenever bed is available ed dtr updated Sravan Licona MD Sep 15, 2020 16:00
--- NOTE | 2020-09-15 17:00 | NUR ---
NURSE NOTES:Dr Licona notified of patient glucose level of 402. New orders given for insulin resistant sliding scale, discontinued DN1/2NS and gave order for levemir 5 units Qdaily.
[2020-09-15] MEDS ORDERED: 1/2 NS 1000ml IV ONE (17:31)
[2020-09-15] MEDS ORDERED: NS 275ml ONE (17:31)
--- NOTE | 2020-09-15 19:10 | NUR ---
NURSE NOTES: Received report from FELICE Ang. Patient asleep in bed, afebrile and respiratory distress noted. on Nc at 5 lpm with humidifier saturating at 97-98%.with right hand 24g IV line intact, patent and asymptomatic. With Fc to urine bag via gravity below bladder draining yellowish urine. With both soft wrist restraints. Skin is intact, pulses are palpable and no paresthesia. HOB elevated. Call light within reach. Bed wheels are locked and side rails are up. Alarm is on and working. Continue plan of care
--- NOTE | 2020-09-15 19:46 | NUR ---
NURSE HAND-OFF REPORT: Important Events on Shift:Patient Blood sugar 402, new order for levemir insulin placed. Patient Status: stable Diet: CCHO (m) Pending Orders: Pending Results/Labs: Pending MD notification: Latest Vital Signs: Temperature 96.4 , Pulse 76 , B/P 134 /63 , Respiratory Rate 20 , O2 SAT 100 , Venturi Mask, O2 Flow Rate 10.0 . Vital Sign Comment: EKG Rhythm: Sinus Rhythm Rhythm change?: N MD Notified?: N - MD Response: Latest Cotton Fall Score: 60 Fall Risk: High Risk Safety Measures: Call light Within Reach, Bed Alarm Zone 1, Side Rails Side Rails x3, Bed position Low and Locked. Fall Precautions: Yellow Socks Yellow Gown Door Sign Patient Fall Education Report given to FELICE DANIELSON
[2020-09-15 20:00] VITALS: BP 131/55
[2020-09-15] MEDS ORDERED: NovoLOG Insulin Flexpen SUBQ SCH (21:00)
[2020-09-15] MEDS ORDERED: Levemir Flexpen SUBQ SCH (21:00)
[2020-09-16] VITALS: BP 125/60
--- NOTE | 2020-09-16 02:50 | NUR ---
NURSE NOTES: Pt was given partial bed bath. gown and linen were changed. pt tolerated well. no distress discomfort noted. Continue plan of care
[2020-09-16 04:00] VITALS: BP 132/55
[2020-09-16 05:38] LABS: HEMATOCRIT 33.6 % (37.0-47.0); HEMOGLOBIN 10.5 G/DL (12.0-16.0); MEAN CORPUSCULAR VOLUME 83 FL (80-99); PLATELET COUNT 236 K/UL (150-450); RED BLOOD COUNT 4.04 M/UL (4.20-5.40); RED CELL DISTRIBUTION WIDTH 14.3 % (11.6-14.8); WHITE BLOOD COUNT 16.7 K/UL (4.8-10.8)
[2020-09-16] MEDS: NovoLOG Insulin Flexpen SUBQ SCH ×4 (05:57→21:27)
[2020-09-16] MEDS: HydrALAZINE 50mg tab ORAL SCH ×3 (05:58→21:07)
--- NOTE | 2020-09-16 06:10 | NUR ---
NURSE NOTES: PT asleep in bed, saturating 100% on NC at 5lpm. no respiratory distress. Provided blankets for comfort. Continue top monitor the patient.
[2020-09-16 06:14] LABS: ALBUMIN 2.3 G/DL (3.4-5.0); ALBUMIN/GLOBULIN RATIO 0.5 (1.0-2.7); BILIRUBIN,TOTAL 0.3 MG/DL (0.2-1.0); CALCIUM 9.4 MG/DL (8.5-10.1); CREATININE 3.2 MG/DL (0.55-1.30); PHOSPHORUS 4.5 MG/DL (2.5-4.9); POTASSIUM 3.8 MMOL/L (3.5-5.1)
--- NOTE | 2020-09-16 06:43 | Hematology/Onc Progress Note ---
Assessment/Plan Assessment/Plan Leukocytosis likely related to covid19 pna Anemia due to chronic disease Aloc with covid19 ac resp failure-->nc/bipap pna on abx dehyration demtentia Renal eval check abg dw with pulmonary on cont bipap cont iv abx, decadron on lovenoxs q dw daughter Subjective HEENT: Denies: no symptoms, eye pain, blurred vision, tearing, double vision, ear pain, ear discharge, nose pain, nose congestion, throat pain, throat swelling, mouth pain, mouth swelling, other Respiratory: Denies: no symptoms, cough, shortness of breath, SOB with excertion, SOB at rest, sputum, wheezing, other Gastrointestinal/Abdominal: Denies: no symptoms, abdomen distended, abdominal pain, black stools, tarry stools, blood in stool, constipated, diarrhea, difficulty swallowing, nausea, poor appetite, poor fluid intake, rectal bleeding, vomiting, other Genitourinary: Denies: no symptoms, burning, discharge, frequency, flank pain, hematuria, incontinence, pain, urgency, other Neurologic/Psychiatric: Denies: no symptoms, anxiety, depressed, emotional problems, headache, numbness, paresthesia, pre-existing deficit, seizure, tingling, tremors, weakness, other Endocrine: Denies: no symptoms, excessive sweating, flushing, intolerance to cold, intolerance to heat, increased hunger, increased thirst, increased urine, unexplained weight gain, unexplained weight loss, other Allergies: Coded Allergies: No Known Allergies (Unverified , 09/04/20) Subjective 09/13 lethargic, on nrb mask, cards recs noted, in [place] 09/14 is on dex as well as lovenox sq, meds noted, labs reviewed 09/15 meds noted, no bleeding, on venturi mask 10l, meds reviewed 09/16 meds noted, no bleeding, VM ongoing, labs reviewed Objective Objective Current Medications Medications (Trade) Dose Ordered Sig/Rebecca Route PRN Reason Start Time Stop Time Status Last Admin Dose Admin Acetaminophen (Tylenol) 650 mg Q4H PRN ORAL Mild Pain (Pain Scale 1-3) 09/05/20 07:15 10/05/20 07:14 09/06/20 12:34 Dextrose (Dextrose 50%) 25 ml Q30M PRN IV Hypoglycemia 09/15/20 17:00 12/14/20 16:59 Dextrose (Dextrose 50%) 50 ml Q30M PRN IV Hypoglycemia 09/15/20 17:00 12/14/20 16:59 Enoxaparin Sodium (Lovenox) 30 mg DAILY SUBQ 09/06/20 09:00 12/05/20 08:59 09/15/20 09:55 Folic Acid (Folate) 2 mg DAILY ORAL 09/11/20 11:00 10/11/20 10:59 09/15/20 09:53 Hydralazine HCl (Apresoline) 25 mg Q4H PRN ORAL bp over 160 syst 09/12/20 11:15 12/11/20 11:14 Hydralazine HCl (Apresoline) 50 mg Q8HR ORAL 09/12/20 14:00 12/11/20 13:59 09/15/20 21:19 Insulin Aspart (NovoLOG) BEFORE MEALS AND HS SUBQ 09/15/20 17:07 12/14/20 17:06 09/15/20 21:16 Insulin Detemir (Levemir) 5 units BEDTIME SUBQ 09/15/20 21:00 12/14/20 20:59 09/15/20 21:16 Pantoprazole (Protonix) 40 mg EVERY 12 HOURS IVP 09/10/20 21:00 10/10/20 20:59 09/15/20 20:51 Sodium Chloride 1,000 ml @ 50 mls/hr Q20H IV 09/15/20 17:15 10/15/20 17:14 09/15/20 17:22 Last 24 Hour Vital Signs Date Time Temp Pulse Resp B/P (MAP) Pulse Ox O2 Delivery O2 Flow Rate FiO2 09/16/20 05:58 112/44 09/16/20 04:00 97.7 61 19 132/55 (80) 100 09/16/20 04:00 Venturi Mask 10.0 09/16/20 03:07 56 09/16/20 00:00 Venturi Mask 10.0 09/16/20 00:00 97.7 55 19 125/60 (81) 100 09/15/20 23:08 66 09/15/20 21:19 135/68 09/15/20 20:37 52 09/15/20 20:00 Venturi Mask 10.0 09/15/20 20:00 97.9 69 20 131/55 (80) 100 09/15/20 19:18 100 Venturi Mask 10.0 50 09/15/20 16:00 94 09/15/20 16:00 10.0 50 09/15/20 16:00 96.4 76 20 134/63 (86) 100 09/15/20 16:00 Venturi Mask 10.0 09/15/20 14:24 130/64 09/15/20 12:00 Venturi Mask 10.0 09/15/20 12:00 58 09/15/20 12:00 10.0 50 09/15/20 12:00 97.7 64 21 130/64 (86) 97 09/15/20 08:00 96.7 72 22 128/60 (82) 94 09/15/20 08:00 96 09/15/20 08:00 Venturi Mask 10.0 09/15/20 08:00 10.0 50 09/15/20 06:32 135/72 09/15/20 04:00 Venturi Mask 10.0 09/15/20 04:00 10.0 50 09/15/20 04:00 97.9 64 20 132/69 (90) 100 09/15/20 03:03 53 09/15/20 00:00 10.0 50 09/15/20 00:00 Venturi Mask 10.0 09/15/20 00:00 97.5 61 20 124/58 (80) 100 09/14/20 23:01 53 09/14/20 22:04 140/72 09/14/20 21:00 10.0 50 09/14/20 20:00 Venturi Mask 10.0 09/14/20 20:00 97.5 76 18 147/73 (97) 98 09/14/20 19:27 99 Venturi Mask 10.0 50 09/14/20 19:02 55 09/14/20 16:00 10.0 50 09/14/20 16:00 Venturi Mask 10.0 09/14/20 15:57 97.9 83 20 139/71 (93) 96 09/14/20 15:22 79 09/14/20 13:36 149/62 09/14/20 12:00 Venturi Mask 10.0 09/14/20 12:00 10.0 50 09/14/20 12:00 96.6 71 20 149/62 (91) 98 09/14/20 11:53 71 09/14/20 08:00 10.0 50 09/14/20 08:00 Venturi Mask 10.0 09/14/20 08:00 97.5 60 20 129/58 (81) 97 09/14/20 07:37 73 09/14/20 07:15 96 Venturi Mask 10.0 50 Intake and Output 09/15/20 09/16/20 18:59 06:59 Intake Total 120 ml 650 ml Output Total 1000 ml 700 ml Balance -880 ml -50 ml Intake Oral 120 ml 100 ml IV Total 550 ml Output Urine Total 1000 ml 700 ml Labs Test 09/13/20 07:30 09/13/20 13:01 09/13/20 16:58 09/13/20 20:37 White Blood Count 17.8 K/UL (4.8-10.8) Red Blood Count 4.37 M/UL (4.20-5.40) Hemoglobin 11.7 G/DL (12.0-16.0) Hematocrit 35.9 % (37.0-47.0) Mean Corpuscular Volume 82 FL (80-99) Mean Corpuscular Hemoglobin 26.9 PG (27.0-31.0) Mean Corpuscular Hemoglobin Concent 32.7 G/DL (32.0-36.0) Red Cell Distribution Width 15.5 % (11.6-14.8) Platelet Count 266 K/UL (150-450) Mean Platelet Volume 7.3 FL (6.5-10.1) Neutrophils (%) (Auto) % (45.0-75.0) Lymphocytes (%) (Auto) % (20.0-45.0) Monocytes (%) (Auto) % (1.0-10.0) Eosinophils (%) (Auto) % (0.0-3.0) Basophils (%) (Auto) % (0.0-2.0) Differential Total Cells Counted 100 Neutrophils % (Manual) 96 % (45-75) Lymphocytes % (Manual) 3 % (20-45) Monocytes % (Manual) 1 % (1-10) Eosinophils % (Manual) 0 % (0-3) Basophils % (Manual) 0 % (0-2) Band Neutrophils 0 % (0-8) Platelet Estimate Adequate Platelet Morphology Normal Hypochromasia 1+ Anisocytosis 1+ Sodium Level 147 MMOL/L (136-145) Potassium Level 4.1 MMOL/L (3.5-5.1) Chloride Level 106 MMOL/L (98-107) Carbon Dioxide Level 33 MMOL/L (21-32) Anion Gap 8 mmol/L (5-15) Blood Urea Nitrogen 66 mg/dL (7-18) Creatinine 2.4 MG/DL (0.55-1.30) Estimat Glomerular Filtration Rate 23.5 mL/min (>60) Glucose Level 166 MG/DL (74-106) Uric Acid 8.9 MG/DL (2.6-7.2) Calcium Level 9.6 MG/DL (8.5-10.1) Phosphorus Level 3.7 MG/DL (2.5-4.9) Magnesium Level 2.3 MG/DL (1.8-2.4) Total Bilirubin 0.5 MG/DL (0.2-1.0) Aspartate Amino Transf (AST/SGOT) 45 U/L (15-37) Alanine Aminotransferase (ALT/SGPT) 48 U/L (12-78) Alkaline Phosphatase 166 U/L (46-116) Troponin I 0.023 ng/mL (0.000-0.056) Pro-B-Type Natriuretic Peptide 1263 pg/mL (0-125) Total Protein 7.5 G/DL (6.4-8.2) Albumin 2.7 G/DL (3.4-5.0) Globulin 4.8 g/dL Albumin/Globulin Ratio 0.6 (1.0-2.7) POC Whole Blood Glucose 246 MG/DL (74-106) 256 MG/DL (74-106) 245 MG/DL (74-106) Test 09/14/20 04:02 09/14/20 05:24 09/14/20 11:39 09/14/20 20:31 Sodium Level 148 MMOL/L (136-145) Potassium Level 4.3 MMOL/L (3.5-5.1) Chloride Level 106 MMOL/L (98-107) Carbon Dioxide Level 34 MMOL/L (21-32) Anion Gap 8 mmol/L (5-15) Blood Urea Nitrogen 77 mg/dL (7-18) Creatinine 2.8 MG/DL (0.55-1.30) Estimat Glomerular Filtration Rate 19.6 mL/min (>60) Glucose Level 209 MG/DL (74-106) Calcium Level 9.7 MG/DL (8.5-10.1) Phosphorus Level 4.3 MG/DL (2.5-4.9) Magnesium Level 2.4 MG/DL (1.8-2.4) Total Bilirubin 0.4 MG/DL (0.2-1.0) Aspartate Amino Transf (AST/SGOT) 41 U/L (15-37) Alanine Aminotransferase (ALT/SGPT) 46 U/L (12-78) Alkaline Phosphatase 137 U/L (46-116) Total Protein 7.5 G/DL (6.4-8.2) Albumin 2.5 G/DL (3.4-5.0) Globulin 5.0 g/dL Albumin/Globulin Ratio 0.5 (1.0-2.7) POC Whole Blood Glucose 184 MG/DL (74-106) 232 MG/DL (74-106) 293 MG/DL (74-106) Test 09/15/20 04:55 09/15/20 05:14 09/15/20 11:44 09/15/20 21:01 White Blood Count 17.4 K/UL (4.8-10.8) Red Blood Count 4.12 M/UL (4.20-5.40) Hemoglobin 11.3 G/DL (12.0-16.0) Hematocrit 35.0 % (37.0-47.0) Mean Corpuscular Volume 85 FL (80-99) Mean Corpuscular Hemoglobin 27.3 PG (27.0-31.0) Mean Corpuscular Hemoglobin Concent 32.2 G/DL (32.0-36.0) Red Cell Distribution Width 14.4 % (11.6-14.8) Platelet Count 281 K/UL (150-450) Mean Platelet Volume 8.9 FL (6.5-10.1) Neutrophils (%) (Auto) % (45.0-75.0) Lymphocytes (%) (Auto) % (20.0-45.0) Monocytes (%) (Auto) % (1.0-10.0) Eosinophils (%) (Auto) % (0.0-3.0) Basophils (%) (Auto) % (0.0-2.0) Differential Total Cells Counted 100 Neutrophils % (Manual) 92 % (45-75) Lymphocytes % (Manual) 3 % (20-45) Monocytes % (Manual) 5 % (1-10) Eosinophils % (Manual) 0 % (0-3) Basophils % (Manual) 0 % (0-2) Band Neutrophils 0 % (0-8) Platelet Estimate Adequate Platelet Morphology Normal Hypochromasia 1+ Anisocytosis 1+ Sodium Level 152 MMOL/L (136-145) Potassium Level 3.6 MMOL/L (3.5-5.1) Chloride Level 108 MMOL/L (98-107) Carbon Dioxide Level 31 MMOL/L (21-32) Anion Gap 13 mmol/L (5-15) Blood Urea Nitrogen 94 mg/dL (7-18) Creatinine 3.1 MG/DL (0.55-1.30) Estimat Glomerular Filtration Rate 17.5 mL/min (>60) Glucose Level 244 MG/DL (74-106) Calcium Level 9.0 MG/DL (8.5-10.1) Phosphorus Level 4.6 MG/DL (2.5-4.9) Magnesium Level 2.4 MG/DL (1.8-2.4) Total Bilirubin 0.4 MG/DL (0.2-1.0) Direct Bilirubin 0.2 MG/DL (0.0-0.3) Aspartate Amino Transf (AST/SGOT) 38 U/L (15-37) Alanine Aminotransferase (ALT/SGPT) 42 U/L (12-78) Alkaline Phosphatase 106 U/L (46-116) Total Protein 7.6 G/DL (6.4-8.2) Albumin 2.7 G/DL (3.4-5.0) POC Whole Blood Glucose 242 MG/DL (74-106) 212 MG/DL (74-106) 432 MG/DL (74-106) Test 09/16/20 03:25 09/16/20 05:21 White Blood Count 16.7 K/UL (4.8-10.8) Red Blood Count 4.04 M/UL (4.20-5.40) Hemoglobin 10.5 G/DL (12.0-16.0) Hematocrit 33.6 % (37.0-47.0) Mean Corpuscular Volume 83 FL (80-99) Mean Corpuscular Hemoglobin 25.9 PG (27.0-31.0) Mean Corpuscular Hemoglobin Concent 31.2 G/DL (32.0-36.0) Red Cell Distribution Width 14.3 % (11.6-14.8) Platelet Count 236 K/UL (150-450) Mean Platelet Volume 8.0 FL (6.5-10.1) Neutrophils (%) (Auto) % (45.0-75.0) Lymphocytes (%) (Auto) % (20.0-45.0) Monocytes (%) (Auto) % (1.0-10.0) Eosinophils (%) (Auto) % (0.0-3.0) Basophils (%) (Auto) % (0.0-2.0) Sodium Level 154 MMOL/L (136-145) Potassium Level 3.8 MMOL/L (3.5-5.1) Chloride Level 112 MMOL/L (98-107) Carbon Dioxide Level 31 MMOL/L (21-32) Anion Gap 11 mmol/L (5-15) Blood Urea Nitrogen 97 mg/dL (7-18) Creatinine 3.2 MG/DL (0.55-1.30) Estimat Glomerular Filtration Rate 16.8 mL/min (>60) Glucose Level 73 MG/DL (74-106) Uric Acid 13.4 MG/DL (2.6-7.2) Calcium Level 9.4 MG/DL (8.5-10.1) Phosphorus Level 4.5 MG/DL (2.5-4.9) Magnesium Level 2.7 MG/DL (1.8-2.4) Total Bilirubin 0.3 MG/DL (0.2-1.0) Aspartate Amino Transf (AST/SGOT) 24 U/L (15-37) Alanine Aminotransferase (ALT/SGPT) 31 U/L (12-78) Alkaline Phosphatase 81 U/L (46-116) Pro-B-Type Natriuretic Peptide 354 pg/mL (0-125) Total Protein 6.7 G/DL (6.4-8.2) Albumin 2.3 G/DL (3.4-5.0) Globulin 4.4 g/dL Albumin/Globulin Ratio 0.5 (1.0-2.7) POC Whole Blood Glucose 84 MG/DL (74-106) Height (Feet): 5 Height (Inches): 5.00 Weight (Pounds): 140 Objective General Appearance: lethargic Neck: supple Cardiovascular: regular rhythm Respiratory/Chest: crackles/rales venturi mask+++ Abdomen: non tender, soft Extremities: non-tender Scar Thomas MD Sep 16, 2020 06:43
--- NOTE | 2020-09-16 07:30 | NUR ---
NURSE HAND-OFF REPORT: Important Events on Shift: high blood sugar Patient Status: stable Diet: ccho Pending Orders: n Pending Results/Labs:n Pending MD notification:n Latest Vital Signs: Temperature 97.7 , Pulse 61 , B/P 112 /44 , Respiratory Rate 19 , O2 SAT 100 , Venturi Mask, O2 Flow Rate 10.0 . Vital Sign Comment: n EKG Rhythm: Sinus Rhythm Rhythm change?: N MD Notified?: N - MD Response: Latest Cotton Fall Score: 60 Fall Risk: High Risk Safety Measures: Call light Within Reach, Bed Alarm Zone 1, Side Rails Side Rails x3, Bed position Low and Locked. Fall Precautions: Yellow Socks Yellow Gown Door Sign Patient Fall Education Report given to FELICE Chung.
--- NOTE | 2020-09-16 07:32 | NUR ---
NURSE NOTES: Received report from [facility]/RN, patient transferred from [facility]. Pt is on 5L nasal cannula, no distress or SOB noted. Pt is on restrains, will monitor Q2hr. IV on right hand 24G running 1/2 NS @ 50ml/hr. Bed in the lowest position and locked. Call light within reach. Side rails up X3. Will continue plan of care.
[2020-09-16 08:00] VITALS: BP 128/80
[2020-09-16] MEDS: Pantoprazole Inj IVP SCH ×2 (08:31→21:07)
[2020-09-16] MEDS: Enoxaparin 30mg Inj SUBQ SCH (08:31)
--- NOTE | 2020-09-16 10:00 | NUR ---
CASE MANAGEMENT:REVIEW 09/16/20 SI: RESPIRATORY FAILURE D/T COVID PNA BACTEREMIA 97.6 100 22 128/80 96% ON VENTURI MASK 10L/50 FIO2 WBC+16.7 NA+154 BUN+97 CR+3.2 IS: IVF@50/HR LEVEMIR SQ QHS HYDRALAZINE PO Q8HRS IV PROTONIX Q12 LOVENOX SQ QD : TELEMETRY DCP: FROM HOME
[2020-09-16 12:00] VITALS: BP 120/58
--- NOTE | 2020-09-16 13:00 | Nephrology Progress Note ---
Assessment/Plan Problem List: (1) FLOWER (acute kidney injury) (2) Hypoxia (3) Pneumonia (4) 2019 novel coronavirus disease (COVID-19) (5) Electrolyte imbalance (6) Anemia Assessment Acute renal failure Confirmed COVID-19 pneumonia Sepsis Hypoxia, on BiPAP Anemia Electrolyte imbalances Hyperglycemia Transaminitis Rhabdomyolysis Troponin leak Plan September 16: Creatinine rising. Will start on D5W. Will increase his Levemir dose. Continue to monitor renal parameters. Patient full code. Remains on Venturi mask. September 15: Serum creatinine rising. IV Lasix discontinued. Patient on Venturi mask. Vitamin D level pending. Medication list reviewed. Continue to monitor renal parameters. Patient full code. September 14: Serum creatinine level rising. Patient remains on IV Lasix. Cardiology to reeval the need for 40 mg IV Lasix twice a day? Continue to monitor renal parameters September 13: Labs reviewed. Serum creatinine up to 2.4. White blood cells 17.8. Continue per consultants. Medication list reviewed. Continue to monitor renal parameters. September 12: Labs reviewed. Serum creatinine lower 2.2. Medication list reviewed. Hydralazine as needed for high blood pressure ordered. Continue per consultants. Continue to avoid nephrotoxic's. September 11: Labs reviewed. Serum creatinine 2.5 slightly lower than before. Electrolyte within normal limit. Folic acid ordered. Continue to monitor renal parameters. Continue per consultants. Previously Slow IV hydration Urine studies Avoid nephrotoxic's Anemia work-up IV Protonix Albumin bolus Monitor renal parameters Adjust blood pressure medication Urine studies Per orders Discussed with RN Subjective ROS Limited/Unobtainable: Yes Objective Objective Last 24 Hour Vital Signs Date Time Temp Pulse Resp B/P (MAP) Pulse Ox O2 Delivery O2 Flow Rate FiO2 09/16/20 09:00 Venturi Mask 10.0 09/16/20 08:00 70 09/16/20 08:00 97.6 100 22 128/80 (96) 96 09/16/20 05:58 112/44 09/16/20 04:00 97.7 61 19 132/55 (80) 100 09/16/20 04:00 Venturi Mask 10.0 09/16/20 03:07 56 09/16/20 00:00 Venturi Mask 10.0 09/16/20 00:00 97.7 55 19 125/60 (81) 100 09/15/20 23:08 66 1/12/21 21:19 135/68 09/15/20 20:37 52 09/15/20 20:00 Venturi Mask 10.0 09/15/20 20:00 97.9 69 20 131/55 (80) 100 09/15/20 19:18 100 Venturi Mask 10.0 50 09/15/20 16:00 94 09/15/20 16:00 10.0 50 09/15/20 16:00 96.4 76 20 134/63 (86) 100 09/15/20 16:00 Venturi Mask 10.0 09/15/20 14:24 130/64 Intake and Output 09/15/20 09/16/20 19:00 07:00 Intake Total 120 ml 700 ml Output Total 1000 ml 700 ml Balance -880 ml 0 ml Intake Oral 120 ml 100 ml IV Total 600 ml Output Urine Total 1000 ml 700 ml Current Medications Medications (Trade) Dose Ordered Sig/Rebecca Route PRN Reason Start Time Stop Time Status Last Admin Dose Admin Acetaminophen (Tylenol) 650 mg Q4H PRN ORAL Mild Pain (Pain Scale 1-3) 09/05/20 07:15 10/05/20 07:14 09/06/20 12:34 Albumin Human 250 ml @ 0 mls/hr Q0M ONCE IV 09/16/20 13:00 09/16/20 13:01 UNV Dextrose 1,000 ml @ 100 mls/hr Q10H IV 09/16/20 13:00 10/16/20 12:59 Dextrose (Dextrose 50%) 25 ml Q30M PRN IV Hypoglycemia 09/15/20 17:00 12/14/20 16:59 Dextrose (Dextrose 50%) 50 ml Q30M PRN IV Hypoglycemia 09/15/20 17:00 12/14/20 16:59 Enoxaparin Sodium (Lovenox) 30 mg DAILY SUBQ 09/06/20 09:00 12/05/20 08:59 09/16/20 08:31 Folic Acid (Folate) 2 mg DAILY ORAL 09/11/20 11:00 10/11/20 10:59 09/16/20 08:31 Hydralazine HCl (Apresoline) 25 mg Q4H PRN ORAL bp over 160 syst 09/12/20 11:15 12/11/20 11:14 Hydralazine HCl (Apresoline) 50 mg Q8HR ORAL 09/12/20 14:00 12/11/20 13:59 09/15/20 21:19 Insulin Aspart (NovoLOG) BEFORE MEALS AND HS SUBQ 09/15/20 17:07 12/14/20 17:06 09/15/20 21:16 Insulin Detemir (Levemir) 10 units Q12HR SUBQ 09/16/20 21:00 12/14/20 20:59 Pantoprazole (Protonix) 40 mg EVERY 12 HOURS IVP 09/10/20 21:00 10/10/20 20:59 09/16/20 08:31 Laboratory Tests 09/15/20 21:01: POC Whole Blood Glucose 432H 09/16/20 03:25: White Blood Count 16.7H, Red Blood Count 4.04L, Hemoglobin 10.5L, Hematocrit 33.6L, Mean Corpuscular Volume 83, Mean Corpuscular Hemoglobin 25.9L, Mean Corpuscular Hemoglobin Concent 31.2L, Red Cell Distribution Width 14.3, Platelet Count 236, Mean Platelet Volume 8.0, Neutrophils (%) (Auto) , Lymphocytes (%) (Auto) , Monocytes (%) (Auto) , Eosinophils (%) (Auto) , Basophils (%) (Auto) , Differential Total Cells Counted 100, Neutrophils % (Manual) 88H, Lymphocytes % (Manual) 9L, Monocytes % (Manual) 3, Eosinophils % (Manual) 0, Basophils % (Manual) 0, Band Neutrophils 0, Platelet Estimate Adequate, Platelet Morphology Normal, Hypochromasia 1+, Anisocytosis 1+, Sodium Level 154H, Potassium Level 3.8, Chloride Level 112H, Carbon Dioxide Level 31, Anion Gap 11, Blood Urea Nitrogen 97H, Creatinine 3.2H, Estimat Glomerular Filtration Rate 16.8, Glucose Level 73#L, Uric Acid 13.4H, Calcium Level 9.4, Phosphorus Level 4.5, Magnesium Level 2.7H, Total Bilirubin 0.3, Aspartate Amino Transf (AST/SGOT) 24, Alanine Aminotransferase (ALT/SGPT) 31, Alkaline Phosphatase 81, C-Reactive Protein, Quantitative 7.7H, Pro-B-Type Natriuretic Peptide 354H, Total Protein 6.7, Albumin 2.3L, Globulin 4.4, Albumin/Globulin Ratio 0.5L 09/16/20 05:21: POC Whole Blood Glucose 84 09/16/20 11:29: POC Whole Blood Glucose 276H Height (Feet): 5 Height (Inches): 5.00 Weight (Pounds): 140 General Appearance: lethargic Cardiovascular: tachycardia Respiratory/Chest: decreased breath sounds Abdomen: distended Zachary Dunlap MD Sep 16, 2020 13:00
--- NOTE | 2020-09-16 15:14 | Infectious Diseases Prog Note ---
Assessment/Plan Assessment/Plan IMPRESSION: Sepsis Pneumonia with COVID19 Hypoxic respiratory failure, improving Acute renal failure, Rhabdomyolysis, Diabetes mellitus. Leukocytosis RECOMMENDATIONS: Finished dexamethasone course F/U CBC Subjective ROS Limited/Unobtainable: Yes Constitutional: Reports: other - doing better, traasferred from [facility] to telemetry Neurologic: Reports: other - on restraint Allergies: Coded Allergies: No Known Allergies (Unverified , 09/04/20) Objective Last 24 Hour Vital Signs Date Time Temp Pulse Resp B/P (MAP) Pulse Ox O2 Delivery O2 Flow Rate FiO2 09/16/20 14:00 120/58 09/16/20 12:00 62 09/16/20 12:00 97.5 70 18 120/58 (78) 98 09/16/20 09:00 Venturi Mask 10.0 09/16/20 08:00 70 09/16/20 08:00 97.6 100 22 128/80 (96) 96 09/16/20 05:58 112/44 09/16/20 04:00 97.7 61 19 132/55 (80) 100 09/16/20 04:00 Venturi Mask 10.0 09/16/20 03:07 56 09/16/20 00:00 Venturi Mask 10.0 09/16/20 00:00 97.7 55 19 125/60 (81) 100 09/15/20 23:08 66 09/15/20 21:19 135/68 09/15/20 20:37 52 09/15/20 20:00 Venturi Mask 10.0 09/15/20 20:00 97.9 69 20 131/55 (80) 100 09/15/20 19:18 100 Venturi Mask 10.0 50 09/15/20 16:00 94 09/15/20 16:00 10.0 50 09/15/20 16:00 96.4 76 20 134/63 (86) 100 09/15/20 16:00 Venturi Mask 10.0 Height (Feet): 5 Height (Inches): 5.00 Weight (Pounds): 140 HEENT: mucous membranes moist Respiratory/Chest: lungs clear, other - oxygen by nasal cannula Abdomen: soft, non tender Extremities: no edema Neurologic/Psychiatric: alert, responsive, other - drowsy Laboratory Tests Test 09/15/20 21:01 09/16/20 03:25 09/16/20 05:21 09/16/20 11:29 POC Whole Blood Glucose 432 MG/DL (74-106) H 84 MG/DL (74-106) 276 MG/DL (74-106) H White Blood Count 16.7 K/UL (4.8-10.8) H Red Blood Count 4.04 M/UL (4.20-5.40) L Hemoglobin 10.5 G/DL (12.0-16.0) L Hematocrit 33.6 % (37.0-47.0) L Mean Corpuscular Volume 83 FL (80-99) Mean Corpuscular Hemoglobin 25.9 PG (27.0-31.0) L Mean Corpuscular Hemoglobin Concent 31.2 G/DL (32.0-36.0) L Red Cell Distribution Width 14.3 % (11.6-14.8) Platelet Count 236 K/UL (150-450) Mean Platelet Volume 8.0 FL (6.5-10.1) Neutrophils (%) (Auto) % (45.0-75.0) Lymphocytes (%) (Auto) % (20.0-45.0) Monocytes (%) (Auto) % (1.0-10.0) Eosinophils (%) (Auto) % (0.0-3.0) Basophils (%) (Auto) % (0.0-2.0) Differential Total Cells Counted 100 Neutrophils % (Manual) 88 % (45-75) H Lymphocytes % (Manual) 9 % (20-45) L Monocytes % (Manual) 3 % (1-10) Eosinophils % (Manual) 0 % (0-3) Basophils % (Manual) 0 % (0-2) Band Neutrophils 0 % (0-8) Platelet Estimate Adequate Platelet Morphology Normal Hypochromasia 1+ Anisocytosis 1+ Sodium Level 154 MMOL/L (136-145) H Potassium Level 3.8 MMOL/L (3.5-5.1) Chloride Level 112 MMOL/L (98-107) H Carbon Dioxide Level 31 MMOL/L (21-32) Anion Gap 11 mmol/L (5-15) Blood Urea Nitrogen 97 mg/dL (7-18) H Creatinine 3.2 MG/DL (0.55-1.30) H Estimat Glomerular Filtration Rate 16.8 mL/min (>60) Glucose Level 73 MG/DL (74-106) #L Uric Acid 13.4 MG/DL (2.6-7.2) H Calcium Level 9.4 MG/DL (8.5-10.1) Phosphorus Level 4.5 MG/DL (2.5-4.9) Magnesium Level 2.7 MG/DL (1.8-2.4) H Total Bilirubin 0.3 MG/DL (0.2-1.0) Aspartate Amino Transf (AST/SGOT) 24 U/L (15-37) Alanine Aminotransferase (ALT/SGPT) 31 U/L (12-78) Alkaline Phosphatase 81 U/L (46-116) C-Reactive Protein, Quantitative 7.7 mg/dL (0.00-0.90) H Pro-B-Type Natriuretic Peptide 354 pg/mL (0-125) H Total Protein 6.7 G/DL (6.4-8.2) Albumin 2.3 G/DL (3.4-5.0) L Globulin 4.4 g/dL Albumin/Globulin Ratio 0.5 (1.0-2.7) L Current Medications Medications (Trade) Dose Ordered Sig/Rebecca Route PRN Reason Start Time Stop Time Status Last Admin Dose Admin Acetaminophen (Tylenol) 650 mg Q4H PRN ORAL Mild Pain (Pain Scale 1-3) 09/05/20 07:15 10/05/20 07:14 09/06/20 12:34 Dextrose 1,000 ml @ 100 mls/hr Q10H IV 09/16/20 13:00 10/16/20 12:59 09/16/20 13:50 Dextrose (Dextrose 50%) 25 ml Q30M PRN IV Hypoglycemia 09/15/20 17:00 12/14/20 16:59 Dextrose (Dextrose 50%) 50 ml Q30M PRN IV Hypoglycemia 09/15/20 17:00 12/14/20 16:59 Enoxaparin Sodium (Lovenox) 30 mg DAILY SUBQ 09/06/20 09:00 12/05/20 08:59 09/16/20 08:31 Folic Acid (Folate) 2 mg DAILY ORAL 09/11/20 11:00 10/11/20 10:59 09/16/20 08:31 Hydralazine HCl (Apresoline) 25 mg Q4H PRN ORAL bp over 160 syst 09/12/20 11:15 12/11/20 11:14 Hydralazine HCl (Apresoline) 50 mg Q8HR ORAL 09/12/20 14:00 12/11/20 13:59 09/15/20 21:19 Insulin Aspart (NovoLOG) BEFORE MEALS AND HS SUBQ 09/15/20 17:07 12/14/20 17:06 09/16/20 11:30 Insulin Detemir (Levemir) 10 units Q12HR SUBQ 09/16/20 21:00 12/14/20 20:59 Pantoprazole (Protonix) 40 mg EVERY 12 HOURS IVP 09/10/20 21:00 10/10/20 20:59 09/16/20 08:31 Willian Banuelos MD Sep 16, 2020 15:14
--- NOTE | 2020-09-16 15:31 | Pulmonology Progress Note ---
Subjective ROS Limited/Unobtainable: Yes Interval Events: now on 3L NC Constitutional: Reports: other - doing better, traasferred from [place] to telemetry HEENT: Repors: no symptoms Respiratory: Reports: no symptoms, shortness of breath Cardiovascular: Reports: no symptoms Gastrointestinal/Abdominal: Reports: no symptoms Genitourinary: Reports: no symptoms Allergies: Coded Allergies: No Known Allergies (Unverified , 09/04/20) Objective Last 24 Hour Vital Signs Date Time Temp Pulse Resp B/P (MAP) Pulse Ox O2 Delivery O2 Flow Rate FiO2 09/16/20 14:00 120/58 09/16/20 12:00 62 09/16/20 12:00 97.5 70 18 120/58 (78) 98 09/16/20 09:00 Venturi Mask 10.0 09/16/20 08:00 70 09/16/20 08:00 97.6 100 22 128/80 (96) 96 09/16/20 05:58 112/44 09/16/20 04:00 97.7 61 19 132/55 (80) 100 09/16/20 04:00 Venturi Mask 10.0 09/16/20 03:07 56 09/16/20 00:00 Venturi Mask 10.0 09/16/20 00:00 97.7 55 19 125/60 (81) 100 09/15/20 23:08 66 09/15/20 21:19 135/68 09/15/20 20:37 52 09/15/20 20:00 Venturi Mask 10.0 09/15/20 20:00 97.9 69 20 131/55 (80) 100 09/15/20 19:18 100 Venturi Mask 10.0 50 09/15/20 16:00 94 09/15/20 16:00 10.0 50 09/15/20 16:00 96.4 76 20 134/63 (86) 100 09/15/20 16:00 Venturi Mask 10.0 Intake and Output 09/15/20 09/16/20 19:00 07:00 Intake Total 120 ml 700 ml Output Total 1000 ml 700 ml Balance -880 ml 0 ml Intake Oral 120 ml 100 ml IV Total 600 ml Output Urine Total 1000 ml 700 ml Objective 09/16 seen in tele; now on 3L NC saturating at 96% 09/08 now on BiPAP saturating at 96% 09/07 now on high flow oxygen and NRBM saturating at 92-94% 09/06 saturating at 91-92% on 15L NRBM HEENT: atraumatic Respiratory: lungs clear Cardiovascular: normal rate, regular rhythm Abdomen: soft, non tender Laboratory Tests 09/15/20 21:01: POC Whole Blood Glucose 432H 09/16/20 03:25: White Blood Count 16.7H, Red Blood Count 4.04L, Hemoglobin 10.5L, Hematocrit 33.6L, Mean Corpuscular Volume 83, Mean Corpuscular Hemoglobin 25.9L, Mean Corpuscular Hemoglobin Concent 31.2L, Red Cell Distribution Width 14.3, Platelet Count 236, Mean Platelet Volume 8.0, Neutrophils (%) (Auto) , Lymphocytes (%) (Auto) , Monocytes (%) (Auto) , Eosinophils (%) (Auto) , Basophils (%) (Auto) , Differential Total Cells Counted 100, Neutrophils % (Manual) 88H, Lymphocytes % (Manual) 9L, Monocytes % (Manual) 3, Eosinophils % (Manual) 0, Basophils % (Manual) 0, Band Neutrophils 0, Platelet Estimate Adequate, Platelet Morphology Normal, Hypochromasia 1+, Anisocytosis 1+, Sodium Level 154H, Potassium Level 3.8, Chloride Level 112H, Carbon Dioxide Level 31, Anion Gap 11, Blood Urea Nitrogen 97H, Creatinine 3.2H, Estimat Glomerular Filtration Rate 16.8, Glucose Level 73#L, Uric Acid 13.4H, Calcium Level 9.4, Phosphorus Level 4.5, Magnesium Level 2.7H, Total Bilirubin 0.3, Aspartate Amino Transf (AST/SGOT) 24, Alanine Aminotransferase (ALT/SGPT) 31, Alkaline Phosphatase 81, C-Reactive Protein, Quantitative 7.7H, Pro-B-Type Natriuretic Peptide 354H, Total Protein 6.7, Albumin 2.3L, Globulin 4.4, Albumin/Globulin Ratio 0.5L 09/16/20 05:21: POC Whole Blood Glucose 84 09/16/20 11:29: POC Whole Blood Glucose 276H Current Medications Medications (Trade) Dose Ordered Sig/Rebecca Route PRN Reason Start Time Stop Time Status Last Admin Dose Admin Acetaminophen (Tylenol) 650 mg Q4H PRN ORAL Mild Pain (Pain Scale 1-3) 09/05/20 07:15 10/05/20 07:14 09/06/20 12:34 Dextrose 1,000 ml @ 100 mls/hr Q10H IV 09/16/20 13:00 10/16/20 12:59 09/16/20 13:50 Dextrose (Dextrose 50%) 25 ml Q30M PRN IV Hypoglycemia 09/15/20 17:00 12/14/20 16:59 Dextrose (Dextrose 50%) 50 ml Q30M PRN IV Hypoglycemia 09/15/20 17:00 12/14/20 16:59 Enoxaparin Sodium (Lovenox) 30 mg DAILY SUBQ 09/06/20 09:00 12/05/20 08:59 09/16/20 08:31 Folic Acid (Folate) 2 mg DAILY ORAL 09/11/20 11:00 10/11/20 10:59 09/16/20 08:31 Hydralazine HCl (Apresoline) 25 mg Q4H PRN ORAL bp over 160 syst 09/12/20 11:15 12/11/20 11:14 Hydralazine HCl (Apresoline) 50 mg Q8HR ORAL 09/12/20 14:00 12/11/20 13:59 09/15/20 21:19 Insulin Aspart (NovoLOG) BEFORE MEALS AND HS SUBQ 09/15/20 17:07 12/14/20 17:06 09/16/20 11:30 Insulin Detemir (Levemir) 10 units Q12HR SUBQ 09/16/20 21:00 12/14/20 20:59 Pantoprazole (Protonix) 40 mg EVERY 12 HOURS IVP 09/10/20 21:00 10/10/20 20:59 09/16/20 08:31 Assessment/Plan Assessment/Plan 1. Hypoxia.; improved - s/p Decadron (08/06-09/15) - Currently on 3L NC saturating well 2. Bilateral dense pulmonary infiltrates - Will dc diureses - noted creatinine 3.1 - CXR 09/15 slight improvement 3. Probable superimposed pneumonia. - on empiric Abx 4. Confirmed COVID-19 pneumonia 5. Hyponatremia. 6. Renal failure. - now started on D5 due to rising Cr 7. Elevated inflammatory markers. 8. Transaminitis. 9. Rhabdomyolysis. 10. Troponin leak. 11. Hyperglycemia - oral hypoglycemics 12. Gram positive bacteremia - s/p IV Vanco per ID The care for this patient was discussed with my supervising physician Time spent for this case was approximately 31 minutes Vargas Meng Sep 16, 2020 15:31
[2020-09-16 16:00] VITALS: BP 135/56
--- NOTE | 2020-09-16 18:13 | General Progress Note ---
Subjective Allergies: Coded Allergies: No Known Allergies (Unverified , 09/04/20) Subjective better opens her eyes on 2 l nc ac renal failure on teli Objective Last 24 Hour Vital Signs Date Time Temp Pulse Resp B/P (MAP) Pulse Ox O2 Delivery O2 Flow Rate FiO2 09/16/20 16:00 97.7 68 20 135/56 (82) 99 09/16/20 14:00 120/58 09/16/20 12:00 62 09/16/20 12:00 97.5 70 18 120/58 (78) 98 09/16/20 09:00 Venturi Mask 10.0 09/16/20 08:00 70 09/16/20 08:00 97.6 100 22 128/80 (96) 96 09/16/20 05:58 112/44 09/16/20 04:00 97.7 61 19 132/55 (80) 100 09/16/20 04:00 Venturi Mask 10.0 09/16/20 03:07 56 09/16/20 00:00 Venturi Mask 10.0 09/16/20 00:00 97.7 55 19 125/60 (81) 100 09/15/20 23:08 66 09/15/20 21:19 135/68 09/15/20 20:37 52 09/15/20 20:00 Venturi Mask 10.0 09/15/20 20:00 97.9 69 20 131/55 (80) 100 09/15/20 19:18 100 Venturi Mask 10.0 50 Intake and Output 09/15/20 09/16/20 19:00 07:00 Intake Total 120 ml 700 ml Output Total 1000 ml 700 ml Balance -880 ml 0 ml Intake Oral 120 ml 100 ml IV Total 600 ml Output Urine Total 1000 ml 700 ml Laboratory Tests 09/15/20 21:01: POC Whole Blood Glucose 432H 09/16/20 03:25: White Blood Count 16.7H, Red Blood Count 4.04L, Hemoglobin 10.5L, Hematocrit 33.6L, Mean Corpuscular Volume 83, Mean Corpuscular Hemoglobin 25.9L, Mean Corpuscular Hemoglobin Concent 31.2L, Red Cell Distribution Width 14.3, Platelet Count 236, Mean Platelet Volume 8.0, Neutrophils (%) (Auto) , Lymphocytes (%) (Auto) , Monocytes (%) (Auto) , Eosinophils (%) (Auto) , Basophils (%) (Auto) , Differential Total Cells Counted 100, Neutrophils % (Manual) 88H, Lymphocytes % (Manual) 9L, Monocytes % (Manual) 3, Eosinophils % (Manual) 0, Basophils % (Manual) 0, Band Neutrophils 0, Platelet Estimate Adequate, Platelet Morphology Normal, Hypochromasia 1+, Anisocytosis 1+, Sodium Level 154H, Potassium Level 3.8, Chloride Level 112H, Carbon Dioxide Level 31, Anion Gap 11, Blood Urea Nitrogen 97H, Creatinine 3.2H, Estimat Glomerular Filtration Rate 16.8, Glucose Level 73#L, Uric Acid 13.4H, Calcium Level 9.4, Phosphorus Level 4.5, Magnesium Level 2.7H, Total Bilirubin 0.3, Aspartate Amino Transf (AST/SGOT) 24, Alanine Aminotransferase (ALT/SGPT) 31, Alkaline Phosphatase 81, C-Reactive Protein, Quantitative 7.7H, Pro-B-Type Natriuretic Peptide 354H, Total Protein 6.7, Albumin 2.3L, Globulin 4.4, Albumin/Globulin Ratio 0.5L 09/16/20 05:21: POC Whole Blood Glucose 84 09/16/20 11:29: POC Whole Blood Glucose 276H 09/16/20 16:24: POC Whole Blood Glucose 178H Height (Feet): 5 Height (Inches): 5.00 Weight (Pounds): 140 General Appearance: alert EENT: PERRL/EOMI Neck: supple Cardiovascular: regular rhythm Respiratory/Chest: crackles/rales Abdomen: non tender, soft Extremities: non-tender Assessment/Plan Status: not improved Assessment/Plan: aloc better ac resp failure improving pna r/ o covid worse dehyration demtentia anemia leucocytosis due to steroids ac renal failure nephro consult check abg dw with pulmonary cont iv abx, decadrone , hoa eval and transfer whenever bed is available ed dtr updated Sravan Licona MD Sep 16, 2020 18:13
--- NOTE | 2020-09-16 19:40 | NUR ---
NURSE HAND-OFF REPORT: Important Events on Shift:Pt transferred from [place], pt is restrains Patient Status: Stable Diet: CCHO 9Medium) soft easy-chew Pending Orders: Pending Results/Labs: Pending MD notification: Latest Vital Signs: Temperature 97.7 , Pulse 66 , B/P 135 /56 , Respiratory Rate 20 , O2 SAT 99 , Venturi Mask, O2 Flow Rate 10.0 . Vital Sign Comment: Stable EKG Rhythm: Sinus Rhythm Rhythm change?: N MD Notified?: N - MD Response: Latest Cotton Fall Score: 60 Fall Risk: High Risk Safety Measures: Call light Within Reach, Bed Alarm Zone 1, Side Rails Side Rails x3, Bed position Low and Locked. Fall Precautions: Yellow Socks Yellow Gown Door Sign Patient Fall Education Report given to Donna/FELICE.
--- NOTE | 2020-09-16 19:49 | NUR ---
NURSE NOTES: Received patient in bed, alert/oriented x2, patient is on oxygen via NC at 2 liters, patient has Tsang inserted for retention, IV site is clean dry and intact, fall, aspiration precautions are implemented. Call light is within reach, bed is lowered, locked, alarm is on, will continue to monitor for comfort and safety.
[2020-09-16 20:00] VITALS: BP 129/86
--- NOTE | 2020-09-16 20:48 | Cardiology Progress Note ---
Assessment/Plan Status: unchanged Status Narrative Oxygen dependent, on full face mask, receiving treatment for COVID-19 viral PNA. HR improved. Assessment/Plan 1. COVID-19 viral PNA 2. Leukocytosis 3. Respiratory failure and oxygen dependence on NRB mask 4. Sinus bradycardia Bb and Ca channel shu held rate improved 5. CHF acute on chronic HF with elevated BNP echo pending diuresis with Lasix 5. FLOWER on CKD 6. Anemia 7. DMII 8. Demenia and frailty Subjective ROS Limited/Unobtainable: Yes Cardiovascular: Reports: no symptoms Respiratory: Reports: shortness of breath Subjective No acute events, BNP elevated, WBCs elevated Objective Last 24 Hour Vital Signs Date Time Temp Pulse Resp B/P (MAP) Pulse Ox O2 Delivery O2 Flow Rate FiO2 09/16/20 19:48 95 Nasal Cannula 2.0 28 09/16/20 16:00 97.7 68 20 135/56 (82) 99 09/16/20 16:00 66 09/16/20 14:00 120/58 09/16/20 12:00 62 09/16/20 12:00 97.5 70 18 120/58 (78) 98 09/16/20 09:00 Venturi Mask 10.0 09/16/20 08:00 70 09/16/20 08:00 97.6 100 22 128/80 (96) 96 09/16/20 05:58 112/44 09/16/20 04:00 97.7 61 19 132/55 (80) 100 09/16/20 04:00 Venturi Mask 10.0 09/16/20 03:07 56 09/16/20 00:00 Venturi Mask 10.0 09/16/20 00:00 97.7 55 19 125/60 (81) 100 09/15/20 23:08 66 09/15/20 21:19 135/68 Intake and Output 09/15/20 09/16/20 19:00 07:00 Intake Total 120 ml 700 ml Output Total 1000 ml 700 ml Balance -880 ml 0 ml Intake Oral 120 ml 100 ml IV Total 600 ml Output Urine Total 1000 ml 700 ml Laboratory Tests Test 09/15/20 21:01 09/16/20 03:25 09/16/20 05:21 09/16/20 11:29 POC Whole Blood Glucose 432 MG/DL (74-106) H 84 MG/DL (74-106) 276 MG/DL (74-106) H White Blood Count 16.7 K/UL (4.8-10.8) H Red Blood Count 4.04 M/UL (4.20-5.40) L Hemoglobin 10.5 G/DL (12.0-16.0) L Hematocrit 33.6 % (37.0-47.0) L Mean Corpuscular Volume 83 FL (80-99) Mean Corpuscular Hemoglobin 25.9 PG (27.0-31.0) L Mean Corpuscular Hemoglobin Concent 31.2 G/DL (32.0-36.0) L Red Cell Distribution Width 14.3 % (11.6-14.8) Platelet Count 236 K/UL (150-450) Mean Platelet Volume 8.0 FL (6.5-10.1) Neutrophils (%) (Auto) % (45.0-75.0) Lymphocytes (%) (Auto) % (20.0-45.0) Monocytes (%) (Auto) % (1.0-10.0) Eosinophils (%) (Auto) % (0.0-3.0) Basophils (%) (Auto) % (0.0-2.0) Differential Total Cells Counted 100 Neutrophils % (Manual) 88 % (45-75) H Lymphocytes % (Manual) 9 % (20-45) L Monocytes % (Manual) 3 % (1-10) Eosinophils % (Manual) 0 % (0-3) Basophils % (Manual) 0 % (0-2) Band Neutrophils 0 % (0-8) Platelet Estimate Adequate Platelet Morphology Normal Hypochromasia 1+ Anisocytosis 1+ Sodium Level 154 MMOL/L (136-145) H Potassium Level 3.8 MMOL/L (3.5-5.1) Chloride Level 112 MMOL/L (98-107) H Carbon Dioxide Level 31 MMOL/L (21-32) Anion Gap 11 mmol/L (5-15) Blood Urea Nitrogen 97 mg/dL (7-18) H Creatinine 3.2 MG/DL (0.55-1.30) H Estimat Glomerular Filtration Rate 16.8 mL/min (>60) Glucose Level 73 MG/DL (74-106) #L Uric Acid 13.4 MG/DL (2.6-7.2) H Calcium Level 9.4 MG/DL (8.5-10.1) Phosphorus Level 4.5 MG/DL (2.5-4.9) Magnesium Level 2.7 MG/DL (1.8-2.4) H Total Bilirubin 0.3 MG/DL (0.2-1.0) Aspartate Amino Transf (AST/SGOT) 24 U/L (15-37) Alanine Aminotransferase (ALT/SGPT) 31 U/L (12-78) Alkaline Phosphatase 81 U/L (46-116) C-Reactive Protein, Quantitative 7.7 mg/dL (0.00-0.90) H Pro-B-Type Natriuretic Peptide 354 pg/mL (0-125) H Total Protein 6.7 G/DL (6.4-8.2) Albumin 2.3 G/DL (3.4-5.0) L Globulin 4.4 g/dL Albumin/Globulin Ratio 0.5 (1.0-2.7) L Test 09/16/20 16:24 POC Whole Blood Glucose 178 MG/DL (74-106) H Keisha Hugo PA-C Sep 16, 2020 20:47
[2020-09-16] MEDS: Levemir Flexpen SUBQ SCH (21:26)
[2020-09-17] VITALS: BP 121/60
[2020-09-17 04:00] VITALS: BP 138/59
[2020-09-17] MEDS: NovoLOG Insulin Flexpen SUBQ SCH ×4 (05:33→21:00)
[2020-09-17] MEDS: HydrALAZINE 50mg tab ORAL SCH ×3 (06:12→22:00)
--- NOTE | 2020-09-17 06:22 | Hematology/Onc Progress Note ---
Assessment/Plan Assessment/Plan Leukocytosis likely related to covid19 pna Anemia due to chronic disease Aloc with covid19 ac resp failure-->nc/bipap pna on abx dehyration demtentia Renal eval check abg dw with pulmonary, on 2lnc on cont bipap cont iv abx, decadron on lovenoxs q dw daughter Subjective Constitutional: Denies: no symptoms, chills, fever, malaise, weakness, other Cardiovascular: Denies: no symptoms, chest pain, edema, irregular heart rate, lightheadedness, palpitations, syncope, other Respiratory: Denies: no symptoms, cough, shortness of breath, SOB with excertion, SOB at rest, sputum, wheezing, other Gastrointestinal/Abdominal: Denies: no symptoms, abdomen distended, abdominal pain, black stools, tarry stools, blood in stool, constipated, diarrhea, difficulty swallowing, nausea, poor appetite, poor fluid intake, rectal bleeding, vomiting, other Neurologic/Psychiatric: Denies: no symptoms, anxiety, depressed, emotional problems, headache, numbness, paresthesia, pre-existing deficit, seizure, tingling, tremors, weakness, other Endocrine: Denies: no symptoms, excessive sweating, flushing, intolerance to cold, intolerance to heat, increased hunger, increased thirst, increased urine, unexplained weight gain, unexplained weight loss, other Allergies: Coded Allergies: No Known Allergies (Unverified , 09/04/20) Subjective 09/13 lethargic, on nrb mask, cards recs noted, in [place] 09/14 is on dex as well as lovenox sq, meds noted, labs reviewed 09/15 meds noted, no bleeding, on venturi mask 10l, meds reviewed 09/16 meds noted, no bleeding, VM ongoing, labs reviewed 09/17 on 2l, no bleeding, lovenox sq, meds reviewed Objective Objective Current Medications Medications (Trade) Dose Ordered Sig/Rebecca Route PRN Reason Start Time Stop Time Status Last Admin Dose Admin Acetaminophen (Tylenol) 650 mg Q4H PRN ORAL Mild Pain (Pain Scale 1-3) 09/05/20 07:15 10/05/20 07:14 09/06/20 12:34 Dextrose 1,000 ml @ 100 mls/hr Q10H IV 09/16/20 13:00 10/16/20 12:59 09/16/20 23:01 Dextrose (Dextrose 50%) 25 ml Q30M PRN IV Hypoglycemia 09/15/20 17:00 12/14/20 16:59 Dextrose (Dextrose 50%) 50 ml Q30M PRN IV Hypoglycemia 09/15/20 17:00 12/14/20 16:59 Enoxaparin Sodium (Lovenox) 30 mg DAILY SUBQ 09/06/20 09:00 12/05/20 08:59 09/16/20 08:31 Folic Acid (Folate) 2 mg DAILY ORAL 09/11/20 11:00 10/11/20 10:59 09/16/20 08:31 Hydralazine HCl (Apresoline) 25 mg Q4H PRN ORAL bp over 160 syst 09/12/20 11:15 12/11/20 11:14 Hydralazine HCl (Apresoline) 50 mg Q8HR ORAL 09/12/20 14:00 12/11/20 13:59 09/17/20 06:12 Insulin Aspart (NovoLOG) BEFORE MEALS AND HS SUBQ 09/15/20 17:07 12/14/20 17:06 09/16/20 21:27 Insulin Detemir (Levemir) 10 units Q12HR SUBQ 09/16/20 21:00 12/14/20 20:59 09/16/20 21:26 Pantoprazole (Protonix) 40 mg EVERY 12 HOURS IVP 09/10/20 21:00 10/10/20 20:59 09/16/20 21:07 Last 24 Hour Vital Signs Date Time Temp Pulse Resp B/P (MAP) Pulse Ox O2 Delivery O2 Flow Rate FiO2 09/17/20 06:12 127/74 09/17/20 04:00 97.7 71 16 138/59 (85) 95 09/17/20 04:00 67 09/17/20 00:00 97.3 74 16 121/60 (80) 95 09/16/20 21:51 Venturi Mask 10.0 09/16/20 21:07 129/78 09/16/20 20:00 70 09/16/20 20:00 98.1 64 18 129/86 (100) 98 09/16/20 19:48 95 Nasal Cannula 2.0 28 09/16/20 16:00 97.7 68 20 135/56 (82) 99 09/16/20 16:00 66 09/16/20 14:00 120/58 09/16/20 12:00 62 09/16/20 12:00 97.5 70 18 120/58 (78) 98 09/16/20 09:00 Venturi Mask 10.0 09/16/20 08:00 70 09/16/20 08:00 97.6 100 22 128/80 (96) 96 09/16/20 05:58 112/44 09/16/20 04:00 97.7 61 19 132/55 (80) 100 09/16/20 04:00 Venturi Mask 10.0 09/16/20 03:07 56 09/16/20 00:00 Venturi Mask 10.0 09/16/20 00:00 97.7 55 19 125/60 (81) 100 09/15/20 23:08 66 09/15/20 21:19 135/68 09/15/20 20:37 52 09/15/20 20:00 Venturi Mask 10.0 09/15/20 20:00 97.9 69 20 131/55 (80) 100 09/15/20 19:18 100 Venturi Mask 10.0 50 09/15/20 16:00 94 09/15/20 16:00 10.0 50 09/15/20 16:00 96.4 76 20 134/63 (86) 100 09/15/20 16:00 Venturi Mask 10.0 09/15/20 14:24 130/64 09/15/20 12:00 Venturi Mask 10.0 09/15/20 12:00 58 09/15/20 12:00 10.0 50 09/15/20 12:00 97.7 64 21 130/64 (86) 97 09/15/20 08:00 96.7 72 22 128/60 (82) 94 09/15/20 08:00 96 09/15/20 08:00 Venturi Mask 10.0 09/15/20 08:00 10.0 50 09/15/20 06:32 135/72 Intake and Output 09/16/20 09/17/20 19:00 07:00 Intake Total 100 ml 100 ml Output Total 700 ml 900 ml Balance -600 ml -800 ml Intake Oral 100 ml 100 ml Output Urine Total 700 ml 900 ml Labs Test 09/14/20 11:39 09/14/20 20:31 09/15/20 04:55 09/15/20 05:14 POC Whole Blood Glucose 232 MG/DL (74-106) 293 MG/DL (74-106) 242 MG/DL (74-106) White Blood Count 17.4 K/UL (4.8-10.8) Red Blood Count 4.12 M/UL (4.20-5.40) Hemoglobin 11.3 G/DL (12.0-16.0) Hematocrit 35.0 % (37.0-47.0) Mean Corpuscular Volume 85 FL (80-99) Mean Corpuscular Hemoglobin 27.3 PG (27.0-31.0) Mean Corpuscular Hemoglobin Concent 32.2 G/DL (32.0-36.0) Red Cell Distribution Width 14.4 % (11.6-14.8) Platelet Count 281 K/UL (150-450) Mean Platelet Volume 8.9 FL (6.5-10.1) Neutrophils (%) (Auto) % (45.0-75.0) Lymphocytes (%) (Auto) % (20.0-45.0) Monocytes (%) (Auto) % (1.0-10.0) Eosinophils (%) (Auto) % (0.0-3.0) Basophils (%) (Auto) % (0.0-2.0) Differential Total Cells Counted 100 Neutrophils % (Manual) 92 % (45-75) Lymphocytes % (Manual) 3 % (20-45) Monocytes % (Manual) 5 % (1-10) Eosinophils % (Manual) 0 % (0-3) Basophils % (Manual) 0 % (0-2) Band Neutrophils 0 % (0-8) Platelet Estimate Adequate Platelet Morphology Normal Hypochromasia 1+ Anisocytosis 1+ Sodium Level 152 MMOL/L (136-145) Potassium Level 3.6 MMOL/L (3.5-5.1) Chloride Level 108 MMOL/L (98-107) Carbon Dioxide Level 31 MMOL/L (21-32) Anion Gap 13 mmol/L (5-15) Blood Urea Nitrogen 94 mg/dL (7-18) Creatinine 3.1 MG/DL (0.55-1.30) Estimat Glomerular Filtration Rate 17.5 mL/min (>60) Glucose Level 244 MG/DL (74-106) Calcium Level 9.0 MG/DL (8.5-10.1) Phosphorus Level 4.6 MG/DL (2.5-4.9) Magnesium Level 2.4 MG/DL (1.8-2.4) Total Bilirubin 0.4 MG/DL (0.2-1.0) Direct Bilirubin 0.2 MG/DL (0.0-0.3) Aspartate Amino Transf (AST/SGOT) 38 U/L (15-37) Alanine Aminotransferase (ALT/SGPT) 42 U/L (12-78) Alkaline Phosphatase 106 U/L (46-116) Total Protein 7.6 G/DL (6.4-8.2) Albumin 2.7 G/DL (3.4-5.0) Test 09/15/20 11:44 09/15/20 21:01 09/16/20 03:25 09/16/20 05:21 POC Whole Blood Glucose 212 MG/DL (74-106) 432 MG/DL (74-106) 84 MG/DL (74-106) White Blood Count 16.7 K/UL (4.8-10.8) Red Blood Count 4.04 M/UL (4.20-5.40) Hemoglobin 10.5 G/DL (12.0-16.0) Hematocrit 33.6 % (37.0-47.0) Mean Corpuscular Volume 83 FL (80-99) Mean Corpuscular Hemoglobin 25.9 PG (27.0-31.0) Mean Corpuscular Hemoglobin Concent 31.2 G/DL (32.0-36.0) Red Cell Distribution Width 14.3 % (11.6-14.8) Platelet Count 236 K/UL (150-450) Mean Platelet Volume 8.0 FL (6.5-10.1) Neutrophils (%) (Auto) % (45.0-75.0) Lymphocytes (%) (Auto) % (20.0-45.0) Monocytes (%) (Auto) % (1.0-10.0) Eosinophils (%) (Auto) % (0.0-3.0) Basophils (%) (Auto) % (0.0-2.0) Differential Total Cells Counted 100 Neutrophils % (Manual) 88 % (45-75) Lymphocytes % (Manual) 9 % (20-45) Monocytes % (Manual) 3 % (1-10) Eosinophils % (Manual) 0 % (0-3) Basophils % (Manual) 0 % (0-2) Band Neutrophils 0 % (0-8) Platelet Estimate Adequate Platelet Morphology Normal Hypochromasia 1+ Anisocytosis 1+ Sodium Level 154 MMOL/L (136-145) Potassium Level 3.8 MMOL/L (3.5-5.1) Chloride Level 112 MMOL/L (98-107) Carbon Dioxide Level 31 MMOL/L (21-32) Anion Gap 11 mmol/L (5-15) Blood Urea Nitrogen 97 mg/dL (7-18) Creatinine 3.2 MG/DL (0.55-1.30) Estimat Glomerular Filtration Rate 16.8 mL/min (>60) Glucose Level 73 MG/DL (74-106) Uric Acid 13.4 MG/DL (2.6-7.2) Calcium Level 9.4 MG/DL (8.5-10.1) Phosphorus Level 4.5 MG/DL (2.5-4.9) Magnesium Level 2.7 MG/DL (1.8-2.4) Total Bilirubin 0.3 MG/DL (0.2-1.0) Aspartate Amino Transf (AST/SGOT) 24 U/L (15-37) Alanine Aminotransferase (ALT/SGPT) 31 U/L (12-78) Alkaline Phosphatase 81 U/L (46-116) C-Reactive Protein, Quantitative 7.7 mg/dL (0.00-0.90) Pro-B-Type Natriuretic Peptide 354 pg/mL (0-125) Total Protein 6.7 G/DL (6.4-8.2) Albumin 2.3 G/DL (3.4-5.0) Globulin 4.4 g/dL Albumin/Globulin Ratio 0.5 (1.0-2.7) Test 09/16/20 11:29 09/16/20 16:24 POC Whole Blood Glucose 276 MG/DL (74-106) 178 MG/DL (74-106) Height (Feet): 5 Height (Inches): 5.00 Weight (Pounds): 140 Objective General Appearance: lethargic Neck: supple Cardiovascular: regular rhythm Respiratory/Chest: crackles/rales venturi mask+++ Abdomen: non tender, soft Extremities: non-tender Scar Thomas MD Sep 17, 2020 06:22
[2020-09-17 06:37] LABS: HEMATOCRIT 32.4 % (37.0-47.0); HEMOGLOBIN 10.2 G/DL (12.0-16.0); MEAN CORPUSCULAR VOLUME 83 FL (80-99); PLATELET COUNT 203 K/UL (150-450); RED CELL DISTRIBUTION WIDTH 14.1 % (11.6-14.8); WHITE BLOOD COUNT 16.5 K/UL (4.8-10.8)
[2020-09-17 07:13] LABS: PHOSPHORUS 3.5 MG/DL (2.5-4.9)
[2020-09-17 07:14] LABS: ALBUMIN 2.4 G/DL (3.4-5.0); ALBUMIN/GLOBULIN RATIO 0.6 (1.0-2.7); BILIRUBIN,TOTAL 0.6 MG/DL (0.2-1.0); CALCIUM 9.2 MG/DL (8.5-10.1); CREATININE 2.8 MG/DL (0.55-1.30); POTASSIUM 3.8 MMOL/L (3.5-5.1)
--- NOTE | 2020-09-17 07:15 | NUR ---
NURSE HAND-OFF REPORT: Important Events on Shift: uneventful, BS 98 Patient Status: full Diet: CCHo med, crush meds Pending Orders: Pending Results/Labs: Pending MD notification: Latest Vital Signs: Temperature 97.7 , Pulse 67 , B/P 127 /74 , Respiratory Rate 16 , O2 SAT 95 , Venturi Mask, O2 Flow Rate 10.0 . Vital Sign Comment: EKG Rhythm: Sinus Rhythm Rhythm change?: N MD Notified?: N - MD Response: Latest Cotton Fall Score: 60 Fall Risk: High Risk Safety Measures: Call light Within Reach, Bed Alarm Zone 1, Side Rails Side Rails x3, Bed position Low and Locked. Fall Precautions: Yellow Socks Yellow Gown Door Sign Patient Fall Education Report given to Paco VIVEROS
--- NOTE | 2020-09-17 07:57 | NUR ---
pt is asleep in bed. IV is patent. pt is on cardiac rehabilitation program director and 2L NC showing no signs or cardiac or respiratory distress. bed is locked and in lowest position, call light is within reach. wrist restraints are applied, no signs of swelling or irritation on wrist noted
[2020-09-17 08:00] VITALS: BP 139/61
[2020-09-17] MEDS: Enoxaparin 30mg Inj SUBQ SCH (09:02)
[2020-09-17] MEDS: Pantoprazole Inj IVP SCH ×2 (09:09→23:28)
[2020-09-17] MEDS: Levemir Flexpen SUBQ SCH ×2 (09:13→21:00)
--- NOTE | 2020-09-17 10:21 | Pulmonology Progress Note ---
Subjective ROS Limited/Unobtainable: Yes Interval Events: now on 2L NC Constitutional: Reports: other - doing better, traasferred from [place] to telemetry HEENT: Repors: no symptoms Respiratory: Reports: no symptoms, shortness of breath Cardiovascular: Reports: no symptoms Gastrointestinal/Abdominal: Reports: no symptoms Genitourinary: Reports: no symptoms Allergies: Coded Allergies: No Known Allergies (Unverified , 09/04/20) Objective Last 24 Hour Vital Signs Date Time Temp Pulse Resp B/P (MAP) Pulse Ox O2 Delivery O2 Flow Rate FiO2 09/17/20 06:12 127/74 09/17/20 04:00 97.7 71 16 138/59 (85) 95 09/17/20 04:00 67 09/17/20 00:00 97.3 74 16 121/60 (80) 95 09/16/20 21:51 Venturi Mask 10.0 09/16/20 21:07 129/78 09/16/20 20:00 70 09/16/20 20:00 98.1 64 18 129/86 (100) 98 09/16/20 19:48 95 Nasal Cannula 2.0 28 09/16/20 16:00 97.7 68 20 135/56 (82) 99 09/16/20 16:00 66 09/16/20 14:00 120/58 09/16/20 12:00 62 09/16/20 12:00 97.5 70 18 120/58 (78) 98 Intake and Output 09/16/20 09/17/20 19:00 07:00 Intake Total 100 ml 100 ml Output Total 700 ml 900 ml Balance -600 ml -800 ml Intake Oral 100 ml 100 ml Output Urine Total 700 ml 900 ml Objective 09/17 now on 2L NC saturating well 09/16 seen in tele; now on 3L NC saturating at 96% 09/08 now on BiPAP saturating at 96% 09/07 now on high flow oxygen and NRBM saturating at 92-94% 09/06 saturating at 91-92% on 15L NRBM HEENT: atraumatic Respiratory: lungs clear Cardiovascular: normal rate, regular rhythm Abdomen: soft, non tender Laboratory Tests 09/16/20 11:29: POC Whole Blood Glucose 276H 09/16/20 16:24: POC Whole Blood Glucose 178H 09/17/20 06:04: White Blood Count 16.5H, Red Blood Count 3.90L, Hemoglobin 10.2L, Hematocrit 32.4L, Mean Corpuscular Volume 83, Mean Corpuscular Hemoglobin 26.2L, Mean Corpuscular Hemoglobin Concent 31.5L, Red Cell Distribution Width 14.1, Platelet Count 203, Mean Platelet Volume 10.6H, Neutrophils (%) (Auto) , Lymphocytes (%) (Auto) , Monocytes (%) (Auto) , Eosinophils (%) (Auto) , Basophils (%) (Auto) , Differential Total Cells Counted 100, Neutrophils % (Manual) 81H, Lymphocytes % (Manual) 15L, Monocytes % (Manual) 4, Eosinophils % (Manual) 0, Basophils % (Manual) 0, Band Neutrophils 0, Platelet Estimate Adequate, Platelet Morphology Normal, Hypochromasia 1+, Sodium Level 149H, Potassium Level 3.8, Chloride Level 109H, Carbon Dioxide Level 33H, Anion Gap 7, Blood Urea Nitrogen 84H, Creatinine 2.8H, Estimat Glomerular Filtration Rate 19.6, Glucose Level 114H, Uric Acid 10.2H, Calcium Level 9.2, Phosphorus Level 3.5, Magnesium Level 2.3, Total Bilirubin 0.6, Aspartate Amino Transf (AST/SGOT) 26, Alanine Aminotransferase (ALT/SGPT) 26, Alkaline Phosphatase 87, C-Reactive Protein, Quantitative 6.8H, Pro-B-Type Natriuretic Peptide 239H, Total Protein 6.6, Albumin 2.4L, Globulin 4.2, Albumin/Globulin Ratio 0.6L Current Medications Medications (Trade) Dose Ordered Sig/Rebecca Route PRN Reason Start Time Stop Time Status Last Admin Dose Admin Acetaminophen (Tylenol) 650 mg Q4H PRN ORAL Mild Pain (Pain Scale 1-3) 09/05/20 07:15 10/05/20 07:14 09/06/20 12:34 Dextrose 1,000 ml @ 100 mls/hr Q10H IV 09/16/20 13:00 10/16/20 12:59 09/16/20 23:01 Dextrose (Dextrose 50%) 25 ml Q30M PRN IV Hypoglycemia 09/15/20 17:00 12/14/20 16:59 Dextrose (Dextrose 50%) 50 ml Q30M PRN IV Hypoglycemia 09/15/20 17:00 12/14/20 16:59 Enoxaparin Sodium (Lovenox) 30 mg DAILY SUBQ 09/06/20 09:00 12/05/20 08:59 09/17/20 09:02 Folic Acid (Folate) 2 mg DAILY ORAL 09/11/20 11:00 10/11/20 10:59 09/17/20 09:09 Hydralazine HCl (Apresoline) 25 mg Q4H PRN ORAL bp over 160 syst 09/12/20 11:15 12/11/20 11:14 Hydralazine HCl (Apresoline) 50 mg Q8HR ORAL 09/12/20 14:00 12/11/20 13:59 09/17/20 06:12 Insulin Aspart (NovoLOG) BEFORE MEALS AND HS SUBQ 09/15/20 17:07 12/14/20 17:06 09/16/20 21:27 Insulin Detemir (Levemir) 10 units Q12HR SUBQ 09/16/20 21:00 12/14/20 20:59 09/17/20 09:13 Pantoprazole (Protonix) 40 mg EVERY 12 HOURS IVP 09/10/20 21:00 10/10/20 20:59 09/17/20 09:09 Assessment/Plan Assessment/Plan 1. Hypoxia.; improved - s/p Decadron (08/06-09/15) - Currently on 2L NC saturating well 2. Bilateral dense pulmonary infiltrates - Will dc diureses - noted creatinine 3.1 - CXR 09/15 slight improvement 3. Probable superimposed pneumonia. - s/p empiric Abx 4. Confirmed COVID-19 pneumonia 5. Hyponatremia. 6. Renal failure. - now started on D5 due to rising Cr 7. Elevated inflammatory markers. 8. Transaminitis. 9. Rhabdomyolysis. 10. Troponin leak. 11. Hyperglycemia - oral hypoglycemics 12. Gram positive bacteremia - s/p IV Vanco per ID The care for this patient was discussed with my supervising physician Time spent for this case was approximately 31 minutes Vargas Meng Sep 17, 2020 10:21
[2020-09-17 12:00] VITALS: BP 137/77
--- NOTE | 2020-09-17 13:15 | NUR ---
[facility] NOTES PT ACCEPTED AT [facility], PENDING BED ASSIGNMENT.
--- NOTE | 2020-09-17 13:24 | Nephrology Progress Note ---
Assessment/Plan Problem List: (1) FLOWER (acute kidney injury) (2) Hypoxia (3) Pneumonia (4) 2019 novel coronavirus disease (COVID-19) (5) Electrolyte imbalance (6) Anemia Assessment Acute renal failure Confirmed COVID-19 pneumonia Sepsis Hypoxia, on BiPAP Anemia Electrolyte imbalances Hyperglycemia Transaminitis Rhabdomyolysis Troponin leak Plan September 17: Serum creatinine lowering. Continue D5W. Patient full code. Remains on Venturi mask. Continue to monitor renal parameters. September 16: Creatinine rising. Will start on D5W. Will increase his Levemir dose. Continue to monitor renal parameters. Patient full code. Remains on Venturi mask. September 15: Serum creatinine rising. IV Lasix discontinued. Patient on Venturi mask. Vitamin D level pending. Medication list reviewed. Continue to monitor renal parameters. Patient full code. September 14: Serum creatinine level rising. Patient remains on IV Lasix. Cardiology to reeval the need for 40 mg IV Lasix twice a day? Continue to monitor renal parameters September 13: Labs reviewed. Serum creatinine up to 2.4. White blood cells 17.8. Continue per consultants. Medication list reviewed. Continue to monitor renal parameters. September 12: Labs reviewed. Serum creatinine lower 2.2. Medication list reviewed. Hydralazine as needed for high blood pressure ordered. Continue per consultants. Continue to avoid nephrotoxic's. September 11: Labs reviewed. Serum creatinine 2.5 slightly lower than before. Electrolyte within normal limit. Folic acid ordered. Continue to monitor renal parameters. Continue per consultants. Previously Slow IV hydration Urine studies Avoid nephrotoxic's Anemia work-up IV Protonix Albumin bolus Monitor renal parameters Adjust blood pressure medication Urine studies Per orders Discussed with RN Subjective ROS Limited/Unobtainable: No Constitutional: Reports: malaise, weakness Objective Objective Last 24 Hour Vital Signs Date Time Temp Pulse Resp B/P (MAP) Pulse Ox O2 Delivery O2 Flow Rate FiO2 09/17/20 08:00 98.7 88 20 139/61 (87) 98 09/17/20 06:12 127/74 09/17/20 04:00 97.7 71 16 138/59 (85) 95 09/17/20 04:00 67 09/17/20 00:00 97.3 74 16 121/60 (80) 95 09/16/20 21:51 Venturi Mask 10.0 09/16/20 21:07 129/78 09/16/20 20:00 70 09/16/20 20:00 98.1 64 18 129/86 (100) 98 09/16/20 19:48 95 Nasal Cannula 2.0 28 09/16/20 16:00 97.7 68 20 135/56 (82) 99 09/16/20 16:00 66 09/16/20 14:00 120/58 Laboratory Tests Test 09/16/20 16:24 09/17/20 06:04 09/17/20 12:45 POC Whole Blood Glucose 178 MG/DL (74-106) H 226 MG/DL (74-106) H White Blood Count 16.5 K/UL (4.8-10.8) H Red Blood Count 3.90 M/UL (4.20-5.40) L Hemoglobin 10.2 G/DL (12.0-16.0) L Hematocrit 32.4 % (37.0-47.0) L Mean Corpuscular Volume 83 FL (80-99) Mean Corpuscular Hemoglobin 26.2 PG (27.0-31.0) L Mean Corpuscular Hemoglobin Concent 31.5 G/DL (32.0-36.0) L Red Cell Distribution Width 14.1 % (11.6-14.8) Platelet Count 203 K/UL (150-450) Mean Platelet Volume 10.6 FL (6.5-10.1) H Neutrophils (%) (Auto) % (45.0-75.0) Lymphocytes (%) (Auto) % (20.0-45.0) Monocytes (%) (Auto) % (1.0-10.0) Eosinophils (%) (Auto) % (0.0-3.0) Basophils (%) (Auto) % (0.0-2.0) Differential Total Cells Counted 100 Neutrophils % (Manual) 81 % (45-75) H Lymphocytes % (Manual) 15 % (20-45) L Monocytes % (Manual) 4 % (1-10) Eosinophils % (Manual) 0 % (0-3) Basophils % (Manual) 0 % (0-2) Band Neutrophils 0 % (0-8) Platelet Estimate Adequate Platelet Morphology Normal Hypochromasia 1+ Sodium Level 149 MMOL/L (136-145) H Potassium Level 3.8 MMOL/L (3.5-5.1) Chloride Level 109 MMOL/L (98-107) H Carbon Dioxide Level 33 MMOL/L (21-32) H Anion Gap 7 mmol/L (5-15) Blood Urea Nitrogen 84 mg/dL (7-18) H Creatinine 2.8 MG/DL (0.55-1.30) H Estimat Glomerular Filtration Rate 19.6 mL/min (>60) Glucose Level 114 MG/DL (74-106) H Uric Acid 10.2 MG/DL (2.6-7.2) H Calcium Level 9.2 MG/DL (8.5-10.1) Phosphorus Level 3.5 MG/DL (2.5-4.9) Magnesium Level 2.3 MG/DL (1.8-2.4) Total Bilirubin 0.6 MG/DL (0.2-1.0) Aspartate Amino Transf (AST/SGOT) 26 U/L (15-37) Alanine Aminotransferase (ALT/SGPT) 26 U/L (12-78) Alkaline Phosphatase 87 U/L (46-116) C-Reactive Protein, Quantitative 6.8 mg/dL (0.00-0.90) H Pro-B-Type Natriuretic Peptide 239 pg/mL (0-125) H Total Protein 6.6 G/DL (6.4-8.2) Albumin 2.4 G/DL (3.4-5.0) L Globulin 4.2 g/dL Albumin/Globulin Ratio 0.6 (1.0-2.7) L Intake and Output 09/16/20 09/17/20 19:00 07:00 Intake Total 100 ml 100 ml Output Total 700 ml 900 ml Balance -600 ml -800 ml Intake Oral 100 ml 100 ml Output Urine Total 700 ml 900 ml Laboratory Tests 09/16/20 16:24: POC Whole Blood Glucose 178H 09/17/20 06:04: White Blood Count 16.5H, Red Blood Count 3.90L, Hemoglobin 10.2L, Hematocrit 32.4L, Mean Corpuscular Volume 83, Mean Corpuscular Hemoglobin 26.2L, Mean Corpuscular Hemoglobin Concent 31.5L, Red Cell Distribution Width 14.1, Platelet Count 203, Mean Platelet Volume 10.6H, Neutrophils (%) (Auto) , Lymphocytes (%) (Auto) , Monocytes (%) (Auto) , Eosinophils (%) (Auto) , Basophils (%) (Auto) , Differential Total Cells Counted 100, Neutrophils % (Manual) 81H, Lymphocytes % (Manual) 15L, Monocytes % (Manual) 4, Eosinophils % (Manual) 0, Basophils % (Manual) 0, Band Neutrophils 0, Platelet Estimate Adequate, Platelet Morphology Normal, Hypochromasia 1+, Sodium Level 149H, Potassium Level 3.8, Chloride Level 109H, Carbon Dioxide Level 33H, Anion Gap 7, Blood Urea Nitrogen 84H, Creatinine 2.8H, Estimat Glomerular Filtration Rate 19.6, Glucose Level 114H, Uric Acid 10.2H, Calcium Level 9.2, Phosphorus Level 3.5, Magnesium Level 2.3, Total Bilirubin 0.6, Aspartate Amino Transf (AST/SGOT) 26, Alanine Aminotransferase (ALT/SGPT) 26, Alkaline Phosphatase 87, C-Reactive Protein, Quantitative 6.8H, Pro-B-Type Natriuretic Peptide 239H, Total Protein 6.6, Albumin 2.4L, Globulin 4.2, Albumin/Globulin Ratio 0.6L 09/17/20 12:45: POC Whole Blood Glucose 226H Height (Feet): 5 Height (Inches): 5.00 Weight (Pounds): 140 General Appearance: no apparent distress, lethargic Cardiovascular: normal rate Respiratory/Chest: decreased breath sounds Abdomen: distended Zachary Dunlap MD Sep 17, 2020 13:24
[2020-09-17 16:00] VITALS: BP 109/53
--- NOTE | 2020-09-17 17:14 | Cardiology Progress Note ---
Assessment/Plan Status: unchanged Status Narrative Oxygen dependent, on full face mask, receiving treatment for COVID-19 viral PNA. BNP improved, HR improved. Assessment/Plan 1. COVID-19 viral PNA 2. Leukocytosis 3. Respiratory failure and oxygen dependence on NRB mask 4. Sinus bradycardia Bb and Ca channel shu held rate improved 5. CHF acute on chronic HF with elevated BNP now improved echo pending diuresis with Lasix, as needed 5. FLOWER on CKD 6. Anemia 7. DMII 8. Demenia and frailty Subjective ROS Limited/Unobtainable: Yes Cardiovascular: Reports: no symptoms Respiratory: Reports: shortness of breath Subjective No acute events, BNP improved 239 WBCs elevated Objective Last 24 Hour Vital Signs Date Time Temp Pulse Resp B/P (MAP) Pulse Ox O2 Delivery O2 Flow Rate FiO2 09/17/20 14:00 112/52 09/17/20 09:00 Nasal Cannula 2.0 09/17/20 08:00 98.7 88 20 139/61 (87) 98 09/17/20 07:40 96 Nasal Cannula 2.0 28 09/17/20 06:12 127/74 09/17/20 04:00 97.7 71 16 138/59 (85) 95 09/17/20 04:00 67 09/17/20 00:00 97.3 74 16 121/60 (80) 95 09/16/20 21:51 Venturi Mask 10.0 09/16/20 21:07 129/78 09/16/20 20:00 70 09/16/20 20:00 98.1 64 18 129/86 (100) 98 09/16/20 19:48 95 Nasal Cannula 2.0 28 General Appearance: no apparent distress EENT: PERRL/EOMI Cardiovascular: normal rate Respiratory/Chest: no respiratory distress Intake and Output 09/16/20 09/17/20 19:00 07:00 Intake Total 100 ml 100 ml Output Total 700 ml 900 ml Balance -600 ml -800 ml Intake Oral 100 ml 100 ml Output Urine Total 700 ml 900 ml Laboratory Tests Test 09/17/20 06:04 09/17/20 12:45 White Blood Count 16.5 K/UL (4.8-10.8) H Red Blood Count 3.90 M/UL (4.20-5.40) L Hemoglobin 10.2 G/DL (12.0-16.0) L Hematocrit 32.4 % (37.0-47.0) L Mean Corpuscular Volume 83 FL (80-99) Mean Corpuscular Hemoglobin 26.2 PG (27.0-31.0) L Mean Corpuscular Hemoglobin Concent 31.5 G/DL (32.0-36.0) L Red Cell Distribution Width 14.1 % (11.6-14.8) Platelet Count 203 K/UL (150-450) Mean Platelet Volume 10.6 FL (6.5-10.1) H Neutrophils (%) (Auto) % (45.0-75.0) Lymphocytes (%) (Auto) % (20.0-45.0) Monocytes (%) (Auto) % (1.0-10.0) Eosinophils (%) (Auto) % (0.0-3.0) Basophils (%) (Auto) % (0.0-2.0) Differential Total Cells Counted 100 Neutrophils % (Manual) 81 % (45-75) H Lymphocytes % (Manual) 15 % (20-45) L Monocytes % (Manual) 4 % (1-10) Eosinophils % (Manual) 0 % (0-3) Basophils % (Manual) 0 % (0-2) Band Neutrophils 0 % (0-8) Platelet Estimate Adequate Platelet Morphology Normal Hypochromasia 1+ Sodium Level 149 MMOL/L (136-145) H Potassium Level 3.8 MMOL/L (3.5-5.1) Chloride Level 109 MMOL/L (98-107) H Carbon Dioxide Level 33 MMOL/L (21-32) H Anion Gap 7 mmol/L (5-15) Blood Urea Nitrogen 84 mg/dL (7-18) H Creatinine 2.8 MG/DL (0.55-1.30) H Estimat Glomerular Filtration Rate 19.6 mL/min (>60) Glucose Level 114 MG/DL (74-106) H Uric Acid 10.2 MG/DL (2.6-7.2) H Calcium Level 9.2 MG/DL (8.5-10.1) Phosphorus Level 3.5 MG/DL (2.5-4.9) Magnesium Level 2.3 MG/DL (1.8-2.4) Total Bilirubin 0.6 MG/DL (0.2-1.0) Aspartate Amino Transf (AST/SGOT) 26 U/L (15-37) Alanine Aminotransferase (ALT/SGPT) 26 U/L (12-78) Alkaline Phosphatase 87 U/L (46-116) C-Reactive Protein, Quantitative 6.8 mg/dL (0.00-0.90) H Pro-B-Type Natriuretic Peptide 239 pg/mL (0-125) H Total Protein 6.6 G/DL (6.4-8.2) Albumin 2.4 G/DL (3.4-5.0) L Globulin 4.2 g/dL Albumin/Globulin Ratio 0.6 (1.0-2.7) L POC Whole Blood Glucose 226 MG/DL (74-106) H Keisha Hugo PA-C Sep 17, 2020 17:14
--- NOTE | 2020-09-17 17:39 | General Progress Note ---
Subjective Allergies: Coded Allergies: No Known Allergies (Unverified , 09/04/20) Subjective better opens her eyes on 2 l nc ac renal failure on teli Objective Last 24 Hour Vital Signs Date Time Temp Pulse Resp B/P (MAP) Pulse Ox O2 Delivery O2 Flow Rate FiO2 09/17/20 14:00 112/52 09/17/20 09:00 Nasal Cannula 2.0 09/17/20 08:00 98.7 88 20 139/61 (87) 98 09/17/20 07:40 96 Nasal Cannula 2.0 28 09/17/20 06:12 127/74 09/17/20 04:00 97.7 71 16 138/59 (85) 95 09/17/20 04:00 67 09/17/20 00:00 97.3 74 16 121/60 (80) 95 09/16/20 21:51 Venturi Mask 10.0 09/16/20 21:07 129/78 09/16/20 20:00 70 09/16/20 20:00 98.1 64 18 129/86 (100) 98 09/16/20 19:48 95 Nasal Cannula 2.0 28 Intake and Output 09/16/20 09/17/20 19:00 07:00 Intake Total 100 ml 100 ml Output Total 700 ml 900 ml Balance -600 ml -800 ml Intake Oral 100 ml 100 ml Output Urine Total 700 ml 900 ml Laboratory Tests 09/17/20 06:04: White Blood Count 16.5H, Red Blood Count 3.90L, Hemoglobin 10.2L, Hematocrit 32.4L, Mean Corpuscular Volume 83, Mean Corpuscular Hemoglobin 26.2L, Mean Corpuscular Hemoglobin Concent 31.5L, Red Cell Distribution Width 14.1, Platelet Count 203, Mean Platelet Volume 10.6H, Neutrophils (%) (Auto) , Lymphocytes (%) (Auto) , Monocytes (%) (Auto) , Eosinophils (%) (Auto) , Basophils (%) (Auto) , Differential Total Cells Counted 100, Neutrophils % (Manual) 81H, Lymphocytes % (Manual) 15L, Monocytes % (Manual) 4, Eosinophils % (Manual) 0, Basophils % (Manual) 0, Band Neutrophils 0, Platelet Estimate Adequate, Platelet Morphology Normal, Hypochromasia 1+, Sodium Level 149H, Potassium Level 3.8, Chloride Level 109H, Carbon Dioxide Level 33H, Anion Gap 7, Blood Urea Nitrogen 84H, Creatinine 2.8H, Estimat Glomerular Filtration Rate 19.6, Glucose Level 114H, Uric Acid 10.2H, Calcium Level 9.2, Phosphorus Level 3.5, Magnesium Level 2.3, Total B ilirubin 0.6, Aspartate Amino Transf (AST/SGOT) 26, Alanine Aminotransferase (ALT/SGPT) 26, Alkaline Phosphatase 87, C-Reactive Protein, Quantitative 6.8H, Pro-B-Type Natriuretic Peptide 239H, Total Protein 6.6, Albumin 2.4L, Globulin 4.2, Albumin/Globulin Ratio 0.6L 09/17/20 12:45: POC Whole Blood Glucose 226H Height (Feet): 5 Height (Inches): 5.00 Weight (Pounds): 140 General Appearance: alert EENT: PERRL/EOMI Neck: supple Cardiovascular: regular rhythm Respiratory/Chest: crackles/rales Abdomen: non tender, soft Extremities: non-tender Assessment/Plan Status: unchanged Assessment/Plan: aloc better ac resp failure improving pna r/ o covid worse dehyration demtentia anemia leucocytosis due to steroids ac renal failure nephro consult check abg dw with pulmonary cont iv abx, decadrone , hoa eval and transfer whenever bed is available dw ed dtr updated Sravan Licona MD Sep 17, 2020 17:39
--- NOTE | 2020-09-17 19:01 | NUR ---
NURSE NOTES: attempted to wean pt off of 2L NC today. pt O2 saturation was 91-92% but pt complained of SOB and dyspnea.
--- NOTE | 2020-09-17 19:15 | NUR ---
NURSE HAND-OFF REPORT: Important Events on Shift: Received report from Sharita Holley RN. Pt is to be DC'd by [facility] to [facility]. DC packet completed. Report given to Roxana VIVEROS of [place]. Will continue close monitoring and DC plan of care. Patient Status: FC Diet: CCHO M soft easy Pending Orders: DC to [facility]. Pending Results/Labs: none Pending MD notification: none Latest Vital Signs: Temperature 98.1 , Pulse 66 , B/P 115 /56 , Respiratory Rate 20 , O2 SAT 98 , Venturi Mask, O2 Flow Rate 2.0 . Vital Sign Comment: stable EKG Rhythm: Sinus Rhythm Rhythm change?: N MD Notified?: N - MD Response: Latest Cotton Fall Score: 60 Fall Risk: High Risk Safety Measures: Call light Within Reach, Bed Alarm Zone 2, Side Rails Side Rails x3, Bed position Low and Locked. Fall Precautions: yes Yellow Socks Yellow Gown Door Sign Patient Fall Education
--- NOTE | 2020-09-17 19:35 | NUR ---
NURSE HAND-OFF REPORT: Important Events on Shift:[] n/a Patient Status: [] full code Diet: [] CCHO medium Pending Orders: [] Pending Results/Labs:[] Pending MD notification:[] Latest Vital Signs: Temperature 98.1 , Pulse 73 , B/P 109 /53 , Respiratory Rate 18 , O2 SAT 96 , Venturi Mask, O2 Flow Rate 2.0 . Vital Sign Comment: [] EKG Rhythm: Sinus Rhythm Rhythm change?: N MD Notified?: N - MD Response: Latest Cotton Fall Score: 60 Fall Risk: High Risk Safety Measures: Call light Within Reach, Bed Alarm Zone 1, Side Rails Side Rails x3, Bed position Low and Locked. Fall Precautions: Yellow Socks Yellow Gown Door Sign Patient Fall Education Report given to []. Addendum: 09/17/20 at 1936 by Paco Oliveira RN report given to Kayla VIVEROS
--- NOTE | 2020-09-17 19:47 | NUR ---
NURSE NOTES: Important Events on Shift: Recieved report from Paco Aviles RN Patient Status: FC Diet: CCHO M soft easy Pending Orders: none Pending Results/Labs: AM labs Pending MD notification: none Latest Vital Signs: Temperature 97.9 , Pulse 60 , B/P 117 /50 , Respiratory Rate 20 , O2 SAT 98 , Venturi Mask, O2 Flow Rate 2.0 . Vital Sign Comment: stable EKG Rhythm: Sinus Bradycardia Rhythm change?: N MD Notified?: N - MD Response: Latest Cotton Fall Score: 60 Fall Risk: High Risk Safety Measures: Call light Within Reach, Bed Alarm Zone 1, Side Rails Side Rails x3, Bed position Low and Locked. Fall Precautions: YES Yellow Socks Yellow Gown Door Sign Patient Fall Education Report given to .
[2020-09-17 20:00] VITALS: BP 114/55
[2020-09-18] VITALS: BP 112/57
[2020-09-18 04:00] VITALS: BP 119/60
[2020-09-18] MEDS: HydrALAZINE 50mg tab ORAL SCH ×2 (05:48→13:45)
[2020-09-18] MEDS: NovoLOG Insulin Flexpen SUBQ SCH ×3 (06:38→16:30)
--- NOTE | 2020-09-18 06:47 | Hematology/Onc Progress Note ---
Assessment/Plan Assessment/Plan Leukocytosis likely related to covid19 pna Anemia due to chronic disease Aloc with covid19 ac resp failure-->nc/bipap pna on abx dehyration demtentia Renal eval check abg dw with pulmonary, on 2lnc on cont bipap cont iv abx, decadron on lovenoxs q dw daughter Subjective HEENT: Denies: no symptoms, eye pain, blurred vision, tearing, double vision, ear pain, ear discharge, nose pain, nose congestion, throat pain, throat swelling, mouth pain, mouth swelling, other Cardiovascular: Denies: no symptoms, chest pain, edema, irregular heart rate, lightheadedness, palpitations, syncope, other Respiratory: Denies: no symptoms, cough, shortness of breath, SOB with excertion, SOB at rest, sputum, wheezing, other Gastrointestinal/Abdominal: Denies: no symptoms, abdomen distended, abdominal pain, black stools, tarry stools, blood in stool, constipated, diarrhea, difficulty swallowing, nausea, poor appetite, poor fluid intake, rectal bleeding, vomiting, other Genitourinary: Denies: no symptoms, burning, discharge, frequency, flank pain, hematuria, incontinence, pain, urgency, other Neurologic/Psychiatric: Denies: no symptoms, anxiety, depressed, emotional problems, headache, numbness, paresthesia, pre-existing deficit, seizure, tingling, tremors, weakness, other Endocrine: Denies: no symptoms, excessive sweating, flushing, intolerance to cold, intolerance to heat, increased hunger, increased thirst, increased urine, unexplained weight gain, unexplained weight loss, other Allergies: Coded Allergies: No Known Allergies (Unverified , 09/04/20) Subjective 09/13 lethargic, on nrb mask, cards recs noted, in [place] 09/14 is on dex as well as lovenox sq, meds noted, labs reviewed 09/15 meds noted, no bleeding, on venturi mask 10l, meds reviewed 09/16 meds noted, no bleeding, VM ongoing, labs reviewed 09/17 on 2l, no bleeding, lovenox sq, meds reviewed 09/18 on 2lnc, labsare noted from yesterday, todays are pending Objective Objective Current Medications Medications (Trade) Dose Ordered Sig/Rebecca Route PRN Reason Start Time Stop Time Status Last Admin Dose Admin Acetaminophen (Tylenol) 650 mg Q4H PRN ORAL Mild Pain (Pain Scale 1-3) 09/05/20 07:15 10/05/20 07:14 09/06/20 12:34 Dextrose 1,000 ml @ 100 mls/hr Q10H IV 09/16/20 13:00 10/16/20 12:59 09/18/20 03:52 Dextrose (Dextrose 50%) 25 ml Q30M PRN IV Hypoglycemia 09/15/20 17:00 12/14/20 16:59 Dextrose (Dextrose 50%) 50 ml Q30M PRN IV Hypoglycemia 09/15/20 17:00 12/14/20 16:59 Enoxaparin Sodium (Lovenox) 30 mg DAILY SUBQ 09/06/20 09:00 12/05/20 08:59 09/17/20 09:02 Folic Acid (Folate) 2 mg DAILY ORAL 09/11/20 11:00 10/11/20 10:59 09/17/20 09:09 Hydralazine HCl (Apresoline) 25 mg Q4H PRN ORAL bp over 160 syst 09/12/20 11:15 12/11/20 11:14 Hydralazine HCl (Apresoline) 50 mg Q8HR ORAL 09/12/20 14:00 12/11/20 13:59 09/17/20 06:12 Insulin Aspart (NovoLOG) BEFORE MEALS AND HS SUBQ 09/15/20 17:07 12/14/20 17:06 09/18/20 06:38 Insulin Detemir (Levemir) 10 units Q12HR SUBQ 09/16/20 21:00 12/14/20 20:59 09/17/20 21:00 Pantoprazole (Protonix) 40 mg EVERY 12 HOURS IVP 09/10/20 21:00 10/10/20 20:59 09/17/20 23:28 Last 24 Hour Vital Signs Date Time Temp Pulse Resp B/P (MAP) Pulse Ox O2 Delivery O2 Flow Rate FiO2 09/18/20 05:48 117/50 09/18/20 04:00 57 09/18/20 00:00 98.6 67 18 112/57 (75) 96 09/18/20 00:00 62 09/17/20 22:00 114/55 09/17/20 21:00 Nasal Cannula 2.0 09/17/20 20:13 95 Nasal Cannula 2.0 28 09/17/20 20:00 64 09/17/20 20:00 98.4 68 18 114/55 (74) 95 09/17/20 16:00 98.1 73 18 109/53 (71) 96 09/17/20 16:00 73 09/17/20 14:00 112/52 09/17/20 12:00 96.6 87 21 137/77 (97) 97 09/17/20 12:00 83 09/17/20 09:00 Nasal Cannula 2.0 09/17/20 08:00 72 09/17/20 08:00 98.7 88 20 139/61 (87) 98 09/17/20 07:40 96 Nasal Cannula 2.0 28 09/17/20 06:12 127/74 09/17/20 04:00 97.7 71 16 138/59 (85) 95 09/17/20 04:00 67 09/17/20 00:00 97.3 74 16 121/60 (80) 95 09/16/20 21:51 Venturi Mask 10.0 09/16/20 21:07 129/78 09/16/20 20:00 70 09/16/20 20:00 98.1 64 18 129/86 (100) 98 09/16/20 19:48 95 Nasal Cannula 2.0 28 09/16/20 16:00 97.7 68 20 135/56 (82) 99 09/16/20 16:00 66 09/16/20 14:00 120/58 09/16/20 12:00 62 09/16/20 12:00 97.5 70 18 120/58 (78) 98 09/16/20 09:00 Venturi Mask 10.0 09/16/20 08:00 70 09/16/20 08:00 97.6 100 22 128/80 (96) 96 Intake and Output 09/17/20 09/18/20 19:00 07:00 Intake Total 120 ml Output Total 1200 ml 1000 ml Balance -1080 ml -1000 ml Intake Oral 120 ml Output Urine Total 1200 ml 1000 ml # Voids 3 1 Labs Test 09/15/20 11:44 09/15/20 21:01 09/16/20 03:25 09/16/20 05:21 POC Whole Blood Glucose 212 MG/DL (74-106) 432 MG/DL (74-106) 84 MG/DL (74-106) White Blood Count 16.7 K/UL (4.8-10.8) Red Blood Count 4.04 M/UL (4.20-5.40) Hemoglobin 10.5 G/DL (12.0-16.0) Hematocrit 33.6 % (37.0-47.0) Mean Corpuscular Volume 83 FL (80-99) Mean Corpuscular Hemoglobin 25.9 PG (27.0-31.0) Mean Corpuscular Hemoglobin Concent 31.2 G/DL (32.0-36.0) Red Cell Distribution Width 14.3 % (11.6-14.8) Platelet Count 236 K/UL (150-450) Mean Platelet Volume 8.0 FL (6.5-10.1) Neutrophils (%) (Auto) % (45.0-75.0) Lymphocytes (%) (Auto) % (20.0-45.0) Monocytes (%) (Auto) % (1.0-10.0) Eosinophils (%) (Auto) % (0.0-3.0) Basophils (%) (Auto) % (0.0-2.0) Differential Total Cells Counted 100 Neutrophils % (Manual) 88 % (45-75) Lymphocytes % (Manual) 9 % (20-45) Monocytes % (Manual) 3 % (1-10) Eosinophils % (Manual) 0 % (0-3) Basophils % (Manual) 0 % (0-2) Band Neutrophils 0 % (0-8) Platelet Estimate Adequate Platelet Morphology Normal Hypochromasia 1+ Anisocytosis 1+ Sodium Level 154 MMOL/L (136-145) Potassium Level 3.8 MMOL/L (3.5-5.1) Chloride Level 112 MMOL/L (98-107) Carbon Dioxide Level 31 MMOL/L (21-32) Anion Gap 11 mmol/L (5-15) Blood Urea Nitrogen 97 mg/dL (7-18) Creatinine 3.2 MG/DL (0.55-1.30) Estimat Glomerular Filtration Rate 16.8 mL/min (>60) Glucose Level 73 MG/DL (74-106) Uric Acid 13.4 MG/DL (2.6-7.2) Calcium Level 9.4 MG/DL (8.5-10.1) Phosphorus Level 4.5 MG/DL (2.5-4.9) Magnesium Level 2.7 MG/DL (1.8-2.4) Total Bilirubin 0.3 MG/DL (0.2-1.0) Aspartate Amino Transf (AST/SGOT) 24 U/L (15-37) Alanine Aminotransferase (ALT/SGPT) 31 U/L (12-78) Alkaline Phosphatase 81 U/L (46-116) C-Reactive Protein, Quantitative 7.7 mg/dL (0.00-0.90) Pro-B-Type Natriuretic Peptide 354 pg/mL (0-125) Total Protein 6.7 G/DL (6.4-8.2) Albumin 2.3 G/DL (3.4-5.0) Globulin 4.4 g/dL Albumin/Globulin Ratio 0.5 (1.0-2.7) Test 09/16/20 11:29 09/16/20 16:24 09/17/20 06:04 09/17/20 12:45 POC Whole Blood Glucose 276 MG/DL (74-106) 178 MG/DL (74-106) 226 MG/DL (74-106) White Blood Count 16.5 K/UL (4.8-10.8) Red Blood Count 3.90 M/UL (4.20-5.40) Hemoglobin 10.2 G/DL (12.0-16.0) Hematocrit 32.4 % (37.0-47.0) Mean Corpuscular Volume 83 FL (80-99) Mean Corpuscular Hemoglobin 26.2 PG (27.0-31.0) Mean Corpuscular Hemoglobin Concent 31.5 G/DL (32.0-36.0) Red Cell Distribution Width 14.1 % (11.6-14.8) Platelet Count 203 K/UL (150-450) Mean Platelet Volume 10.6 FL (6.5-10.1) Neutrophils (%) (Auto) % (45.0-75.0) Lymphocytes (%) (Auto) % (20.0-45.0) Monocytes (%) (Auto) % (1.0-10.0) Eosinophils (%) (Auto) % (0.0-3.0) Basophils (%) (Auto) % (0.0-2.0) Differential Total Cells Counted 100 Neutrophils % (Manual) 81 % (45-75) Lymphocytes % (Manual) 15 % (20-45) Monocytes % (Manual) 4 % (1-10) Eosinophils % (Manual) 0 % (0-3) Basophils % (Manual) 0 % (0-2) Band Neutrophils 0 % (0-8) Platelet Estimate Adequate Platelet Morphology Normal Hypochromasia 1+ Sodium Level 149 MMOL/L (136-145) Potassium Level 3.8 MMOL/L (3.5-5.1) Chloride Level 109 MMOL/L (98-107) Carbon Dioxide Level 33 MMOL/L (21-32) Anion Gap 7 mmol/L (5-15) Blood Urea Nitrogen 84 mg/dL (7-18) Creatinine 2.8 MG/DL (0.55-1.30) Estimat Glomerular Filtration Rate 19.6 mL/min (>60) Glucose Level 114 MG/DL (74-106) Uric Acid 10.2 MG/DL (2.6-7.2) Calcium Level 9.2 MG/DL (8.5-10.1) Phosphorus Level 3.5 MG/DL (2.5-4.9) Magnesium Level 2.3 MG/DL (1.8-2.4) Total Bilirubin 0.6 MG/DL (0.2-1.0) Aspartate Amino Transf (AST/SGOT) 26 U/L (15-37) Alanine Aminotransferase (ALT/SGPT) 26 U/L (12-78) Alkaline Phosphatase 87 U/L (46-116) C-Reactive Protein, Quantitative 6.8 mg/dL (0.00-0.90) Pro-B-Type Natriuretic Peptide 239 pg/mL (0-125) Total Protein 6.6 G/DL (6.4-8.2) Albumin 2.4 G/DL (3.4-5.0) Globulin 4.2 g/dL Albumin/Globulin Ratio 0.6 (1.0-2.7) Test 09/17/20 22:58 09/18/20 06:20 POC Whole Blood Glucose 147 MG/DL (74-106) 151 MG/DL (74-106) Height (Feet): 5 Height (Inches): 5.00 Weight (Pounds): 140 Objective General Appearance: lethargic Neck: supple Cardiovascular: regular rhythm Respiratory/Chest: crackles/rales venturi mask+++ Abdomen: non tender, soft Extremities: non-tender Scar Thomas MD Sep 18, 2020 06:47
--- NOTE | 2020-09-18 07:30 | NUR ---
NURSE NOTES: RECEIVED PATIENT A/A/OX2, CONFUSED. IN BED LYING WITH HOB ELEVATED FOR ASPIRATION PRECAUTION AND ADEQUATE VENTILATION. ON O2 2L VIA NC. PATIENT ON BILATERAL SOFT WRISTS RESTRAINTS DUE TO POTENTIAL REMOVING DEVICES. PIV PATENT AND INTACT. IVF INFUSING WELL. F/C INTACT AND DRAINING WELL. KEPT BED IN THE LOWEST POSITION. SIDERAILS ARE UPX3. CALL LIGHT IS WITHIN REACH. BED ALARM AND LOCK @ ALL TIMES. WILL CONT TO MONITOR.
--- NOTE | 2020-09-18 07:35 | NUR ---
NURSE NOTES: 1;1 FEEDER AND INADEQUATE AMOUNT OF FOOD INTAKE. WILL CONTINUE TO ENCOURAGE. WILL CONT TO MONITOR.
--- NOTE | 2020-09-18 07:50 | NUR ---
NURSE HAND-OFF REPORT: Important Events on Shift: NONE Patient Status: FC Diet: CCHO M soft easy chew Pending Orders: none Pending Results/Labs: AM labs Pending MD notification: none Latest Vital Signs: Temperature 97.9 , Pulse 60 , B/P 117 /50 , Respiratory Rate 20 , O2 SAT 98 , Venturi Mask, O2 Flow Rate 2.0 . Vital Sign Comment: stable EKG Rhythm: Sinus Bradycardia Rhythm change?: N MD Notified?: N - MD Response: Latest Cotton Fall Score: 60 Fall Risk: High Risk Safety Measures: Call light Within Reach, Bed Alarm Zone 1, Side Rails Side Rails x3, Bed position Low and Locked. Fall Precautions: YES Yellow Socks Yellow Gown Door Sign Patient Fall Education Report given to CORNELIO Holley LVN.
--- NOTE | 2020-09-18 07:51 | NUR ---
HAND-OFF: Report RT Hep drip given to Michael Carroll RN . Addendum: 09/18/20 at 0759 by Madison Peck RN ERROR WRONG PT
[2020-09-18 08:00] VITALS: BP 111/52
--- NOTE | 2020-09-18 08:13 | NUR ---
RD ASSESSMENT & RECOMMENDATIONS SEE CARE ACTIVITY FOR COMPLETE ASSESSMENT DAILY ESTIMATED NEEDS: Needs based on Pulmonary 61kg 25-30 kcals/kg 5682-7739 total kcals 1-1.5 g protein/kg 61-91 g total protein 25-30 mL/kg 4583-6739 total fluid mLs NUTRITION DIAGNOSIS: Predicted decreased po intake r/t covid pna as evidenced by pt on bipap-> now on venturi mask, w/ poor po intake (0-50%) x 12 days. CURRENT DIET: CCHO MED PO DIET RECOMMENDATIONS: Liberalized REGULAR Diet w/ poor po intake (texture per SECURITY SHIFT MANAGER) ENTERAL NUTRITION RECOMMENDATIONS: Glucerna 1.2 @55ml/hr x 24 hrs to provide 1320ml, 1584kcal, 79g prot, 1063ml free water * W/ continued poor PO, consider nonoral feeding. * W/ GI access, initiate Glucerna 1.2 @ 15ml/hr x 6hrs * Advance 10ml q 4-6 hrs as tolerated to goal * HOB over 30 degrees/ water flush per MD ADDITIONAL RECOMMENDATIONS: 1) Consider temp NGT w/ continued poor PO 2) Appetite stimulant if medically appropriate 2) SECURITY SHIFT MANAGER eval for appropriate texture 3) Add Glucerna TID w/ meals 4) Calibrated daily wts 5) Monitor hypoglycemia w/ insulin regimen and poor/variable PO -> currently on D5
[2020-09-18] MEDS: Levemir Flexpen SUBQ SCH (08:54)
[2020-09-18] MEDS: Enoxaparin 30mg Inj SUBQ SCH (08:54)
[2020-09-18] MEDS: Pantoprazole Inj IVP SCH (09:00)
[2020-09-18 09:22] LABS: BASOPHILS % (AUTO) 1.4 % (0.0-2.0); EOSINOPHILS % (AUTO) 0.1 % (0.0-3.0); HEMATOCRIT 28.8 % (37.0-47.0); HEMOGLOBIN 9.2 G/DL (12.0-16.0); LYMPHOCYTES % (AUTO) 12.8 % (20.0-45.0); MEAN CORPUSCULAR VOLUME 82 FL (80-99); MONOCYTES % (AUTO) 5.4 % (1.0-10.0); NEUTROPHILS % (AUTO) 80.4 % (45.0-75.0); PLATELET COUNT 188 K/UL (150-450); RED CELL DISTRIBUTION WIDTH 13.8 % (11.6-14.8); WHITE BLOOD COUNT 11.8 K/UL (4.8-10.8)
--- NOTE | 2020-09-18 09:36 | NUR ---
CASE MANAGEMENT:REVIEW 09/18/20 SI: RESPIRATORY FAILURE D/T COVID PNA BACTEREMIA. ACUTE RENAL FAILURE 98.2 66 22 111/52 97% ON 2L/NC WBC+11.8 H/H-9.2/28.8 IS: IVF@100/HR LEVEMIR SQ QHS HYDRALAZINE PO Q8HRS IV PROTONIX Q12 LOVENOX SQ QD : TELEMETRY DCP: FROM HOME PLAN: CONTINUE TO WEAN TO ROOM AIR PT EVAL
--- NOTE | 2020-09-18 09:48 | Pulmonology Progress Note ---
Subjective ROS Limited/Unobtainable: Yes Interval Events: now on 2L NC Constitutional: Reports: other - doing better, traasferred from [place] to telemetry HEENT: Repors: no symptoms Respiratory: Reports: no symptoms, shortness of breath Cardiovascular: Reports: no symptoms Gastrointestinal/Abdominal: Reports: no symptoms Genitourinary: Reports: no symptoms Allergies: Coded Allergies: No Known Allergies (Unverified , 09/04/20) Objective Last 24 Hour Vital Signs Date Time Temp Pulse Resp B/P (MAP) Pulse Ox O2 Delivery O2 Flow Rate FiO2 09/18/20 08:00 98.2 66 22 111/52 (71) 97 09/18/20 05:48 117/50 09/18/20 04:00 97.9 60 20 119/60 (79) 98 09/18/20 04:00 57 09/18/20 00:00 98.6 67 18 112/57 (75) 96 09/18/20 00:00 62 09/17/20 22:00 114/55 09/17/20 21:00 Nasal Cannula 2.0 09/17/20 20:13 95 Nasal Cannula 2.0 28 09/17/20 20:00 64 09/17/20 20:00 98.4 68 18 114/55 (74) 95 09/17/20 16:00 98.1 73 18 109/53 (71) 96 09/17/20 16:00 73 09/17/20 14:00 112/52 09/17/20 12:00 96.6 87 21 137/77 (97) 97 09/17/20 12:00 83 Intake and Output 09/17/20 09/18/20 19:00 07:00 Intake Total 120 ml Output Total 1200 ml 1000 ml Balance -1080 ml -1000 ml Intake Oral 120 ml Output Urine Total 1200 ml 1000 ml # Voids 3 1 Objective 09/18 on 2L NC; will wean off today 09/17 now on 2L NC saturating well 09/16 seen in tele; now on 3L NC saturating at 96% 09/08 now on BiPAP saturating at 96% 09/07 now on high flow oxygen and NRBM saturating at 92-94% 09/06 saturating at 91-92% on 15L NRBM HEENT: atraumatic Respiratory: lungs clear Cardiovascular: normal rate, regular rhythm Abdomen: soft, non tender Laboratory Tests 09/17/20 12:45: POC Whole Blood Glucose 226H 09/17/20 22:58: POC Whole Blood Glucose 147H 09/18/20 06:20: POC Whole Blood Glucose 151H 09/18/20 08:45: White Blood Count 11.8H, Red Blood Count 3.50L, Hemoglobin 9.2L, Hematocrit 28.8L, Mean Corpuscular Volume 82, Mean Corpuscular Hemoglobin 26.2L, Mean Corpuscular Hemoglobin Concent 31.9L, Red Cell Distribution Width 13.8, Platelet Count 188, Mean Platelet Volume 9.8, Neutrophils (%) (Auto) 80.4H, Lymphocytes (%) (Auto) 12.8L, Monocytes (%) (Auto) 5.4, Eosinophils (%) (Auto) 0.1, Basophils (%) (Auto) 1.4, Sodium Level [Pending], Potassium Level [Pending], C hloride Level [Pending], Carbon Dioxide Level [Pending], Blood Urea Nitrogen [Pending], Creatinine [Pending], Estimat Glomerular Filtration Rate [Pending], Glucose Level [Pending], Calcium Level [Pending], Phosphorus Level [Pending], Magnesium Level [Pending], Total Bilirubin [Pending], Direct Bilirubin [Pending], Aspartate Amino Transf (AST/SGOT) [Pending], Alanine Aminotransferase (ALT/SGPT) [Pending], Alkaline Phosphatase [Pending], Total Protein [Pending], Albumin [Pending] Current Medications Medications (Trade) Dose Ordered Sig/Rebecca Route PRN Reason Start Time Stop Time Status Last Admin Dose Admin Acetaminophen (Tylenol) 650 mg Q4H PRN ORAL Mild Pain (Pain Scale 1-3) 09/05/20 07:15 10/05/20 07:14 09/06/20 12:34 Dextrose 1,000 ml @ 100 mls/hr Q10H IV 09/16/20 13:00 10/16/20 12:59 09/18/20 03:52 Dextrose (Dextrose 50%) 25 ml Q30M PRN IV Hypoglycemia 09/15/20 17:00 12/14/20 16:59 Dextrose (Dextrose 50%) 50 ml Q30M PRN IV Hypoglycemia 09/15/20 17:00 12/14/20 16:59 Enoxaparin Sodium (Lovenox) 30 mg DAILY SUBQ 09/06/20 09:00 12/05/20 08:59 09/18/20 08:54 Folic Acid (Folate) 2 mg DAILY ORAL 09/11/20 11:00 10/11/20 10:59 09/18/20 08:52 Hydralazine HCl (Apresoline) 25 mg Q4H PRN ORAL bp over 160 syst 09/12/20 11:15 12/11/20 11:14 Hydralazine HCl (Apresoline) 50 mg Q8HR ORAL 09/12/20 14:00 12/11/20 13:59 09/17/20 06:12 Insulin Aspart (NovoLOG) BEFORE MEALS AND HS SUBQ 09/15/20 17:07 12/14/20 17:06 09/18/20 06:38 Insulin Detemir (Levemir) 10 units Q12HR SUBQ 09/16/20 21:00 12/14/20 20:59 09/18/20 08:54 Pantoprazole (Protonix) 40 mg EVERY 12 HOURS IVP 09/10/20 21:00 10/10/20 20:59 09/17/20 23:28 Assessment/Plan Assessment/Plan 1. Hypoxia.; improved - s/p Decadron (08/06-09/15) - Currently on 2L NC saturating well; will wean off today 2. Bilateral dense pulmonary infiltrates - Will dc diureses - noted creatinine 3.1 - CXR 09/15 slight improvement 3. Probable superimposed pneumonia. - s/p empiric Abx 4. Confirmed COVID-19 pneumonia 5. Hyponatremia. 6. Renal failure. - now started on D5 due to rising Cr 7. Elevated inflammatory markers. 8. Transaminitis. 9. Rhabdomyolysis. 10. Troponin leak. 11. Hyperglycemia - oral hypoglycemics 12. Gram positive bacteremia - s/p IV Vanco per ID The care for this patient was discussed with my supervising physician Time spent for this case was approximately 31 minutes Vargas Meng Sep 18, 2020 09:48
[2020-09-18 09:52] LABS: CREATININE 2.7 MG/DL (0.55-1.30); POTASSIUM 3.9 MMOL/L (3.5-5.1)
[2020-09-18 09:53] LABS: ALANINE AMINOTRANSFERASE 21 U/L (12-78); ALBUMIN 1.9 G/DL (3.4-5.0); ALKALINE PHOSPHATASE 82 U/L (46-116); ASPARTATE AMINO TRANSFERASE 28 U/L (15-37); BILIRUBIN,DIRECT 0.2 MG/DL (0.0-0.3); BILIRUBIN,TOTAL 0.5 MG/DL (0.2-1.0); PHOSPHORUS 3.4 MG/DL (2.5-4.9)
--- NOTE | 2020-09-18 11:10 | NUR ---
NURSE NOTES: TITRATED O2 TO 1.5 L AND KEPT HOB ELEVATED FOR ASPIRATION PRECAUTIONS. NO ACTE RESP DISTRESS NOTED. WILL CONT TO MONITOR.
--- NOTE | 2020-09-18 11:20 | NUR ---
PT EVALUATION NOTE Patient seen for initial evaluation and treatment initiated. Patient presents with weakness, decreased balance and fatigue which limits patient's ability to perform mobility tasks safely. Patient requires mod/max assist for bed mobility and mod assist to maintain sitting at the EOB. Patient unable to stand or transfer at this time due to weakness. Patient will benefit from skilled inpatient PT intervention to increase strength and postural stability for improved level of functional mobility, safety and activity tolerance. Recommend discharge to SNF for continued rehab once medically cleared by MD. Recommend FWW once patient is able to transfer and ambulate. Addendum: 09/18/20 at 1223 by DIGNA MEDINA PT Amended: Links added.
[2020-09-18 12:00] VITALS: BP 108/54
--- NOTE | 2020-09-18 12:07 | Infectious Diseases Prog Note ---
Assessment/Plan Assessment/Plan IMPRESSION: Sepsis Pneumonia with COVID19 Hypoxic respiratory failure, improving Acute renal failure, Rhabdomyolysis, Diabetes mellitus. Leukocytosis, improving RECOMMENDATIONS: Finished dexamethasone course F/U CBC Subjective ROS Limited/Unobtainable: Yes Constitutional: Denies: fever Allergies: Coded Allergies: No Known Allergies (Unverified , 09/04/20) Objective Last 24 Hour Vital Signs Date Time Temp Pulse Resp B/P (MAP) Pulse Ox O2 Delivery O2 Flow Rate FiO2 09/18/20 08:00 98.2 66 22 111/52 (71) 97 09/18/20 05:48 117/50 09/18/20 04:00 97.9 60 20 119/60 (79) 98 09/18/20 04:00 57 09/18/20 00:00 98.6 67 18 112/57 (75) 96 09/18/20 00:00 62 09/17/20 22:00 114/55 09/17/20 21:00 Nasal Cannula 2.0 09/17/20 20:13 95 Nasal Cannula 2.0 28 09/17/20 20:00 64 09/17/20 20:00 98.4 68 18 114/55 (74) 95 09/17/20 16:00 98.1 73 18 109/53 (71) 96 09/17/20 16:00 73 09/17/20 14:00 112/52 Height (Feet): 5 Height (Inches): 5.00 Weight (Pounds): 140 HEENT: mucous membranes moist Respiratory/Chest: no respiratory distress, other - oxygen by nasal cannula Cardiovascular: normal rate Abdomen: soft, non tender Genitourinary: other - Tsang catheter Extremities: no edema Neurologic/Psychiatric: other - sleeping Laboratory Tests Test 09/17/20 12:45 09/17/20 22:58 09/18/20 06:20 09/18/20 08:45 POC Whole Blood Glucose 226 MG/DL (74-106) H 147 MG/DL (74-106) H 151 MG/DL (74-106) H White Blood Count 11.8 K/UL (4.8-10.8) H Red Blood Count 3.50 M/UL (4.20-5.40) L Hemoglobin 9.2 G/DL (12.0-16.0) L Hematocrit 28.8 % (37.0-47.0) L Mean Corpuscular Volume 82 FL (80-99) Mean Corpuscular Hemoglobin 26.2 PG (27.0-31.0) L Mean Corpuscular Hemoglobin Concent 31.9 G/DL (32.0-36.0) L Red Cell Distribution Width 13.8 % (11.6-14.8) Platelet Count 188 K/UL (150-450) Mean Platelet Volume 9.8 FL (6.5-10.1) Neutrophils (%) (Auto) 80.4 % (45.0-75.0) H Lymphocytes (%) (Auto) 12.8 % (20.0-45.0) L Monocytes (%) (Auto) 5.4 % (1.0-10.0) Eosinophils (%) (Auto) 0.1 % (0.0-3.0) Basophils (%) (Auto) 1.4 % (0.0-2.0) Sodium Level 138 MMOL/L (136-145) Potassium Level 3.9 MMOL/L (3.5-5.1) Chloride Level 101 MMOL/L (98-107) Carbon Dioxide Level 32 MMOL/L (21-32) Anion Gap 5 mmol/L (5-15) Blood Urea Nitrogen 68 mg/dL (7-18) H Creatinine 2.7 MG/DL (0.55-1.30) H Estimat Glomerular Filtration Rate 20.5 mL/min (>60) Glucose Level 137 MG/DL (74-106) H Calcium Level 8.0 MG/DL (8.5-10.1) L Phosphorus Level 3.4 MG/DL (2.5-4.9) Magnesium Level 2.1 MG/DL (1.8-2.4) Total Bilirubin 0.5 MG/DL (0.2-1.0) Direct Bilirubin 0.2 MG/DL (0.0-0.3) Aspartate Amino Transf (AST/SGOT) 28 U/L (15-37) Alanine Aminotransferase (ALT/SGPT) 21 U/L (12-78) Alkaline Phosphatase 82 U/L (46-116) Total Protein 5.6 G/DL (6.4-8.2) L Albumin 1.9 G/DL (3.4-5.0) L Test 09/18/20 11:45 POC Whole Blood Glucose 158 MG/DL (74-106) H Current Medications Medications (Trade) Dose Ordered Sig/Rebecca Route PRN Reason Start Time Stop Time Status Last Admin Dose Admin Acetaminophen (Tylenol) 650 mg Q4H PRN ORAL Mild Pain (Pain Scale 1-3) 09/05/20 07:15 10/05/20 07:14 09/06/20 12:34 Dextrose 1,000 ml @ 100 mls/hr Q10H IV 09/16/20 13:00 10/16/20 12:59 09/18/20 03:52 Dextrose (Dextrose 50%) 25 ml Q30M PRN IV Hypoglycemia 09/15/20 17:00 12/14/20 16:59 Dextrose (Dextrose 50%) 50 ml Q30M PRN IV Hypoglycemia 09/15/20 17:00 12/14/20 16:59 Enoxaparin Sodium (Lovenox) 30 mg DAILY SUBQ 09/06/20 09:00 12/05/20 08:59 09/18/20 08:54 Folic Acid (Folate) 2 mg DAILY ORAL 09/11/20 11:00 10/11/20 10:59 09/18/20 08:52 Hydralazine HCl (Apresoline) 25 mg Q4H PRN ORAL bp over 160 syst 09/12/20 11:15 12/11/20 11:14 Hydralazine HCl (Apresoline) 50 mg Q8HR ORAL 09/12/20 14:00 12/11/20 13:59 09/17/20 06:12 Insulin Aspart (NovoLOG) BEFORE MEALS AND HS SUBQ 09/15/20 17:07 12/14/20 17:06 09/18/20 11:46 Insulin Detemir (Levemir) 10 units Q12HR SUBQ 09/16/20 21:00 12/14/20 20:59 09/18/20 08:54 Pantoprazole (Protonix) 40 mg EVERY 12 HOURS IVP 09/10/20 21:00 10/10/20 20:59 09/18/20 09:00 Willian Banuelos MD Sep 18, 2020 12:07
--- NOTE | 2020-09-18 12:39 | Nephrology Progress Note ---
Assessment/Plan Problem List: (1) FLOWER (acute kidney injury) (2) Hypoxia (3) Pneumonia (4) 2019 novel coronavirus disease (COVID-19) (5) Electrolyte imbalance (6) Anemia Assessment Acute renal failure Confirmed COVID-19 pneumonia Sepsis Hypoxia, on BiPAP Anemia Electrolyte imbalances Hyperglycemia Transaminitis Rhabdomyolysis Troponin leak Plan September 18: Serum creatinine stable. Down to 2.7 today from 2.8 yesterday. Medication list reviewed. Patient remains full code. Continue per current management. September 17: Serum creatinine lowering. Continue D5W. Patient full code. Remains on Venturi mask. Continue to monitor renal parameters. September 16: Creatinine rising. Will start on D5W. Will increase his Levemir dose. Continue to monitor renal parameters. Patient full code. Remains on Venturi mask. September 15: Serum creatinine rising. IV Lasix discontinued. Patient on Venturi mask. Vitamin D level pending. Medication list reviewed. Continue to monitor renal parameters. Patient full code. September 14: Serum creatinine level rising. Patient remains on IV Lasix. Cardiology to reeval the need for 40 mg IV Lasix twice a day? Continue to monitor renal parameters September 13: Labs reviewed. Serum creatinine up to 2.4. White blood cells 17.8. Continue per consultants. Medication list reviewed. Continue to monitor renal parameters. September 12: Labs reviewed. Serum creatinine lower 2.2. Medication list reviewed. Hydralazine as needed for high blood pressure ordered. Continue per consultants. Continue to avoid nephrotoxic's. September 11: Labs reviewed. Serum creatinine 2.5 slightly lower than before. Electrolyte within normal limit. Folic acid ordered. Continue to monitor renal parameters. Continue per consultants. Previously Slow IV hydration Urine studies Avoid nephrotoxic's Anemia work-up IV Protonix Albumin bolus Monitor renal parameters Adjust blood pressure medication Urine studies Per orders Discussed with RN Subjective ROS Limited/Unobtainable: No Constitutional: Reports: malaise Objective Objective Last 24 Hour Vital Signs Date Time Temp Pulse Resp B/P (MAP) Pulse Ox O2 Delivery O2 Flow Rate FiO2 09/18/20 12:00 98.7 68 20 108/54 (72) 100 09/18/20 08:00 98.2 66 22 111/52 (71) 97 09/18/20 05:48 117/50 09/18/20 04:00 97.9 60 20 119/60 (79) 98 09/18/20 04:00 57 09/18/20 00:00 98.6 67 18 112/57 (75) 96 09/18/20 00:00 62 09/17/20 22:00 114/55 09/17/20 21:00 Nasal Cannula 2.0 09/17/20 20:13 95 Nasal Cannula 2.0 28 09/17/20 20:00 64 09/17/20 20:00 98.4 68 18 114/55 (74) 95 09/17/20 16:00 98.1 73 18 109/53 (71) 96 09/17/20 16:00 73 09/17/20 14:00 112/52 Intake and Output 09/17/20 09/18/20 19:00 07:00 Intake Total 120 ml 100 ml Output Total 1200 ml 1000 ml Balance -1080 ml -900 ml Intake Oral 120 ml IV Total 100 ml Output Urine Total 1200 ml 1000 ml # Voids 3 1 Laboratory Tests 09/17/20 12:45: POC Whole Blood Glucose 226H 09/17/20 22:58: POC Whole Blood Glucose 147H 09/18/20 06:20: POC Whole Blood Glucose 151H 09/18/20 08:45: White Blood Count 11.8H, Red Blood Count 3.50L, Hemoglobin 9.2L, Hematocrit 28.8L, Mean Corpuscular Volume 82, Mean Corpuscular Hemoglobin 26.2L, Mean Corpuscular Hemoglobin Concent 31.9L, Red Cell Distribution Width 13.8, Platelet Count 188, Mean Platelet Volume 9.8, Neutrophils (%) (Auto) 80.4H, Lymphocytes (%) (Auto) 12.8L, Monocytes (%) (Auto) 5.4, Eosinophils (%) (Auto) 0.1, Basophils (%) (Auto) 1.4, Sodium Level 138, Potassium Level 3.9, Chloride Level 101, Carbon Dioxide Level 32, Anion Gap 5, Blood Urea Nitrogen 68H, Creatinine 2.7H, Estimat Glomerular Filtration Rate 20.5, Glucose Level 137H, Calcium Level 8.0L, Phosphorus Level 3.4, Magnesium Level 2.1, Total Bilirubin 0.5, Direct Bilirubin 0.2, Aspartate Amino Transf (AST/SGOT) 28, Alanine Aminotransferase (ALT/SGPT) 21, Alkaline Phosphatase 82, Total Protein 5.6L, Albumin 1.9L 09/18/20 11:45: POC Whole Blood Glucose 158H Height (Feet): 5 Height (Inches): 5.00 Weight (Pounds): 140 General Appearance: no apparent distress, lethargic Cardiovascular: normal rate Respiratory/Chest: decreased breath sounds Abdomen: distended Zachary Dunlap MD Sep 18, 2020 12:39
--- NOTE | 2020-09-18 14:23 | General Progress Note ---
Subjective Allergies: Coded Allergies: No Known Allergies (Unverified , 09/04/20) Subjective better opens her eyes agitated on restrains on 2 l nc ac renal failure on teli Objective Last 24 Hour Vital Signs Date Time Temp Pulse Resp B/P (MAP) Pulse Ox O2 Delivery O2 Flow Rate FiO2 09/18/20 13:45 108/54 09/18/20 12:00 98.7 68 20 108/54 (72) 100 09/18/20 08:00 98.2 66 22 111/52 (71) 97 09/18/20 05:48 117/50 09/18/20 04:00 97.9 60 20 119/60 (79) 98 09/18/20 04:00 57 09/18/20 00:00 98.6 67 18 112/57 (75) 96 09/18/20 00:00 62 09/17/20 22:00 114/55 09/17/20 21:00 Nasal Cannula 2.0 09/17/20 20:13 95 Nasal Cannula 2.0 28 09/17/20 20:00 64 09/17/20 20:00 98.4 68 18 114/55 (74) 95 09/17/20 16:00 98.1 73 18 109/53 (71) 96 09/17/20 16:00 73 Intake and Output 09/17/20 09/18/20 19:00 07:00 Intake Total 120 ml 100 ml Output Total 1200 ml 1000 ml Balance -1080 ml -900 ml Intake Oral 120 ml IV Total 100 ml Output Urine Total 1200 ml 1000 ml # Voids 3 1 Laboratory Tests 09/17/20 22:58: POC Whole Blood Glucose 147H 09/18/20 06:20: POC Whole Blood Glucose 151H 09/18/20 08:45: White Blood Count 11.8H, Red Blood Count 3.50L, Hemoglobin 9.2L, Hematocrit 28.8L, Mean Corpuscular Volume 82, Mean Corpuscular Hemoglobin 26.2L, Mean Corpuscular Hemoglobin Concent 31.9L, Red Cell Distribution Width 13.8, Platelet Count 188, Mean Platelet Volume 9.8, Neutrophils (%) (Auto) 80.4H, Lymphocytes (%) (Auto) 12.8L, Monocytes (%) (Auto) 5.4, Eosinophils (%) (Auto) 0.1, Basophils (%) (Auto) 1.4, Sodium Level 138, Potassium Level 3.9, Chloride Level 101, Carbon Dioxide Level 32, Anion Gap 5, Blood Urea Nitrogen 68H, Creatinine 2.7H, Estimat Glomerular Filtration Rate 20.5, Glucose Level 137H, Calcium Level 8.0L, Phosphorus Level 3.4, Magnesium Level 2.1, Total Bilirubin 0.5, Direct B ilirubin 0.2, Aspartate Amino Transf (AST/SGOT) 28, Alanine Aminotransferase (ALT/SGPT) 21, Alkaline Phosphatase 82, Total Protein 5.6L, Albumin 1.9L 09/18/20 11:45: POC Whole Blood Glucose 158H Height (Feet): 5 Height (Inches): 5.00 Weight (Pounds): 140 General Appearance: alert EENT: PERRL/EOMI Neck: supple Cardiovascular: regular rhythm Respiratory/Chest: lungs clear Abdomen: non tender, soft Extremities: non-tender Assessment/Plan Status: unchanged Assessment/Plan: aloc better ac resp failure improving pna r/ o covid worse dehyration demtentia anemia leucocytosis due to steroids ac renal failure nephro consult check abg dw with pulmonary cont iv abx, decadrone , hao eval and transfer whenever bed is available dw ed dtr updated Sravan Licona MD Sep 18, 2020 14:23
[2020-09-18] MEDS ORDERED: ACETAMINOPHEN325 M1 ORAL (14:27)
[2020-09-18] MEDS ORDERED: FOLIC ACID1 MG ORAL (14:28)
[2020-09-18] MEDS ORDERED: HYDRALAZINE HCL25 M1 ORAL (14:29)
[2020-09-18] MEDS ORDERED: HYDRALAZINE HCL50 MG ORAL (14:29)
[2020-09-18] MEDS ORDERED: PROTONIX40 MG ORAL (14:30)
[2020-09-18] MEDS ORDERED: LEVEMIR FL100 UNIT/2 SQ (14:31)
[2020-09-18] MEDS ORDERED: NOVOLOG100 UNITS1 SUBQ (14:31)
--- NOTE | 2020-09-18 15:22 | NUR ---
SLUDGE FILTRATION ATTENDANT NOTES SPOKE WITH SUSAN FROM [facility] PT ACCEPTED TO [facility] ROOM [facility]. [facility] TO TRANSPORT PT WITH AN ETA 1630. NURSE TO CALL REPORT TO [phone]. [facility] [address] [place] [phone] Addendum: 09/18/20 at 1528 by ROCIO MUHAMMAD RN SPOKE WITH PT'S DAUGHTER KENDRA MADE AWARE OF TRANSFER TO [facility] AND IS IN AGREEMENT WITH THE DCP AT THIS TIME.
--- NOTE | 2020-09-18 15:42 | NUR ---
NURSE NOTES: LEFT VM TO DAUGHTERKENDRA REGARDING DISCHARGE. REPORT GIVEN TO RIGO @ [facility]. WILL CONT TO MONITOR
[2020-09-18 16:00] VITALS: BP 115/56
--- NOTE | 2020-09-18 16:30 | NUR ---
NURSE NOTES: REMOVED INTENSIVE CARE UNIT REGISTERED NURSE AND IV [facility]. AWAITING FOR AMBULANCE. WILL CONT JIMENEZ MONITOR.
--- NOTE | 2020-09-18 16:30 | Cardiology Progress Note ---
Assessment/Plan Status Narrative Oxygen dependent, on full face mask, receiving treatment for COVID-19 viral PNA. BNP improved, HR improved. Assessment/Plan 1. COVID-19 viral PNA 2. Leukocytosis 3. Respiratory failure and oxygen dependence on NRB mask 4. Sinus bradycardia Bb and Ca channel shu held rate improved 5. CHF acute on chronic HF with elevated BNP now improved echo pending diuresis with Lasix, as needed 5. FLOWER on CKD 6. Anemia 7. DMII 8. Demenia and frailty Subjective ROS Limited/Unobtainable: Yes Subjective No acute events, BNP improved 239 WBCs elevated Objective Last 24 Hour Vital Signs Date Time Temp Pulse Resp B/P (MAP) Pulse Ox O2 Delivery O2 Flow Rate FiO2 09/18/20 13:45 108/54 09/18/20 12:00 98.7 68 20 108/54 (72) 100 09/18/20 12:00 62 09/18/20 09:00 Nasal Cannula 2.0 09/18/20 08:00 65 09/18/20 08:00 98.2 66 22 111/52 (71) 97 09/18/20 05:48 117/50 09/18/20 04:00 97.9 60 20 119/60 (79) 98 09/18/20 04:00 57 09/18/20 00:00 98.6 67 18 112/57 (75) 96 09/18/20 00:00 62 09/17/20 22:00 114/55 09/17/20 21:00 Nasal Cannula 2.0 09/17/20 20:13 95 Nasal Cannula 2.0 28 09/17/20 20:00 64 09/17/20 20:00 98.4 68 18 114/55 (74) 95 Intake and Output 09/17/20 09/18/20 19:00 07:00 Intake Total 120 ml 100 ml Output Total 1200 ml 1000 ml Balance -1080 ml -900 ml Intake Oral 120 ml IV Total 100 ml Output Urine Total 1200 ml 1000 ml # Voids 3 1 Laboratory Tests Test 09/17/20 22:58 09/18/20 06:20 09/18/20 08:45 09/18/20 11:45 POC Whole Blood Glucose 147 MG/DL (74-106) H 151 MG/DL (74-106) H 158 MG/DL (74-106) H White Blood Count 11.8 K/UL (4.8-10.8) H Red Blood Count 3.50 M/UL (4.20-5.40) L Hemoglobin 9.2 G/DL (12.0-16.0) L Hematocrit 28.8 % (37.0-47.0) L Mean Corpuscular Volume 82 FL (80-99) Mean Corpuscular Hemoglobin 26.2 PG (27.0-31.0) L Mean Corpuscular Hemoglobin Concent 31.9 G/DL (32.0-36.0) L Red Cell Distribution Width 13.8 % (11.6-14.8) Platelet Count 188 K/UL (150-450) Mean Platelet Volume 9.8 FL (6.5-10.1) Neutrophils (%) (Auto) 80.4 % (45.0-75.0) H Lymphocytes (%) (Auto) 12.8 % (20.0-45.0) L Monocytes (%) (Auto) 5.4 % (1.0-10.0) Eosinophils (%) (Auto) 0.1 % (0.0-3.0) Basophils (%) (Auto) 1.4 % (0.0-2.0) Sodium Level 138 MMOL/L (136-145) Potassium Level 3.9 MMOL/L (3.5-5.1) Chloride Level 101 MMOL/L (98-107) Carbon Dioxide Level 32 MMOL/L (21-32) Anion Gap 5 mmol/L (5-15) Blood Urea Nitrogen 68 mg/dL (7-18) H Creatinine 2.7 MG/DL (0.55-1.30) H Estimat Glomerular Filtration Rate 20.5 mL/min (>60) Glucose Level 137 MG/DL (74-106) H Calcium Level 8.0 MG/DL (8.5-10.1) L Phosphorus Level 3.4 MG/DL (2.5-4.9) Magnesium Level 2.1 MG/DL (1.8-2.4) Total Bilirubin 0.5 MG/DL (0.2-1.0) Direct Bilirubin 0.2 MG/DL (0.0-0.3) Aspartate Amino Transf (AST/SGOT) 28 U/L (15-37) Alanine Aminotransferase (ALT/SGPT) 21 U/L (12-78) Alkaline Phosphatase 82 U/L (46-116) Total Protein 5.6 G/DL (6.4-8.2) L Albumin 1.9 G/DL (3.4-5.0) L Keisha Hugo PA-C Sep 18, 2020 16:30
--- NOTE | 2020-09-18 18:42 | NUR ---
NURSE NOTES: CALLED [phone] [facility] TO F/U VICE PRESIDENT BIOSTATISTICS. SPOKE WITH ROMIE AND DISPATCHER WILL BE LATE IN 45 MIN. WILL CONT TO MONITOR.
--- NOTE | 2020-09-18 19:11 | NUR ---
NURSE HAND-OFF REPORT: Important Events on Shift:[awaiting for ambulance] Patient Status: [stable] Diet: [ccho med soft easy] Pending Orders: [] Pending Results/Labs:[] Pending MD notification:[] Latest Vital Signs: Temperature 98.1 , Pulse 66 , B/P 115 /56 , Respiratory Rate 20 , O2 SAT 98 , Venturi Mask, O2 Flow Rate 2.0 . Vital Sign Comment: [] EKG Rhythm: Sinus Rhythm Rhythm change?: N MD Notified?: N - MD Response: Latest Cotton Fall Score: 60 Fall Risk: High Risk Safety Measures: Call light Within Reach, Bed Alarm Zone 2, Side Rails Side Rails x3, Bed position Low and Locked. Fall Precautions: Yellow Socks Yellow Gown Door Sign Patient Fall Education Report given to [jeromy].
--- NOTE | 2020-09-18 20:30 | NUR ---
NURSE NOTES: [facility] ambulance arrived to transport pt to [facility]. All belongings accounted for. Tele box removed. Report given to Ambulance operators. Pt in stable condition.
--- NOTE | 2020-09-20 11:56 | Discharge Summary ---
Discharge Summary Discharge Summary _ Date of admission: 09/04/2020 Date of discharge: 09/18/[address] Licona History of Present Illness and Brief Hospital Course Ms. Quintanilla is an 80-year-old female with past medical history of hypertension, and diabetes, who presented to the ED for evaluation of hypoglycemia and hypoxia. Patient was reported to be saturating at 70% on room air according to EMS. She was immediately placed on 4 L nasal cannula with good resolution of her hypoxia. She was found to be hypoglycemic with a blood glucose of 20 on arrival. She was given 250 cc of D10W. Repeat blood glucose after 30 minutes was 204. Patient reported of 2 days history of fever. She denied chills, chest pain, palpitations, cough, back pain, abdominal pain, nausea, vomiting, diarrhea, or dysuria. The initial rapid COVID-19 test in the ER was negative. The EKG showed normal sinus rhythm without signs of ischemia, or ectopy. The initial chest x-ray was notable for mild opacities within the left greater than right lung bases and periphery of the right midlung. She was given IV fluids, Lovenox, antibiotics, and dextrose in the ER and was admitted to the hospital for further management. Given her hypoxia on arrival, she was provided with supplemental oxygen via nasal cannula along with Decadron. Despite testing negative on initial COVID-19 testing, she showed to have bilateral infiltrates on chest x-ray. She was started on empiric antibiotics for possible pneumonia coverage. Her COVID-19 PCR test was positive on the next day and medical management was continued. Due to worsening hypoxia on nasal cannula, she was placed on BiPAP and was transferred to [facility]. BiPAP was later switched to nonrebreather mask. Throughout her admission, her supplemental oxygen delivery was able to be weaned down progressively to Ventimask, then to nasal cannula. A repeat chest x-ray on 09/15/2020 showed slight improvement. With the finding of staph epidermidis in blood culture, she was started on IV vancomycin. Given her elevated creatinine level on arrival, her renal parameters were closely monitored throughout her admission. She was temporarily on IV Lasix as needed given her acute on chronic CHF with elevated BNP. Her creatinine remained stable. She has been evaluated by physical therapy, who recommended discharging patient to SNF for continued rehab. Initially, patient's prognosis remained poor with worsening hypoxia. However, she required less supplemental oxygen throughout her admission. Her vitals and laboratory values were stabilized. She was medically stable for transport to [facility] on 09/18/2020. Consultants: Cardiology Keisha Hugo PA-C Nephrology Dr. Ndiaye Infectious disease Dr. Banuelos Pulmonology Dr. Ceron Discharge Condition Stable and improved Final diagnoses Leukocytosis Hypoxic respiratory failure Sinus bradycardia Acute on chronic CHF FLOWER on CKD Anemia Diabetes type 2 Dementia Dehydration Sepsis Rhabdomyolysis Gram-positive bacteremia I have been assigned to dictate discharge summary for this account. Vargas Meng Sep 20, 2020 11:56
== END 2020-09-18 20:30 | DRG 871 ==
LOC: EDBD 16:39 → EMR 17:34 → EDBEDREQ 18:14 → EDBEDREQSVC 18:14 → 2E 18:20 → EDBEDREQ 21:14 → 2E 23:22 → 2W 09-09 20:41 → 2E 09-16 06:34
PROC: 5A09457 Assistance with Respiratory Ventilation, 24-96 Consecutive Hours, Continuous Positive Airway Pressure (ICD-10-PCS; principal; 2020-09-08)
DX: A41.89 Other specified sepsis (principal); J96.01 Acute respiratory failure with hypoxia; U07.1 COVID-19; J12.82 Pneumonia due to coronavirus disease 2019; N17.9 Acute kidney failure, unspecified; E87.1 Hypo-osmolality and hyponatremia; M62.82 Rhabdomyolysis; N39.0 Urinary tract infection, site not specified; E44.0 Moderate protein-calorie malnutrition; J98.11 Atelectasis; I50.9 Heart failure, unspecified; E11.65 Type 2 diabetes mellitus with hyperglycemia; F03.90 Unspecified dementia, unspecified severity, without behavioral disturbance, psychotic disturbance, mood disturbance, and anxiety; D64.9 Anemia, unspecified; E86.0 Dehydration; E11.22 Type 2 diabetes mellitus with diabetic chronic kidney disease; N18.9 Chronic kidney disease, unspecified; Z79.4 Long term (current) use of insulin; Z20.822 Contact with and (suspected) exposure to COVID-19
CPT/HCPCS: 36415; 71045; 80048; 80053; 80076; 80202; 81001; 81003; 82306; 82550; 82553; 82565; 82607; 82728; 82746; 82803; 82962; 82977; 83036; 83540; 83550; 83605; 83615; 83690; 83735; 83880; 84100; 84300; 84484; 84550; 85007; 85025; 85379; 85610; 85730; 86140; 87040; 87086; 87181; 93005; 93306; 94660; 96361; 96365; 96367; 96372; 96375; 99285; J1815; J7030; S5561; U0002